=== PATIENT | female | born 1945 | race Caucasian/White ===

== ENCOUNTER 2016-04-29 12:55 | Inpatient (IN) | payer MEDICARE, BC, OTHER ==
--- NOTE | 2016-04-29 13:07 | ER Document Report ---
ED Respiratory Problem - General Chief Complaint: Shortness Of Breath Stated Complaint: RESPIRATORY DISTRESS Information source: Patient, Emergency Med Personnel Notes: The patient is a 70-year-old female, past medical history CHF, frequent bouts of pneumonia, hypertension, presents with 1 day of increased shortness of breath. In addition, her son said she is mildly confused compared to her baseline and she may have a UTI. The patient was 84% on room air when EMS arrived and she was given a dose of albuterol by EMS prior to arrival. She denies chest pain, leg swelling, cough, fevers, nausea, vomiting, abdominal pain , flank pain or rash. TRAVEL OUTSIDE OF THE [place] IN LAST 30 DAYS: No - Related Data Allergies/Adverse Reactions: morphine [Morphine] Allergy (Mild, Verified 06/04/14 03:36) "oversedated" Past Medical History - General Information source: Patient, Emergency Med Personnel - Social History Smoking Status: Never Smoker Family History: denies: CAD - Past Medical History Cardiac Medical History: Reports: Hx Atrial Fibrillation - "stable/well controlled" per 05/02/13 note, Dr Jackman, Hx Hypercholesterolemia, Hx Hypertension Pulmonary Medical History: Reports: Hx Bronchitis, Hx COPD, Hx Pneumonia - Pediatric Neurological Medical History: Reports: Hx Cerebrovascular Accident Endocrine Medical History: Reports: Hx Diabetes Mellitus Type 2 Musculoskeltal Medical History: Reports Hx Arthritis Skin Medical History: Reports Hx MRSA - abdominal wall, resolved. Psychiatric Medical History: Reports: Hx Depression Traumatic Medical History: Reports: Hx Fractures - "LT arm", no surgery Past Surgical History: Reports: Hx Abdominal Surgery - abdominal abscess, Hx Herniorrhaphy - incisional, Hx Hysterectomy - CHIP, Hx Orthopedic Surgery - left hip replacement, right knee replacement. - Immunizations Hx Diphtheria, Pertussis, Tetanus Vaccination: No Hx Pneumococcal Vaccination: 06/05/13 Review of Systems - Review of Systems Notes: REVIEW OF SYSTEMS: CONSTITUTIONAL: -fevers, -chills EENT: -eye pain, -difficulty swallowing, -nasal congestion CARDIOVASCULAR: -chest pain, -syncope. RESPIRATORY: -cough, +SOB GASTROINTESTINAL: -abdominal pain, - nausea, -vomiting, -diarrhea GENITOURINARY: -dysuria, -hematuria MUSCULOSKELETAL: -back pain, -neck pain SKIN: -rash or skin lesions. HEMATOLOGIC: -easy bruising or bleeding. LYMPHATIC: -swollen, enlarged glands. NEUROLOGICAL: +mild confusion, -headache, -neurologic symptoms PSYCHIATRIC: -anxiety, -depression. ALL OTHER SYSTEMS REVIEWED AND NEGATIVE. Physical Exam - Vital signs Vitals: Temp Pulse Resp BP Pulse Ox 99.8 F 51 L 22 H 130/75 H 88 L 04/29/16 13:24 04/29/16 13:24 04/29/16 13:24 04/29/16 13:24 04/29/16 13:24 - Notes Notes: PHYSICAL EXAMINATION: GENERAL: Well-appearing, well-nourished and in no acute distress. HEAD: Atraumatic, normocephalic. EYES: Pupils equal round and reactive to light, extraocular movements intact, sclera anicteric, conjunctiva are normal. ENT: nares patent, oropharynx clear without exudates. Moist mucous membranes. NECK: Normal range of motion, supple without lymphadenopathy LUNGS: B/L rales and crackles. No respiratory distress. HEART: Regular rate and rhythm without murmurs ABDOMEN: Soft, nontender, normoactive bowel sounds. No guarding, no rebound. No masses appreciated. EXTREMITIES: Normal range of motion, no pitting or edema. No cyanosis. NEUROLOGICAL: Cranial nerves grossly intact. Normal speech, normal gait. Normal sensory, motor, and reflex exams. PSYCH: Normal mood, normal affect. SKIN: Warm, Dry, normal turgor, no rashes or lesions noted. Course - Re-evaluation Re-evalutation: Patient with hypoxia down to 82% on room air that improves to 94% on 4 L O2. She does not wear oxygen at home. Possible left lower lobe pneumonia on chest x -ray. Last hospitalization was one year ago. Will treat her for CAP. Pt in no respiratory distress and denies chest pain. Patient requires admission for oxygen and further evaluation treatment of her cough and shortness of breath. 04/29/16 18:[address] Jiménez and will admit patient as Inpatient to IMCU for pneumonia and hypoxia. - Vital Signs Vital signs: Temp Pulse Resp BP Pulse Ox 99.8 F 85 22 H 125/100 H 93 04/29/16 13:24 04/29/16 15:01 04/29/16 16:01 04/29/16 18:01 04/29/16 18:32 - Laboratory Result Diagrams: 04/29/16 15:23 04/29/16 15:14 Laboratory results interpreted by me: 04/29/16 04/29/16 04/29/16 13:18 15:14 15:23 RDW 14.8 H Monocytes % 13.1 H Sodium 136.2 L Potassium 3.3 L Glucose 123 H NT-Pro-B Natriuret Pep Urine Protein 30 H Urine Blood SMALL H Urine Urobilinogen 2.0 H 04/29/16 15:23 RDW Monocytes % Sodium Potassium Glucose NT-Pro-B Natriuret Pep 1210 H Urine Protein Urine Blood Urine Urobilinogen - Diagnostic Test Radiology reviewed: Image reviewed, Reports reviewed Radiology results interpreted by me: CXR: LLL patchiness, pneumonia or atelectasis Discharge - Discharge Clinical Impression: Hypoxia, Hypokalemia Pneumonia Qualifiers: Pneumonia type: due to unspecified organism Laterality: left Lung location: lower lobe of lung Qualified Code(s): J18.1 - Lobar pneumonia, unspecified organism Condition: Stable Disposition: ADMITTED INPATIENT Admitting Provider: [place] [facility] Unit Admitted: IMCU Referrals: RANI OBANDO PA [Primary Care Provider] - Follow up as needed
[2016-04-29 13:51] LABS: APPEARANCE,URINE SLIGHTLY-CLOUDY; BILIRUBIN,URINE NEGATIVE (NEGATIVE); GLUCOSE, URINE NEGATIVE (NEGATIVE); KETONES,URINE NEGATIVE (NEGATIVE); LEUKOCYTE ESTERASE,URINE NEGATIVE (NEGATIVE); NITRITE,URINE NEGATIVE (NEGATIVE); PROTEIN,URINE 30 mg/dL (NEGATIVE); URINE SPECIFIC GRAVITY 1.016
[2016-04-29] MEDS ORDERED: AZITHROMYCIN INJ 500 MG VIAL IV ONE (14:41)
[2016-04-29] MEDS ORDERED: CEFTRIAXONE INJ 1000 MG VIAL IV ONE (14:41)
--- NOTE | 2016-04-29 15:20 | EKG REPORT ---
SEVERITY:- ABNORMAL ECG - ATRIAL FIBRILLATION LEFT BUNDLE BRANCH BLOCK : Confirmed by: Florecita Benavides MD 29-Apr-2016 15:19:53
[2016-04-29 15:46] LABS: ABSOLUTE BASOPHILS # (AUTO) 0.1 10^3/uL (0.0-0.2); ABSOLUTE LYMPHOCYTES (AUTO) 1.1 10^3/uL (0.5-4.7); ABSOLUTE MONOCYTES (AUTO) 1.1 10^3/uL (0.1-1.4); BASOPHILS % (AUTO) 0.8 % (0-2); EOSINOPHILS % (AUTO) 0.1 % (0-6); HEMATOCRIT 40.1 % (36.0-47.0); HEMOGLOBIN 13.3 g/dL (12.0-15.5); HGB HCT DIFFERENCE -0.2; LYMPHOCYTES % (AUTO) 13.1 % (13-45); MEAN CORPUSCULAR HEMOGLOBIN 29.9 pg (27.0-33.4); MEAN CORPUSCULAR HGB CONC 33.2 g/dL (32.0-36.0); MEAN CORPUSCULAR VOLUME 90 fl (80-97); MONOCYTES % (AUTO) 13.1 % (3-13); RED BLOOD COUNT 4.45 10^6/uL (3.72-5.28); RED CELL DISTRIBUTION WIDTH 14.8 % (11.5-14.0); SEGMENTED NEUTROPHILS % (AUTO) 72.9 % (42-78); WHITE BLOOD COUNT 8.2 10^3/uL (4.0-10.5)
[2016-04-29 15:58] LABS: ANION GAP 11 (5-19); BLOOD UREA NITROGEN 15 mg/dL (7-20); CALCIUM 8.7 mg/dL (8.4-10.2); CARBON DIOXIDE 27 mmol/L (22-30); CHLORIDE 98 mmol/L (98-107); CREATINE KINASE 68 U/L (30-135); CREATININE RESULT 0.68 mg/dL (0.52-1.25); GLUCOSE 123 mg/dL (75-110); POTASSIUM 3.3 mmol/L (3.6-5.0); SODIUM 136.2 mmol/L (137-145)
[2016-04-29 16:02] LABS: TROPONIN I 0.024 ng/mL
[2016-04-29] MEDS ORDERED: POTASSIUM CHLORIDE 20 MEQ/15 ML UDCUP PO ONE (16:16)
[2016-04-29 20:08] LABS: ADD ON TESTING BLD IN LAB ACKNOWLEDGE
[2016-04-29 20:22] LABS: ALANINE AMINOTRANSFERASE 33 U/L (9-52); ALBUMIN 3.2 g/dL (3.5-5.0); ALKALINE PHOSPHATASE 65 U/L (38-126); ASPARTATE AMINO TRANSFERASE 32 U/L (14-36); TOTAL PROTEIN 6.6 g/dL (6.3-8.2)
[2016-04-29 20:56] LABS: PROTHROMBIN TIME 15.3 SEC (11.4-15.4)
[2016-04-29 20:57] LABS: PARTIAL THROMBOPLASTIN TIME 24.1 SEC (23.5-35.8)
[2016-04-29 21:12] LABS: VENOUS BLOOD BASE EXCESS 5.2 mmol/L; VENOUS BLOOD HCO3 31.3 mmol/L (20-32); VENOUS BLOOD PH 7.4 (7.30-7.42)
[2016-04-29] MEDS ORDERED: ACETAMINOPHEN 325 MG TABLET PO PRN (21:12)
[2016-04-29] MEDS ORDERED: GUAIFENESIN SYRP 200 MG/10 ML UDC PO PRN (21:12)
[2016-04-29] MEDS ORDERED: ALBUTEROL SULFATE 0.083% NEB 2.5 MG/3 ML AMPUL NEB PRN (21:12)
[2016-04-29] MEDS ORDERED: DEXTROSE 40% GEL 15 GM TUBE PO PRN ×2 (21:13)
[2016-04-29] MEDS ORDERED: DEXTROSE 50%-WATER 25 GM/50 ML DISP.SYRIN IV PRN ×2 (21:13)
[2016-04-29] MEDS ORDERED: GLUCAGON,HUMAN RECOMB 1 MG INJ IM PRN (21:13)
[2016-04-29] MEDS ORDERED: METHYLPREDNISOLONE INJ 125 MG/2 ML SDV IV ONE (21:30)
--- NOTE | 2016-04-29 21:43 | PDOC H&P ---
History of Present Illness Admission Date/PCP: 04/29/16 19:32 DR. JUAN M Oscar Patient complains of: difficulty breathing History of Present Illness: August ANNELISE is a 70 year old female with underlying nonhome O2 dependent COPD, possibly asthma, along with chronic atrial fibrillation, on Xarelto for same, and combined systolic and diastolic congestive heart failure, who presents to the emergency room for evaluation of approximate 24-hour history of slowly progressive difficulty breathing, in particular with much of any exertion. 84% on room air when EMS arrived. Was given an albuterol treatment en route. Associated slightly productive cough, but no fever chills, nausea vomiting, diarrhea or dysuria, chest or abdominal pain. Lost her balance and fell and struck the back of her head on her bathroom floor yesterday. No loss of consciousness. Hospitalized on our service November 28 through the of last year with discharge diagnoses including atrial fibrillation with rapid ventricular response, along with COPD exacerbation and acute on chronic combined diastolic and systolic congestive heart failure. Has not been hospitalized since then. Doesn't think she's been on antibiotics in the last 3 months. Up-to-date with her flu vaccination. Uncertain about her pneumonia vaccination. Patient has been discussed with daytime hospitalist who discussed the patient with the emergency room physician who evaluated the patient. . Laboratory results are listed in [facility] and are reviewed. X-ray summary results are listed below, with full report(s) reviewed. . EKG reviewed. And compared to a tracing from November 28 of last year. Social history/personal habits: . Grandson and family live with her. Retired. No use of alcohol tobacco or illicit drugs. was a heavy smoker. Allergies/adverse reactions are listed in [facility] and are reviewed. Home medications are reviewed by bottle review and discussion with patient and [facility] Home medications initially autopopulated into [facility] may not accurately reflect patient's true medications, dosages, and/or frequencies. Compliant with medications. No recent medication changes. REVIEW OF SYSTEMS: Constitutional: No fever or chills. Eyes: Wears glasses. ENT: No swallowing problems or complaints. No hearing problems or complaints. Pulmonary: See history and present illness. Cardiovascular: No current complaints, including chest pain. Gastrointestinal: No current complaints, including nausea or vomiting. Skin: No current complaints, including rashes. Hematologic: Easy bruising. Neurologic: No current complaints, including numbness or tingling. Musculoskeletal: No current complaints, including painful joints. Psychiatric: No current complaints, including anxiety or depression. Endocrine: No current complaints, including polyuria. Genitourinary: No current complaints, including dysuria. PHYSICAL EXAMINATION: Temperature 99.8. 5 feet 3 inches tall. 79.8 kg. BMI 31.2 kg/m. Pulse 96 and regular. 93% saturation on 3 L oxygen per nasal cannula. Blood pressure 160/88. Respirations are 22 and unlabored. Obese somewhat chronically ill-appearing elderly female who appears a bit older than her stated age. Pleasant awake alert and cooperative. Mildly anxious, without agitation. Appears to feel a bit under the weather, so to speak. Slightly fatigued. Skin is warm and dry. No grossly obvious evidence of rash in areas of skin examined. No subcutaneous nodules palpated. malar region and lower forehead slightly erythematous --seborrhea? ENT: Hearing grossly normal to normal conversation. Tongue midline on protrusion pink and slightly tacky. No palpable occipital hematoma, crepitus, or instability.. Eyes: No scleral icterus. Pupils equal and reactive to light at 4 mm. [place] conjunctivae. No raccoon eyes. Neck is supple and nontender to gentle active range of motion and palpation. Midline trachea. No palpable thyroid nodule mass enlargement or tenderness. Lymphatic: No palpable cervical or clavicular nodes. Neck and lymphatic exams limited by patient body habitus. Psychiatric: Reasonable insight into acute and chronic medical issues. Oriented to time location and why here. Lungs: Auscultation reveals equal breath sounds bilaterally. No use of accessory respiratory muscles. Slightly coarse breath sounds bilaterally, with mild expiratory wheezing. breath sounds a bit more rhonchorous in the lower half of the left hemithorax. Cardiovascular: Heart regular rate and rhythm, without gallop murmur or rub. No carotid or abdominal aortic bruits. No ankle or pedal edema. Faintly palpable dorsalis pedis pulses. Abdomen: soft, slightly obese, nontender with positive bowel sounds. Unable to adequately evaluate abdomen for masses or organomegaly due to body habitus. Extremities: Feet are warm and dry. No calf tenderness to compression. No grossly obvious visual evidence of calf swelling. Gentle manipulation of lower extremities fails to reveal any obvious evidence of injury or instability to knees hips or ankles. Neurologic: Moves upper extremities grossly normally. Patellar reflexes absent. Absent Babinski. Light touch is intact at feet. Dorsiflexion and plantarflexion of feet 5 / 5 and symmetric. Mild resting tremor, upper and lower extremities.. Past Medical History Cardiac Medical History: Reports: Atrial Fibrillation, Congestive Heart Failure , Hyperlipidema, Hypertension Denies: DVT, Myocardial Infarction, Pulmonary Embolism Pulmonary Medical History: Reports: Bronchitis, Chronic Obstructive Pulmonary Disease (COPD), Pneumonia - Pediatric EENT Medical History: Reports: Eyes - Glasses Denies: Ears, Throat Neurological Medical History: Denies: Hemorrhagic CVA, Ischemic CVA, Seizures Endocrine Medical History: Reports: Diabetes Mellitus Type 2 - Diet controlled Denies: Diabetes Mellitus Type 1, Hyperthyroidism, Hypothyroidism Renal/ Medical History: Reports: None GI Medical History: Denies: Cirrhosis, Gastroesophageal Reflux Disease, Hepatitis, Peptic Ulcer Disease Musculoskeltal Medical History: Denies: Arthritis Skin Medical History: Reports: None Denies: Eczema, Psoriasis Psychiatric Medical History: Denies: Alcohol Dependency, Depression, General Anxiety Disorder, Substance Abuse, Tobacco Dependency Hematology: Reports: Other - Easy bruising Infectious Medical History: Denies: Hepatitis B, Hepatitis C Past Surgical History Past Surgical History: Reports: Herniorrhaphy - incisional, Hysterectomy - CHIP, Orthopedic Surgery - left hip replacement, right knee replacement. Denies: Amputation Social History Information Source: Patient, Emergency Med Personnel, [facility] Records Lives with: Family Smoking Status: Never Smoker Frequency of Alcohol Use: None Hx Recreational Drug Use: No Hx Prescription Drug Abuse: No - Advance Directive Resuscitation Status: Do Not Resuscitate - Implications of DO NOT RESUSCITATE/ DO NOT INTUBATE status discussed with patient. Discussed in layperson's terms. Implications understood. Patient is the health care decision maker. Patient conversation is lucid and appropriate. Patient desires DO NOT RESUSCITATE/DO NOT INTUBATE status. Will honor patient wishes. Surrogate healthcare decision maker:: Her daughter Family History Family History: denies: CAD Parental Family History Reviewed: Yes Children Family History Reviewed: Yes Sibling(s) Family History Reviewed.: Yes Medication/Allergy Home Medications: Atorvastatin Calcium [Lipitor 40 mg Tablet] 40 mg PO QHS 04/30/16 Brimonidine Tartrate/Timolol [Combigan 0.2%-0.5% Eye Drops] 1 drop OS Q12 Budesonide/Formoterol Fumarate [Symbicort HFA 160-4.5 mcg Inhaler 6 gm] 2 puff IH Q12 04/30/16 Carvedilol [Coreg 6.25 mg Tablet] 6.25 mg PO Q12 04/30/16 Diltiazem HCl [Cartia Xt] 240 mg PO Q12 04/30/16 Ergocalciferol (Vitamin D2) [Vitamin D2] 50,000 unit PO SAINI@1000 04/30/16 Escitalopram Oxalate [Lexapro] 10 mg PO QHS 04/30/16 Fluticasone/Salmeterol [Advair 250-50 Diskus 14 Dose/Diskus] 1 puff IH Q12 04/30 Furosemide [Lasix] 20 mg PO QAM 04/30/16 Timolol Maleate [Timoptic 0.5% Oph Soln 5 ml] 1 drop OS Q12 04/30/16 Glimepiride [Amaryl 4 mg Tablet] 4 mg PO DAILY #30 tablet 05/07/16 Lisinopril [Prinivil 10 mg Tablet] 10 mg PO DAILY #30 tablet 05/07/16 Metformin HCl 500 mg PO DAILY #30 tablet 05/07/16 Prednisone [Deltasone 20 mg Tablet] 20 mg PO DAILY #5 tablet 05/07/16 Allergies/Adverse Reactions: morphine [Morphine] Allergy (Mild, Verified 06/04/14 03:36) "oversedated" Physical Exam Vital Signs: Temp Pulse Resp BP Pulse Ox 99.8 F 85 22 H 125/100 H 93 04/29/16 13:24 04/29/16 15:01 04/29/16 16:01 04/29/16 18:01 04/29/16 18:32 Results Impressions: Chest X-Ray 04/29/16 13:02 IMPRESSION: Stable moderate cardiomegaly Patchy airspace disease at the left lateral lung base, atelectasis versus pneumonia Assessment & Plan - Diagnosis (1) Blunt head trauma Qualifiers: Encounter type: initial encounter Qualified Code(s): S09.8XXA - Other specified injuries of head, initial encounter Is this a current diagnosis for this admission?: YesPlan: Clinically doesn't appear significant, but with patient on Xarelto, will proceed with CT scan of head without contrast. Strongly encouraged patient not to get out of bed without notifying staff, to avoid another fall with injury. Physical therapy consult. (2) COPD exacerbation Is this a current diagnosis for this admission?: YesPlan: Patient will be admitted under COPD exacerbation and pneumonia protocol. Incentive spirometry twice a day. Scheduled DuoNeb's. PRN albuterol nebs Solu-Medrol Prevacid for gastritis prophylaxis. Antibiotics will consist of Rocephin and intravenous Zithromax.. I strongly encouraged patient to notify staff should patient feel that respiratory status is worsening. Patient is a full code. Knee high SCDs for DVT prophylaxis; with patient on Xarelto, no need for Lovenox or heparin at this point in time. Impression and plans were discussed with patient, who concurs. Time spent in evaluation and management of patient: 70 minutes. (3) Fall Qualifiers: Encounter type: initial encounter Qualified Code(s): W19.XXXA - Unspecified fall, initial encounter Is this a current diagnosis for this admission?: Yes (4) Hypokalemia Is this a current diagnosis for this admission?: YesPlan: Has received potassium from ER physician. Follow-up chemistry. (5) LLL pneumonia Qualifiers: Pneumonia type: due to unspecified organism Qualified Code(s): J18.1 - Lobar pneumonia, unspecified organism Is this a current diagnosis for this admission?: Yes (6) Combined systolic and diastolic congestive heart failure Qualifiers: Congestive heart failure chronicity: chronic Qualified Code(s): I50.42 - Chronic combined systolic (congestive) and diastolic (congestive) heart failure Is this a current diagnosis for this admission?: YesPlan: Clinically stable at this point in time.Resume home medications as appropriate once these have been reviewed. (7) DM w/o complication type II Qualifiers: Diabetes mellitus healthcare technician insulin use: without senior living use Qualified Code(s): E11.9 - Type 2 diabetes mellitus without complications Is this a current diagnosis for this admission?: YesPlan: Diet-controlled. Ice chips only the present time, until more comfortable with her respiratory status. Accu-Cheks with appropriate sliding scale coverage. (9) Glaucoma Qualifiers: Glaucoma type: unspecified type Laterality: unspecified laterality Qualified Code(s): H40.9 - Unspecified glaucoma Is this a current diagnosis for this admission?: YesPlan: Resume home medications as appropriate once these have been determined and reviewed. (10) HTN (hypertension) Qualifiers: Hypertension type: essential hypertension Qualified Code(s): I10 - Essential (primary) hypertension Is this a current diagnosis for this admission?: YesPlan: Resume home medications as appropriate once these have been reviewed. 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 - Inpatient Certification Based on my medical assessment, after consideration of the patient's comorbidities, presenting symptoms, or acuity I expect that the services needed warrant INPATIENT care.: Yes I certify that my determination is in accordance with my understanding of Medicare's requirements for reasonable and necessary INPATIENT services [42 CFR 412.3e].: Yes Medical Necessity: Significant Comorbidiites Make Outpatient Treatment Too Risky , Need Close Monitoring Due to Risk of Patient Decompensation, Need For IV Fluids, Need For Continuous Telemetry Monitoring, Need for Nebulizer Therapy and Monitoring of Response, Need for IV Antibiotics, Risk of Complication if Not Cared For in Hospital, Risk of Diagnosis Which Will Require Inpatient Eval/ Care/Monitoring Post Hospital Care: D/C or Transfer Summary
[2016-04-30] MEDS: ATORVASTATIN CALCIUM 80 MG TABLET PO SCH ×2 (00:44→21:37)
[2016-04-30] MEDS: DILTIAZEM HCL 240 MG CAPSULE.CR PO SCH ×3 (00:45→21:36)
[2016-04-30] MEDS: METHYLPREDNISOLONE INJ 125 MG/2 ML SDV IV SCH ×4 (02:04→21:39)
[2016-04-30] MEDS: FLUTICASONE/SALMETEROL DISKUS 250-50 MCG/DOSE IH SCH ×3 (02:09→21:38)
[2016-04-30] MEDS: POTASSI CL 20 MEQ/NS 1L 1,000 ML IV PRN (02:10)
[2016-04-30 02:14] LABS: ANION GAP 13 (5-19); BLOOD UREA NITROGEN 12 mg/dL (7-20); CALCIUM 8.3 mg/dL (8.4-10.2); CARBON DIOXIDE 24 mmol/L (22-30); CHLORIDE 100 mmol/L (98-107); CREATININE RESULT 0.54 mg/dL (0.52-1.25); GLUCOSE 96 mg/dL (75-110); POTASSIUM 3.5 mmol/L (3.6-5.0); SODIUM 137.4 mmol/L (137-145)
[2016-04-30 03:06] LABS: VENOUS BLOOD BASE EXCESS 1.4 mmol/L; VENOUS BLOOD HCO3 26.6 mmol/L (20-32); VENOUS BLOOD PCO2 44.3 mmHg (35-63); VENOUS BLOOD PH 7.4 (7.30-7.42)
[2016-04-30] MEDS ORDERED: POTASSIUM CHLORIDE 20 MEQ/15 ML UDCUP PO ONE (03:15)
[2016-04-30 07:26] LABS: ABSOLUTE LYMPHOCYTES (AUTO) 0.8 10^3/uL (0.5-4.7); ABSOLUTE MONOCYTES (AUTO) 0.2 10^3/uL (0.1-1.4); ABSOLUTE NEUT (AUTO) 5.6 10^3/uL (1.7-8.2); BASOPHILS % (AUTO) 0.5 % (0-2); HEMATOCRIT 44.5 % (36.0-47.0); HEMOGLOBIN 14.8 g/dL (12.0-15.5); HGB HCT DIFFERENCE -0.1; LYMPHOCYTES % (AUTO) 11.9 % (13-45); MEAN CORPUSCULAR HEMOGLOBIN 30.1 pg (27.0-33.4); MEAN CORPUSCULAR HGB CONC 33.2 g/dL (32.0-36.0); MEAN CORPUSCULAR VOLUME 91 fl (80-97); MONOCYTES % (AUTO) 2.8 % (3-13); RED CELL DISTRIBUTION WIDTH 15.2 % (11.5-14.0); SEGMENTED NEUTROPHILS % (AUTO) 84.8 % (42-78); WHITE BLOOD COUNT 6.6 10^3/uL (4.0-10.5)
[2016-04-30] MEDS: LANSOPRAZOLE 30 MG TAB.RAP.DR PO SCH ×2 (07:29→18:50)
[2016-04-30] MEDS ORDERED: FUROSEMIDE 20 MG TABLET PO SCH (08:00)
[2016-04-30] MEDS: IPRATROPIUM/ALBUTEROL 0.5-2.5 MG/3 ML AMPUL NEB SCH ×2 (08:50→13:44)
[2016-04-30] MEDS: CEFTRIAXONE 1 GM/D5W RTU 50 ML IV SCH (09:12)
[2016-04-30] MEDS ORDERED: LISINOPRIL 10 MG TABLET PO SCH (10:00)
[2016-04-30] MEDS ORDERED: AZITHROMYCIN 500 MG in DEXTROSE 5%-WATER 250 ML IV SCH (10:00)
[2016-04-30] MEDS: DOXYCYCLINE HYCLATE 100 MG in DEXTROSE 5%-WATER 250 ML IV SCH ×2 (11:10→22:17)
[2016-04-30] MEDS: INSULIN LISPRO 100 UNIT/ML 3 ML VIAL SUBCUT PRN ×3 (11:12→21:35)
[2016-04-30] MEDS: BUDESONIDE/FORMOTEROL 160-4.5 MCG 60 PUFF/6 GM MDI IH SCH ×2 (12:34→21:38)
[2016-04-30] MEDS: TIMOLOL MALEATE 0.5% OPH SOLN 5 ML OS SCH ×2 (12:34→18:50)
--- NOTE | 2016-04-30 15:31 | PDOC PROGRESS REPORT ---
Subjective Progress Note for:: 04/30/16 Subjective:: Reason for visit: Follow-up COPD exacerbation and pneumonia Hospital course: Per H&P "August ANNELISE is a 70 year old female with underlying nonhome O2 dependent COPD, possibly asthma, along with chronic atrial fibrillation, on Xarelto for same, and combined systolic and diastolic congestive heart failure, who presents to the emergency room for evaluation of approximate 24-hour history of slowly progressive difficulty breathing, in particular with much of any exertion. 84% on room air when EMS arrived. Was given an albuterol treatment en route. Associated slightly productive cough, but no fever chills, nausea vomiting, diarrhea or dysuria, chest or abdominal pain. Lost her balance and fell and struck the back of her head on her bathroom floor yesterday. No loss of consciousness. Hospitalized on our service November 28 through the of last year with discharge diagnoses including atrial fibrillation with rapid ventricular response, along with COPD exacerbation and acute on chronic combined diastolic and systolic congestive heart failure. Has not been hospitalized since then. Doesn't think she's been on antibiotics in the last 3 months. Up-to-date with her flu vaccination. Uncertain about her pneumonia vaccination." Patient was admitted and started on antibiotics for community-acquired pneumonia including Rocephin and doxycycline, azithromycin and Levaquin on hold due to prolonged QT interval on EKG. Subjective: Patient reports she really doesn't feel much better than when she arrived, still with productive cough and persistent rattle in her chest and still very weak and wheezy. She denies chest pain, palpitations, nausea, vomiting, diarrhea. Of note patient had echocardiogram performed in November 2015 that showed an EF of 40-45% with moderate mitral regurgitation and moderate rate to6 diastolic dysfunction. ROS: per HPI plus a total of 10 systems reviewed, pertinent positives and negatives noted above, remaining systems negative. Physical Exam Vital Signs: Temp Pulse Resp BP Pulse Ox 97.5 F 68 18 115/47 L 96 04/30/16 12:19 04/30/16 13:44 04/30/16 13:44 04/30/16 12:19 04/30/16 13:44 Intake & Output 04/29/16 04/30/16 05/01/16 06:59 06:59 06:59 Intake Total 700 Balance 700 Weight 78.6 kg EXAM GENERAL: NAD; hirsute; well developed, well nourished; no obese; alert and oriented to person, place, time, situation HEENT: normocephalic, small contusion on scalp, no underlying fluctuant mass and nontender. No underlying crepitus; no conjunctival injection, no scleral icterus; oral mucosa moist; RESPIRATORY: no accessory muscle use, no increased WOB, good air entry bilaterally; no wheezes, but coarse rales and inspiratory crackles bilateral CARDIO: no JVD; RRR; no systolic murmur; no tachycardia GI: soft; nondistended; normal bowel sounds; no hepato spleno megaly; no rebound, rigidity, guarding; nontender VASCULAR: no carotid bruit; no abdominal bruit; no pallor; 2+ radial, DP pulse ; normal capillary refill EXTREMITIES: no calf tender; no palpable cords in calf; no clubbing, cyanosis , pedal edema PSYCH: normal affect, normal mood SKIN: warm; moist; no petechiae; no telengectasias; no jaundice; no rash Results Laboratory Results: 04/30/16 07:15 04/30/16 01:43 04/30/16 04/30/16 04/30/16 01:43 02:45 07:15 WBC 6.6 RBC 4.90 Hgb 14.8 Hct 44.5 MCV 91 MCH 30.1 MCHC 33.2 RDW 15.2 H Plt Count 212 Seg Neutrophils % 84.8 H Lymphocytes % 11.9 L Monocytes % 2.8 L Eosinophils % 0.0 Basophils % 0.5 Absolute Neutrophils 5.6 Absolute Lymphocytes 0.8 Absolute Monocytes 0.2 Absolute Eosinophils 0.0 Absolute Basophils 0.0 VBG pH 7.40 VBG pCO2 44.3 VBG HCO3 26.6 VBG Base Excess 1.4 Sodium 137.4 Potassium 3.5 L Chloride 100 Carbon Dioxide 24 Anion Gap 13 BUN 12 Creatinine 0.54 Est GFR ( Amer) > 60 Est GFR (Non-Af Amer) > 60 Glucose 96 Calcium 8.3 L Labs reviewed, CBC and leukocytes reassuring, serum chemistries normal Impressions: Head CT 04/29/16 00:00 IMPRESSION: No intracranial hemorrhage. Chest X-Ray 04/29/16 13:02 IMPRESSION: Stable moderate cardiomegaly Patchy airspace disease at the left lateral lung base, atelectasis versus pneumonia Status: Imported from PACS - Reports reviewed Assessment & Plan - Diagnosis (1) LLL pneumonia Qualifiers: Pneumonia type: due to unspecified organism Qualified Code(s): J18.1 - Lobar pneumonia, unspecified organism Is this a current diagnosis for this admission?: YesPlan: Continue antibiotics started by Dr. Chavis. Awaiting sputum and blood cultures from the emergency department. Continue supplemental oxygen as needed , incentive spirometry as the patient will allow. Continue nebulizers as needed. (2) COPD exacerbation Is this a current diagnosis for this admission?: YesPlan: Continue systemic steroids with a rapid wean. (3) Chronic atrial fibrillation Is this a current diagnosis for this admission?: YesPlan: Rate controlled, continue current regimen. (4) Blunt head trauma Qualifiers: Encounter type: initial encounter Qualified Code(s): S09.8XXA - Other specified injuries of head, initial encounter Is this a current diagnosis for this admission?: YesPlan: Closed head trauma with minimal contusion noted and no headache or other postconcussive symptoms. Continue to monitor. (5) Hypokalemia Is this a current diagnosis for this admission?: YesPlan: Monitor and replace. (6) Acute and chronic respiratory failure ([id number]) Qualifiers: Respiratory failure complication: hypoxia Qualified Code(s): J96.21 - Acute and chronic respiratory failure with hypoxia Is this a current diagnosis for this admission?: YesPlan: Supplemental O2 and wean as tolerated. Otherwise treat as above. (7) Combined systolic and diastolic congestive heart failure Qualifiers: Congestive heart failure chronicity: chronic Qualified Code(s): I50.42 - Chronic combined systolic (congestive) and diastolic (congestive) heart failure Is this a current diagnosis for this admission?: YesPlan: Saline lock IV fluids and monitor volume status, and diuretic therapy as needed. (8) DM w/o complication type II Qualifiers: Diabetes mellitus manager long term care insulin use: without manager long term care use Qualified Code(s): E11.9 - Type 2 diabetes mellitus without complications Is this a current diagnosis for this admission?: YesPlan: Cover with sliding scale (10) [employer] current use of anticoagulant therapy Is this a current diagnosis for this admission?: YesPlan: Continue home dose - Time Time Spent with patient: 25-34 minutes Medications reviewed and adjusted accordingly: Yes Anticipated discharge: Home Within: within 72 hours
[2016-04-30] MEDS: RIVAROXABAN 10 MG TABLET PO SCH (21:35)
[2016-04-30] MEDS: ESCITALOPRAM OXALATE 10 MG TABLET PO SCH (21:37)
[2016-05-01] MEDS: LANSOPRAZOLE 30 MG TAB.RAP.DR PO SCH ×2 (06:03→16:26)
[2016-05-01] MEDS: METHYLPREDNISOLONE INJ 125 MG/2 ML SDV IV SCH ×2 (06:03→14:33)
[2016-05-01] MEDS: FLUTICASONE/SALMETEROL DISKUS 250-50 MCG/DOSE IH SCH (09:23)
[2016-05-01] MEDS: DILTIAZEM HCL 240 MG CAPSULE.CR PO SCH (09:23)
[2016-05-01] MEDS: DOXYCYCLINE HYCLATE 100 MG in DEXTROSE 5%-WATER 250 ML IV SCH (09:24)
[2016-05-01] MEDS: BUDESONIDE/FORMOTEROL 160-4.5 MCG 60 PUFF/6 GM MDI IH SCH (09:25)
[2016-05-01] MEDS: CEFTRIAXONE 1 GM/D5W RTU 50 ML IV SCH (09:26)
[2016-05-01] MEDS: TIMOLOL MALEATE 0.5% OPH SOLN 5 ML OS SCH ×2 (09:26→17:16)
[2016-05-01] MEDS: INSULIN LISPRO 100 UNIT/ML 3 ML VIAL SUBCUT PRN ×2 (11:53→16:26)
--- NOTE | 2016-05-01 13:36 | PDOC PROGRESS REPORT ---
Subjective Progress Note for:: 05/01/16 Subjective:: Reason for visit: Follow-up COPD exacerbation and pneumonia Hospital course: Per H&P "August ANNELISE is a 70 year old female with underlying nonhome O2 dependent COPD, possibly asthma, along with chronic atrial fibrillation, on Xarelto for same, and combined systolic and diastolic congestive heart failure, who presents to the emergency room for evaluation of approximate 24-hour history of slowly progressive difficulty breathing, in particular with much of any exertion. 84% on room air when EMS arrived. Was given an albuterol treatment en route. Associated slightly productive cough, but no fever chills, nausea vomiting, diarrhea or dysuria, chest or abdominal pain. Lost her balance and fell and struck the back of her head on her bathroom floor yesterday. No loss of consciousness. Hospitalized on our service November 28 through the of last year with discharge diagnoses including atrial fibrillation with rapid ventricular response, along with COPD exacerbation and acute on chronic combined diastolic and systolic congestive heart failure. Has not been hospitalized since then. Doesn't think she's been on antibiotics in the last 3 months. Up-to-date with her flu vaccination. Uncertain about her pneumonia vaccination." Patient was admitted and started on antibiotics for community-acquired pneumonia including Rocephin and doxycycline, azithromycin and Levaquin on hold due to prolonged QT interval on EKG. Of note patient had echocardiogram performed in November 2015 that showed an EF of 40-45% with moderate mitral regurgitation and moderate rate to6 diastolic dysfunction. Subjective: Patient reports she is breathing easier though still with productive cough and remains very weak. She denies chest pain, palpitations, nausea, vomiting, diarrhea. ROS: per HPI plus a total of 10 systems reviewed, pertinent positives and negatives noted above, remaining systems negative. Physical Exam Vital Signs: Temp Pulse Resp BP Pulse Ox 97.6 F 71 16 136/63 H 96 05/01/16 07:41 05/01/16 08:00 05/01/16 08:00 05/01/16 07:41 05/01/16 08:00 Intake & Output 04/30/16 05/01/16 05/02/16 06:59 06:59 06:59 Intake Total 3060 Balance 3060 Weight 79.9 kg EXAM GENERAL: NAD, she is in much better spirits, more alive and interactive this morning; hirsute; well developed, well nourished; no obese; alert and oriented to person, place, time HEENT: normocephalic, small contusion on scalp, no underlying fluctuant mass and nontender and no underlying crepitus; no conjunctival injection, no scleral icterus; oral mucosa moist; RESPIRATORY: no accessory muscle use, no increased WOB, good air entry bilaterally; no wheezes, but coarse rales and inspiratory crackles bilateral some improved CARDIO: no JVD; RRR; no systolic murmur; no tachycardia GI: soft; nondistended; normal bowel sounds; nontender VASCULAR: no pallor; 2+ radial, DP pulse; normal capillary refill EXTREMITIES: no calf tender; no palpable cords in calf; no clubbing, cyanosis , pedal edema PSYCH: normal affect, normal mood SKIN: warm; moist; no petechiae; no telengectasias; no jaundice; no rash Assessment & Plan - Diagnosis (1) LLL pneumonia Qualifiers: Pneumonia type: due to unspecified organism Qualified Code(s): J18.1 - Lobar pneumonia, unspecified organism Is this a current diagnosis for this admission?: YesPlan: Continue antibiotics started by Dr. Chavis. Awaiting sputum and blood cultures from the emergency department. Continue supplemental oxygen as needed , incentive spirometry as the patient will allow. Continue nebulizers as needed. Start increase activity as tolerated (2) COPD exacerbation Is this a current diagnosis for this admission?: YesPlan: Continue systemic steroids with a rapid wean. (3) Acute and chronic respiratory failure ([id number]) Qualifiers: Respiratory failure complication: hypoxia Qualified Code(s): J96.21 - Acute and chronic respiratory failure with hypoxia Is this a current diagnosis for this admission?: YesPlan: Supplemental O2 and wean as tolerated. Otherwise treat as above. (4) Chronic atrial fibrillation Is this a current diagnosis for this admission?: Yes (5) Blunt head trauma Qualifiers: Encounter type: initial encounter Qualified Code(s): S09.8XXA - Other specified injuries of head, initial encounter Is this a current diagnosis for this admission?: Yes (6) Hypokalemia Is this a current diagnosis for this admission?: Yes (7) Combined systolic and diastolic congestive heart failure Qualifiers: Congestive heart failure chronicity: chronic Qualified Code(s): I50.42 - Chronic combined systolic (congestive) and diastolic (congestive) heart failure Is this a current diagnosis for this admission?: Yes (8) DM w/o complication type II Qualifiers: Diabetes mellitus snf insulin use: without assistant terminal manager use Qualified Code(s): E11.9 - Type 2 diabetes mellitus without complications Is this a current diagnosis for this admission?: Yes (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
[2016-05-02] MEDS: POTASSI CL 20 MEQ/NS 1L 1,000 ML IV PRN ×2 (00:05→00:16)
[2016-05-02] MEDS: DILTIAZEM HCL 240 MG CAPSULE.CR PO SCH ×3 (00:14→22:59)
[2016-05-02] MEDS: ESCITALOPRAM OXALATE 10 MG TABLET PO SCH ×2 (00:15→23:00)
[2016-05-02] MEDS: RIVAROXABAN 10 MG TABLET PO SCH (00:15)
[2016-05-02] MEDS: ATORVASTATIN CALCIUM 80 MG TABLET PO SCH ×2 (00:16→22:59)
[2016-05-02] MEDS: FLUTICASONE/SALMETEROL DISKUS 250-50 MCG/DOSE IH SCH ×3 (00:16→23:01)
[2016-05-02] MEDS: INSULIN LISPRO 100 UNIT/ML 3 ML VIAL SUBCUT PRN ×3 (00:16→23:00)
[2016-05-02] MEDS: BUDESONIDE/FORMOTEROL 160-4.5 MCG 60 PUFF/6 GM MDI IH SCH ×3 (00:18→22:59)
[2016-05-02] MEDS: METHYLPREDNISOLONE INJ 125 MG/2 ML SDV IV SCH ×4 (00:19→23:45)
[2016-05-02] MEDS: DOXYCYCLINE HYCLATE 100 MG in DEXTROSE 5%-WATER 250 ML IV SCH ×3 (00:26→23:44)
[2016-05-02] MEDS: LANSOPRAZOLE 30 MG TAB.RAP.DR PO SCH ×2 (07:35→17:19)
[2016-05-02] MEDS: CEFTRIAXONE 1 GM/D5W RTU 50 ML IV SCH (09:56)
[2016-05-02] MEDS: TIMOLOL MALEATE 0.5% OPH SOLN 5 ML OS SCH ×2 (10:00→17:19)
--- NOTE | 2016-05-02 10:21 | PDOC PROGRESS REPORT ---
Subjective Progress Note for:: 05/02/16 Subjective:: Reason for visit: Follow-up COPD exacerbation and pneumonia Hospital course: Per H&P "August ANNELISE is a 70 year old female with underlying nonhome O2 dependent COPD, possibly asthma, along with chronic atrial fibrillation, on Xarelto for same, and combined systolic and diastolic congestive heart failure, who presents to the emergency room for evaluation of approximate 24-hour history of slowly progressive difficulty breathing, in particular with much of any exertion. 84% on room air when EMS arrived. Was given an albuterol treatment en route. Associated slightly productive cough, but no fever chills, nausea vomiting, diarrhea or dysuria, chest or abdominal pain. Lost her balance and fell and struck the back of her head on her bathroom floor yesterday. No loss of consciousness. Hospitalized on our service November 28 through the of last year with discharge diagnoses including atrial fibrillation with rapid ventricular response, along with COPD exacerbation and acute on chronic combined diastolic and systolic congestive heart failure. Has not been hospitalized since then. Doesn't think she's been on antibiotics in the last 3 months. Up-to-date with her flu vaccination. Uncertain about her pneumonia vaccination." Patient was admitted and started on antibiotics for community-acquired pneumonia including Rocephin and doxycycline, azithromycin and Levaquin on hold due to prolonged QT interval on EKG. Of note patient had echocardiogram performed in November 2015 that showed an EF of 40-45% with moderate mitral regurgitation and moderate rate to6 diastolic dysfunction. She's been weaned off supplemental oxygen now maintaining room air sat of 93% or greater for me at the bedside. Subjective: Remains very wheezy. But her primary complaint to me this morning he has right lower quadrant abdominal pain described as sharp stabbing, grabbing pain, nonradiating, worsened with palpation and even certain movements and cough, not alleviated by anything, no associated nausea or vomiting but she reports no bowel movement over 2 days. She denies chest pain, palpitations, fevers or chills. She denies dysuria, melena, hematochezia. ROS: per HPI plus a total of 10 systems reviewed, pertinent positives and negatives noted above, remaining systems negative. Physical Exam Vital Signs: Temp Pulse Resp BP Pulse Ox 97.9 F 68 16 146/76 H 96 05/02/16 07:08 05/02/16 08:00 05/02/16 08:00 05/02/16 07:08 05/02/16 08:00 Intake & Output 05/01/16 05/02/16 05/03/16 06:59 06:59 06:59 Intake Total 3060 2803 Output Total 750 Balance 3060 2052 Weight 79.9 kg EXAM GENERAL: NAD; oriented to person, place, time; hirsute HEENT: normocephalic, small contusion on scalp; no conjunctival injection, no scleral icterus; oral mucosa moist; RESPIRATORY: no accessory muscle use, no increased WOB, good air entry bilaterally; bilateral wheezes and rhonchi CARDIO: no JVD; RRR at the bedside; no systolic murmur; no tachycardia GI: soft; nondistended; normal bowel sounds; there is palpable mass sausage shaped and approximately 8 cm round elongated in the right lower quadrant, it is mobile without overlying erythema or ecchymosis, and her pain localizes to this mass. The lower abdomen feels full with several loops of stool-filled bowel palpable. The abdominal wall is misshapen with scars from prior surgeries VASCULAR: no pallor; 2+ radial, DP pulse; normal capillary refill EXTREMITIES: no calf tender; no palpable cords in calf; no clubbing, cyanosis , pedal edema PSYCH: normal affect, normal mood SKIN: warm; moist; no petechiae; no telengectasias; no jaundice; no rash Results Laboratory Results: 04/30/16 07:15 04/30/16 01:43 Impressions: Head CT 04/29/16 00:00 IMPRESSION: No intracranial hemorrhage. Chest X-Ray 04/29/16 13:02 IMPRESSION: Stable moderate cardiomegaly Patchy airspace disease at the left lateral lung base, atelectasis versus pneumonia Assessment & Plan - Diagnosis (1) Abdominal pain Qualifiers: Abdominal location: right lower quadrant Qualified Code(s): R10.31 - Right lower quadrant pain Is this a current diagnosis for this admission?: YesPlan: She has significant intra-abdominal surgical history and a palpable mass in the right lower quadrant. Will check a CT scan of the abdomen and pelvis with IV and oral contrast to better evaluate. My suspicion is high that she is simply obstipated. (2) LLL pneumonia Qualifiers: Pneumonia type: due to unspecified organism Qualified Code(s): J18.1 - Lobar pneumonia, unspecified organism Is this a current diagnosis for this admission?: YesPlan: Continue antibiotics started by Dr. Chavis. Awaiting sputum and blood cultures from the emergency department. Continue supplemental oxygen as needed , incentive spirometry as the patient will allow. Continue nebulizers as needed. increase activity as tolerated (3) COPD exacerbation Is this a current diagnosis for this admission?: YesPlan: Seems worse today in spite of systemic steroids and continued nebulizer treatments, now with bilateral rhonchi. That being said however, she has weaned off of supplemental O2 so in general we seem to be making some progress. (4) Acute and chronic respiratory failure ([id number]) Qualifiers: Respiratory failure complication: hypoxia Qualified Code(s): J96.21 - Acute and chronic respiratory failure with hypoxia Is this a current diagnosis for this admission?: YesPlan: Improved. Supplemental O2 and wean as tolerated. Otherwise treat as above. (5) Chronic atrial fibrillation Is this a current diagnosis for this admission?: YesPlan: Rate controlled, continue current regimen. (6) Blunt head trauma Qualifiers: Encounter type: initial encounter Qualified Code(s): S09.8XXA - Other specified injuries of head, initial encounter Is this a current diagnosis for this admission?: Yes (7) Hypokalemia Is this a current diagnosis for this admission?: Yes (8) Combined systolic and diastolic congestive heart failure Qualifiers: Congestive heart failure chronicity: chronic Qualified Code(s): I50.42 - Chronic combined systolic (congestive) and diastolic (congestive) heart failure Is this a current diagnosis for this admission?: Yes (9) DM w/o complication type II Qualifiers: Diabetes mellitus superintendent marine oil terminal insulin use: without superintendent marine oil terminal use Qualified Code(s): E11.9 - Type 2 diabetes mellitus without complications Is this a current diagnosis for this admission?: Yes (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
[2016-05-02 14:14] LABS: PROTHROMBIN TIME 21.7 SEC (11.4-15.4)
[2016-05-02 14:15] LABS: PARTIAL THROMBOPLASTIN TIME 34.1 SEC (23.5-35.8)
[2016-05-02] MEDS ORDERED: NORMAL SALINE 250 ML IV PRN ×2 (15:40)
[2016-05-02 16:52] LABS: HEMATOCRIT 32.8 % (36.0-47.0); HGB HCT DIFFERENCE -0.1; MEAN CORPUSCULAR HEMOGLOBIN 29.8 pg (27.0-33.4); MEAN CORPUSCULAR HGB CONC 33.1 g/dL (32.0-36.0); MEAN CORPUSCULAR VOLUME 90 fl (80-97); RED BLOOD COUNT 3.65 10^6/uL (3.72-5.28); RED CELL DISTRIBUTION WIDTH 14.7 % (11.5-14.0)
[2016-05-02 17:12] LABS: BAND NEUTROPHILS % (MANUAL) 1 % (3-5); BASOPHILS % (MANUAL) 0 % (0-2); EOSINOPHILS % (MANUAL) 0 % (0-6); LYMPHOCYTES % (MANUAL) 5 % (13-45); TOTAL CELLS COUNTED 100
[2016-05-02 17:13] LABS: RBC MORPHOLOGY COMMENT NORMO-CYTIC/CHROMIC
[2016-05-02 17:14] LABS: HEMOGLOBIN 10.9 g/dL (12.0-15.5); WHITE BLOOD COUNT 20.8 10^3/uL (4.0-10.5)
[2016-05-02] MEDS ORDERED: PHYTONADIONE 5 MG TABLET PO ONE (17:34)
[2016-05-02] MEDS ORDERED: OXYCODONE HCL IR 5 MG TABLET PO PRN (17:37)
[2016-05-02] MEDS: HYDROCODONE/ACETAMINOPHEN 5-325 MG TABLET PO PRN (23:46)
[2016-05-03 03:52] LABS: ABSOLUTE LYMPHOCYTES (AUTO) 1.2 10^3/uL (0.5-4.7); ABSOLUTE MONOCYTES (AUTO) 0.9 10^3/uL (0.1-1.4); ABSOLUTE NEUT (AUTO) 15.7 10^3/uL (1.7-8.2); BASOPHILS % (AUTO) 0.1 % (0-2); HEMATOCRIT 26.1 % (36.0-47.0); HGB HCT DIFFERENCE -0.3; LYMPHOCYTES % (AUTO) 6.7 % (13-45); MEAN CORPUSCULAR HEMOGLOBIN 29.4 pg (27.0-33.4); MEAN CORPUSCULAR VOLUME 89 fl (80-97); RED BLOOD COUNT 2.93 10^6/uL (3.72-5.28); RED CELL DISTRIBUTION WIDTH 14.6 % (11.5-14.0); SEGMENTED NEUTROPHILS % (AUTO) 88.2 % (42-78); WHITE BLOOD COUNT 17.8 10^3/uL (4.0-10.5)
[2016-05-03 04:03] LABS: PROTHROMBIN TIME 16.1 SEC (11.4-15.4)
[2016-05-03 04:04] LABS: PARTIAL THROMBOPLASTIN TIME 28.7 SEC (23.5-35.8)
[2016-05-03 04:09] LABS: HEMOGLOBIN 8.6 g/dL (12.0-15.5)
[2016-05-03] MEDS: LANSOPRAZOLE 30 MG TAB.RAP.DR PO SCH ×2 (06:09→16:19)
[2016-05-03] MEDS: METHYLPREDNISOLONE INJ 125 MG/2 ML SDV IV SCH ×3 (06:09→22:34)
[2016-05-03] MEDS: INSULIN LISPRO 100 UNIT/ML 3 ML VIAL SUBCUT PRN ×4 (08:06→22:36)
[2016-05-03] MEDS: FLUTICASONE/SALMETEROL DISKUS 250-50 MCG/DOSE IH SCH ×2 (09:43→22:37)
[2016-05-03] MEDS: BUDESONIDE/FORMOTEROL 160-4.5 MCG 60 PUFF/6 GM MDI IH SCH ×2 (09:43→22:34)
[2016-05-03] MEDS: TIMOLOL MALEATE 0.5% OPH SOLN 5 ML OS SCH ×2 (09:43→17:22)
[2016-05-03] MEDS: CEFTRIAXONE 1 GM/D5W RTU 50 ML IV SCH (09:44)
[2016-05-03] MEDS: HYDROCODONE/ACETAMINOPHEN 5-325 MG TABLET PO PRN (09:44)
[2016-05-03] MEDS: DILTIAZEM HCL 240 MG CAPSULE.CR PO SCH ×2 (09:45→22:35)
[2016-05-03] MEDS: DOXYCYCLINE HYCLATE 100 MG in DEXTROSE 5%-WATER 250 ML IV SCH ×2 (09:47→22:37)
--- NOTE | 2016-05-03 09:49 | CONSULTATION REPORT E ---
Consultation Report NAME: DENNIS CASTELAN : 1945 AGE: 70Y DATE: 05/02/2016 336 A TO: STAR DE LA PAZ M.D. FROM: PRASAD MONTES DE OCA Requesting Physician ADMITTING DIAGNOSIS: Patient is a consultation from hospitalist for evaluation and management of possible mass HISTORY OF PRESENT ILLNESS: Patient complains of pain in the right lower abdomen, some diffuse abdominal pain on and off, and some back pain, admitted to the hospital basically for history of abdominal pain , and then some abdominal pain which led to a CT scan which revealed a possible hematoma . Patient does complain of some pain in the right lower abdomen. No nausea, no vomiting. PAST MEDICAL HISTORY: Includin. History of DVT. 2. Myocardial infarction. 3. Pulmonary embolism. 4. Hypertension. 5. History of congestive cardiac failure. 6. COPD. REVIEW OF SYSTEMS: RESPIRATORY: No shortness of breath . CARDIAC: Multiple including congestive heart failure, history of carotid disease. GI: History of gastroesophageal reflux disease. No history of gross bleeding. She also has history of peptic ulcer disease and arthritis in musculoskeletal. No history of any hepatitis. PHYSICAL EXAMINATION: GENERAL: She is a very pleasant elderly female patient not in any acute distress. Afebrile. HEAD AND NECK: No lymphadenopathy, no masses. RESPIRATORY: Both lungs are clear to auscultation. CARDIOVASCULAR: Heart sounds regular. No murmurs or gallops. ABDOMINAL: Soft abdomen, nontender. No masses palpable. No palpable hernia. LABORATORY DATA: White count 20, most likely due to and steroids, hemoglobin 10.9. She had CT scan of the abdomen and pelvis which revealed mass in the right lower quadrant area, right at pelvis. Most likely hematoma. She has been on medications: Xarelto in the past for cardiac problems which could easily lead to intraabdominal bleeding. IMPRESSION: Overall, elderly female patient with right lower abdominal pain, intraperitoneal, possibly related to anticoagulants . In any case, she is absolutely not in any shape to undergo for any kind of surgical intervention. I do not recommend surgery. I will discuss with the patient clearly with the hospitalist. Hold the Xarelto for a while and then continue to observe this hematoma or mass, and she can need a re-evaluation in about a week or 2 to see if the hematoma is dissolving. If not, if there is any possibility of this being a sarcoma, then she will need exploration of that in the future after having her complete stabilization of respiratory distress. Also care plan explained to the patient. Thank you for allowing me to participate in the care of this pleasant patient. DICTATING PHYSICIAN: STAR DE LA PAZ M.D. [id number] PHY#: [id number] ID: [id number] JOB#: [id number] ACCT: [id number] cc:STAR DE LA PAZ M.D. > MTDD
--- NOTE | 2016-05-03 15:12 | PDOC PROGRESS REPORT ---
Subjective Progress Note for:: 05/03/16 Subjective:: Reason for visit: Follow-up COPD exacerbation and pneumonia Hospital course: Per H&P "August ANNELISE is a 70 year old female with underlying nonhome O2 dependent COPD, possibly asthma, along with chronic atrial fibrillation, on Xarelto for same, and combined systolic and diastolic congestive heart failure, who presents to the emergency room for evaluation of approximate 24-hour history of slowly progressive difficulty breathing, in particular with much of any exertion. 84% on room air when EMS arrived. Was given an albuterol treatment en route. Associated slightly productive cough, but no fever chills, nausea vomiting, diarrhea or dysuria, chest or abdominal pain. Lost her balance and fell and struck the back of her head on her bathroom floor yesterday. No loss of consciousness. Hospitalized on our service November 28 through the of last year with discharge diagnoses including atrial fibrillation with rapid ventricular response, along with COPD exacerbation and acute on chronic combined diastolic and systolic congestive heart failure. Has not been hospitalized since then. Doesn't think she's been on antibiotics in the last 3 months. Up-to-date with her flu vaccination. Uncertain about her pneumonia vaccination." Patient was admitted and started on antibiotics for community-acquired pneumonia including Rocephin and doxycycline, azithromycin and Levaquin on hold due to prolonged QT interval on EKG. Of note patient had echocardiogram performed in November 2015 that showed an EF of 40-45% with moderate mitral regurgitation and moderate rate to6 diastolic dysfunction. She's been weaned off supplemental oxygen now maintaining room air sat of 93% or greater for me at the bedside. Complained of right lower quadrant abdominal pain described as sharp stabbing, grabbing pain, nonradiating, worsened with palpation and even certain movements and cough, not alleviated by anything, no associated nausea or vomiting but she reports no bowel movement over [address] scan of the abdomen and pelvis showed a probable right lower quadrant expanding hematoma that seems to communicate with the right distal retroperitoneal space into the pelvis. She had been taking Xarelto and this was discontinued. She was given 2 units of FFP and a dose of vitamin K oral. Gen. surgery was consulted and did not feel surgical exploration was warranted at this time. She did drop her hemoglobin and several grams but is not hemodynamically unstable and so far has not required transfusion of packed red cells. Subjective: Remains very wheezy. She denies chest pain, palpitations, fevers or chills. She denies dysuria, melena, hematochezia. She continues to endorse right lower quadrant abdominal pain that is positional in nature and worsened with palpation improved with certain positions not associated with any other symptoms and overall improved from yesterday. ROS: per HPI plus a total of 10 systems reviewed, pertinent positives and negatives noted above, remaining systems negative. Physical Exam Vital Signs: Temp Pulse Resp BP Pulse Ox 97.6 F 69 18 127/58 H 98 05/03/16 14:12 05/03/16 14:12 05/03/16 14:12 05/03/16 14:12 05/03/16 14:12 Intake & Output 05/02/16 05/03/16 05/04/16 06:59 06:59 06:59 Intake Total 2803 194 450 Output Total 750 Balance 2052 1946 450 Weight 90.8 kg EXAM GENERAL: NAD; oriented to person, place, time; hirsute HEENT: normocephalic; no conjunctival injection, no scleral icterus; oral mucosa moist; RESPIRATORY: no accessory muscle use, no increased WOB, good air entry bilaterally; bilateral wheezes and rhonchi CARDIO: no JVD; RRR at the bedside; no systolic murmur; no tachycardia GI: soft; nondistended; normal bowel sounds; there is palpable sausage shaped mass approximately 8 cm in greatest dimension elongated in the right lower quadrant, it is mobile without overlying erythema or ecchymosis, and her pain localizes to this mass. there is less pain to palpation today. The abdominal wall is misshapen with scars from prior surgeries VASCULAR: no pallor; 2+ radial, DP pulse; normal capillary refill EXTREMITIES: no calf tender; no palpable cords in calf; no clubbing, cyanosis , pedal edema PSYCH: normal affect, normal mood SKIN: warm; moist; no petechiae; no telengectasias; no jaundice; no rash Results Laboratory Results: 05/03/16 03:45 04/30/16 01:43 05/02/16 05/02/16 05/03/16 16:15 16:15 03:45 WBC 20.8 H D 17.8 H RBC 3.65 L 2.93 L Hgb 10.9 L D 8.6 L D Hct 32.8 L 26.1 L MCV 90 89 MCH 29.8 29.4 MCHC 33.1 33.0 RDW 14.7 H 14.6 H Plt Count 240 209 Seg Neutrophils % Not Reportable 88.2 H Lymphocytes % Not Reportable 6.7 L Monocytes % Not Reportable 5.0 Eosinophils % Not Reportable 0.0 Basophils % Not Reportable 0.1 Absolute Neutrophils Not Reportable 15.7 H Absolute Lymphocytes Not Reportable 1.2 Absolute Monocytes Not Reportable 0.9 Absolute Eosinophils Not Reportable 0.0 Absolute Basophils Not Reportable 0.0 Blood Type A NEGATIVE Labs reviewed and she's had a significant drop in her hemoglobin since admission Impressions: Head CT 04/29/16 00:00 IMPRESSION: No intracranial hemorrhage. Chest X-Ray 04/29/16 13:02 IMPRESSION: Stable moderate cardiomegaly Patchy airspace disease at the left lateral lung base, atelectasis versus pneumonia Abdomen/Pelvis CT 05/02/16 00:00 IMPRESSION: Large heterogeneous mass in the right lower quadrant and right pelvis as noted above. The appearance is most consistent with a hematoma. There are areas of increased density within the mass and the possibility of active bleeding should be considered. Possibility of an underlying mass cannot be completely excluded. Other findings as noted above Assessment & Plan - Diagnosis (1) Nontraumatic retroperitoneal hematoma Is this a current diagnosis for this admission?: YesPlan: Spontaneous from chronic scrotal use. Anticoagulation currently on hold. Follow-up CBC later this afternoon and again in the morning and transfuse if needed. Her INR and PTT seem to respond to the FFP and vitamin K and cessation of the Xarelto. The mass is not enlarging and her pain is improving implying that she is probably not still bleeding into the area. Appreciate surgery's evaluation and input. (2) Acute blood loss anemia Is this a current diagnosis for this admission?: YesPlan: Secondary to the above. Plan as above. I discussed the risks and benefits of transfusion with the patient and she is willing to accept those risks if transfusion becomes necessary. (3) Abdominal pain Qualifiers: Abdominal location: right lower quadrant Qualified Code(s): R10.31 - Right lower quadrant pain Is this a current diagnosis for this admission?: YesPlan: Improved. Secondary to the above. Plan as above. (4) LLL pneumonia Qualifiers: Pneumonia type: due to unspecified organism Qualified Code(s): J18.1 - Lobar pneumonia, unspecified organism Is this a current diagnosis for this admission?: YesPlan: Continue antibiotics started by Dr. Chavis. Awaiting sputum and blood cultures from the emergency department. Continue supplemental oxygen as needed , incentive spirometry as the patient will allow. Continue nebulizers as needed. increase activity as tolerated (5) COPD exacerbation Is this a current diagnosis for this admission?: YesPlan: Seems worse today in spite of systemic steroids and continued nebulizer treatments, now with bilateral rhonchi. That being said however, she has weaned off of supplemental O2 so in general we seem to be making some progress. (6) Acute and chronic respiratory failure ([id number]) Qualifiers: Respiratory failure complication: hypoxia Qualified Code(s): J96.21 - Acute and chronic respiratory failure with hypoxia Is this a current diagnosis for this admission?: YesPlan: Improved. Supplemental O2 and wean as tolerated. Otherwise treat as above. (7) Chronic atrial fibrillation Is this a current diagnosis for this admission?: Yes (8) Blunt head trauma Qualifiers: Encounter type: initial encounter Qualified Code(s): S09.8XXA - Other specified injuries of head, initial encounter Is this a current diagnosis for this admission?: Yes (9) Hypokalemia Is this a current diagnosis for this admission?: Yes (10) Combined systolic and diastolic congestive heart failure Qualifiers: Congestive heart failure chronicity: chronic Qualified Code(s): I50.42 - Chronic combined systolic (congestive) and diastolic (congestive) heart failure Is this a current diagnosis for this admission?: Yes (11) DM w/o complication type II Qualifiers: Diabetes mellitus fci insulin use: without buttermaker use Qualified Code(s): E11.9 - Type 2 diabetes mellitus without complications Is this a current diagnosis for this admission?: Yes (13) penitentiary current use of anticoagulant therapy Is this a current diagnosis for this admission?: Yes - Time Time Spent with patient: 25-34 minutes Anticipated discharge: Home with Homehealth Within: within 48 hours
[2016-05-03 17:44] LABS: HEMATOCRIT 24.1 % (36.0-47.0); HGB HCT DIFFERENCE -0.1; MEAN CORPUSCULAR HEMOGLOBIN 29.7 pg (27.0-33.4); MEAN CORPUSCULAR HGB CONC 33.1 g/dL (32.0-36.0); MEAN CORPUSCULAR VOLUME 90 fl (80-97); RED BLOOD COUNT 2.69 10^6/uL (3.72-5.28); RED CELL DISTRIBUTION WIDTH 14.5 % (11.5-14.0)
[2016-05-03] MEDS ORDERED: NORMAL SALINE 250 ML IV PRN ×2 (18:31)
[2016-05-03 18:54] LABS: APPEARANCE,URINE CLOUDY; BILIRUBIN,URINE NEGATIVE (NEGATIVE); GLUCOSE, URINE NEGATIVE (NEGATIVE); KETONES,URINE NEGATIVE (NEGATIVE); LEUKOCYTE ESTERASE,URINE TRACE (NEGATIVE); NITRITE,URINE NEGATIVE (NEGATIVE); PROTEIN,URINE NEGATIVE (NEGATIVE); URINE SPECIFIC GRAVITY 1.016; UROBILINOGEN,URINE NEGATIVE mg/dL (<2.0)
[2016-05-03] MEDS: ATORVASTATIN CALCIUM 40 MG TABLET PO SCH (22:34)
[2016-05-03] MEDS: ESCITALOPRAM OXALATE 10 MG TABLET PO SCH (22:36)
[2016-05-04] MEDS: METHYLPREDNISOLONE INJ 125 MG/2 ML SDV IV SCH (05:38)
[2016-05-04] MEDS: LANSOPRAZOLE 30 MG TAB.RAP.DR PO SCH ×2 (05:38→16:30)
[2016-05-04] MEDS: HYDROCODONE/ACETAMINOPHEN 5-325 MG TABLET PO PRN ×3 (05:59→23:15)
[2016-05-04] MEDS: INSULIN LISPRO 100 UNIT/ML 3 ML VIAL SUBCUT PRN ×4 (07:31→23:12)
--- NOTE | 2016-05-04 08:07 | PDOC PROGRESS REPORT ---
Subjective Subjective:: Late note. Rounding for 05/03/2016. She reports pain is slightly improved from yesterday. No nausea or vomiting. Physical Exam Vital Signs: Temp Pulse Resp BP Pulse Ox 97.3 F 75 20 120/63 94 05/04/16 05:17 05/04/16 06:38 05/04/16 05:17 05/04/16 05:17 05/04/16 05:17 Intake & Output 05/03/16 05/04/16 05/05/16 06:59 06:59 06:59 Intake Total 1946 2269 Output Total 60 Balance 1946 221 Weight 90.8 kg 88.5 kg General appearance: PRESENT: no acute distress Head exam: PRESENT: normocephalic GI/Abdominal exam: PRESENT: distended, firm - From across lower abdomen and area of hematoma., tenderness, other - Bruising around umbilicus.. ABSENT: guarding, rebound Neurological exam: PRESENT: alert Skin exam: ABSENT: jaundice Results Laboratory Results: 05/03/16 17:10 04/30/16 01:43 05/02/16 05/03/16 05/03/16 16:15 17:10 18:20 WBC 19.0 H RBC 2.69 L Hgb 8.0 L Hct 24.1 L MCV 90 MCH 29.7 MCHC 33.1 RDW 14.5 H Plt Count 232 Urine Color YELLOW Urine Appearance CLOUDY Urine pH 6.0 Ur Specific [place] 1.016 Urine Protein NEGATIVE Urine Glucose (UA) NEGATIVE Urine Ketones NEGATIVE Urine Blood MODERATE H Urine Nitrite NEGATIVE Ur Leukocyte Esterase TRACE H Urine WBC (Auto) 13 Urine RBC (Auto) 69 Blood Type A NEGATIVE Antibody Screen NEGATIVE Impressions: Head CT 04/29/16 00:00 IMPRESSION: No intracranial hemorrhage. Chest X-Ray 04/29/16 13:02 IMPRESSION: Stable moderate cardiomegaly Patchy airspace disease at the left lateral lung base, atelectasis versus pneumonia Abdomen/Pelvis CT 05/02/16 00:00 IMPRESSION: Large heterogeneous mass in the right lower quadrant and right pelvis as noted above. The appearance is most consistent with a hematoma. There are areas of increased density within the mass and the possibility of active bleeding should be considered. Possibility of an underlying mass cannot be completely excluded. Other findings as noted above Assessment & Plan - Diagnosis (1) Nontraumatic retroperitoneal hematoma Is this a current diagnosis for this admission?: YesPlan: Late note. Rounding for 05/03/2016. Hemoglobin stabilizing. Less pain than yesterday. Recommend continued inserted management.
[2016-05-04 08:16] LABS: HEMATOCRIT 28.5 % (36.0-47.0); HEMOGLOBIN 9.8 g/dL (12.0-15.5); HGB HCT DIFFERENCE 0.9; MEAN CORPUSCULAR HEMOGLOBIN 29.8 pg (27.0-33.4); MEAN CORPUSCULAR HGB CONC 34.3 g/dL (32.0-36.0); MEAN CORPUSCULAR VOLUME 87 fl (80-97); RED BLOOD COUNT 3.28 10^6/uL (3.72-5.28); RED CELL DISTRIBUTION WIDTH 15.3 % (11.5-14.0); WHITE BLOOD COUNT 15.2 10^3/uL (4.0-10.5)
[2016-05-04 08:38] LABS: ANION GAP 10 (5-19); BLOOD UREA NITROGEN 21 mg/dL (7-20); CALCIUM 8.7 mg/dL (8.4-10.2); CARBON DIOXIDE 28 mmol/L (22-30); CHLORIDE 97 mmol/L (98-107); CREATININE RESULT 0.46 mg/dL (0.52-1.25); GLUCOSE 239 mg/dL (75-110); POTASSIUM 3.9 mmol/L (3.6-5.0)
[2016-05-04] MEDS: CEFTRIAXONE 1 GM/D5W RTU 50 ML IV SCH (09:14)
[2016-05-04] MEDS: DILTIAZEM HCL 240 MG CAPSULE.CR PO SCH ×2 (09:14→23:14)
[2016-05-04] MEDS: TIMOLOL MALEATE 0.5% OPH SOLN 5 ML OS SCH ×2 (09:16→17:09)
[2016-05-04] MEDS: BUDESONIDE/FORMOTEROL 160-4.5 MCG 60 PUFF/6 GM MDI IH SCH ×2 (09:16→23:16)
[2016-05-04] MEDS: FLUTICASONE/SALMETEROL DISKUS 250-50 MCG/DOSE IH SCH ×2 (09:16→23:16)
[2016-05-04] MEDS: DOXYCYCLINE HYCLATE 100 MG in DEXTROSE 5%-WATER 250 ML IV SCH ×2 (09:17→23:17)
[2016-05-04 10:20] LABS: PARTIAL THROMBOPLASTIN TIME 24.5 SEC (23.5-35.8); PROTHROMBIN TIME 13.9 SEC (11.4-15.4)
--- NOTE | 2016-05-04 13:08 | PROGRESS NOTE E ---
Progress Note NAME: DENNIS CASTELAN : 1945 AGE: 70Y DATE: 05/04/2016 ROOM: 336 SUBJECTIVE: The patient is status post excision of diabetic necrotic toe on the right foot. She has had prolonged hospital course and now is being discharged today with a PICC line in place for IV antibiotic therapy and wound care, which has been arranged. OBJECTIVE: Her dressing has just been changed and is intact. The wound is appearing to granulate and without evidence of overt infection. ASSESSMENT AND PLAN: She will be [facility]up [facility]. As noted, all arrangements are made for discharge including PICC line, antibiotic therapy and wound care. DICTATING PHYSICIAN: YVON LUQUE M.D. [id number] PHY#: [id number] ID: [id number] JOB#: [id number] ACCT: [id number] cc: >
--- NOTE | 2016-05-04 13:19 | PDOC PROGRESS REPORT ---
Subjective Progress Note for:: 05/04/16 Subjective:: Patient is still complaining of some abdominal pain and flank pain ; she has no fever no chills minimal shortness of breath She denies nausea vomiting Physical Exam Vital Signs: Temp Pulse Resp BP Pulse Ox 97.5 F 68 20 150/65 H 98 05/04/16 10:57 05/04/16 10:57 05/04/16 10:57 05/04/16 10:57 05/04/16 10:57 Intake & Output 05/03/16 05/04/16 05/05/16 00:59 00:59 00:59 Intake Total 2329 1498 1725 Output Total 500 60 Balance 1829 1438 1725 Weight 90.8 kg 88.5 kg General appearance: PRESENT: mild distress, well-developed, well-nourished Head exam: PRESENT: atraumatic, normocephalic Eye exam: PRESENT: conjunctiva pink, EOMI, PERRLA. ABSENT: scleral icterus Ear exam: PRESENT: normal external ear exam Mouth exam: PRESENT: moist, tongue midline Neck exam: ABSENT: carotid bruit, JVD, lymphadenopathy, thyromegaly Respiratory exam: PRESENT: clear to auscultation mike. ABSENT: rales, rhonchi, wheezes Cardiovascular exam: PRESENT: RRR. ABSENT: diastolic murmur, rubs, systolic murmur Pulses: PRESENT: normal dorsalis pedis pul Vascular exam: PRESENT: normal capillary refill GI/Abdominal exam: PRESENT: normal bowel sounds, soft. ABSENT: distended, guarding, mass, organolmegaly, rebound, tenderness Rectal exam: PRESENT: deferred Extremities exam: PRESENT: full ROM. ABSENT: calf tenderness, clubbing, pedal edema Neurological exam: PRESENT: alert, awake, oriented to person, oriented to place , oriented to time, oriented to situation, CN II-XII grossly intact. ABSENT: motor sensory deficit Psychiatric exam: PRESENT: appropriate affect, normal mood Skin exam: PRESENT: dry, intact, warm. ABSENT: cyanosis, rash Results Laboratory Results: 05/04/16 07:56 05/04/16 07:56 05/02/16 05/03/16 05/03/16 16:15 17:10 18:20 WBC 19.0 H RBC 2.69 L Hgb 8.0 L Hct 24.1 L MCV 90 MCH 29.7 MCHC 33.1 RDW 14.5 H Plt Count 232 Sodium Potassium Chloride Carbon Dioxide Anion Gap BUN Creatinine Est GFR ( Amer) Est GFR (Non-Af Amer) Glucose Calcium Urine Color YELLOW Urine Appearance CLOUDY Urine pH 6.0 Ur Specific [place] 1.016 Urine Protein NEGATIVE Urine Glucose (UA) NEGATIVE Urine Ketones NEGATIVE Urine Blood MODERATE H Urine Nitrite NEGATIVE Ur Leukocyte Esterase TRACE H Urine WBC (Auto) 13 Urine RBC (Auto) 69 Blood Type A NEGATIVE Antibody Screen NEGATIVE 05/04/16 05/04/16 07:56 07:56 WBC 15.2 H RBC 3.28 L Hgb 9.8 L Hct 28.5 L MCV 87 MCH 29.8 MCHC 34.3 RDW 15.3 H Plt Count 155 Sodium 135.0 L Potassium 3.9 Chloride 97 L Carbon Dioxide 28 Anion Gap 10 BUN 21 H Creatinine 0.46 L Est GFR ( Amer) > 60 Est GFR (Non-Af Amer) > 60 Glucose 239 H Calcium 8.7 Urine Color Urine Appearance Urine pH Ur Specific [place] Urine Protein Urine Glucose (UA) Urine Ketones Urine Blood Urine Nitrite Ur Leukocyte Esterase Urine WBC (Auto) Urine RBC (Auto) Blood Type Antibody Screen Impressions: Head CT 04/29/16 00:00 IMPRESSION: No intracranial hemorrhage. Chest X-Ray 04/29/16 13:02 IMPRESSION: Stable moderate cardiomegaly Patchy airspace disease at the left lateral lung base, atelectasis versus pneumonia Abdomen/Pelvis CT 05/02/16 00:00 IMPRESSION: Large heterogeneous mass in the right lower quadrant and right pelvis as noted above. The appearance is most consistent with a hematoma. There are areas of increased density within the mass and the possibility of active bleeding should be considered. Possibility of an underlying mass cannot be completely excluded. Other findings as noted above Assessment & Plan - Diagnosis (1) COPD exacerbation Is this a current diagnosis for this admission?: Yes (2) Chronic atrial fibrillation Is this a current diagnosis for this admission?: Yes (3) LLL pneumonia Qualifiers: Pneumonia type: due to unspecified organism Qualified Code(s): J18.1 - Lobar pneumonia, unspecified organism Is this a current diagnosis for this admission?: Yes (4) Nontraumatic retroperitoneal hematoma Is this a current diagnosis for this admission?: Yes (5) Pneumonia Qualifiers: Pneumonia type: due to unspecified organism Laterality: left Lung location: lower lobe of lung Qualified Code(s): J18.1 - Lobar pneumonia, unspecified organism Is this a current diagnosis for this admission?: Yes (6) Acute and chronic respiratory failure ([id number]) Qualifiers: Respiratory failure complication: hypoxia Qualified Code(s): J96.21 - Acute and chronic respiratory failure with hypoxia Is this a current diagnosis for this admission?: Yes - Time Time Spent with patient: We will a continue the present management Continue nebs steroids antibiotics Anticoagulation has been discontinued Continue to follow H&H Blood sugars are running on the high side and we initiated Lantus insulin at night We are starting to taper steroids Time Spent with patient: 25-34 minutes
[2016-05-04] MEDS ORDERED: METHYLPREDNISOLONE INJ 125 MG/2 ML SDV IV SCH (22:00)
[2016-05-04] MEDS ORDERED: INSULIN GLARGINE,HUM.REC.ANLOG 300 UNIT/3 ML INSULN.PEN SUBCUT SCH (22:00)
[2016-05-04] MEDS: ATORVASTATIN CALCIUM 40 MG TABLET PO SCH (23:13)
[2016-05-04] MEDS: METHYLPREDNISOLONE INJ 40 MG/1 ML SDV IV SCH (23:13)
[2016-05-04] MEDS: ESCITALOPRAM OXALATE 10 MG TABLET PO SCH (23:15)
[2016-05-05] MEDS: LANSOPRAZOLE 30 MG TAB.RAP.DR PO SCH ×2 (06:31→17:03)
[2016-05-05 08:01] LABS: HEMATOCRIT 28.8 % (36.0-47.0); HEMOGLOBIN 9.8 g/dL (12.0-15.5); HGB HCT DIFFERENCE 0.6; MEAN CORPUSCULAR HEMOGLOBIN 29.8 pg (27.0-33.4); MEAN CORPUSCULAR HGB CONC 34.1 g/dL (32.0-36.0); MEAN CORPUSCULAR VOLUME 87 fl (80-97); RED CELL DISTRIBUTION WIDTH 15.1 % (11.5-14.0); WHITE BLOOD COUNT 14.4 10^3/uL (4.0-10.5)
[2016-05-05] MEDS: BUDESONIDE/FORMOTEROL 160-4.5 MCG 60 PUFF/6 GM MDI IH SCH ×2 (09:26→21:40)
[2016-05-05] MEDS: FLUTICASONE/SALMETEROL DISKUS 250-50 MCG/DOSE IH SCH ×2 (09:26→21:41)
[2016-05-05] MEDS: DILTIAZEM HCL 240 MG CAPSULE.CR PO SCH ×2 (09:27→21:41)
[2016-05-05] MEDS: TIMOLOL MALEATE 0.5% OPH SOLN 5 ML OS SCH ×2 (09:27→17:08)
[2016-05-05] MEDS: DOXYCYCLINE HYCLATE 100 MG in DEXTROSE 5%-WATER 250 ML IV SCH (09:27)
[2016-05-05] MEDS: CEFTRIAXONE 1 GM/D5W RTU 50 ML IV SCH (09:28)
[2016-05-05] MEDS: METHYLPREDNISOLONE INJ 40 MG/1 ML SDV IV SCH ×2 (09:29→21:41)
[2016-05-05] MEDS: HYDROCODONE/ACETAMINOPHEN 5-325 MG TABLET PO PRN ×2 (09:41→17:03)
--- NOTE | 2016-05-05 11:14 | PDOC PROGRESS REPORT ---
Subjective Progress Note for:: 05/05/16 Subjective:: Patient is doing very well she still complaining of being weak but she has no nausea no vomiting Patient's low back pain is improved She she has no fever no chills Urine culture was reported as E faecalis sensitive to Levaquin Physical Exam Vital Signs: Temp Pulse Resp BP Pulse Ox 98.2 F 66 16 118/63 94 05/05/16 07:20 05/05/16 07:20 05/05/16 07:20 05/05/16 07:20 05/05/16 07:20 Intake & Output 05/04/16 05/05/16 05/06/16 00:59 00:59 00:59 Intake Total 1498 3109 370 Output Total 60 230 Balance 1438 2879 370 Weight 90.8 kg 88.5 kg 90.1 kg General appearance: PRESENT: mild distress, other - Looks chronically ill Head exam: PRESENT: atraumatic, normocephalic Eye exam: PRESENT: conjunctiva pink, EOMI, PERRLA. ABSENT: scleral icterus Ear exam: PRESENT: normal external ear exam Mouth exam: PRESENT: moist, tongue midline Neck exam: ABSENT: carotid bruit, JVD, lymphadenopathy, thyromegaly Respiratory exam: PRESENT: clear to auscultation mike. ABSENT: rales, rhonchi, wheezes Cardiovascular exam: PRESENT: RRR. ABSENT: diastolic murmur, rubs, systolic murmur Pulses: PRESENT: normal dorsalis pedis pul Vascular exam: PRESENT: normal capillary refill GI/Abdominal exam: PRESENT: normal bowel sounds, soft. ABSENT: distended, guarding, mass, organolmegaly, rebound, tenderness Rectal exam: PRESENT: deferred Extremities exam: PRESENT: full ROM. ABSENT: calf tenderness, clubbing, pedal edema Neurological exam: PRESENT: alert, awake, oriented to person, oriented to place , oriented to time, oriented to situation, CN II-XII grossly intact. ABSENT: motor sensory deficit Psychiatric exam: PRESENT: appropriate affect, normal mood Skin exam: PRESENT: dry, intact, warm. ABSENT: cyanosis, rash Results Laboratory Results: 05/05/16 07:28 05/04/16 07:56 05/05/16 07:28 WBC 14.4 H RBC 3.30 L Hgb 9.8 L Hct 28.8 L MCV 87 MCH 29.8 MCHC 34.1 RDW 15.1 H Plt Count 197 05/03/16 18:20 Clean Catch Midstream Urine Culture - Final Enterococcus Faecalis(Group D) Impressions: Head CT 04/29/16 00:00 IMPRESSION: No intracranial hemorrhage. Chest X-Ray 04/29/16 13:02 IMPRESSION: Stable moderate cardiomegaly Patchy airspace disease at the left lateral lung base, atelectasis versus pneumonia Abdomen/Pelvis CT 05/02/16 00:00 IMPRESSION: Large heterogeneous mass in the right lower quadrant and right pelvis as noted above. The appearance is most consistent with a hematoma. There are areas of increased density within the mass and the possibility of active bleeding should be considered. Possibility of an underlying mass cannot be completely excluded. Other findings as noted above Assessment & Plan - Diagnosis (1) COPD exacerbation Is this a current diagnosis for this admission?: Yes (2) Chronic atrial fibrillation Is this a current diagnosis for this admission?: Yes (3) LLL pneumonia Qualifiers: Pneumonia type: due to unspecified organism Qualified Code(s): J18.1 - Lobar pneumonia, unspecified organism Is this a current diagnosis for this admission?: Yes (4) Nontraumatic retroperitoneal hematoma Is this a current diagnosis for this admission?: Yes (5) Pneumonia Qualifiers: Pneumonia type: due to unspecified organism Laterality: left Lung location: lower lobe of lung Qualified Code(s): J18.1 - Lobar pneumonia, unspecified organism Is this a current diagnosis for this admission?: Yes (6) Acute and chronic respiratory failure ([id number]) Qualifiers: Respiratory failure complication: hypoxia Qualified Code(s): J96.21 - Acute and chronic respiratory failure with hypoxia Is this a current diagnosis for this admission?: Yes (7) UTI (urinary tract infection) due to Enterococcus Is this a current diagnosis for this admission?: YesPlan: Continue Levaquin Doxycycline was discontinued - Time Time Spent with patient: We may transfer the patient to medical unit PT evaluation Patient may be discharged in 2448 hrs. if H&H remains stable and if leukocytosis improves Time Spent with patient: 25-34 minutes
[2016-05-05] MEDS: INSULIN LISPRO 100 UNIT/ML 3 ML VIAL SUBCUT PRN ×3 (12:24→21:41)
[2016-05-05] MEDS: LEVOFLOXACIN 750 MG/D5W RTU 750 MG/150 ML RTUPB IV SCH (12:26)
[2016-05-05] MEDS: INSULIN GLARGINE,HUM.REC.ANLOG 300 UNIT/3 ML INSULN.PEN SUBCUT SCH (21:40)
[2016-05-05] MEDS: ESCITALOPRAM OXALATE 10 MG TABLET PO SCH (21:41)
[2016-05-05] MEDS: ATORVASTATIN CALCIUM 40 MG TABLET PO SCH (21:41)
[2016-05-06] MEDS: LANSOPRAZOLE 30 MG TAB.RAP.DR PO SCH ×2 (06:55→17:25)
[2016-05-06] MEDS: INSULIN LISPRO 100 UNIT/ML 3 ML VIAL SUBCUT PRN ×4 (08:43→21:37)
[2016-05-06] MEDS: HYDROCODONE/ACETAMINOPHEN 5-325 MG TABLET PO PRN ×2 (10:24→21:42)
[2016-05-06] MEDS: DILTIAZEM HCL 240 MG CAPSULE.CR PO SCH ×2 (10:37→21:37)
[2016-05-06] MEDS: METHYLPREDNISOLONE INJ 40 MG/1 ML SDV IV SCH (10:37)
[2016-05-06] MEDS: CEFTRIAXONE 1 GM/D5W RTU 50 ML IV SCH (10:38)
[2016-05-06] MEDS: FLUTICASONE/SALMETEROL DISKUS 250-50 MCG/DOSE IH SCH ×2 (12:25→21:37)
[2016-05-06] MEDS: LEVOFLOXACIN 750 MG/D5W RTU 750 MG/150 ML RTUPB IV SCH (12:26)
[2016-05-06] MEDS: BUDESONIDE/FORMOTEROL 160-4.5 MCG 60 PUFF/6 GM MDI IH SCH ×2 (12:26→21:37)
[2016-05-06] MEDS: TIMOLOL MALEATE 0.5% OPH SOLN 5 ML OS SCH ×2 (12:27→17:26)
--- NOTE | 2016-05-06 13:23 | PROGRESS NOTE E ---
Progress Note NAME: DENNIS CASTELAN : 1945 AGE: 70Y DATE: 05/06/2016 ROOM: 420 SUBJECTIVE: The patient has a large retroperitoneal abdominal wall hematoma, which has been stable and been successfully followed conservatively. OBJECTIVE: Her vital signs are stable. She is alert and appropriate without complaint other than being bored. Her white blood count has continued to normalize. Her hemoglobin has been stable at 9.8. Examination of her abdomen is again unremarkable. She has mild discomfort, but no evidence of peritoneal irritation. PLAN: Note that the patient is requesting discharge and plan is for outpatient home management. She is to be seen in followup by the Surgery Service in 1-2 weeks or on a p.r.n. basis and she is advised to contact us or her physician immediately should there be an increase in abdominal pain or symptoms or nausea or vomiting or abdominal swelling. DICTATING PHYSICIAN: YVON LUQUE M.D. [id number] PHY#: [id number] ID: [id number] JOB#: [id number] ACCT: [id number] cc: >
--- NOTE | 2016-05-06 18:57 | PDOC PROGRESS REPORT ---
Subjective Progress Note for:: 05/06/16 Subjective:: patient feels a lot better today she has no complaints she is alert awake ; she states she wants to go home Physical Exam Vital Signs: Temp Pulse Resp BP Pulse Ox 97.8 F 74 16 162/65 H 94 05/06/16 12:22 05/06/16 12:22 05/06/16 12:22 05/06/16 12:22 05/06/16 12:22 Intake & Output 05/05/16 05/06/16 05/07/16 00:59 00:59 00:59 Intake Total 3109 1599 253 Output Total 230 400 0 Balance 2879 1199 253 Weight 88.5 kg 90.1 kg 88.5 kg General appearance: PRESENT: no acute distress, well-developed, well-nourished Head exam: PRESENT: atraumatic, normocephalic Eye exam: PRESENT: conjunctiva pink, EOMI, PERRLA. ABSENT: scleral icterus Ear exam: PRESENT: normal external ear exam Mouth exam: PRESENT: moist, tongue midline Neck exam: ABSENT: carotid bruit, JVD, lymphadenopathy, thyromegaly Respiratory exam: PRESENT: clear to auscultation mike. ABSENT: rales, rhonchi, wheezes Cardiovascular exam: PRESENT: RRR. ABSENT: diastolic murmur, rubs, systolic murmur Pulses: PRESENT: normal dorsalis pedis pul Vascular exam: PRESENT: normal capillary refill GI/Abdominal exam: PRESENT: normal bowel sounds, soft. ABSENT: distended, guarding, mass, organolmegaly, rebound, tenderness Rectal exam: PRESENT: deferred Extremities exam: PRESENT: full ROM. ABSENT: calf tenderness, clubbing, pedal edema Neurological exam: PRESENT: alert, awake, oriented to person, oriented to place , oriented to time, oriented to situation, CN II-XII grossly intact. ABSENT: motor sensory deficit Psychiatric exam: PRESENT: appropriate affect, normal mood. ABSENT: homicidal ideation, suicidal ideation Skin exam: PRESENT: dry, intact, warm. ABSENT: cyanosis, rash Results Laboratory Results: 05/05/16 07:28 05/04/16 07:56 Impressions: Head CT 04/29/16 00:00 IMPRESSION: No intracranial hemorrhage. Chest X-Ray 04/29/16 13:02 IMPRESSION: Stable moderate cardiomegaly Patchy airspace disease at the left lateral lung base, atelectasis versus pneumonia Abdomen/Pelvis CT 05/02/16 00:00 IMPRESSION: Large heterogeneous mass in the right lower quadrant and right pelvis as noted above. The appearance is most consistent with a hematoma. There are areas of increased density within the mass and the possibility of active bleeding should be considered. Possibility of an underlying mass cannot be completely excluded. Other findings as noted above Assessment & Plan - Diagnosis (1) COPD exacerbation Is this a current diagnosis for this admission?: Yes (2) Chronic atrial fibrillation Is this a current diagnosis for this admission?: Yes (3) LLL pneumonia Qualifiers: Pneumonia type: due to unspecified organism Qualified Code(s): J18.1 - Lobar pneumonia, unspecified organism Is this a current diagnosis for this admission?: Yes (4) Nontraumatic retroperitoneal hematoma Is this a current diagnosis for this admission?: Yes (5) Pneumonia Qualifiers: Pneumonia type: due to unspecified organism Laterality: left Lung location: lower lobe of lung Qualified Code(s): J18.1 - Lobar pneumonia, unspecified organism Is this a current diagnosis for this admission?: Yes (6) Acute and chronic respiratory failure ([id number]) Qualifiers: Respiratory failure complication: hypoxia Qualified Code(s): J96.21 - Acute and chronic respiratory failure with hypoxia Is this a current diagnosis for this admission?: Yes (7) UTI (urinary tract infection) due to Enterococcus Is this a current diagnosis for this admission?: Yes - Time Time Spent with patient: Patient is quite stable at this time We will discharge home with home health and home PT tomorrow We did speak with her grandson who will take responsibility and care for her Time Spent with patient: 25-34 minutes
[2016-05-06] MEDS: ATORVASTATIN CALCIUM 40 MG TABLET PO SCH (21:37)
[2016-05-06] MEDS: ESCITALOPRAM OXALATE 10 MG TABLET PO SCH (21:37)
[2016-05-06] MEDS: INSULIN GLARGINE,HUM.REC.ANLOG 300 UNIT/3 ML INSULN.PEN SUBCUT SCH (21:38)
[2016-05-07] MEDS: LANSOPRAZOLE 30 MG TAB.RAP.DR PO SCH ×2 (05:49→16:52)
[2016-05-07] MEDS: INSULIN LISPRO 100 UNIT/ML 3 ML VIAL SUBCUT PRN ×3 (09:55→16:52)
[2016-05-07] MEDS: BUDESONIDE/FORMOTEROL 160-4.5 MCG 60 PUFF/6 GM MDI IH SCH (09:56)
[2016-05-07] MEDS: DILTIAZEM HCL 240 MG CAPSULE.CR PO SCH (09:56)
[2016-05-07] MEDS: TIMOLOL MALEATE 0.5% OPH SOLN 5 ML OS SCH (09:56)
[2016-05-07] MEDS: FLUTICASONE/SALMETEROL DISKUS 250-50 MCG/DOSE IH SCH (09:56)
[2016-05-07] MEDS ORDERED: PREDNISONE 20 MG TABLET PO SCH (10:00)
[2016-05-07] MEDS: HYDROCODONE/ACETAMINOPHEN 5-325 MG TABLET PO PRN (10:03)
[2016-05-07 15:50] VITALS: BP 136/71
[2016-05-07] MEDS ORDERED: ATORVASTATIN CALCIUM 40 MG TABLET PO SCH (22:00)
[2016-05-07] MEDS ORDERED: TIMOLOL MALEATE 0.5% OPH SOLN 5 ML OS SCH (22:00)
[2016-05-07] MEDS ORDERED: CARVEDILOL 6.25 MG TABLET PO SCH (22:00)
[2016-05-07] MEDS ORDERED: ESCITALOPRAM OXALATE 10 MG TABLET PO SCH (22:00)
[2016-05-07] MEDS ORDERED: FLUTICASONE/SALMETEROL DISKUS 250-50 MCG/DOSE IH SCH (22:00)
[2016-05-07] MEDS ORDERED: (PENDING PHARMACY ID) (Diltiazem Hcl [Cartia Xt] 240 MG) PO SCH (22:00)
[2016-05-08] MEDS ORDERED: FUROSEMIDE 20 MG TABLET PO SCH (08:00)
[2016-05-09] MEDS ORDERED: ERGOCALCIFEROL (VITAMIN D2) 50000 UNIT (1.25 MG) CAPSULE PO SCH (10:00)
--- NOTE | 2016-05-09 13:14 | PDOC DISCHARGE SUMMARY ---
General - Admit/Disc Date/PCP Admission Date/Primary Care Provider: 04/29/16 21:12 FELICITAS WOOD Discharge Date: 05/07/16 - Discharge Diagnosis (1) COPD exacerbation Is this a current diagnosis for this admission?: YesSummary: Patient was treated with nebs and steroids antibiotics ; O2 supplementation was continued at time of discharge respiratory status was stable (2) Chronic atrial fibrillation Is this a current diagnosis for this admission?: YesSummary: With controlled ventricular rate patient was previously anticoagulated on Eliquis which was discontinued after she developed retroperitoneal hematoma (3) LLL pneumonia Is this a current diagnosis for this admission?: YesSummary: Patient did have left lower lobe pneumonia Sputum and blood cultures were negative She did improve during her stay She completed a course of antibiotics (4) Nontraumatic retroperitoneal hematoma Is this a current diagnosis for this admission?: YesSummary: Anticoagulation was discontinued H&H remained stable Patient should have a repeat CBC in the month Reevaluation for anticoagulation in 3 months (5) Pneumonia Is this a current diagnosis for this admission?: Yes (6) Acute and chronic respiratory failure ([id number]) Is this a current diagnosis for this admission?: Yes (7) UTI (urinary tract infection) due to Enterococcus Is this a current diagnosis for this admission?: YesSummary: 05/03/16 18:20 Urine Culture - Final Clean Catch Midstream Enterococcus Faecalis(Group D) E faecalis was sensitive to Levaquin Patient was initially treated with vancomycin and then switched to Levaquin ; she completed a full course of treatment - Additional Information Resuscitation Status: Do Not Resuscitate - Implications of DO NOT RESUSCITATE/ DO NOT INTUBATE status discussed with patient. Discussed in layperson's terms. Implications understood. Patient is the health care decision maker. Patient conversation is lucid and appropriate. Patient desires DO NOT RESUSCITATE/DO NOT INTUBATE status. Will honor patient wishes. Discharge Diet: Cardiac, Diabetic Discharge Activity: Activity As Tolerated, Balance Activity w/Rest Home Medications: Atorvastatin Calcium [Lipitor 40 mg Tablet] 40 mg PO QHS 04/30/16 Brimonidine Tartrate/Timolol [Combigan 0.2%-0.5% Eye Drops] 1 drop OS Q12 Budesonide/Formoterol Fumarate [Symbicort HFA 160-4.5 mcg Inhaler 6 gm] 2 puff IH Q12 04/30/16 Carvedilol [Coreg 6.25 mg Tablet] 6.25 mg PO Q12 04/30/16 Diltiazem HCl [Cartia Xt] 240 mg PO Q12 04/30/16 Ergocalciferol (Vitamin D2) [Vitamin D2] 50,000 unit PO SAINI@1000 04/30/16 Escitalopram Oxalate [Lexapro] 10 mg PO QHS 04/30/16 Fluticasone/Salmeterol [Advair 250-50 Diskus 14 Dose/Diskus] 1 puff IH Q12 04/30 Furosemide [Lasix] 20 mg PO QAM 04/30/16 Timolol Maleate [Timoptic 0.5% Oph Soln 5 ml] 1 drop OS Q12 04/30/16 Glimepiride [Amaryl 4 mg Tablet] 4 mg PO DAILY #30 tablet 05/07/16 Lisinopril [Prinivil 10 mg Tablet] 10 mg PO DAILY #30 tablet 05/07/16 Metformin HCl 500 mg PO DAILY #30 tablet 05/07/16 Prednisone [Deltasone 20 mg Tablet] 20 mg PO DAILY #5 tablet 05/07/16 History of Present Illness Patient complains of: SOB History of Present Illness: August ANNELISE is a 70 [facility] old female [facility] female with underlying nonhome O2 dependent COPD, possibly asthma, along with chronic atrial fibrillation, on Xarelto for same, and combined systolic and diastolic congestive heart failure, who presents to the emergency room for evaluation of approximate 24-hour history of slowly progressive difficulty breathing, in particular with much of any exertion. 84% on room air when EMS arrived. Was given an albuterol treatment en route. Associated slightly productive cough, but no fever chills, nausea vomiting, diarrhea or dysuria, chest or abdominal pain. Lost her balance and fell and struck the back of her head on her bathroom floor yesterday. No loss of consciousness. Hospitalized on our service November 28 through the of last year with discharge diagnoses including atrial fibrillation with rapid ventricular response, along with COPD exacerbation and acute on chronic combined diastolic and systolic congestive heart failure. Has not been hospitalized since then. Doesn't think she's been on antibiotics in the last 3 months. Up-to-date with her flu vaccination. Uncertain about her pneumonia vaccination." Patient was admitted and started on antibiotics for community-acquired pneumonia including Rocephin and doxycycline, azithromycin and Levaquin on hold due to prolonged QT interval on EKG. Of note patient had echocardiogram performed in November 2015 that showed an EF of 40-45% with moderate mitral regurgitation and moderate rate to6 diastolic dysfunction. Hospital Course Hospital Course: See above Physical Exam Vital Signs: Temp Pulse Resp BP Pulse Ox 98.1 F 82 16 136/71 H 89 L 05/07/16 15:18 05/07/16 15:18 05/07/16 15:18 05/07/16 15:18 05/07/16 15:18 Intake & Output 05/08/16 05/09/16 05/10/16 00:59 00:59 00:59 Intake Total 1265 Balance 1265 Weight 87.6 kg General appearance: PRESENT: no acute distress, well-developed, well-nourished Head exam: PRESENT: atraumatic, normocephalic Eye exam: PRESENT: conjunctiva pink, EOMI, PERRLA. ABSENT: scleral icterus Ear exam: PRESENT: normal external ear exam Mouth exam: PRESENT: moist, tongue midline Neck exam: ABSENT: carotid bruit, JVD, lymphadenopathy, thyromegaly Respiratory exam: PRESENT: clear to auscultation mike. ABSENT: rales, rhonchi, wheezes Cardiovascular exam: PRESENT: RRR. ABSENT: diastolic murmur, rubs, systolic murmur Pulses: PRESENT: normal dorsalis pedis pul Vascular exam: PRESENT: normal capillary refill GI/Abdominal exam: PRESENT: normal bowel sounds, soft. ABSENT: distended, guarding, mass, organolmegaly, rebound, tenderness Rectal exam: PRESENT: deferred Extremities exam: PRESENT: full ROM. ABSENT: calf tenderness, clubbing, pedal edema Neurological exam: PRESENT: alert, awake, oriented to person, oriented to place , oriented to time, oriented to situation, CN II-XII grossly intact. ABSENT: motor sensory deficit Psychiatric exam: PRESENT: appropriate affect, normal mood. ABSENT: homicidal ideation, suicidal ideation Skin exam: PRESENT: dry, intact, warm. ABSENT: cyanosis, rash Results Laboratory Results: 05/05/16 07:28 05/04/16 07:56 05/05/16 07:28 05/04/16 07:56 04/29/16 04/29/16 15:14 15:23 Creatine Kinase 68 Troponin I 0.024 NT-Pro-B Natriuret Pep 1210 H 05/05/16 07:28 05/04/16 07:56 Blood Type A NEGATIVE 05/02/16 16:15 Antibody Screen NEGATIVE 05/02/16 16:15 MCV 87 fl (80-97) 05/05/16 07:28 MCH 29.8 pg (27.0-33.4) 05/05/16 07:28 MCHC 34.1 g/dL (32.0-36.0) 05/05/16 07:28 RDW 15.1 % (11.5-14.0) H 05/05/16 07:28 Seg Neutrophils % 88.2 % (42-78) H 05/03/16 03:45 Lymphocytes % 6.7 % (13-45) L 05/03/16 03:45 Monocytes % 5.0 % (3-13) 05/03/16 03:45 Eosinophils % 0.0 % (0-6) 05/03/16 03:45 Basophils % 0.1 % (0-2) 05/03/16 03:45 Absolute Neutrophils 15.7 10^3/uL (1.7-8.2) H 05/03/16 03:45 Absolute Lymphocytes 1.2 10^3/uL (0.5-4.7) 05/03/16 03:45 Absolute Monocytes 0.9 10^3/uL (0.1-1.4) 05/03/16 03:45 Absolute Eosinophils 0.0 10^3/uL (0.0-0.6) 05/03/16 03:45 Absolute Basophils 0.0 10^3/uL (0.0-0.2) 05/03/16 03:45 VBG pH 7.40 (7.30-7.42) 04/30/16 02:45 VBG pCO2 44.3 mmHg (35-63) 04/30/16 02:45 VBG HCO3 26.6 mmol/L (20-32) 04/30/16 02:45 VBG Base Excess 1.4 mmol/L 04/30/16 02:45 Chloride 97 mmol/L (98-107) L 05/04/16 07:56 Carbon Dioxide 28 mmol/L (22-30) 05/04/16 07:56 Anion Gap 10 (5-19) 05/04/16 07:56 Est GFR ( Amer) > 60 (>60) 05/04/16 07:56 Est GFR (Non-Af Amer) > 60 (>60) 05/04/16 07:56 Glucose 239 mg/dL (75-110) H 05/04/16 07:56 Lactic Acid 0.8 mmol/L (0.7-2.1) 04/29/16 15:23 Calcium 8.7 mg/dL (8.4-10.2) 05/04/16 07:56 Total Bilirubin 1.0 mg/dL (0.2-1.3) 04/29/16 15:14 AST 32 U/L (14-36) 04/29/16 15:14 ALT 33 U/L (9-52) 04/29/16 15:14 Alkaline Phosphatase 65 U/L (38-126) 04/29/16 15:14 Total Protein 6.6 g/dL (6.3-8.2) 04/29/16 15:14 Albumin 3.2 g/dL (3.5-5.0) L 04/29/16 15:14 Urine Color YELLOW 05/03/16 18:20 Urine Appearance CLOUDY 05/03/16 18:20 Urine pH 6.0 (5.0-9.0) 05/03/16 18:20 Ur Specific Robinson 1.016 05/03/16 18:20 Urine Protein NEGATIVE mg/dL (NEGATIVE) 05/03/16 18:20 Urine Glucose (UA) NEGATIVE mg/dL (NEGATIVE) 05/03/16 18:20 Urine Ketones NEGATIVE mg/dL (NEGATIVE) 05/03/16 18:20 Urine Blood MODERATE (NEGATIVE) H 05/03/16 18:20 Urine Nitrite NEGATIVE (NEGATIVE) 05/03/16 18:20 Ur Leukocyte Esterase TRACE (NEGATIVE) H 05/03/16 18:20 Urine WBC (Auto) 13 /HPF 05/03/16 18:20 Urine RBC (Auto) 69 /HPF 05/03/16 18:20 04/29/16 04/29/16 15:14 15:23 Creatine Kinase 68 Troponin I 0.024 NT-Pro-B Natriuret Pep 1210 H EKG Comments: ATRIAL FIBRILLATION [LBBB] . LEFT BUNDLE BRANCH BLOCK Impressions: Head CT 04/29/16 00:00 IMPRESSION: No intracranial hemorrhage. Chest X-Ray 04/29/16 13:02 IMPRESSION: Stable moderate cardiomegaly Patchy airspace disease at the left lateral lung base, atelectasis versus pneumonia Abdomen/Pelvis CT 05/02/16 00:00 IMPRESSION: Large heterogeneous mass in the right lower quadrant and right pelvis as noted above. The appearance is most consistent with a hematoma. There are areas of increased density within the mass and the possibility of active bleeding should be considered. Possibility of an underlying mass cannot be completely excluded. Other findings as noted above Plan Discharge Plan: Patient will be discharged home with services Her grandson does take care of her; she's to follow-up with her primary care physician a week Time Spent: Greater than 30 Minutes
== END 2016-05-07 18:49 | disposition home health service (06) | DRG 193 ==
LOC: ER 12:55 → EH 19:32 → UNDOADMIN 19:32 → EH 21:12 → 3S 04-30 08:21 → 4W 05-06 01:35
PROVIDERS: ADMIT Family Medicine; ATTEND Family Medicine
PROC: 30233K1 Transfusion of Nonautologous Frozen Plasma into Peripheral Vein, Percutaneous Approach (ICD-10-PCS; principal; 2016-05-02)
PROC: 30233N1 Transfusion of Nonautologous Red Blood Cells into Peripheral Vein, Percutaneous Approach (ICD-10-PCS; 2016-05-04)
DX: J18.1 Lobar pneumonia, unspecified organism (principal); J96.21 Acute and chronic respiratory failure with hypoxia; K66.1 Hemoperitoneum; J44.1 Chronic obstructive pulmonary disease with (acute) exacerbation; I50.42 Chronic combined systolic (congestive) and diastolic (congestive) heart failure; D62 Acute posthemorrhagic anemia; N39.0 Urinary tract infection, site not specified; Z66 Do not resuscitate; I11.0 Hypertensive heart disease with heart failure; E87.6 Hypokalemia; I48.2 Chronic atrial fibrillation; S09.90XA Unspecified injury of head, initial encounter; R10.31 Right lower quadrant pain; B95.2 Enterococcus as the cause of diseases classified elsewhere; W18.30XA Fall on same level, unspecified, initial encounter; Y93.9 Activity, unspecified; Y92.009 Unspecified place in unspecified non-institutional (private) residence as the place of occurrence of the external cause; Z79.01 Long term (current) use of anticoagulants; Z88.5 Allergy status to narcotic agent; Z86.73 Personal history of transient ischemic attack (TIA), and cerebral infarction without residual deficits; Z96.642 Presence of left artificial hip joint; Z96.651 Presence of right artificial knee joint
CPT/HCPCS: 36415; 36430; 51701; 70450; 71010; 74177; 80048; 80076; 81001; 82550; 82803; 82962; 83605; 83880; 84484; 85025; 85027; 85610; 85730; 86850; 86900; 86901; 86920; 87040; 87086; 87088; 87186; 87804; 93005; 93010; 94640; 94799; 96365; 96367; 99285; G8978-GP; G8979-GP; J0456; J0696; J1815; J1956; J2920; J2930; J3480; J3490; J7060; J7512; J7620; P9016; P9017

== ENCOUNTER 2016-05-10 13:08 | Observation (INO) | payer MEDICARE, BC, OTHER ==
--- NOTE | 2016-05-10 13:49 | ER Document Report ---
ED General - General Chief Complaint: Weakness Stated Complaint: WEAKNESS Time seen by provider: 13:35 Mode of Arrival: Medic Information source: Patient, Emergency Med Personnel Notes: 80-year-old female brought from home with report given to the emergency personnel by son the patient is too weak to ambulate has had increasing shortness of breath. Patient was admitted with pneumonia COPD and chronic atrial fibrillation this facility and discharged May 07. EMS personnel report they were told the patient was offered admission to [facility] for rehabilitation but she refused and wanted to go home. EMS reports patient is not on oxygen at home. The patient reports cough which is not productive. She denies fever, chills, nausea, vomiting, chest pain, abdominal pain, or back pain. She seems somewhat confused during exam and has difficulty answering some questions. Physical Exam: General: Alert, appears well. HEENT: Normocephalic. Atraumatic. PERRLA. Extraocular movements intact. Oropharynx clear. Neck: Supple. Non-tender. Respiratory: Mildly tachypnea Few rhonchi bilaterally good aeration no accessory muscle use Cardiovascular: Irregular no murmur Abdominal: Normal Inspection. Soft, non-tender. No guarding rebound rigidity No distension. Normal Bowel Sounds. Back: Non-tender. No deformity or step off. Extremities: Moves all four extremities. Upper extremities: Normal inspection. Non-tender. Normal color. Normal ROM. Normal temperature. Lower extremities: Normal inspection. Non-tender. No edema. Normal color. Normal ROM. Normal temperature. Neurological: Speech clear. Patient is difficulty answering, headache questions. She is oriented person and place only. Moves all 4 extremities spontaneously but has difficulty fully cooperating with exam Psychological: Normal affect. Normal Mood. Skin: Warm. Dry. Normal color. TRAVEL OUTSIDE OF THE [place] IN LAST 30 DAYS: No - Related Data Allergies/Adverse Reactions: morphine [Morphine] Allergy (Mild, Verified 06/04/14 03:36) "oversedated" Past Medical History - Social History Smoking Status: Former Smoker Family History: denies: CAD - Past Medical History Cardiac Medical History: Reports: Hx Atrial Fibrillation, Hx Congestive Heart Failure, Hx Hypercholesterolemia, Hx Hypertension Denies: Hx DVT, Hx Heart Attack, Hx Pulmonary Embolism Pulmonary Medical History: Reports: Hx Bronchitis, Hx COPD, Hx Pneumonia - Pediatric Neurological Medical History: Reports: Hx Cerebrovascular Accident. Denies: Hx Seizures Endocrine Medical History: Reports: Hx Diabetes Mellitus Type 2 - Diet controlled. Denies: Hx Diabetes Mellitus Type 1, Hx Hyperthyroidism, Hx Hypothyroidism Renal/ Medical History: Denies: Hx Peritoneal Dialysis GI Medical History: Denies: Hx Cirrhosis, Hx Gastroesophageal Reflux Disease, Hx Hepatitis Musculoskeltal Medical History: Denies Hx Arthritis Skin Medical History: Denies Hx Eczema, Reports Hx MRSA - abdominal wall, resolved., Denies Hx Psoriasis Psychiatric Medical History: Denies: Hx Depression Traumatic Medical History: Reports: Hx Fractures - "LT arm", no surgery Infectious Medical History: Denies: Hx Hepatitis Past Surgical History: Reports: Hx Abdominal Surgery - abdominal abscess, Hx Herniorrhaphy - incisional, Hx Hysterectomy - CHIP, Hx Orthopedic Surgery - left hip replacement, right knee replacement. - Immunizations Hx Diphtheria, Pertussis, Tetanus Vaccination: No Hx Pneumococcal Vaccination: 06/05/13 Review of Systems - Review of Systems Constitutional: denies: Chills, Fever EENT: denies: Ear pain, Throat pain Cardiovascular: denies: Chest pain, Dyspnea Respiratory: Cough. denies: Short of breath Gastrointestinal: denies: Abdominal pain, Diarrhea, Nausea, Vomiting, Blood in vomit, Black stools, Rectal bleeding Genitourinary: denies: Burning, Dysuria Female Genitourinary: denies: Post menopausal Musculoskeletal: denies: Back pain, Muscle pain Skin: denies: Rash Hematologic/Lymphatic: denies: Swollen glands Neurological/Psychological: denies: Weakness, Numbness Physical Exam - Vital signs Vitals: Temp Pulse Resp BP Pulse Ox 98.3 F 76 18 129/96 H 96 05/10/16 13:12 05/10/16 13:12 05/10/16 13:12 05/10/16 13:12 05/10/16 13:12 Course - Re-evaluation Re-evalutation: 05/10/16 17:22 Patient has not done well since her discharge 3 days ago with continued shortness of breath and difficulty with ambulation at home. The patient is not aware that she is supposed to be on oxygen as an outpatient and her sats dropped to 85% on room air with attempts at ambulation here after to do and at times. No evidence for pneumonia now but deployed that she has further exacerbation COPD. She will be treated with IV steroids and antibiotics and Dr. Wren hospitalist service will be coming to see patient - Vital Signs Vital signs: Temp Pulse Resp BP Pulse Ox 98.3 F 76 21 H 155/69 H 91 L 05/10/16 13:12 05/10/16 13:12 05/10/16 15:01 05/10/16 14:44 05/10/16 15:01 - Laboratory Result Diagrams: 05/10/16 16:00 05/10/16 16:00 Laboratory results interpreted by me: 05/10/16 05/10/16 16:00 16:00 WBC 25.5 H RDW 15.5 H Seg Neuts % (Manual) 80 H Lymphocytes % (Manual) 11 L Abs Neuts (Manual) 20.4 H Abs Monocytes (Manual) 2.0 H VBG pH 7.46 H VBG HCO3 34.3 H - Diagnostic Test Radiology reviewed: Image reviewed, Reports reviewed - EKG Interpretation by Me Additional EKG results interpreted by me: 05/10/16 17:22 EKG review, so shows atrial fibrillation at 80 with left bundle branch block unchanged from April 29 this year Discharge - Discharge Clinical Impression: Acute respiratory failure with hypoxemia, Chronic obstructive pulmonary disease with acute exacerbation Condition: Fair Disposition: ADMITTED INPATIENT Unit Admitted: Medical Floor
[2016-05-10] MEDS ORDERED: IPRATROPIUM/ALBUTEROL 0.5-2.5 MG/3 ML AMPUL NEB ONE (15:01)
[2016-05-10 16:16] LABS: APPEARANCE,URINE CLEAR; BILIRUBIN,URINE NEGATIVE (NEGATIVE); GLUCOSE, URINE NEGATIVE (NEGATIVE); KETONES,URINE NEGATIVE (NEGATIVE); LEUKOCYTE ESTERASE,URINE NEGATIVE (NEGATIVE); NITRITE,URINE NEGATIVE (NEGATIVE); PROTEIN,URINE NEGATIVE (NEGATIVE); URINE SPECIFIC GRAVITY 1.008; UROBILINOGEN,URINE NEGATIVE mg/dL (<2.0)
[2016-05-10 16:24] LABS: HEMOGLOBIN 12.5 g/dL (12.0-15.5); HGB HCT DIFFERENCE -0.5; MEAN CORPUSCULAR HEMOGLOBIN 29.7 pg (27.0-33.4); MEAN CORPUSCULAR HGB CONC 32.9 g/dL (32.0-36.0); MEAN CORPUSCULAR VOLUME 90 fl (80-97); RED BLOOD COUNT 4.22 10^6/uL (3.72-5.28); RED CELL DISTRIBUTION WIDTH 15.5 % (11.5-14.0); VENOUS BLOOD BASE EXCESS 8.9 mmol/L; VENOUS BLOOD HCO3 34.3 mmol/L (20-32); VENOUS BLOOD PCO2 49.1 mmHg (35-63); VENOUS BLOOD PH 7.46 (7.30-7.42); WHITE BLOOD COUNT 25.5 10^3/uL (4.0-10.5)
[2016-05-10 16:42] LABS: PROTHROMBIN TIME 12.8 SEC (11.4-15.4)
[2016-05-10] MEDS ORDERED: METHYLPREDNISOLONE INJ 125 MG/2 ML SDV IV ONE (16:46)
[2016-05-10 16:50] LABS: ALANINE AMINOTRANSFERASE 32 U/L (9-52); ALBUMIN 3.5 g/dL (3.5-5.0); ALKALINE PHOSPHATASE 68 U/L (38-126); ANION GAP 11 (5-19); ASPARTATE AMINO TRANSFERASE 32 U/L (14-36); BILIRUBIN,TOTAL 2.6 mg/dL (0.2-1.3); BLOOD UREA NITROGEN 22 mg/dL (7-20); CALCIUM 8.8 mg/dL (8.4-10.2); CARBON DIOXIDE 31 mmol/L (22-30); CHLORIDE 97 mmol/L (98-107); CREATININE RESULT 0.48 mg/dL (0.52-1.25); GLUCOSE 62 mg/dL (75-110); SODIUM 138.8 mmol/L (137-145); TOTAL PROTEIN 6.9 g/dL (6.3-8.2)
[2016-05-10 16:59] LABS: BASOPHILS % (MANUAL) 0 % (0-2); EOSINOPHILS % (MANUAL) 1 % (0-6); LYMPHOCYTES % (MANUAL) 11 % (13-45); TOTAL CELLS COUNTED 100
[2016-05-10 17:00] LABS: ANISOCYTOSIS SLIGHT; OVALOCYTES SLIGHT; POIKILOCYTOSIS SLIGHT; POLYCHROMASIA SLIGHT
[2016-05-10] MEDS ORDERED: CEFTRIAXONE 1 GM/D5W RTU 50 ML IV ONE (17:23)
[2016-05-10 17:24] LABS: POTASSIUM 3.1 mmol/L (3.6-5.0)
--- NOTE | 2016-05-10 18:13 | PDOC H&P ---
History of Present Illness Admission Date/PCP: 05/10/16 18:03 MARLENY DESHPANDE MD Patient complains of: SOB History of Present Illness: DENNIS CASTELAN is a 70 year old female with a known history of -CHF chronic systolic and diastolic -chronic atrial fibrillation not anticoagulated as she developped recently a spontaneous retroperitoneal hematoma during her last admission -LLL pneumonia -reccurent UTI's with E Fecalis - incontinence of urine - ambulatory dysfunction Patient may ambulate with front wheel walker with assist of 1 in shuffling unsteady gait Patient was discharged 24 hours ago home with services under the care of her grand son ; although we felt that a transfer to a SNF facility was more appropriate Patient adamently had refused to go to a Penitentiary Patient was brought to the ED slightly confused , hypoxemic with an elevated wbc ,no fever She was readmitted under Hospitalist Service Past Medical History Cardiac Medical History: Reports: Atrial Fibrillation, Congestive Heart Failure , Hyperlipidema, Hypertension Denies: DVT, Myocardial Infarction, Pulmonary Embolism Pulmonary Medical History: Reports: Bronchitis, Chronic Obstructive Pulmonary Disease (COPD), Pneumonia - Pediatric Neurological Medical History: Denies: Seizures Endocrine Medical History: Reports: Diabetes Mellitus Type 2 - Diet controlled Denies: Diabetes Mellitus Type 1, Hyperthyroidism, Hypothyroidism GI Medical History: Denies: Cirrhosis, Gastroesophageal Reflux Disease, Hepatitis Musculoskeltal Medical History: Denies: Arthritis Skin Medical History: Denies: Eczema, Psoriasis Psychiatric Medical History: Denies: Depression Past Surgical History Past Surgical History: Reports: Herniorrhaphy - incisional, Hysterectomy - CHIP, Orthopedic Surgery - left hip replacement, right knee replacement. Denies: Amputation Social History Smoking Status: Former Smoker Frequency of Alcohol Use: None Hx Recreational Drug Use: No Hx Prescription Drug Abuse: No - Advance Directive Resuscitation Status: Do Not Resuscitate Surrogate healthcare decision maker:: grand son Family History Family History: denies: CAD Parental Family History Reviewed: Yes Children Family History Reviewed: Yes Sibling(s) Family History Reviewed.: Yes Medication/Allergy Home Medications: Atorvastatin Calcium [Lipitor 40 mg Tablet] 40 mg PO QHS 04/30/16 Brimonidine Tartrate/Timolol [Combigan 0.2%-0.5% Eye Drops] 1 drop OS Q12 Budesonide/Formoterol Fumarate [Symbicort HFA 160-4.5 mcg Inhaler 6 gm] 2 puff IH Q12 04/30/16 Carvedilol [Coreg 6.25 mg Tablet] 6.25 mg PO Q12 04/30/16 Diltiazem HCl [Cartia Xt] 240 mg PO Q12 04/30/16 Ergocalciferol (Vitamin D2) [Vitamin D2] 50,000 unit PO SAINI@1000 04/30/16 Escitalopram Oxalate [Lexapro] 10 mg PO QHS 04/30/16 Fluticasone/Salmeterol [Advair 250-50 Diskus 14 Dose/Diskus] 1 puff IH Q12 04/30 Furosemide [Lasix] 20 mg PO QAM 04/30/16 Timolol Maleate [Timoptic 0.5% Oph Soln 5 ml] 1 drop OS Q12 04/30/16 Glimepiride [Amaryl 4 mg Tablet] 4 mg PO DAILY #30 tablet 05/07/16 Lisinopril [Prinivil 10 mg Tablet] 10 mg PO DAILY #30 tablet 05/07/16 Metformin HCl 500 mg PO DAILY #30 tablet 05/07/16 Prednisone [Deltasone 20 mg Tablet] 20 mg PO DAILY #5 tablet 05/07/16 Allergies/Adverse Reactions: morphine [Morphine] Allergy (Mild, Verified 06/04/14 03:36) "oversedated" Review of Systems Constitutional: ABSENT: anorexia, chills, fever(s) Cardiovascular: PRESENT: dyspnea on exertion, orthropnea. ABSENT: chest pain Respiratory: PRESENT: dyspnea Gastrointestinal: ABSENT: abdominal pain, constipation, diarrhea, hematemesis, hematochezia, nausea, vomiting Genitourinary: PRESENT: other - incontinence urine Neurological: PRESENT: confusion, weakness. ABSENT: focal weakness, syncope, vertigo Psychiatric: PRESENT: depression Physical Exam Vital Signs: Temp Pulse Resp BP Pulse Ox 98.3 F 76 21 H 155/69 H 91 L 05/10/16 13:12 05/10/16 13:12 05/10/16 15:01 05/10/16 14:44 05/10/16 15:01 General appearance: PRESENT: mild distress Head exam: PRESENT: atraumatic, normocephalic Eye exam: PRESENT: conjunctiva pink, EOMI, PERRLA. ABSENT: scleral icterus Neck exam: ABSENT: carotid bruit, JVD, lymphadenopathy, thyromegaly Respiratory exam: PRESENT: decreased breath sounds. ABSENT: accessory muscle use, chest wall tenderness, tachypnea, wheezes Cardiovascular exam: PRESENT: irregular rhythm, systolic murmur. ABSENT: gallop , rubs Pulses: PRESENT: normal dorsalis pedis pul GI/Abdominal exam: PRESENT: normal bowel sounds, soft. ABSENT: distended, guarding, mass, organolmegaly, rebound, tenderness Extremities exam: PRESENT: full ROM. ABSENT: calf tenderness, clubbing, pedal edema Neurological exam: PRESENT: awake, CN II-XII grossly intact Skin exam: PRESENT: dry, intact, warm. ABSENT: cyanosis, rash Results Laboratory Results: Labs- All tests 24 hr 05/10/16 05/10/16 05/10/16 15:40 16:00 16:00 WBC 25.5 H RBC 4.22 Hgb 12.5 Hct 38.0 MCV 90 MCH 29.7 MCHC 32.9 RDW 15.5 H Plt Count 317 Total Counted 100 Seg Neutrophils % Not Reportable Seg Neuts % (Manual) 80 H Lymphocytes % Not Reportable Lymphocytes % (Manual) 11 L Monocytes % Not Reportable Monocytes % (Manual) 8 Eosinophils % Not Reportable Eosinophils % (Manual) 1 Basophils % Not Reportable Basophils % (Manual) 0 Absolute Neutrophils Not Reportable Abs Neuts (Manual) 20.4 H Absolute Lymphocytes Not Reportable Abs Lymphs (Manual) 2.8 Absolute Monocytes Not Reportable Abs Monocytes (Manual) 2.0 H Absolute Eosinophils Not Reportable Absolute Eos (Manual) 0.3 Absolute Basophils Not Reportable Abs Basophils (Manual) 0.0 Platelet Comment ADEQUATE Polychromasia SLIGHT Poikilocytosis SLIGHT Anisocytosis SLIGHT Ovalocytes SLIGHT PT 12.8 INR 0.94 VBG pH VBG pCO2 VBG HCO3 VBG Base Excess Sodium Potassium Chloride Carbon Dioxide Anion Gap BUN Creatinine Est GFR ( Amer) Est GFR (Non-Af Amer) Glucose Lactic Acid Calcium Total Bilirubin Direct Bilirubin AST ALT Alkaline Phosphatase NT-Pro-B Natriuret Pep Total Protein Albumin Urine Color YELLOW Urine Appearance CLEAR Urine pH 7.0 Ur Specific B[place]ison 1.008 Urine Protein NEGATIVE Urine Glucose (UA) NEGATIVE Urine Ketones NEGATIVE Urine Blood NEGATIVE Urine Nitrite NEGATIVE Urine Bilirubin NEGATIVE Urine Urobilinogen NEGATIVE Ur Leukocyte Esterase NEGATIVE Urine WBC (Auto) 2 Urine Ascorbic Acid NEGATIVE 05/10/16 05/10/16 05/10/16 16:00 16:00 16:00 WBC RBC Hgb Hct MCV MCH MCHC RDW Plt Count Total Counted Seg Neutrophils % Seg Neuts % (Manual) Lymphocytes % Lymphocytes % (Manual) Monocytes % Monocytes % (Manual) Eosinophils % Eosinophils % (Manual) Basophils % Basophils % (Manual) Absolute Neutrophils Abs Neuts (Manual) Absolute Lymphocytes Abs Lymphs (Manual) Absolute Monocytes Abs Monocytes (Manual) Absolute Eosinophils Absolute Eos (Manual) Absolute Basophils Abs Basophils (Manual) Platelet Comment Polychromasia Poikilocytosis Anisocytosis Ovalocytes PT INR VBG pH 7.46 H VBG pCO2 49.1 VBG HCO3 34.3 H VBG Base Excess 8.9 Sodium 138.8 Potassium 3.1 L Chloride 97 L Carbon Dioxide 31 H Anion Gap 11 BUN 22 H Creatinine 0.48 L Est GFR ( Amer) > 60 Est GFR (Non-Af Amer) > 60 Glucose 62 L Lactic Acid 1.2 Calcium 8.8 Total Bilirubin 2.6 H Direct Bilirubin 0.0 AST 32 ALT 32 Alkaline Phosphatase 68 NT-Pro-B Natriuret Pep Total Protein 6.9 Albumin 3.5 Urine Color Urine Appearance Urine pH Ur Specific [place]ison Urine Protein Urine Glucose (UA) Urine Ketones Urine Blood Urine Nitrite Urine Bilirubin Urine Urobilinogen Ur Leukocyte Esterase Urine WBC (Auto) Urine Ascorbic Acid 05/10/16 16:00 WBC RBC Hgb Hct MCV MCH MCHC RDW Plt Count Total Counted Seg Neutrophils % Seg Neuts % (Manual) Lymphocytes % Lymphocytes % (Manual) Monocytes % Monocytes % (Manual) Eosinophils % Eosinophils % (Manual) Basophils % Basophils % (Manual) Absolute Neutrophils Abs Neuts (Manual) Absolute Lymphocytes Abs Lymphs (Manual) Absolute Monocytes Abs Monocytes (Manual) Absolute Eosinophils Absolute Eos (Manual) Absolute Basophils Abs Basophils (Manual) Platelet Comment Polychromasia Poikilocytosis Anisocytosis Ovalocytes PT INR VBG pH VBG pCO2 VBG HCO3 VBG Base Excess Sodium Potassium Chloride Carbon Dioxide Anion Gap BUN Creatinine Est GFR ( Amer) Est GFR (Non-Af Amer) Glucose Lactic Acid Calcium Total Bilirubin Direct Bilirubin AST ALT Alkaline Phosphatase NT-Pro-B Natriuret Pep 723 Total Protein Albumin Urine Color Urine Appearance Urine pH Ur Specific [place] Urine Protein Urine Glucose (UA) Urine Ketones Urine Blood Urine Nitrite Urine Bilirubin Urine Urobilinogen Ur Leukocyte Esterase Urine WBC (Auto) Urine Ascorbic Acid EKG Comments: ATRIAL FIBRILLATION [LBBB] . LEFT BUNDLE BRANCH BLOCK Impressions: Chest X-Ray 05/10/16 13:38 IMPRESSION: NO ACUTE RADIOGRAPHIC FINDING IN THE CHEST. Head CT 05/10/16 13:50 IMPRESSION: No acute abnormality in the brain. Assessment & Plan - Diagnosis (1) Leukocytosis Qualifiers: Leukocytosis type: bandemia Qualified Code(s): D72.825 - Bandemia Is this a current diagnosis for this admission?: YesPlan: Patient has been on steroids on and off She recently was treated for UTI and pneumonia we will repeat CBC in am and obtain appropriate cultures -blood and urine - and defer antibiotics tonite (2) COPD (chronic obstructive pulmonary disease) Qualifiers: Emphysema type: unspecified Is this a current diagnosis for this admission?: YesPlan: will resume prednisone po, nebs and steroid inhaler (3) Chronic atrial fibrillation Is this a current diagnosis for this admission?: YesPlan: rate controlled continue Cardizem CD (4) Chronic systolic heart failure Is this a current diagnosis for this admission?: YesPlan: stable continue Lasix , lisinopril will add Coreg (5) Hypoxia Is this a current diagnosis for this admission?: YesPlan: on admission to the ED Will resume O2 supplementation chronic hypoxemia likely secondary to chronic COPD and chronic systolic CHF Patient may be a candidate for continuous O2 at discharge (6) Diabetes Qualifiers: Diabetes mellitus type: type 2 Diabetes mellitus complication status: with unspecified complications Diabetes mellitus oil heaterman insulin use: without jail use Qualified Code(s): E11.8 - Type 2 diabetes mellitus with unspecified complications; Z79.4 - local intermodal truck driver (current) use of insulin Is this a current diagnosis for this admission?: YesPlan: resume diabetic diet , metformin and amaryl - Time Time Spent with patient: admit to Telemetry Inpatient Time Spent: 50 to 70 Minutes
[2016-05-10] MEDS ORDERED: IPRATROPIUM/ALBUTEROL 0.5-2.5 MG/3 ML AMPUL NEB PRN (18:46)
[2016-05-10] MEDS ORDERED: GLUCAGON,HUMAN RECOMB 1 MG INJ IM PRN (18:49)
[2016-05-10] MEDS ORDERED: DEXTROSE 50%-WATER 25 GM/50 ML DISP.SYRIN IV PRN ×2 (18:49)
[2016-05-10] MEDS ORDERED: DEXTROSE 40% GEL 15 GM TUBE PO PRN ×2 (18:49)
[2016-05-10] MEDS ORDERED: POTASSIUM CHLORIDE 20 MEQ/15 ML UDCUP PO ONE (19:45)
--- NOTE | 2016-05-10 20:52 | EKG REPORT ---
SEVERITY:- ABNORMAL ECG - ATRIAL FIBRILLATION LEFT BUNDLE BRANCH BLOCK : Confirmed by: Sean Conklin 10-May-2016 20:51:29
[2016-05-10] MEDS ORDERED: (PENDING PHARMACY ID) (Diltiazem Hcl [Cartia Xt] 240 MG) PO SCH (22:00)
[2016-05-10] MEDS: ATORVASTATIN CALCIUM 40 MG TABLET PO SCH (23:38)
[2016-05-10] MEDS: BRIMONIDINE TARTRATE 0.2% OPH SOLN 5 ML OS SCH (23:38)
[2016-05-10] MEDS: BUDESONIDE/FORMOTEROL 160-4.5 MCG 60 PUFF/6 GM MDI IH SCH (23:38)
[2016-05-10] MEDS: CARVEDILOL 6.25 MG TABLET PO SCH (23:39)
[2016-05-10] MEDS: DILTIAZEM HCL 240 MG CAPSULE.CR PO SCH (23:40)
[2016-05-10] MEDS: FUROSEMIDE INJ/PF 20 MG/2 ML SDV IV SCH (23:41)
[2016-05-10] MEDS: POTASSIUM CHLORIDE 10 MEQ TABLET.SA PO SCH (23:41)
[2016-05-10] MEDS: INSULIN LISPRO 100 UNIT/ML 3 ML VIAL SUBCUT PRN (23:41)
[2016-05-10] MEDS: TIMOLOL MALEATE 0.5% OPH SOLN 5 ML OS SCH (23:42)
[2016-05-11] MEDS: INSULIN LISPRO 100 UNIT/ML 3 ML VIAL SUBCUT PRN ×3 (05:59→23:07)
[2016-05-11] MEDS ORDERED: FUROSEMIDE 20 MG TABLET PO SCH (08:00)
[2016-05-11 08:55] LABS: ALANINE AMINOTRANSFERASE 27 U/L (9-52); ALBUMIN 2.9 g/dL (3.5-5.0); ALKALINE PHOSPHATASE 55 U/L (38-126); ANION GAP 9 (5-19); ASPARTATE AMINO TRANSFERASE 19 U/L (14-36); BILIRUBIN,TOTAL 1.8 mg/dL (0.2-1.3); BLOOD UREA NITROGEN 27 mg/dL (7-20); CALCIUM 8.7 mg/dL (8.4-10.2); CARBON DIOXIDE 31 mmol/L (22-30); CHLORIDE 97 mmol/L (98-107); CREATININE RESULT 0.47 mg/dL (0.52-1.25); GLUCOSE 282 mg/dL (75-110); MAGNESIUM 1.9 mg/dL (1.6-2.3); TOTAL PROTEIN 5.5 g/dL (6.3-8.2)
[2016-05-11 09:07] LABS: POTASSIUM 4.1 mmol/L (3.6-5.0); TROPONIN I < 0.012 ng/mL
[2016-05-11] MEDS: POTASSIUM CHLORIDE 10 MEQ TABLET.SA PO SCH ×2 (09:23→23:07)
[2016-05-11] MEDS: CARVEDILOL 6.25 MG TABLET PO SCH ×2 (09:24→23:06)
[2016-05-11] MEDS: LISINOPRIL 10 MG TABLET PO SCH (09:24)
[2016-05-11] MEDS: GLIMEPIRIDE 4 MG TABLET PO SCH (09:24)
[2016-05-11] MEDS: DILTIAZEM HCL 240 MG CAPSULE.CR PO SCH ×2 (09:24→23:06)
[2016-05-11] MEDS: PREDNISONE 20 MG TABLET PO SCH (09:24)
[2016-05-11] MEDS: METFORMIN HCL 500 MG TABLET PO SCH (09:24)
[2016-05-11] MEDS: BRIMONIDINE TARTRATE 0.2% OPH SOLN 5 ML OS SCH ×2 (09:25→23:06)
[2016-05-11] MEDS: FUROSEMIDE INJ/PF 20 MG/2 ML SDV IV SCH ×2 (09:25→23:07)
[2016-05-11] MEDS: BUDESONIDE/FORMOTEROL 160-4.5 MCG 60 PUFF/6 GM MDI IH SCH ×2 (09:25→23:06)
--- NOTE | 2016-05-11 10:54 | Physician Advisory Note ---
Physician Advisor ProgressNote .: [facility], I have reviewed the medical record for this patient. Physician Advisor Statement: Possible documentation opportunities if attending agrees: 1. "chronic hypoxemic respiratory failure requiring __L O2 at baseline now" - If pt has had increased work of breathing present this visit in association with her hypoxemia, & this is documented by attending, and she wasn't actually needing O2 prior to this visit, she may qualify for dx of Ac Resp Failure instead. - If pt has had increased work of breathing present this visit with hypoxemia while receiving the amt of O2 she needs at baseline, then she may qualify for dx of Ac on Chr Resp Failure. 2. "Medical Necessity" - if she only came back because was supposed to be on O2 & didn't get this at home & therefore weak/SOB, then should be Outpt Obs this stay. (Luckily, if she will go to placement now, the past adm should cover that.) - If clinically more acutely ill than this, please document explicitly the medical concerns & reasons she needs to be Inpatient & expected to clinically to need 2MNs of hospital care (not just housing while awaiting placement). As always, if concerned about any unstable VS or abnormal labs, please comment on them & note what doing about them, & please document each day the potential clinical problems you are concerned could occur if pt not kept in hospital for tx at this time. Discussion: 70yo female w/ chronic co-morbidities including chr Afib, chr syst/diast CHF, HTN, COPD, CVA, DM-2, LBBB, MRSA of abd wall abscess (resolved). Not on O2 outpt. - presented 3/6 PM to ED w/weakness to point inability to walk. (+) T98.3, HR 76-99, RR18-32, BP 129/96, O2 sat 91% on 2LO2, 85% RA with attempting to ambulate in ED. WBC 25.5 (was 14.4 on 05/05 while in hospital with COPD exac/PNA). U/A neg, BUN 22, Cr 0.48, glc 62, lactate 1.2, TB 2.6, trop I 0.023, BNP 723. ED dr gave Rocephin x1, & Solumedrol 125mg IV x1. Attending ordered sputum cx, Lasix 20mg IV q12h, Duonebs PRN, Prednisone 40mg daily, tele monitoring. Status: From review of last DCSummary & initial notes this visit, it appears the discharging dr felt pt needed home O2, but pt went home without home O2. O2 sat 91% on 2LO2 this time, & 85% RA w/ambulation attempt, then 93% on 2L, then 95% on 3L (=P/F ratios 210s-250 range, consistent with RA O2 sats mid-80s) . Came back w/significantly higher WBC count, but this was with intervening steroid tx, & with no new lung infiltrates & a nl U/A. Came back with elevated BUN/Cr ratio, but intravascular volume depletion is not a reason for inpatient status. Unless pt shows evidence of additional clinical issues or worsening status that make tx in inpatient hospital setting for at least a 2nd MN medically reasonable & necessary to protect pt's health, safety, & medical condition, she appears most appropriate for Outpt Obs status. Discussed w/oncoming attending, who will finish reviewing pt & adjust status as appropriate. Thanks for your help with documentation accuracy/specificity improvement! Jennifer Stringer MD [facility] Physician Advisor, Fellow of Hospital Medicine
--- NOTE | 2016-05-11 11:25 | PDOC PROGRESS REPORT ---
Subjective Progress Note for:: 05/11/16 Subjective:: Reason for visit: Follow-up pneumonia with acute on chronic hypoxic respiratory failure and acute encephalopathy Hospital course: Per H&P "DENNIS I ANNELISE is a 70 year old female with a known history of -CHF chronic systolic and diastolic -chronic atrial fibrillation not anticoagulated as she developped recently a spontaneous retroperitoneal hematoma during her last admission -LLL pneumonia -reccurent UTI's with E Fecalis - incontinence of urine - ambulatory dysfunction Patient may ambulate with front wheel walker with assist of 1 in shuffling unsteady gait Patient was discharged 24 hours ago home with services under the care of her grand son ; although we felt that a transfer to a SNF facility was more appropriate Patient adamently had refused to go to a Detention Patient was brought to the ED slightly confused , hypoxemic with an elevated wbc ,no fever She was readmitted under Hospitalist Service. " Review of her chart indicates interval development of a worsening leukocytosis of unclear etiology, hypoxia of 91% in spite of 2 L of supplemental oxygen now requiring increased to 3 L to maintain similar sats and a transient encephalopathy of unclear etiology. She has been afebrile since her admission. No labs were ordered for this morning. She seems to return to her baseline mental state. Subjective: Patient denies right lower quadrant abdominal pain in the area where the previous hematoma was noted, claims she is still short of breath with minimal exertion and fatigues easily but denies chest pain, palpitations, nausea , vomiting, diarrhea. Physical Exam Vital Signs: Temp Pulse Resp BP Pulse Ox 97.8 F 66 16 134/61 H 95 05/10/16 23:12 05/11/16 08:36 05/11/16 08:36 05/10/16 23:12 05/11/16 08:36 Intake & Output 05/10/16 05/11/16 05/12/16 06:59 06:59 06:59 Intake Total 205 Balance 205 Weight 76.8 kg EXAM GENERAL: NAD; hirsute, well nourished; no obese; alert and oriented to person, place, situation HEENT: normocephalic, atraumatic; no conjunctival injection, no scleral icterus ; oral mucosa moist; RESPIRATORY: no accessory muscle use, no increased WOB, poor air entry bilaterally; no wheezes, rales, rhonchi; bibasilar inspiratory crackles CARDIO: no JVD; irregularly irregular; no tachycardia GI: soft; nondistended; normal bowel sounds; no rebound, rigidity, guarding; nontender, no palpable mass noted in the right lower quadrant VASCULAR: no abdominal bruit; no pallor; 2+ radial, DP pulse; normal capillary refill EXTREMITIES: no calf tender; no palpable cords in calf; no clubbing, cyanosis , pedal edema PSYCH: normal affect, normal mood SKIN: warm; moist; no petechiae; no telengectasias; no jaundice; no rash Results Laboratory Results: 05/11/16 07:45 05/11/16 07:45 Sodium 137.0 Potassium 4.1 D Chloride 97 L Carbon Dioxide 31 H Anion Gap 9 BUN 27 H Creatinine 0.47 L Est GFR ( Amer) > 60 Est GFR (Non-Af Amer) > 60 Glucose 282 H Calcium 8.7 Magnesium 1.9 Total Bilirubin 1.8 H AST 19 ALT 27 Alkaline Phosphatase 55 Total Protein 5.5 L Albumin 2.9 L 05/11/16 05/11/16 01:25 07:45 Troponin I 0.012 < 0.012 NT-Pro-B Natriuret Pep 503 Labs reviewed showing metabolic alkalosis likely in response to respiratory acidosis Impressions: Chest X-Ray 05/10/16 13:38 IMPRESSION: NO ACUTE RADIOGRAPHIC FINDING IN THE CHEST. Head CT 05/10/16 13:50 IMPRESSION: No acute abnormality in the brain. Status: Imported from PACS - Report reviewed Assessment & Plan - Diagnosis (1) Acute on chronic respiratory failure with hypoxia and hypercapnia Is this a current diagnosis for this admission?: YesPlan: He improved with treatment. Unclear etiology but possibilities include recurrent acute bacterial bronchitis, progression of her underlying COPD, acute COPD exacerbation. (2) Acute metabolic encephalopathy Is this a current diagnosis for this admission?: YesPlan: Transient and Likely secondary to the above. (3) Acute exacerbation of chronic obstructive pulmonary disease (COPD) Is this a current diagnosis for this admission?: YesPlan: No clear indication for continued antibiotics at this time. Continue nebulizers , systemic steroids, supplemental O2 (4) Chronic atrial fibrillation Is this a current diagnosis for this admission?: YesPlan: Rate controlled. Anticoagulation on hold due to recent spontaneous retroperitoneal hemorrhage (5) Chronic systolic heart failure Is this a current diagnosis for this admission?: Yes (7) Diabetes Qualifiers: Diabetes mellitus type: type 2 Diabetes mellitus complication status: with unspecified complications Diabetes mellitus exterminator helper insulin use: without exterminator helper use Qualified Code(s): E11.8 - Type 2 diabetes mellitus with unspecified complications; Z79.4 - custodial (current) use of insulin Is this a current diagnosis for this admission?: YesPlan: Continue home regimen (8) Leukocytosis Qualifiers: Leukocytosis type: bandemia Qualified Code(s): D72.825 - Bandemia Is this a current diagnosis for this admission?: YesPlan: Unclear etiology. We'll repeat in the morning with differential. - Time Time Spent with patient: 25-34 minutes - Plan Summary Plan Summary: Contacted by Dr. Jennifer Stringer and instructed that the patient does not meet inpatient criteria and status needs to be changed to observation, appropriate order placed in chart.
[2016-05-11] MEDS: TIMOLOL MALEATE 0.5% OPH SOLN 5 ML OS SCH ×2 (12:38→23:07)
[2016-05-11] MEDS: ATORVASTATIN CALCIUM 40 MG TABLET PO SCH (23:05)
[2016-05-12 06:41] LABS: ANION GAP 7 (5-19); BLOOD UREA NITROGEN 31 mg/dL (7-20); CALCIUM 9.3 mg/dL (8.4-10.2); CARBON DIOXIDE 32 mmol/L (22-30); CHLORIDE 96 mmol/L (98-107); CREATININE RESULT 0.51 mg/dL (0.52-1.25); GLUCOSE 194 mg/dL (75-110); SODIUM 135.1 mmol/L (137-145)
[2016-05-12 07:39] LABS: HEMATOCRIT 32.2 % (36.0-47.0); HEMOGLOBIN 10.8 g/dL (12.0-15.5); HGB HCT DIFFERENCE 0.2; MEAN CORPUSCULAR HEMOGLOBIN 30.2 pg (27.0-33.4); MEAN CORPUSCULAR HGB CONC 33.4 g/dL (32.0-36.0); MEAN CORPUSCULAR VOLUME 91 fl (80-97); RED BLOOD COUNT 3.56 10^6/uL (3.72-5.28); RED CELL DISTRIBUTION WIDTH 15.6 % (11.5-14.0); WHITE BLOOD COUNT 23.9 10^3/uL (4.0-10.5)
[2016-05-12 08:12] LABS: ANISOCYTOSIS SLIGHT; BASOPHILS % (MANUAL) 0 % (0-2); EOSINOPHILS % (MANUAL) 0 % (0-6); HYPOCHROMASIA 1+; LYMPHOCYTES % (MANUAL) 8 % (13-45); POLYCHROMASIA SLIGHT; ROULEAUX SLIGHT; TOTAL CELLS COUNTED 100; TOXIC GRANULATION SLIGHT
[2016-05-12] MEDS: DILTIAZEM HCL 240 MG CAPSULE.CR PO SCH ×2 (10:32→22:13)
[2016-05-12] MEDS: PREDNISONE 20 MG TABLET PO SCH (10:32)
[2016-05-12] MEDS: CARVEDILOL 6.25 MG TABLET PO SCH ×2 (10:32→22:13)
[2016-05-12] MEDS: METFORMIN HCL 500 MG TABLET PO SCH (10:33)
[2016-05-12] MEDS: POTASSIUM CHLORIDE 10 MEQ TABLET.SA PO SCH ×2 (10:33→22:13)
[2016-05-12] MEDS: GLIMEPIRIDE 4 MG TABLET PO SCH (10:34)
[2016-05-12] MEDS: BUDESONIDE/FORMOTEROL 160-4.5 MCG 60 PUFF/6 GM MDI IH SCH ×2 (10:34→22:13)
[2016-05-12] MEDS: LISINOPRIL 10 MG TABLET PO SCH (10:34)
[2016-05-12] MEDS: FUROSEMIDE INJ/PF 20 MG/2 ML SDV IV SCH ×2 (10:34→22:13)
[2016-05-12] MEDS: BRIMONIDINE TARTRATE 0.2% OPH SOLN 5 ML OS SCH ×2 (10:34→22:13)
[2016-05-12] MEDS: TIMOLOL MALEATE 0.5% OPH SOLN 5 ML OS SCH ×2 (11:56→22:13)
--- NOTE | 2016-05-12 13:48 | PDOC PROGRESS REPORT ---
Subjective Progress Note for:: 05/12/16 Subjective:: Reason for visit: Follow-up pneumonia with acute on chronic hypoxic respiratory failure and acute encephalopathy Hospital course: Per H&P "DENNIS I ANNELISE is a 70 year old female with a known history of -CHF chronic systolic and diastolic -chronic atrial fibrillation not anticoagulated as she developped recently a spontaneous retroperitoneal hematoma during her last admission -LLL pneumonia -reccurent UTI's with E Fecalis - incontinence of urine - ambulatory dysfunction Patient may ambulate with front wheel walker with assist of 1 in shuffling unsteady gait Patient was discharged 24 hours ago home with services under the care of her grand son ; although we felt that a transfer to a SNF facility was more appropriate Patient adamently had refused to go to a Assisted Patient was brought to the ED slightly confused , hypoxemic with an elevated wbc ,no fever She was readmitted under Hospitalist Service. " Review of her chart indicates interval development of a worsening leukocytosis of unclear etiology, hypoxia of 91% in spite of 2 L of supplemental oxygen now requiring increased to 3 L to maintain similar sats and a transient encephalopathy of unclear etiology. She has been afebrile since her admission. She seems to return to her baseline mental state. Subjective: Patient denies short of breath but still fatigues easily and denies chest pain, palpitations, nausea, vomiting, diarrhea and abdominl pain. Physical Exam Vital Signs: Temp Pulse Resp BP Pulse Ox 97.3 F 62 18 140/83 H 98 05/12/16 11:12 05/12/16 11:12 05/12/16 11:12 05/12/16 11:12 05/12/16 11:12 Intake & Output 05/11/16 05/12/16 05/13/16 06:59 06:59 06:59 Intake Total 205 1110 450 Balance 205 1110 450 Weight 76.8 kg 80.3 kg EXAM GENERAL: NAD; hirsute, well nourished; no obese; alert and oriented to person, place, situation HEENT: normocephalic, atraumatic; no conjunctival injection, no scleral icterus ; oral mucosa moist; RESPIRATORY: no accessory muscle use, no increased WOB, poor air entry bilaterally; no wheezes, rales, rhonchi; persistent bibasilar inspiratory crackles CARDIO: no JVD; irregularly irregular; no tachycardia GI: soft; nondistended; normal bowel sounds; no rebound, rigidity, guarding; nontender, no palpable mass noted, even in the right lower quadrant VASCULAR: no abdominal bruit; no pallor; 2+ radial, DP pulse; normal capillary refill EXTREMITIES: no calf tender; no palpable cords in calf; no clubbing, cyanosis , pedal edema PSYCH: normal affect, normal mood SKIN: warm; moist; no petechiae; no telengectasias; no jaundice; no rash Results Laboratory Results: 05/12/16 07:10 05/12/16 05:28 05/12/16 05/12/16 05/12/16 05:28 05:28 07:10 WBC Cancelled 23.9 H RBC Cancelled 3.56 L Hgb Cancelled 10.8 L Hct Cancelled 32.2 L MCV Cancelled 91 MCH Cancelled 30.2 MCHC Cancelled 33.4 RDW Cancelled 15.6 H Plt Count Cancelled 284 Seg Neutrophils % Cancelled Not Reportable Lymphocytes % Cancelled Not Reportable Monocytes % Cancelled Not Reportable Eosinophils % Cancelled Not Reportable Basophils % Cancelled Not Reportable Absolute Neutrophils Cancelled Not Reportable Absolute Lymphocytes Cancelled Not Reportable Absolute Monocytes Cancelled Not Reportable Absolute Eosinophils Cancelled Not Reportable Absolute Basophils Cancelled Not Reportable Sodium 135.1 L Potassium 4.0 Chloride 96 L Carbon Dioxide 32 H Anion Gap 7 BUN 31 H Creatinine 0.51 L Est GFR ( Amer) > 60 Est GFR (Non-Af Amer) > 60 Glucose 194 H Calcium 9.3 05/11/16 05/11/16 01:25 07:45 Troponin I 0.012 < 0.012 NT-Pro-B Natriuret Pep 503 labs reviewed, persistent leukocytosis Assessment & Plan - Diagnosis (1) Acute on chronic respiratory failure with hypoxia and hypercapnia Is this a current diagnosis for this admission?: YesPlan: improved with treatment. Unclear etiology but possibilities include recurrent acute bacterial bronchitis, progression of her underlying COPD, acute COPD exacerbation. (2) Acute metabolic encephalopathy Is this a current diagnosis for this admission?: YesPlan: Transient and resolved; Likely secondary to the above. (3) Acute exacerbation of chronic obstructive pulmonary disease (COPD) Is this a current diagnosis for this admission?: YesPlan: Still no clear indication for antibiotics at this time. Continue nebulizers, systemic steroids, supplemental O2 (4) Leukocytosis Qualifiers: Leukocytosis type: unspecified Qualified Code(s): D72.829 - Elevated white blood cell count, unspecified Is this a current diagnosis for this admission?: YesPlan: Unclear etiology, quite possibly steroid effect. no clear indication for active infection at this time. We'll repeat in the morning with differential and continue to monitor clinically for signs of infection or decompensation. (5) Chronic atrial fibrillation Is this a current diagnosis for this admission?: Yes (6) Chronic systolic heart failure Is this a current diagnosis for this admission?: Yes (8) Diabetes Qualifiers: Diabetes mellitus type: type 2 Diabetes mellitus complication status: with unspecified complications Diabetes mellitus fdc insulin use: without fdc use Qualified Code(s): E11.8 - Type 2 diabetes mellitus with unspecified complications; Z79.4 - salvage determiner (current) use of insulin Is this a current diagnosis for this admission?: Yes - Time Time Spent with patient: 15-24 minutes Anticipated discharge: Acute Rehab - awaiting bed offer, pt's preference is for [facility]
[2016-05-12] MEDS: ATORVASTATIN CALCIUM 40 MG TABLET PO SCH (22:13)
[2016-05-13 07:21] LABS: HEMATOCRIT 32.7 % (36.0-47.0); HEMOGLOBIN 10.9 g/dL (12.0-15.5); MEAN CORPUSCULAR HEMOGLOBIN 29.8 pg (27.0-33.4); MEAN CORPUSCULAR HGB CONC 33.2 g/dL (32.0-36.0); MEAN CORPUSCULAR VOLUME 90 fl (80-97); RED BLOOD COUNT 3.65 10^6/uL (3.72-5.28); RED CELL DISTRIBUTION WIDTH 15.8 % (11.5-14.0); WHITE BLOOD COUNT 22.3 10^3/uL (4.0-10.5)
[2016-05-13 08:27] LABS: BASOPHILS % (MANUAL) 0 % (0-2); EOSINOPHILS % (MANUAL) 0 % (0-6); LYMPHOCYTES % (MANUAL) 17 % (13-45); TOTAL CELLS COUNTED 100
[2016-05-13 08:29] LABS: ANISOCYTOSIS SLIGHT; HYPOCHROMASIA SLIGHT; POLYCHROMASIA SLIGHT; TOXIC GRANULATION SLIGHT
[2016-05-13] MEDS ORDERED: GLIMEPIRIDE 4 MG TABLET PO ONE (10:00)
[2016-05-13] MEDS ORDERED: CARVEDILOL 6.25 MG TABLET PO SCH (10:00)
[2016-05-13] MEDS ORDERED: DILTIAZEM HCL 240 MG CAPSULE.CR PO SCH (10:00)
[2016-05-13] MEDS: POTASSIUM CHLORIDE 10 MEQ TABLET.SA PO SCH (10:06)
[2016-05-13] MEDS: METFORMIN HCL 500 MG TABLET PO SCH (10:06)
[2016-05-13] MEDS: PREDNISONE 20 MG TABLET PO SCH (10:06)
[2016-05-13] MEDS: TIMOLOL MALEATE 0.5% OPH SOLN 5 ML OS SCH (10:07)
[2016-05-13] MEDS: BRIMONIDINE TARTRATE 0.2% OPH SOLN 5 ML OS SCH (10:07)
[2016-05-13] MEDS: BUDESONIDE/FORMOTEROL 160-4.5 MCG 60 PUFF/6 GM MDI IH SCH (10:08)
[2016-05-13 10:16] LABS: ANION GAP 9 (5-19); BLOOD UREA NITROGEN 25 mg/dL (7-20); CALCIUM 9.1 mg/dL (8.4-10.2); CARBON DIOXIDE 30 mmol/L (22-30); CHLORIDE 96 mmol/L (98-107); CREATININE RESULT 0.47 mg/dL (0.52-1.25); GLUCOSE 98 mg/dL (75-110); MAGNESIUM 1.7 mg/dL (1.6-2.3); PHOSPHORUS 3.9 mg/dL (2.5-4.5); POTASSIUM 4.2 mmol/L (3.6-5.0); SODIUM 134.6 mmol/L (137-145)
--- NOTE | 2016-05-13 10:21 | EKG REPORT ---
SEVERITY:- ABNORMAL ECG - ATRIAL FIBRILLATION LEFT BUNDLE BRANCH BLOCK : Confirmed by: Sean Conklin 13-May-2016 10:20:35
--- NOTE | 2016-05-13 10:59 | PDOC TRANSFER SUMMARY ---
General - Admit/Disc Date/PCP Admission Date/Primary Care Provider: 05/10/16 18:46 MARLENY DESHPANDE MD Discharge Date: 05/13/16 - Discharge Diagnosis (1) Acute on chronic respiratory failure with hypoxia and hypercapnia Is this a current diagnosis for this admission?: YesSummary: likely progression of her underlying copd; continue long slow steroid taper as tolerated; continue supplemental O2 and prn nebs; continue incentive spirometer , consider flutter valve. increase activity as tolerated (2) Acute metabolic encephalopathy Is this a current diagnosis for this admission?: YesSummary: transient and resolved, unclear etiology, possibly transient hypoxia (3) Acute exacerbation of chronic obstructive pulmonary disease (COPD) Is this a current diagnosis for this admission?: YesSummary: did not receive abx this admit, recently completed usual course treatment for pneumonia. continue to monitor for signs of recurrence and treat accordingly. (4) Leukocytosis Is this a current diagnosis for this admission?: YesSummary: suspect due to steroids, continue long slow taper and monitor CBC for response. no clear indication for recurrent/current infection. other possibilities include the large retroperitoneal hemorrhage suffered during last admission causing leukomoid reaction. need to monitor for infection and consider this as site if becomes suspect. (5) Chronic atrial fibrillation Is this a current diagnosis for this admission?: YesSummary: now with slow ventricular response; will decrease her cartia in 1/2 and monitor for response; defer to PCP for further dose adjustment. anticoagulation on hold for now due to recent hematoma. (6) Chronic systolic heart failure Is this a current diagnosis for this admission?: YesSummary: no evidence for active failure at this time; defer to PCP to monitor for fluid overload. suggest daily weights and report >5# increase to PCP for diuretic dosing. (8) Diabetes Is this a current diagnosis for this admission?: YesSummary: continue usual home regimen, cover with sliding scale while at SNF (9) Nontraumatic retroperitoneal hematoma Is this a current diagnosis for this admission?: YesSummary: improving; continue to hold anticoagulation for another 30d and then only resume after evaluation by PCP. consider repeat ct a/p as there was some concern for possible retroperitoneal complex mass shrouded by the hematoma. - Additional Information Resuscitation Status: Do Not Resuscitate Discharge Diet: Cardiac, Diabetic Discharge Activity: Slowly Increase Activity, Supervised Activity Home Medications: Atorvastatin Calcium [Lipitor 40 mg Tablet] 40 mg PO QHS 05/10/16 Brimonidine Tartrate/Timolol [Combigan 0.2%-0.5% Eye Drops] 1 drop OS Q12 Budesonide/Formoterol Fumarate [Symbicort HFA 160-4.5 mcg Inhaler 6 gm] 2 puff HE Q12 05/10/16 Carvedilol [Coreg 6.25 mg Tablet] 6.25 mg PO Q12 05/10/16 Ergocalciferol (Vitamin D2) [Vitamin D2] 50,000 unit PO SAINI@1000 05/10/16 Escitalopram Oxalate [Lexapro 10 mg Tablet] 10 mg PO QHS 05/10/16 Fluticasone/Salmeterol [Advair 250-50 Diskus 28 dose] 1 puff IH Q12 05/10/16 Furosemide [Lasix] 20 mg PO QAM 05/10/16 Glimepiride [Amaryl 4 mg Tablet] 4 mg PO DAILY 05/10/16 Lisinopril [Prinivil 10 mg Tablet] 10 mg PO DAILY 05/10/16 Metformin HCl [Glucophage] 500 mg PO DAILY 05/10/16 Timolol Maleate [Timoptic 0.5% Oph Soln 5 ml] 1 drop OS Q12 05/10/16 Insulin Lispro [Humalog Insulin (Lispro) 100 unit/mL] 0 - 12 unit SUBCUT ACHSP PRN unit 05/12/16 Ipratropium/Albuterol Sulfate [Duoneb 3 ml Ampul] 3 ml NEB RTQ6HP PRN vial.neb 05/12/16 Potassium Chloride [Klor-Con 10 Meq Tablet.sa] 20 meq PO Q12 tablet.sa Diltiazem HCl [Cartia Xt] 120 mg PO Q12 #60 cap.sr.24h 05/13/16 Prednisone [Deltasone 20 mg Tablet] 20 mg PO DAILY #14 tablet 05/13/16 History of Present Illness Admission Date/PCP: 05/10/16 18:46 MARLENY DESHPANDE MD Patient complains of: unsteady gait and weaknesss History of Present Illness: Hospital course: Per H&P "DENNIS I ANNELISE is a 70 year old female with a known history of -CHF chronic systolic and diastolic -chronic atrial fibrillation not anticoagulated as she developped recently a spontaneous retroperitoneal hematoma during her last admission -LLL pneumonia -reccurent UTI's with E Fecalis - incontinence of urine - ambulatory dysfunction Patient may ambulate with front wheel walker with assist of 1 in shuffling unsteady gait Patient was discharged 24 hours ago home with services under the care of her grand son ; although we felt that a transfer to a SNF facility was more appropriate Patient adamently had refused to go to a Shelter Patient was brought to the ED slightly confused , hypoxemic with an elevated wbc ,no fever She was readmitted under Hospitalist Service. " Hospital Course Hospital Course: Review of her chart indicates interval development of a worsening leukocytosis of unclear etiology, hypoxia of 91% in spite of 2 L of supplemental oxygen now requiring increased to 3 L to maintain similar sats and a transient encephalopathy of unclear etiology. She has been afebrile since her admission. She seems to return to her baseline mental state. she was hospitalized and provided supportive care, no new pathologic process identified but she remains far too weak and unsteady to safely discharge home. arrangements made for short term rehab, patient is choosing [facility]. her afib vent response is a bit slow, particularly while asleep dropping into the 40's, so I lowered her cartia by 1/2 and will defer to her PCP for further dose adjustments as indicated. she is completely asymptomatic at this time. she is stable for transfer at this time. Physical Exam Vital Signs: Temp Pulse Resp BP Pulse Ox 97.4 F 47 L 18 117/61 100 05/13/16 07:30 05/13/16 07:30 05/13/16 07:30 05/13/16 07:30 05/13/16 07:30 Intake & Output 05/12/16 05/13/16 05/14/16 06:59 06:59 06:59 Intake Total 1110 1270 Balance 1110 1270 Weight 80.3 kg 84.7 kg EXAM GENERAL: NAD; hirsute, well nourished; no obese; alert and oriented to person, place, situation HEENT: normocephalic, atraumatic; no conjunctival injection, no scleral icterus ; oral mucosa moist; RESPIRATORY: no accessory muscle use, no increased WOB, poor air entry bilaterally; no wheezes, rales, rhonchi; persistent bibasilar inspiratory crackles CARDIO: no JVD; irregularly irregular; no tachycardia GI: soft; nondistended; normal bowel sounds; no rebound, rigidity, guarding; nontender, no palpable mass noted, even in the right lower quadrant VASCULAR: no abdominal bruit; no pallor; 2+ radial, DP pulse; normal capillary refill EXTREMITIES: no calf tender; no palpable cords in calf; no clubbing, cyanosis , pedal edema PSYCH: normal affect, normal mood SKIN: warm; moist; no petechiae; no telengectasias; no jaundice; no rash Results Laboratory Results: 05/13/16 06:35 05/13/16 09:15 05/13/16 05/13/16 06:35 09:15 WBC 22.3 H RBC 3.65 L Hgb 10.9 L Hct 32.7 L MCV 90 MCH 29.8 MCHC 33.2 RDW 15.8 H Plt Count 279 Seg Neutrophils % Not Reportable Lymphocytes % Not Reportable Monocytes % Not Reportable Eosinophils % Not Reportable Basophils % Not Reportable Absolute Neutrophils Not Reportable Absolute Lymphocytes Not Reportable Absolute Monocytes Not Reportable Absolute Eosinophils Not Reportable Absolute Basophils Not Reportable Sodium 134.6 L Potassium 4.2 Chloride 96 L Carbon Dioxide 30 Anion Gap 9 BUN 25 H Creatinine 0.47 L Est GFR ( Amer) > 60 Est GFR (Non-Af Amer) > 60 Glucose 98 Calcium 9.1 Phosphorus 3.9 Magnesium 1.7 05/11/16 05/11/16 01:25 07:45 Troponin I 0.012 < 0.012 NT-Pro-B Natriuret Pep 503 Impressions: Chest X-Ray 05/10/16 13:38 IMPRESSION: NO ACUTE RADIOGRAPHIC FINDING IN THE CHEST. Head CT 05/10/16 13:50 IMPRESSION: No acute abnormality in the brain. Transfer Plan - Disposition Transfer Plan: to [facility] for rehab - Time Spent with Patient Time spent with patient: Greater than 30 Minutes Qualifiers PATEINT BEING DISCHARGED WITH ANY OF THE FOLLOWING DIAGNOSIS?: No VTE patient discharged on overlapping Therapy?: No Reason(s) for not prescribing Overlap Therapy:: Medical Contraindication - recent retroperitoneal hemorrhage
[2016-05-13] MEDS: LISINOPRIL 10 MG TABLET PO SCH (11:10)
[2016-05-13] MEDS: FUROSEMIDE INJ/PF 20 MG/2 ML SDV IV SCH (11:10)
[2016-05-13 16:41] VITALS: BP 147/69
[2016-05-14] MEDS ORDERED: GLIMEPIRIDE 4 MG TABLET PO SCH (08:00)
== END 2016-05-13 20:15 ==
LOC: ER 13:08 → EH 18:03 → UNDOADMIN 18:03 → EH 18:46 → INTOOBSV 18:46 → 4N 23:01
PROVIDERS: ADMIT Emergency Medicine; ATTEND Emergency Medicine
PROC: 3E033GC Introduction of Other Therapeutic Substance into Peripheral Vein, Percutaneous Approach (ICD-10-PCS; principal; 2016-05-10)
PROC: 3E033GC Introduction of Other Therapeutic Substance into Peripheral Vein, Percutaneous Approach (ICD-10-PCS; 2016-05-10)
DX: J96.22 Acute and chronic respiratory failure with hypercapnia (principal); J96.21 Acute and chronic respiratory failure with hypoxia; J44.1 Chronic obstructive pulmonary disease with (acute) exacerbation; G93.41 Metabolic encephalopathy; D72.829 Elevated white blood cell count, unspecified; I48.2 Chronic atrial fibrillation; I50.22 Chronic systolic (congestive) heart failure; E11.9 Type 2 diabetes mellitus without complications; K66.1 Hemoperitoneum; Z66 Do not resuscitate; Z79.84 Long term (current) use of oral hypoglycemic drugs; Z79.4 Long term (current) use of insulin
CPT/HCPCS: 93005 ×2; 94640; 99285; 96374; 96375; 36415 ×4; 87040; 87086; 82962 ×4; 83735 ×2; 84100; 85025 ×3; 85610; 80048 ×2; 80053 ×2; 81001; 84484 ×2; 82803; 83605; 83880 ×2; 71010; 70450; 93010 ×2; 97163; G0378 ×3; A9270 ×25; J1940 ×3; J3490 ×3; J2930; J0696; G8978; G8979; J1815; J7512; J7620

== ENCOUNTER 2016-07-14 17:41 | Inpatient (IN) | payer MEDICARE, BC, OTHER ==
--- NOTE | 2016-07-14 18:24 | ER Document Report ---
ED General - General Chief Complaint: General Weakness Stated Complaint: WEAKNESS Time Seen by Provider: 07/14/16 18:06 Mode of Arrival: Medic Information source: Patient, COUNTS INCLUDE 234 BEDS AT THE [facility] Records Notes: This is a 70-year-old female with multiple medical problems who presents via EMS for an episode of weakness. History is somewhat limited as patient is a poor historian. However, she states that she is here because she was too weak to sit up earlier today. She denies any chest pain or shortness of breath. She denies any fevers or chills. She states she felt better at the moment. Of note she was most recently admitted from May 10 through May 13 and had pneumonia. TRAVEL OUTSIDE OF THE [place] IN LAST 30 DAYS: No - Related Data Allergies/Adverse Reactions: morphine [Morphine] Allergy (Mild, Verified 07/14/16 21:13) "oversedated" Past Medical History - Social History Smoking Status: Unknown if Ever Smoked Family History: denies: CAD - Past Medical History Cardiac Medical History: Reports: Hx Atrial Fibrillation, Hx Congestive Heart Failure, Hx Hypercholesterolemia, Hx Hypertension Denies: Hx DVT, Hx Heart Attack, Hx Pulmonary Embolism Pulmonary Medical History: Reports: Hx Bronchitis, Hx COPD, Hx Pneumonia - Pediatric Neurological Medical History: Reports: Hx Cerebrovascular Accident. Denies: Hx Seizures Endocrine Medical History: Reports: Hx Diabetes Mellitus Type 2 - Diet controlled. Denies: Hx Diabetes Mellitus Type 1, Hx Hyperthyroidism, Hx Hypothyroidism Renal/ Medical History: Denies: Hx Peritoneal Dialysis GI Medical History: Denies: Hx Cirrhosis, Hx Gastroesophageal Reflux Disease, Hx Hepatitis Musculoskeltal Medical History: Denies Hx Arthritis Skin Medical History: Denies Hx Eczema, Reports Hx MRSA - abdominal wall, resolved., Denies Hx Psoriasis Psychiatric Medical History: Denies: Hx Depression Traumatic Medical History: Reports: Hx Fractures - "LT arm", no surgery Infectious Medical History: Denies: Hx Hepatitis Past Surgical History: Reports: Hx Abdominal Surgery - abdominal abscess, Hx Herniorrhaphy - incisional, Hx Hysterectomy - CHIP, Hx Orthopedic Surgery - left hip replacement, right knee replacement. - Immunizations Hx Diphtheria, Pertussis, Tetanus Vaccination: No Hx Pneumococcal Vaccination: 06/05/13 Review of Systems - Review of Systems Constitutional: See HPI, Weakness. denies: Chills, Fever EENT: No symptoms reported Cardiovascular: See HPI. denies: Chest pain, Palpitations, Syncope Respiratory: No symptoms reported, See HPI Gastrointestinal: No symptoms reported Genitourinary: No symptoms reported. denies: Dysuria Musculoskeletal: No symptoms reported Skin: No symptoms reported Hematologic/Lymphatic: No symptoms reported Neurological/Psychological: No symptoms reported. denies: Headaches Physical Exam - Vital signs Vitals: Resp Pulse Ox 29 H 86 L 07/14/16 18:09 07/14/16 18:09 - Notes Notes: PHYSICAL EXAMINATION: GENERAL: Elderly, somewhat ill-appearing female, hirsute, alert and conversant HEAD: Atraumatic, normocephalic. EYES: Pupils equal round and reactive to light, extraocular movements intact, sclera anicteric, conjunctiva are normal. ENT: nares patent, oropharynx clear without exudates. Moist mucous membranes. NECK: Normal range of motion, supple without lymphadenopathy LUNGS: decreased bibasilar breath sounds, no wheezes/rales/rhonchi appreciated HEART: Tachycardic, irregularly irregular rate, no murmur appreciated. ABDOMEN: Soft, obese, nontender, normoactive bowel sounds. No guarding, no rebound. EXTREMITIES: Normal range of motion, no edema NEUROLOGICAL: Cranial nerves grossly intact. No gross focal motor or sensory deficits appreciated. PSYCH: Normal mood, normal affect. SKIN: Warm, Dry, pale, no rashes or lesions noted. Course - Re-evaluation Re-evalutation: 07/14/16 18:24 Further history obtained from the grandson who is now in the room. Patient was discharged from the custodial on July 08 and now lives with the grandson who cares for her. He states that today at about 1700 she called him in to help her in the bathroom. She was slumped forward and diaphoretic and too weak to get off the commode. She was alert and conversant. No reported syncope. He called EMS at that time. 07/14/16 19:13 Patient reevaluated. Her heart rate is 100 to 115 now after the diltiazem bolus. She denies chest pain. 07/15/16 00:10 Patient's repeat troponin has not changed significantly. She has been stable on the diltiazem drip with a heart rate in the 90s. Discussed with hospitalist Dr. Khan for admission. Accucheck 103 - Vital Signs Vital signs: Temp Pulse Resp BP Pulse Ox 98.2 F 118 H 21 H 95/64 L 93 07/14/16 23:03 07/14/16 20:52 07/15/16 00:30 07/15/16 00:30 07/15/16 00:30 - Laboratory Result Diagrams: 07/14/16 19:26 07/14/16 19:26 Laboratory results interpreted by me: 07/14/16 07/14/16 07/14/16 19:26 19:26 19:26 WBC 14.8 H RDW 16.3 H Absolute Neutrophils 11.3 H BUN 21 H Glucose 59 L Total Bilirubin 2.7 H Direct Bilirubin 0.7 H NT-Pro-B Natriuret Pep 1750 H Albumin 3.2 L - Diagnostic Test Radiology reviewed: Reports reviewed - CXR: no acute finding - EKG Interpretation by Me Additional EKG results interpreted by me: 07/15/16 00:41 EKG at 1823 demonstrates atrial fibrillation with rapid ventricular response with a rate of 159. There is left ventricular hypertrophy with intraventricular conduction delay. Critical Care Note - Critical Care Note Total time excluding time spent on procedures (mins): 50 - minutes of critical care time spent in direct contact evaluating and reevaluating the patient, treating symptoms, reviewing labs and studies and speaking with family and consultants excluding any procedures Discharge - Discharge Clinical Impression: Atrial fibrillation with rapid ventricular response CHF (congestive heart failure) Qualifiers: Congestive heart failure type: unspecified congestive heart failure type Congestive heart failure chronicity: unspecified congestive heart failure chronicity Qualified Code(s): I50.9 - Heart failure, unspecified Admitting Provider: Hospitalist - Dr. Khan Unit Admitted: [facility]
[2016-07-14] MEDS ORDERED: DILTIAZEM HCL INJ 25 MG/5 ML VIAL IV ONE (18:30)
[2016-07-14] MEDS ORDERED: DILTIAZEM HCL/D5W 125 ML IV PRN (18:57)
[2016-07-14 19:57] LABS: ALBUMIN 3.2 g/dL (3.5-5.0); ANION GAP 9 (5-19); BILIRUBIN,DIRECT 0.7 mg/dL (0.0-0.4); BILIRUBIN,TOTAL 2.7 mg/dL (0.2-1.3); CALCIUM 9.2 mg/dL (8.4-10.2); CARBON DIOXIDE 28 mmol/L (22-30); CHLORIDE 103 mmol/L (98-107); CREATINE KINASE 50 U/L (30-135); CREATININE RESULT 0.68 mg/dL (0.52-1.25); GLUCOSE 59 mg/dL (75-110); TOTAL PROTEIN 6.3 g/dL (6.3-8.2)
[2016-07-14 20:00] LABS: ABSOLUTE BASOPHILS # (AUTO) 0.1 10^3/uL (0.0-0.2); ABSOLUTE EOSINOPHILS # (AUTO) 0.1 10^3/uL (0.0-0.6); ABSOLUTE LYMPHOCYTES (AUTO) 2.1 10^3/uL (0.5-4.7); ABSOLUTE MONOCYTES (AUTO) 1.3 10^3/uL (0.1-1.4); ABSOLUTE NEUT (AUTO) 11.3 10^3/uL (1.7-8.2); BASOPHILS % (AUTO) 0.8 % (0-2); EOSINOPHILS % (AUTO) 0.4 % (0-6); HEMATOCRIT 44.7 % (36.0-47.0); HEMOGLOBIN 14.7 g/dL (12.0-15.5); HGB HCT DIFFERENCE -0.6; LYMPHOCYTES % (AUTO) 14.1 % (13-45); MEAN CORPUSCULAR HEMOGLOBIN 30.2 pg (27.0-33.4); MEAN CORPUSCULAR HGB CONC 32.8 g/dL (32.0-36.0); MEAN CORPUSCULAR VOLUME 92 fl (80-97); MONOCYTES % (AUTO) 8.5 % (3-13); RED BLOOD COUNT 4.85 10^6/uL (3.72-5.28); RED CELL DISTRIBUTION WIDTH 16.3 % (11.5-14.0); SEGMENTED NEUTROPHILS % (AUTO) 76.2 % (42-78); WHITE BLOOD COUNT 14.8 10^3/uL (4.0-10.5)
[2016-07-14 20:09] LABS: CREATINE KINASE MB 0.87 ng/mL (<4.55)
[2016-07-14 20:24] LABS: TROPONIN I 0.081 ng/mL
[2016-07-14 20:25] LABS: ALANINE AMINOTRANSFERASE 30 U/L (9-52); ALKALINE PHOSPHATASE 50 U/L (38-126); ASPARTATE AMINO TRANSFERASE 32 U/L (14-36); BLOOD UREA NITROGEN 21 mg/dL (7-20); POTASSIUM 4.1 mmol/L (3.6-5.0)
[2016-07-14] MEDS ORDERED: ASPIRIN 81 MG TABLET, CHEWABLE PO ONE (20:41)
[2016-07-14 21:39] LABS: PROTHROMBIN TIME 13.6 SEC (11.4-15.4)
--- NOTE | 2016-07-14 23:34 | EKG REPORT ---
SEVERITY:- ABNORMAL ECG - ATRIAL FIBRILLATION WITH RAPID V-RATE LVH WITH IVCD, LAD AND SECONDARY REPOL ABNRM : Confirmed by: Sean Conklin 14-Jul-2016 23:33:46
[2016-07-15] MEDS ORDERED: DILTIAZEM HCL/D5W 125 ML IV PRN (00:18)
[2016-07-15] MEDS ORDERED: MAGNESIUM HYDROXIDE SUSP 30 ML UDCUP PO PRN (00:19)
[2016-07-15] MEDS ORDERED: DEXTROSE 50%-WATER 25 GM/50 ML DISP.SYRIN IV PRN (00:22)
[2016-07-15] MEDS ORDERED: DEXTROSE 40% GEL 15 GM TUBE PO PRN ×2 (00:22)
[2016-07-15] MEDS ORDERED: GLUCAGON,HUMAN RECOMB 1 MG INJ IM PRN (00:22)
[2016-07-15] MEDS ORDERED: DILTIAZEM HCL 60 MG TABLET PO ONE (00:45)
[2016-07-15] MEDS ORDERED: NORMAL SALINE 1000 ML 1,000 ML IV ONE ×2 (01:00→02:30)
[2016-07-15] MEDS ORDERED: CARVEDILOL 6.25 MG TABLET PO ONE (01:00)
[2016-07-15] MEDS ORDERED: ATORVASTATIN CALCIUM 40 MG TABLET PO ONE (01:00)
--- NOTE | 2016-07-15 02:29 | PDOC H&P ---
History of Present Illness Admission Date/PCP: 07/15/16 00:19 NHAN MCGOWAN MD Patient complains of: Generalized weakness History of Present Illness: DENNIS CASTELAN is a 70 year old female with a past medical history of diastolic and systolic heart failure, chronic atrial fibrillation not on anticoagulation secondary to retroperitoneal bleed, recurrent UTI with the faecalis, and dysfunction, diabetes, depression and debility. Patient presents with generalized weakness and palpitations beginning approximately an hour prior to presentation, in the emergency room to be without chest pain but atrial fibrillation in the 160s she started on IV Cardizem and referred to the hospitalist for admission. She is a poor historian and subsequently the history is obtained primarily from the record. She was recently discharged home from subacute rehabilitation following pneumonia at which time diltiazem 120 mg by mouth twice a day was discontinued. Past Medical History Cardiac Medical History: Reports: Atrial Fibrillation, Congestive Heart Failure , Hyperlipidema, Hypertension Denies: DVT, Myocardial Infarction, Pulmonary Embolism Pulmonary Medical History: Reports: Bronchitis, Chronic Obstructive Pulmonary Disease (COPD), Pneumonia - Pediatric Neurological Medical History: Denies: Seizures Endocrine Medical History: Reports: Diabetes Mellitus Type 2 - Diet controlled Denies: Diabetes Mellitus Type 1, Hyperthyroidism, Hypothyroidism GI Medical History: Denies: Cirrhosis, Gastroesophageal Reflux Disease, Hepatitis Musculoskeltal Medical History: Denies: Arthritis Skin Medical History: Denies: Eczema, Psoriasis Psychiatric Medical History: Denies: Depression Past Surgical History Past Surgical History: Reports: Herniorrhaphy - incisional, Hysterectomy - CHIP, Orthopedic Surgery - left hip replacement, right knee replacement. Denies: Amputation Social History Information Source: Patient, [facility] Records Lives with: Family Smoking Status: Former Smoker Frequency of Alcohol Use: None Hx Recreational Drug Use: No Drugs: None Hx Prescription Drug Abuse: No - Advance Directive Resuscitation Status: Full Code Family History Family History: denies: CAD Parental Family History Reviewed: Yes Children Family History Reviewed: Yes Sibling(s) Family History Reviewed.: Yes Medication/Allergy Home Medications: Atorvastatin Calcium [Lipitor 40 mg Tablet] 40 mg PO QHS 05/10/16 Brimonidine Tartrate/Timolol [Combigan 0.2%-0.5% Eye Drops] 1 drop OS Q12 Budesonide/Formoterol Fumarate [Symbicort HFA 160-4.5 mcg Inhaler 6 gm] 2 puff HE Q12 05/10/16 Carvedilol [Coreg 6.25 mg Tablet] 6.25 mg PO Q12 05/10/16 Ergocalciferol (Vitamin D2) [Vitamin D2] 50,000 unit PO SAINI@1000 05/10/16 Escitalopram Oxalate [Lexapro 10 mg Tablet] 10 mg PO QHS 05/10/16 Fluticasone/Salmeterol [Advair 250-50 Diskus 28 dose] 1 puff IH Q12 05/10/16 Furosemide [Lasix] 20 mg PO QAM 05/10/16 Glimepiride [Amaryl 4 mg Tablet] 4 mg PO DAILY 05/10/16 Lisinopril [Prinivil 10 mg Tablet] 10 mg PO DAILY 05/10/16 Metformin HCl [Glucophage] 500 mg PO DAILY 05/10/16 Timolol Maleate [Timoptic 0.5% Oph Soln 5 ml] 1 drop OS Q12 05/10/16 Insulin Lispro [Humalog Insulin (Lispro) 100 unit/mL] 0 - 12 unit SUBCUT ACHSP PRN unit 05/12/16 Ipratropium/Albuterol Sulfate [Duoneb 3 ml Ampul] 3 ml NEB [id number] PRN vial.neb 05/12/16 Potassium Chloride [Klor-Con 10 Meq Tablet.sa] 20 meq PO Q12 tablet.sa Prednisone [Deltasone 20 mg Tablet] 20 mg PO DAILY #14 tablet 05/13/16 Allergies/Adverse Reactions: morphine [Morphine] Allergy (Mild, Verified 07/14/16 21:13) "oversedated" Review of Systems Constitutional: PRESENT: fatigue, weakness. ABSENT: chills, fever(s), headache( s), weight gain, weight loss Eyes: ABSENT: visual disturbances Ears: ABSENT: hearing changes Cardiovascular: PRESENT: palpitations. ABSENT: chest pain, dyspnea on exertion , edema, orthropnea Respiratory: ABSENT: cough, hemoptysis Gastrointestinal: ABSENT: abdominal pain, constipation, diarrhea, hematemesis, hematochezia, nausea, vomiting Genitourinary: ABSENT: dysuria, hematuria Musculoskeletal: ABSENT: joint swelling Integumentary: ABSENT: rash, wounds Neurological: ABSENT: abnormal gait, abnormal speech, confusion, dizziness, focal weakness, syncope Psychiatric: ABSENT: anxiety, depression, homidical ideation, suicidal ideation Endocrine: ABSENT: cold intolerance, heat intolerance, polydipsia, polyuria Hematologic/Lymphatic: ABSENT: easy bleeding, easy bruising Physical Exam Vital Signs: Temp Pulse Resp BP Pulse Ox 98.2 F 118 H 21 H 95/64 L 93 07/14/16 23:03 07/14/16 20:52 07/15/16 00:30 07/15/16 00:30 07/15/16 00:30 General appearance: PRESENT: no acute distress, cooperative, well-developed, well-nourished Head exam: PRESENT: atraumatic, normocephalic Eye exam: PRESENT: conjunctiva pink, EOMI, PERRLA. ABSENT: scleral icterus Ear exam: PRESENT: normal external ear exam Mouth exam: PRESENT: moist, tongue midline Neck exam: ABSENT: carotid bruit, JVD, lymphadenopathy, thyromegaly Respiratory exam: PRESENT: clear to auscultation mike, crackles, prolonged expiratory phas, symmetrical, unlabored. ABSENT: rales, rhonchi, wheezes Cardiovascular exam: PRESENT: irregular rhythm, +S1, +S2, tachycardia. ABSENT: gallop, systolic murmur Pulses: PRESENT: normal dorsalis pedis pul Vascular exam: PRESENT: normal capillary refill GI/Abdominal exam: PRESENT: normal bowel sounds, soft. ABSENT: distended, guarding, mass, organolmegaly, rebound, tenderness Rectal exam: PRESENT: deferred Extremities exam: PRESENT: full ROM. ABSENT: calf tenderness, clubbing, pedal edema Neurological exam: PRESENT: alert, awake, oriented to person, oriented to place , oriented to time, oriented to situation, CN II-XII grossly intact. ABSENT: motor sensory deficit Psychiatric exam: PRESENT: appropriate affect, normal mood. ABSENT: homicidal ideation, suicidal ideation Skin exam: PRESENT: dry, intact, warm. ABSENT: cyanosis, rash Results Impressions: Chest X-Ray 07/14/16 18:12 IMPRESSION: NO ACUTE RADIOGRAPHIC FINDING IN THE CHEST. Assessment & Plan - Diagnosis (1) Atrial fibrillation with rapid ventricular response Is this a current diagnosis for this admission?: YesPlan: Patient without chest pain or shortness of breath recent discontinuation of Cardizem. Reinitiated Cardizem IV with transition to by mouth. No anticoagulation secondary to recent retroperitoneal bleed. Follow-up cardiac enzymes for risk of acute coronary syndrome. (2) Hyperbilirubinemia Is this a current diagnosis for this admission?: YesPlan: Possibly secondary to Amaryl which is held, consider discontinuation of Lipitor. (3) CHF (congestive heart failure) Qualifiers: Congestive heart failure type: unspecified congestive heart failure type Congestive heart failure chronicity: unspecified congestive heart failure chronicity Qualified Code(s): I50.9 - Heart failure, unspecified Is this a current diagnosis for this admission?: YesPlan: Avoid volume overload, optimize heart rate and blood pressure when necessary diuretics. Reevaluate chemistry daily (4) Diabetes Qualifiers: Diabetes mellitus type: type 2 Diabetes mellitus complication status: with unspecified complications Diabetes mellitus terminologist insulin use: without assisted use Qualified Code(s): E11.8 - Type 2 diabetes mellitus with unspecified complications; Z79.4 - custodial (current) use of insulin Is this a current diagnosis for this admission?: YesPlan: Humalog siding scale before every meal see when necessary - Time Time Spent: 30 to 50 Minutes - Inpatient Certification Medical Necessity: Need Close Monitoring Due to Risk of Patient Decompensation
[2016-07-15 05:14] LABS: ABSOLUTE BASOPHILS # (AUTO) 0.1 10^3/uL (0.0-0.2); ABSOLUTE EOSINOPHILS # (AUTO) 0.1 10^3/uL (0.0-0.6); ABSOLUTE LYMPHOCYTES (AUTO) 2.3 10^3/uL (0.5-4.7); ABSOLUTE MONOCYTES (AUTO) 1.3 10^3/uL (0.1-1.4); ABSOLUTE NEUT (AUTO) 10.8 10^3/uL (1.7-8.2); BASOPHILS % (AUTO) 0.7 % (0-2); EOSINOPHILS % (AUTO) 0.8 % (0-6); HEMATOCRIT 41.5 % (36.0-47.0); HEMOGLOBIN 13.6 g/dL (12.0-15.5); HGB HCT DIFFERENCE -0.7; LYMPHOCYTES % (AUTO) 15.9 % (13-45); MEAN CORPUSCULAR HEMOGLOBIN 30.4 pg (27.0-33.4); MEAN CORPUSCULAR HGB CONC 32.7 g/dL (32.0-36.0); MEAN CORPUSCULAR VOLUME 93 fl (80-97); MONOCYTES % (AUTO) 8.7 % (3-13); RED BLOOD COUNT 4.46 10^6/uL (3.72-5.28); RED CELL DISTRIBUTION WIDTH 16.7 % (11.5-14.0); SEGMENTED NEUTROPHILS % (AUTO) 73.9 % (42-78); WHITE BLOOD COUNT 14.6 10^3/uL (4.0-10.5)
[2016-07-15 05:29] LABS: ANION GAP 8 (5-19); BLOOD UREA NITROGEN 22 mg/dL (7-20); CALCIUM 8.2 mg/dL (8.4-10.2); CARBON DIOXIDE 25 mmol/L (22-30); CHLORIDE 107 mmol/L (98-107); CREATININE RESULT 0.69 mg/dL (0.52-1.25); GLUCOSE 88 mg/dL (75-110); POTASSIUM 4.3 mmol/L (3.6-5.0)
[2016-07-15] MEDS: HEPARIN SOD (PORCINE) 5,000 UNIT/ML 1 ML SYRINGE SUBCUT SCH ×3 (06:07→22:07)
[2016-07-15] MEDS: DILTIAZEM HCL 60 MG TABLET PO SCH ×3 (06:07→17:24)
[2016-07-15 08:28] LABS: AMORPHOUS SEDIMENT,URINE TRACE /HPF; APPEARANCE,URINE CLOUDY; BILIRUBIN,URINE NEGATIVE (NEGATIVE); GLUCOSE, URINE NEGATIVE (NEGATIVE); KETONES,URINE NEGATIVE (NEGATIVE); LEUKOCYTE ESTERASE,URINE LARGE (NEGATIVE); NITRITE,URINE POSITIVE (NEGATIVE); PROTEIN,URINE 30 mg/dL (NEGATIVE); URINE SPECIFIC GRAVITY 1.019; UROBILINOGEN,URINE NEGATIVE mg/dL (<2.0)
[2016-07-15] MEDS ORDERED: BUDESONIDE/FORMOTEROL 160-4.5 MCG 60 PUFF/6 GM MDI IH SCH (10:00)
[2016-07-15] MEDS ORDERED: METFORMIN HCL 500 MG TABLET PO SCH (10:00)
[2016-07-15] MEDS ORDERED: CARVEDILOL 6.25 MG TABLET PO SCH (10:00)
[2016-07-15] MEDS ORDERED: TIMOLOL MALEATE 0.25% OPH SOLN 5 ML OS SCH (10:00)
[2016-07-15] MEDS ORDERED: FLUTICASONE/SALMETEROL DISKUS 250-50 MCG/DOSE IH SCH (10:00)
[2016-07-15] MEDS ORDERED: GLIMEPIRIDE 4 MG TABLET PO ONE (10:00)
[2016-07-15] MEDS: BUDESONIDE/FORMOTEROL 160-4.5 MCG 60 PUFF/6 GM MDI IH SCH (10:01)
[2016-07-15] MEDS: BRIMONIDINE TARTRATE 0.2% OPH SOLN 5 ML OS SCH ×2 (10:02→22:12)
[2016-07-15] MEDS: TIMOLOL MALEATE 0.5% OPH SOLN 5 ML OS SCH (10:02)
[2016-07-15] MEDS: DOCUSATE SODIUM 100 MG CAPSULE PO SCH ×2 (10:05→17:24)
[2016-07-15] MEDS: LISINOPRIL 10 MG TABLET PO SCH (10:07)
[2016-07-15] MEDS: CARVEDILOL 6.25 MG TABLET PO SCH ×2 (10:11→22:10)
[2016-07-15] MEDS ORDERED: ATORVASTATIN CALCIUM 40 MG TABLET PO SCH (22:00)
[2016-07-15] MEDS ORDERED: ESCITALOPRAM OXALATE 10 MG TABLET PO SCH (22:00)
[2016-07-15] MEDS: ESCITALOPRAM OXALATE 10 MG TABLET PO SCH (22:09)
[2016-07-15] MEDS: ATORVASTATIN CALCIUM 40 MG TABLET PO SCH (22:10)
[2016-07-16] MEDS: DEXTROSE 50%-WATER 25 GM/50 ML DISP.SYRIN IV PRN ×4 (01:07→14:52)
[2016-07-16] MEDS: DILTIAZEM HCL 60 MG TABLET PO SCH ×3 (01:16→11:30)
[2016-07-16] MEDS: BUDESONIDE/FORMOTEROL 160-4.5 MCG 60 PUFF/6 GM MDI IH SCH ×3 (01:21→23:12)
[2016-07-16 04:48] LABS: ABSOLUTE LYMPHOCYTES (AUTO) 1.8 10^3/uL (0.5-4.7); ABSOLUTE MONOCYTES (AUTO) 1.6 10^3/uL (0.1-1.4); ABSOLUTE NEUT (AUTO) 12.1 10^3/uL (1.7-8.2); BASOPHILS % (AUTO) 0.2 % (0-2); EOSINOPHILS % (AUTO) 0.2 % (0-6); HEMATOCRIT 38.9 % (36.0-47.0); HGB HCT DIFFERENCE 0.1; LYMPHOCYTES % (AUTO) 11.9 % (13-45); MEAN CORPUSCULAR HEMOGLOBIN 30.4 pg (27.0-33.4); MEAN CORPUSCULAR HGB CONC 33.3 g/dL (32.0-36.0); MEAN CORPUSCULAR VOLUME 91 fl (80-97); RED BLOOD COUNT 4.27 10^6/uL (3.72-5.28); RED CELL DISTRIBUTION WIDTH 16.1 % (11.5-14.0); SEGMENTED NEUTROPHILS % (AUTO) 77.7 % (42-78); WHITE BLOOD COUNT 15.6 10^3/uL (4.0-10.5)
[2016-07-16 04:54] LABS: ANION GAP 10 (5-19); BLOOD UREA NITROGEN 17 mg/dL (7-20); CALCIUM 8.7 mg/dL (8.4-10.2); CARBON DIOXIDE 26 mmol/L (22-30); CHLORIDE 103 mmol/L (98-107); CREATININE RESULT 0.64 mg/dL (0.52-1.25); GLUCOSE 80 mg/dL (75-110); POTASSIUM 3.8 mmol/L (3.6-5.0)
[2016-07-16] MEDS: TIMOLOL MALEATE 0.5% OPH SOLN 5 ML OS SCH ×3 (05:13→23:11)
[2016-07-16] MEDS: HEPARIN SOD (PORCINE) 5,000 UNIT/ML 1 ML SYRINGE SUBCUT SCH ×2 (06:00→14:55)
[2016-07-16] MEDS ORDERED: GLIMEPIRIDE 4 MG TABLET PO SCH (08:00)
[2016-07-16] MEDS ORDERED: ONDANSETRON HCL INJ/PF 4 MG/2 ML SDV IV PRN (08:33)
[2016-07-16] MEDS ORDERED: DEXTROSE 5%-NORMAL SALINE 1,000 ML IV PRN (10:05)
[2016-07-16] MEDS ORDERED: HYDROCODONE/ACETAMINOPHEN 5-325 MG TABLET PO PRN (10:06)
[2016-07-16] MEDS: LEVOFLOXACIN 750 MG/D5W RTU 150 ML IV SCH (10:08)
[2016-07-16] MEDS: DOCUSATE SODIUM 100 MG CAPSULE PO SCH ×2 (10:08→17:45)
[2016-07-16] MEDS: FUROSEMIDE 20 MG TABLET PO SCH (10:10)
[2016-07-16] MEDS: CARVEDILOL 6.25 MG TABLET PO SCH ×2 (10:11→22:29)
[2016-07-16] MEDS: BRIMONIDINE TARTRATE 0.2% OPH SOLN 5 ML OS SCH ×2 (10:12→23:11)
[2016-07-16] MEDS: LISINOPRIL 10 MG TABLET PO SCH (10:13)
[2016-07-16] MEDS: ACETAMINOPHEN 325 MG TABLET PO PRN (11:30)
[2016-07-16 13:25] LABS: ABSOLUTE BASOPHILS # (AUTO) 0.1 10^3/uL (0.0-0.2); ABSOLUTE EOSINOPHILS # (AUTO) 0.1 10^3/uL (0.0-0.6); ABSOLUTE LYMPHOCYTES (AUTO) 1.6 10^3/uL (0.5-4.7); ABSOLUTE MONOCYTES (AUTO) 1.5 10^3/uL (0.1-1.4); ABSOLUTE NEUT (AUTO) 11.7 10^3/uL (1.7-8.2); BASOPHILS % (AUTO) 0.7 % (0-2); EOSINOPHILS % (AUTO) 0.5 % (0-6); HEMATOCRIT 36.7 % (36.0-47.0); HEMOGLOBIN 12.3 g/dL (12.0-15.5); HGB HCT DIFFERENCE 0.2; MEAN CORPUSCULAR HEMOGLOBIN 30.7 pg (27.0-33.4); MEAN CORPUSCULAR HGB CONC 33.5 g/dL (32.0-36.0); MEAN CORPUSCULAR VOLUME 92 fl (80-97); RED BLOOD COUNT 3.99 10^6/uL (3.72-5.28); RED CELL DISTRIBUTION WIDTH 16.3 % (11.5-14.0); SEGMENTED NEUTROPHILS % (AUTO) 77.8 % (42-78)
--- NOTE | 2016-07-16 13:37 | PDOC PROGRESS REPORT ---
Subjective Progress Note for:: 07/16/16 Subjective:: Patient is seen on morning rounds. She is resting in bed. She is complaining of lower abdominal discomfort and nausea. She denies vomiting. She did have one loose stool yesterday evening. She has had a low grade fever as well. She is somewhat anxious. She denies shortness of breath or dyspnea. She denies any headache or myalgias. She had one episode of hypoglycemia overnight. She states she did not eat supper either because of nausea. Physical Exam Vital Signs: Temp Pulse Resp BP Pulse Ox 100.2 F 64 20 119/50 L 94 07/16/16 07:20 07/16/16 07:20 07/16/16 07:20 07/16/16 07:20 07/16/16 07:20 Intake & Output 07/15/16 07/16/16 07/17/16 06:59 06:59 06:59 Intake Total 1480 1564 340 Output Total 0 Balance 1480 1564 340 Weight 80.3 kg 73.7 kg General appearance: PRESENT: no acute distress, obese, well-developed, well- nourished Head exam: PRESENT: atraumatic, normocephalic Eye exam: PRESENT: conjunctiva pink, EOMI, PERRLA. ABSENT: scleral icterus Ear exam: PRESENT: normal external ear exam Mouth exam: PRESENT: moist, tongue midline Neck exam: ABSENT: carotid bruit, JVD, lymphadenopathy, thyromegaly Respiratory exam: PRESENT: decreased breath sounds, symmetrical, tachypnea, unlabored Cardiovascular exam: PRESENT: RRR. ABSENT: diastolic murmur, rubs, systolic murmur Pulses: PRESENT: normal dorsalis pedis pul Vascular exam: PRESENT: normal capillary refill GI/Abdominal exam: PRESENT: hyperactive bowel sounds, normal bowel sounds, soft , tenderness, other - mild bilateral lower quadrant abdominal discomfort. Negative peritoneal signs. ABSENT: distended, guarding, mass, organolmegaly, rebound Rectal exam: PRESENT: deferred Extremities exam: PRESENT: full ROM. ABSENT: calf tenderness, clubbing, pedal edema Musculoskeletal exam: PRESENT: full ROM, normal inspection Neurological exam: PRESENT: alert, awake, oriented to person, oriented to place , oriented to time, oriented to situation, CN II-XII grossly intact. ABSENT: motor sensory deficit Psychiatric exam: PRESENT: appropriate affect, normal mood. ABSENT: homicidal ideation, suicidal ideation Skin exam: PRESENT: dry, intact, warm. ABSENT: cyanosis, rash Results Laboratory Results: 07/16/16 03:38 07/16/16 03:38 07/16/16 07/16/16 03:38 03:38 WBC 15.6 H RBC 4.27 Hgb 13.0 Hct 38.9 MCV 91 MCH 30.4 MCHC 33.3 RDW 16.1 H Plt Count 201 Seg Neutrophils % 77.7 Lymphocytes % 11.9 L Monocytes % 10.0 Eosinophils % 0.2 Basophils % 0.2 Absolute Neutrophils 12.1 H Absolute Lymphocytes 1.8 Absolute Monocytes 1.6 H Absolute Eosinophils 0.0 Absolute Basophils 0.0 Sodium 139.0 Potassium 3.8 Chloride 103 Carbon Dioxide 26 Anion Gap 10 BUN 17 Creatinine 0.64 Est GFR ( Amer) > 60 Est GFR (Non-Af Amer) > 60 Glucose 80 Calcium 8.7 07/15/16 07/15/16 04:58 10:50 Troponin I 0.059 0.047 Impressions: Chest X-Ray 07/14/16 18:12 IMPRESSION: NO ACUTE RADIOGRAPHIC FINDING IN THE CHEST. Assessment & Plan - Time Time Spent with patient: 25-34 minutes Medications reviewed and adjusted accordingly: Yes
[2016-07-16] MEDS ORDERED: DILTIAZEM HCL 60 MG TABLET PO SCH (16:01)
[2016-07-16] MEDS ORDERED: GLUCAGON,HUMAN RECOMB 1 MG INJ SUBCUT ONE (16:02)
[2016-07-16] MEDS ORDERED: GLUCAGON,HUMAN RECOMB 1 MG INJ SUBCUT PRN (16:47)
[2016-07-16] MEDS ORDERED: DEXTROSE 40% GEL 15 GM TUBE PO PRN ×2 (16:47)
[2016-07-16] MEDS ORDERED: MORPHINE SULFATE 10 MG/ML INJ IV PRN (16:47)
[2016-07-16] MEDS ORDERED: DEXTROSE 50%-WATER 25 GM/50 ML DISP.SYRIN IV PRN ×2 (16:47)
[2016-07-16 17:12] LABS: ARTERIAL BLOOD BASE EXCESS -1.2 mmol/L; ARTERIAL BLOOD O2 SATURATION 91.1 % (94-98)
[2016-07-16] MEDS: DILTIAZEM HCL 30 MG TABLET PO SCH (17:45)
[2016-07-16] MEDS: METRONIDAZOLE 500 MG/NS RTU 100 ML IV SCH (17:48)
[2016-07-16] MEDS: LACTOBACILLUS ACIDOPHILUS 250 MG TAB PO SCH (17:48)
[2016-07-16] MEDS: ATORVASTATIN CALCIUM 40 MG TABLET PO SCH (23:13)
[2016-07-16] MEDS: FAMOTIDINE INJ/PF 20 MG/2 ML SDV IV SCH (23:13)
[2016-07-16] MEDS: ESCITALOPRAM OXALATE 10 MG TABLET PO SCH (23:13)
[2016-07-17] MEDS: METRONIDAZOLE 500 MG/NS RTU 100 ML IV SCH ×4 (00:47→17:22)
[2016-07-17] MEDS: DILTIAZEM HCL 30 MG TABLET PO SCH ×4 (01:03→17:21)
[2016-07-17] MEDS: FUROSEMIDE 20 MG TABLET PO SCH (07:35)
[2016-07-17 07:37] LABS: ABSOLUTE LYMPHOCYTES (AUTO) 1.4 10^3/uL (0.5-4.7); ABSOLUTE MONOCYTES (AUTO) 1.2 10^3/uL (0.1-1.4); ABSOLUTE NEUT (AUTO) 11.5 10^3/uL (1.7-8.2); BASOPHILS % (AUTO) 0.3 % (0-2); EOSINOPHILS % (AUTO) 0.3 % (0-6); HEMATOCRIT 40.3 % (36.0-47.0); HEMOGLOBIN 13.3 g/dL (12.0-15.5); HGB HCT DIFFERENCE -0.4; LYMPHOCYTES % (AUTO) 10.1 % (13-45); MEAN CORPUSCULAR HEMOGLOBIN 30.7 pg (27.0-33.4); MEAN CORPUSCULAR HGB CONC 32.9 g/dL (32.0-36.0); MEAN CORPUSCULAR VOLUME 93 fl (80-97); MONOCYTES % (AUTO) 8.2 % (3-13); RED BLOOD COUNT 4.32 10^6/uL (3.72-5.28); RED CELL DISTRIBUTION WIDTH 16.5 % (11.5-14.0); SEGMENTED NEUTROPHILS % (AUTO) 81.1 % (42-78); WHITE BLOOD COUNT 14.2 10^3/uL (4.0-10.5)
[2016-07-17 07:51] LABS: ANION GAP 9 (5-19); BLOOD UREA NITROGEN 13 mg/dL (7-20); CALCIUM 8.1 mg/dL (8.4-10.2); CARBON DIOXIDE 25 mmol/L (22-30); CHLORIDE 104 mmol/L (98-107); CREATININE RESULT 0.58 mg/dL (0.52-1.25); GLUCOSE 73 mg/dL (75-110)
[2016-07-17] MEDS ORDERED: DEXTROSE 5%-NORMAL SALINE 1,000 ML IV PRN (08:25)
[2016-07-17] MEDS: TIMOLOL MALEATE 0.5% OPH SOLN 5 ML OS SCH ×2 (09:44→22:40)
[2016-07-17] MEDS: BUDESONIDE/FORMOTEROL 160-4.5 MCG 60 PUFF/6 GM MDI IH SCH ×2 (09:44→22:43)
[2016-07-17] MEDS: BRIMONIDINE TARTRATE 0.2% OPH SOLN 5 ML OS SCH ×2 (09:44→22:40)
[2016-07-17] MEDS: FAMOTIDINE INJ/PF 20 MG/2 ML SDV IV SCH ×2 (09:47→22:43)
[2016-07-17] MEDS: LACTOBACILLUS ACIDOPHILUS 250 MG TAB PO SCH ×2 (09:48→17:22)
[2016-07-17] MEDS: LEVOFLOXACIN 750 MG/D5W RTU 150 ML IV SCH (09:48)
[2016-07-17] MEDS: CARVEDILOL 6.25 MG TABLET PO SCH ×2 (09:49→22:52)
[2016-07-17] MEDS: DOCUSATE SODIUM 100 MG CAPSULE PO SCH ×2 (10:04→17:23)
[2016-07-17] MEDS: LISINOPRIL 10 MG TABLET PO SCH (10:04)
[2016-07-17] MEDS: BENZOCAINE/MENTHOL SORE THROAT LOZENGE BUCCAL PRN ×3 (11:29→17:20)
--- NOTE | 2016-07-17 12:03 | CONSULTATION REPORT E ---
Consultation Report NAME: DENNIS CASTELAN : 1945 AGE: 70Y DATE: 07/17/2016 301 A TO: JOHNNY MELTON M.D. FROM: MELINDA MYERS M.D. Requesting Physician REASON FOR CONSULTATION: Patient noted to have an early sigmoid diverticulitis on a CAT scan done yesterday. HISTORY OF PRESENT ILLNESS: This is a 70-year-old female who was initially admitted on 07/15/16 for generalized weakness. She was noted to have elevated white count and abdominal pain and, therefore, CT scan of the abdomen was performed yesterday. CAT scan revealed an early sigmoid diverticulitis. PAST MEDICAL HISTORY: History of atrial fibrillation, CHF, hypertension, hyperlipidemia, history of bronchitis and COPD. PAST SURGICAL HISTORY: Herniorrhaphy/incisional, hysterectomy, CHIP, left hip replacement and right knee replacement. SOCIAL HISTORY: Former smoker. No history of alcohol or drug use. No prescription drug abuse. FAMILY HISTORY: Noncontributory. ALLERGIES: MORPHINE, CLAIMS GETS OVERSEDATED. REVIEW OF SYSTEMS: Positive for weakness and fatigue. No visual or hearing problems. Admits to palpitations. Denies any cough. Denies any abdominal pains or constipation or diarrhea. This morning noted to have discomfort or mild tenderness in the left lower quadrant. : Denies dysuria. Denies any joint swelling or skin rash. Denies any anxiety or depression or polydipsia or polyuria. No easy bruisability. Neurologic: No abnormal speech or confusion. PHYSICAL EXAMINATION: VITAL SIGNS: Temperature 99.1, blood pressure 156/76 with a pulse rate of 80 per minute, irregularly irregular. HEENT: Neck is supple, no adenopathy and no thyromegaly. Oral exam: Tongue is in the midline and moist. LUNGS: Occasional crackles. No rales. CARDIAC: Showed irregular rate and rhythm. VASCULAR: Normal capillary refill. GASTROINTESTINAL: Abdominal exam, positive tenderness in the left lower quadrant on deep palpation. RECTAL: Deferred. EXTREMITIES: No edema with full range of motion. NEUROLOGIC: Awake, alert and oriented x3. PSYCHIATRIC: Appropriate affect. SKIN: Dry and warm. IMPRESSION: Acute sigmoid diverticulitis, early, on CAT scan findings. PLAN: Continue IV antibiotic therapy with Flagyl and Levaquin. Will follow the patient with you. DICTATING PHYSICIAN: JOHNNY MELTON M.D. [id number] PHY#: [id number] ID: [id number] JOB#: [id number] ACCT: [id number] cc:JOHNNY MELTON M.D. >
[2016-07-17] MEDS: METHYLPREDNISOLONE INJ 40 MG/1 ML SDV IV SCH ×2 (13:08→22:43)
[2016-07-17] MEDS: LEVALBUTEROL HCL NEB 1.25 MG/3 ML AMPUL NEB PRN (14:47)
[2016-07-17] MEDS: ACETYLCYSTEINE 20% SOLN 800 MG/4 ML VIAL.NEB NEB SCH (19:49)
[2016-07-17] MEDS: IPRATROPIUM/ALBUTEROL 0.5-2.5 MG/3 ML AMPUL NEB PRN (19:49)
[2016-07-17] MEDS: ATORVASTATIN CALCIUM 40 MG TABLET PO SCH (22:39)
[2016-07-17] MEDS: ESCITALOPRAM OXALATE 10 MG TABLET PO SCH (22:40)
[2016-07-17] MEDS: INSULIN LISPRO 100 UNIT/ML 3 ML VIAL SUBCUT PRN (22:49)
[2016-07-18] MEDS: DILTIAZEM HCL 30 MG TABLET PO SCH ×4 (01:50→17:32)
[2016-07-18] MEDS: METRONIDAZOLE 500 MG/NS RTU 100 ML IV SCH ×5 (02:26→21:56)
[2016-07-18] MEDS: METHYLPREDNISOLONE INJ 40 MG/1 ML SDV IV SCH ×2 (05:46→13:21)
[2016-07-18] MEDS: ACETYLCYSTEINE 20% SOLN 800 MG/4 ML VIAL.NEB NEB SCH ×2 (08:16→20:02)
[2016-07-18] MEDS: LEVALBUTEROL HCL NEB 1.25 MG/3 ML AMPUL NEB PRN ×2 (08:16→20:02)
[2016-07-18 08:22] LABS: ANION GAP 6 (5-19); BLOOD UREA NITROGEN 10 mg/dL (7-20); CALCIUM 8.3 mg/dL (8.4-10.2); CARBON DIOXIDE 26 mmol/L (22-30); CHLORIDE 106 mmol/L (98-107); CREATININE RESULT 0.54 mg/dL (0.52-1.25); GLUCOSE 244 mg/dL (75-110); POTASSIUM 3.7 mmol/L (3.6-5.0); SODIUM 138.2 mmol/L (137-145)
[2016-07-18] MEDS ORDERED: ERGOCALCIFEROL (VITAMIN D2) 50000 UNIT (1.25 MG) CAPSULE PO SCH (10:00)
--- NOTE | 2016-07-18 10:31 | PDOC PROGRESS REPORT ---
Subjective Progress Note for:: 07/17/16 Subjective:: Patient is seen on morning rounds. She is resting in bed. She is complaining of lower abdominal discomfort and nausea. She denies vomiting. She did have one loose stool yesterday evening. She has had a low grade fever as well. She is somewhat anxious. She denies shortness of breath or dyspnea. She denies any headache or myalgias. She had one episode of hypoglycemia overnight. She states she did not eat supper either because of nausea. Physical Exam Vital Signs: Temp Pulse Resp BP Pulse Ox 99.1 F 92 28 H 146/70 H 94 07/17/16 11:02 07/17/16 11:02 07/17/16 11:02 07/17/16 11:02 07/17/16 11:02 Intake & Output 07/16/16 07/17/16 07/18/16 06:59 06:59 06:59 Intake Total 1564 4310 355 Output Total 0 Balance 1564 4310 355 Weight 73.7 kg 85 kg General appearance: PRESENT: no acute distress, obese, well-developed, well- nourished Head exam: PRESENT: atraumatic, normocephalic Eye exam: PRESENT: conjunctiva pink, EOMI, PERRLA. ABSENT: scleral icterus Ear exam: PRESENT: normal external ear exam Mouth exam: PRESENT: moist, tongue midline Neck exam: ABSENT: carotid bruit, JVD, lymphadenopathy, thyromegaly Respiratory exam: PRESENT: rhonchi, symmetrical, unlabored - bilaterally. ABSENT: rales, wheezes Cardiovascular exam: PRESENT: irregular rhythm. ABSENT: diastolic murmur, rubs , systolic murmur Pulses: PRESENT: normal dorsalis pedis pul Vascular exam: PRESENT: normal capillary refill GI/Abdominal exam: PRESENT: normal bowel sounds, soft. ABSENT: distended, guarding, mass, organolmegaly, rebound, tenderness Rectal exam: PRESENT: deferred Extremities exam: PRESENT: full ROM. ABSENT: calf tenderness, clubbing, pedal edema Neurological exam: PRESENT: alert, awake, oriented to person, oriented to place , oriented to time, oriented to situation, CN II-XII grossly intact. ABSENT: motor sensory deficit Psychiatric exam: PRESENT: appropriate affect, normal mood. ABSENT: homicidal ideation, suicidal ideation Skin exam: PRESENT: dry, intact, warm. ABSENT: cyanosis, rash Results Laboratory Results: 07/17/16 07:23 07/17/16 07:23 07/16/16 07/16/16 07/17/16 13:10 16:18 07:23 WBC 15.0 H 14.2 H RBC 3.99 4.32 Hgb 12.3 13.3 Hct 36.7 40.3 MCV 92 93 MCH 30.7 30.7 MCHC 33.5 32.9 RDW 16.3 H 16.5 H Plt Count 196 178 Seg Neutrophils % 77.8 81.1 H Lymphocytes % 11.0 L 10.1 L Monocytes % 10.0 8.2 Eosinophils % 0.5 0.3 Basophils % 0.7 0.3 Absolute Neutrophils 11.7 H 11.5 H Absolute Lymphocytes 1.6 1.4 Absolute Monocytes 1.5 H 1.2 Absolute Eosinophils 0.1 0.0 Absolute Basophils 0.1 0.0 Carbonic Acid 1.26 HCO3/H2CO3 Ratio 19:1 ABG pH 7.37 ABG pCO2 42.0 ABG pO2 61.6 L ABG HCO3 24.0 ABG O2 Saturation 91.1 L ABG Base Excess -1.2 FiO2 3L Sodium Potassium Chloride Carbon Dioxide Anion Gap BUN Creatinine Est GFR ( Amer) Est GFR (Non-Af Amer) Glucose Calcium 07/17/16 07:23 WBC RBC Hgb Hct MCV MCH MCHC RDW Plt Count Seg Neutrophils % Lymphocytes % Monocytes % Eosinophils % Basophils % Absolute Neutrophils Absolute Lymphocytes Absolute Monocytes Absolute Eosinophils Absolute Basophils Carbonic Acid HCO3/H2CO3 Ratio ABG pH ABG pCO2 ABG pO2 ABG HCO3 ABG O2 Saturation ABG Base Excess FiO2 Sodium 138.0 Potassium 4.0 Chloride 104 Carbon Dioxide 25 Anion Gap 9 BUN 13 Creatinine 0.58 Est GFR ( Amer) > 60 Est GFR (Non-Af Amer) > 60 Glucose 73 L Calcium 8.1 L 07/15/16 07/15/16 04:58 10:50 Troponin I 0.059 0.047 Impressions: Chest X-Ray 07/14/16 18:12 IMPRESSION: NO ACUTE RADIOGRAPHIC FINDING IN THE CHEST. Abdomen/Pelvis CT 07/16/16 10:13 IMPRESSION: 1. EARLY SIGMOID DIVERTICULITIS. NO FOCAL ABSCESS OR PERFORATION AT THIS TIME. 2. PATCHY PARENCHYMAL DENSITIES IN THE LUNG BASES, ATELECTASIS VERSUS PNEUMONIA. 3. GALLSTONES. 4. CORTICAL CYSTS IN BOTH KIDNEYS. 5. NO OTHER SIGNIFICANT OR ACUTE FINDING IN THE ABDOMEN OR PELVIS ON CT SCAN WITH IV CONTRAST. Assessment & Plan - Diagnosis (1) Acute diverticulitis Is this a current diagnosis for this admission?: YesPlan: Continue IV Levaquin and Flagyl. Will start clear liquid diet. General surgery is consulted to assist with management (2) Acute exacerbation of chronic obstructive pulmonary disease (COPD) Is this a current diagnosis for this admission?: YesPlan: Continue nebulizers, broad spectrum antibiotic therapy and IV steroids (3) Atrial fibrillation with rapid ventricular response Is this a current diagnosis for this admission?: YesPlan: Resolved with diltiazem. Patient had recent retroperitoneal bleed on anticougulation, (4) Chronic systolic heart failure Is this a current diagnosis for this admission?: YesPlan: Patient is presently euvolemic (5) HTN (hypertension) Qualifiers: Hypertension type: essential hypertension Qualified Code(s): I10 - Essential (primary) hypertension Is this a current diagnosis for this admission?: YesPlan: Diltiazem dose reduced due to hypotension (6) Do not resuscitate Is this a current diagnosis for this admission?: Yes - Time Time Spent with patient: 25-34 minutes Critical Time spent with patient: 15-24 minutes Medications reviewed and adjusted accordingly: Yes
--- NOTE | 2016-07-18 10:36 | PDOC PROGRESS REPORT ---
Subjective Progress Note for:: 07/18/16 Subjective:: Patient is seen on morning rounds. She is resting in bed. She is feeling better today. She states she is hungry. She denies any abdominal pain or nausea. She denies shortness of breath or dyspnea. She denies any headache or myalgias. She has had no hypoglycemia overnight. Rest of review of systems is unremarkable. Physical Exam Vital Signs: Temp Pulse Resp BP Pulse Ox 97.4 F 89 18 138/81 H 97 07/18/16 07:53 07/18/16 08:16 07/18/16 08:16 07/18/16 07:53 07/18/16 08:16 Intake & Output 07/17/16 07/18/16 07/19/16 06:59 06:59 06:59 Intake Total 4310 2408 Output Total 0 0 Balance 4310 2408 Weight 85 kg 86.7 kg General appearance: PRESENT: no acute distress, obese, well-developed, well- nourished Head exam: PRESENT: atraumatic, normocephalic Eye exam: PRESENT: conjunctiva pink, EOMI, PERRLA. ABSENT: scleral icterus Ear exam: PRESENT: normal external ear exam Mouth exam: PRESENT: moist, tongue midline Neck exam: ABSENT: carotid bruit, JVD, lymphadenopathy, thyromegaly Respiratory exam: PRESENT: rhonchi, symmetrical, unlabored. ABSENT: rales, wheezes Cardiovascular exam: PRESENT: RRR. ABSENT: diastolic murmur, rubs, systolic murmur Pulses: PRESENT: normal dorsalis pedis pul Vascular exam: PRESENT: normal capillary refill GI/Abdominal exam: PRESENT: normal bowel sounds, soft Rectal exam: PRESENT: deferred Extremities exam: PRESENT: full ROM. ABSENT: calf tenderness, clubbing, pedal edema Musculoskeletal exam: PRESENT: ambulatory, full ROM, normal inspection Neurological exam: PRESENT: alert, awake, oriented to person, oriented to place , oriented to time, oriented to situation, CN II-XII grossly intact. ABSENT: motor sensory deficit Psychiatric exam: PRESENT: appropriate affect, normal mood. ABSENT: homicidal ideation, suicidal ideation Skin exam: PRESENT: dry, intact, warm. ABSENT: cyanosis, rash Results Laboratory Results: 07/17/16 07:23 07/18/16 07:35 07/18/16 07:35 Sodium 138.2 Potassium 3.7 Chloride 106 Carbon Dioxide 26 Anion Gap 6 BUN 10 Creatinine 0.54 Est GFR ( Amer) > 60 Est GFR (Non-Af Amer) > 60 Glucose 244 H Calcium 8.3 L 07/15/16 07/15/16 04:58 10:50 Troponin I 0.059 0.047 Impressions: Chest X-Ray 07/14/16 18:12 IMPRESSION: NO ACUTE RADIOGRAPHIC FINDING IN THE CHEST. Abdomen/Pelvis CT 07/16/16 10:13 IMPRESSION: 1. EARLY SIGMOID DIVERTICULITIS. NO FOCAL ABSCESS OR PERFORATION AT THIS TIME. 2. PATCHY PARENCHYMAL DENSITIES IN THE LUNG BASES, ATELECTASIS VERSUS PNEUMONIA. 3. GALLSTONES. 4. CORTICAL CYSTS IN BOTH KIDNEYS. 5. NO OTHER SIGNIFICANT OR ACUTE FINDING IN THE ABDOMEN OR PELVIS ON CT SCAN WITH IV CONTRAST. Assessment & Plan - Diagnosis (1) Acute diverticulitis Is this a current diagnosis for this admission?: YesPlan: Continue IV Levaquin and Flagyl. Will advance diet. General surgery is consulted to assist with management (2) Acute exacerbation of chronic obstructive pulmonary disease (COPD) Is this a current diagnosis for this admission?: YesPlan: Continue nebulizers, broad spectrum antibiotic therapy and IV steroids (3) Atrial fibrillation with rapid ventricular response Is this a current diagnosis for this admission?: YesPlan: Resolved with diltiazem. Patient had recent retroperitoneal bleed on anticougulation, (4) Chronic systolic heart failure Is this a current diagnosis for this admission?: YesPlan: Patient is presently euvolemic (5) HTN (hypertension) Qualifiers: Hypertension type: essential hypertension Qualified Code(s): I10 - Essential (primary) hypertension Is this a current diagnosis for this admission?: YesPlan: Diltiazem dose reduced due to hypotension (6) Do not resuscitate Is this a current diagnosis for this admission?: Yes - Time Time Spent with patient: 25-34 minutes Smoking Cessation Education: 3 to 10 minutes Anticipated discharge: Home with Homehealth
[2016-07-18] MEDS: BUDESONIDE/FORMOTEROL 160-4.5 MCG 60 PUFF/6 GM MDI IH SCH ×2 (10:37→21:55)
[2016-07-18] MEDS: CARVEDILOL 6.25 MG TABLET PO SCH ×2 (10:38→21:55)
[2016-07-18] MEDS: LISINOPRIL 10 MG TABLET PO SCH (10:38)
[2016-07-18] MEDS: FUROSEMIDE 20 MG TABLET PO SCH (10:38)
[2016-07-18] MEDS: DOCUSATE SODIUM 100 MG CAPSULE PO SCH ×2 (10:38→17:38)
[2016-07-18] MEDS: FAMOTIDINE INJ/PF 20 MG/2 ML SDV IV SCH ×2 (10:39→21:56)
[2016-07-18] MEDS: TIMOLOL MALEATE 0.5% OPH SOLN 5 ML OS SCH ×2 (10:39→21:55)
[2016-07-18] MEDS: BRIMONIDINE TARTRATE 0.2% OPH SOLN 5 ML OS SCH ×2 (10:40→21:56)
[2016-07-18] MEDS: LEVOFLOXACIN 750 MG/D5W RTU 150 ML IV SCH (10:40)
[2016-07-18] MEDS: LACTOBACILLUS ACIDOPHILUS 250 MG TAB PO SCH ×2 (10:52→17:33)
--- NOTE | 2016-07-18 11:54 | PROGRESS NOTE E ---
Progress Note NAME: DENNIS CASTELAN : 1945 AGE: 70Y DATE: 07/18/2016 ROOM: 301 SUBJECTIVE: Patient remains afebrile. She denies any abdominal pain. OBJECTIVE: The abdomen is soft, practically no tenderness on deep palpation. Her blood sugar is slightly elevated to 283. PLAN: Continue with IV antibiotics and we will follow her on an outpatient basis. She can be followed up in the surgical clinic in about 2 weeks after discharge. DICTATING PHYSICIAN: JOHNNY MELTON M.D. [id number] PHY#: [id number] ID: [id number] JOB#: [id number] ACCT: [id number] cc: >
[2016-07-18] MEDS: INSULIN LISPRO 100 UNIT/ML 3 ML VIAL SUBCUT PRN ×2 (12:14→22:19)
[2016-07-18] MEDS: BENZOCAINE/MENTHOL SORE THROAT LOZENGE BUCCAL PRN ×2 (13:21→17:37)
[2016-07-18] MEDS: METFORMIN HCL 500 MG TABLET PO SCH (17:37)
[2016-07-18] MEDS: ESCITALOPRAM OXALATE 10 MG TABLET PO SCH (21:54)
[2016-07-18] MEDS: ATORVASTATIN CALCIUM 40 MG TABLET PO SCH (21:54)
[2016-07-19] MEDS: DILTIAZEM HCL 30 MG TABLET PO SCH ×4 (01:08→17:53)
[2016-07-19 05:13] LABS: ABSOLUTE LYMPHOCYTES (AUTO) 0.8 10^3/uL (0.5-4.7); ABSOLUTE MONOCYTES (AUTO) 0.5 10^3/uL (0.1-1.4); BASOPHILS % (AUTO) 0.2 % (0-2); EOSINOPHILS % (AUTO) 0.1 % (0-6); HEMATOCRIT 36.2 % (36.0-47.0); HEMOGLOBIN 12.2 g/dL (12.0-15.5); HGB HCT DIFFERENCE 0.4; LYMPHOCYTES % (AUTO) 5.8 % (13-45); MEAN CORPUSCULAR HEMOGLOBIN 30.9 pg (27.0-33.4); MEAN CORPUSCULAR HGB CONC 33.6 g/dL (32.0-36.0); MEAN CORPUSCULAR VOLUME 92 fl (80-97); MONOCYTES % (AUTO) 3.8 % (3-13); RED BLOOD COUNT 3.94 10^6/uL (3.72-5.28); RED CELL DISTRIBUTION WIDTH 15.9 % (11.5-14.0); SEGMENTED NEUTROPHILS % (AUTO) 90.1 % (42-78); WHITE BLOOD COUNT 13.4 10^3/uL (4.0-10.5)
[2016-07-19] MEDS: METRONIDAZOLE 500 MG/NS RTU 100 ML IV SCH (05:16)
[2016-07-19] MEDS: ACETYLCYSTEINE 20% SOLN 800 MG/4 ML VIAL.NEB NEB SCH ×2 (07:57→20:44)
[2016-07-19] MEDS: LEVALBUTEROL HCL NEB 1.25 MG/3 ML AMPUL NEB PRN (07:57)
[2016-07-19] MEDS ORDERED: ONDANSETRON 4 MG TAB.RAPDIS PO PRN (08:09)
[2016-07-19] MEDS: FUROSEMIDE 20 MG TABLET PO SCH (09:32)
[2016-07-19] MEDS: LACTOBACILLUS ACIDOPHILUS 250 MG TAB PO SCH ×2 (09:32→17:51)
[2016-07-19] MEDS: CARVEDILOL 6.25 MG TABLET PO SCH ×2 (09:33→22:16)
[2016-07-19] MEDS: FAMOTIDINE 20 MG TABLET PO SCH ×2 (09:33→22:16)
[2016-07-19] MEDS: DOCUSATE SODIUM 100 MG CAPSULE PO SCH ×2 (09:33→17:51)
[2016-07-19] MEDS ORDERED: ALPRAZOLAM 0.5 MG TABLET PO PRN (09:53)
[2016-07-19] MEDS: METFORMIN HCL 500 MG TABLET PO SCH ×2 (09:56→15:36)
[2016-07-19] MEDS ORDERED: PREDNISONE 20 MG TABLET PO SCH (10:00)
[2016-07-19] MEDS: LEVOFLOXACIN 750 MG TABLET PO SCH (10:00)
[2016-07-19] MEDS: LISINOPRIL 10 MG TABLET PO SCH (10:01)
[2016-07-19] MEDS: PREDNISONE 20 MG TABLET PO SCH (10:01)
[2016-07-19] MEDS: BUDESONIDE/FORMOTEROL 160-4.5 MCG 60 PUFF/6 GM MDI IH SCH ×2 (10:30→22:17)
[2016-07-19] MEDS: BRIMONIDINE TARTRATE 0.2% OPH SOLN 5 ML OS SCH ×2 (10:31→22:17)
[2016-07-19] MEDS: TIMOLOL MALEATE 0.5% OPH SOLN 5 ML OS SCH ×2 (10:31→22:39)
[2016-07-19] MEDS: METRONIDAZOLE 500 MG TABLET PO SCH ×2 (12:52→17:51)
[2016-07-19] MEDS: IPRATROPIUM/ALBUTEROL 0.5-2.5 MG/3 ML AMPUL NEB PRN ×2 (13:31→20:43)
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
[2016-07-19] MEDS: INSULIN LISPRO 100 UNIT/ML 3 ML VIAL SUBCUT PRN ×2 (15:36→22:16)
[2016-07-19] MEDS: ESCITALOPRAM OXALATE 10 MG TABLET PO SCH (22:17)
[2016-07-19] MEDS: ATORVASTATIN CALCIUM 40 MG TABLET PO SCH (22:17)
[2016-07-20] MEDS: DILTIAZEM HCL 30 MG TABLET PO SCH ×2 (00:15→05:17)
[2016-07-20] MEDS: METRONIDAZOLE 500 MG TABLET PO SCH ×4 (00:15→17:22)
[2016-07-20] MEDS: IPRATROPIUM/ALBUTEROL 0.5-2.5 MG/3 ML AMPUL NEB PRN (07:52)
[2016-07-20] MEDS: ACETYLCYSTEINE 20% SOLN 800 MG/4 ML VIAL.NEB NEB SCH (07:52)
[2016-07-20] MEDS: DOCUSATE SODIUM 100 MG CAPSULE PO SCH ×2 (09:48→17:22)
[2016-07-20] MEDS: LEVOFLOXACIN 750 MG TABLET PO SCH (09:49)
[2016-07-20] MEDS: DILTIAZEM HCL 240 MG CAPSULE.CR PO SCH ×2 (09:49→22:26)
[2016-07-20] MEDS: FUROSEMIDE 20 MG TABLET PO SCH (09:49)
[2016-07-20] MEDS: LACTOBACILLUS ACIDOPHILUS 250 MG TAB PO SCH ×2 (09:49→17:23)
[2016-07-20] MEDS: FAMOTIDINE 20 MG TABLET PO SCH ×2 (09:49→22:27)
[2016-07-20] MEDS: CARVEDILOL 6.25 MG TABLET PO SCH ×2 (09:50→22:25)
[2016-07-20] MEDS: BUDESONIDE/FORMOTEROL 160-4.5 MCG 60 PUFF/6 GM MDI IH SCH ×2 (09:51→22:28)
[2016-07-20] MEDS: LISINOPRIL 10 MG TABLET PO SCH (09:51)
[2016-07-20] MEDS: PREDNISONE 20 MG TABLET PO SCH (09:51)
[2016-07-20] MEDS: METFORMIN HCL 500 MG TABLET PO SCH ×2 (09:51→17:22)
[2016-07-20] MEDS: BRIMONIDINE TARTRATE 0.2% OPH SOLN 5 ML OS SCH ×2 (09:52→22:27)
[2016-07-20] MEDS: TIMOLOL MALEATE 0.5% OPH SOLN 5 ML OS SCH ×2 (09:52→22:27)
[2016-07-20] MEDS ORDERED: DILTIAZEM HCL 120 MG CAP.SR.24H PO SCH (10:00)
[2016-07-20] MEDS ORDERED: (PENDING PHARMACY ID) (Diltiazem Hcl [Cartia Xt] 240 MG) PO SCH (10:00)
--- NOTE | 2016-07-20 12:42 | PDOC PROGRESS REPORT ---
Subjective Progress Note for:: 07/20/16 Subjective:: The patient was seen earlier today on rounds. The patient mainly complains of being very tired. The patient denies any nausea, vomiting, diarrhea, shortness of breath, dizziness, chest pain, heart palpitations, fevers, or chills. The patient has remained afebrile. Blood pressures have been in a good range. When prompted the patient voices no other concerns at this time. Review of systems: The rest of the review of systems is negative. Physical Exam Vital Signs: Temp Pulse Resp BP Pulse Ox 97.8 F 65 16 135/62 H 97 07/20/16 07:16 07/20/16 07:55 07/20/16 07:55 07/20/16 07:16 07/20/16 07:55 Intake & Output 07/18/16 07/19/16 07/20/16 23:59 23:59 23:59 Intake Total 2047 120 0 Output Total 0 0 Balance 2047 120 0 Weight 86.7 kg 86 kg 87.1 kg General appearance: PRESENT: cooperative, disheveled, well-developed Head exam: PRESENT: atraumatic, normocephalic Eye exam: PRESENT: conjunctiva pale, EOMI, PERRLA. ABSENT: scleral icterus Ear exam: PRESENT: normal external ear exam Mouth exam: PRESENT: moist, tongue midline Neck exam: ABSENT: carotid bruit, JVD, lymphadenopathy, thyromegaly Respiratory exam: PRESENT: decreased breath sounds, symmetrical, unlabored. ABSENT: rales, rhonchi, tachypnea, wheezes Cardiovascular exam: PRESENT: irregular rhythm. ABSENT: diastolic murmur, rubs , systolic murmur Pulses: PRESENT: normal dorsalis pedis pul Vascular exam: PRESENT: normal capillary refill GI/Abdominal exam: PRESENT: normal bowel sounds, soft. ABSENT: distended, guarding, mass, organolmegaly, rebound, tenderness Rectal exam: PRESENT: deferred Extremities exam: PRESENT: full ROM. ABSENT: calf tenderness, clubbing, pedal edema Neurological exam: PRESENT: alert, awake, oriented to person, oriented to place , oriented to time. ABSENT: motor sensory deficit Psychiatric exam: PRESENT: flat affect, unusual affect. ABSENT: homicidal ideation, suicidal ideation Skin exam: PRESENT: dry, intact, pallor, warm. ABSENT: cyanosis, rash Results Laboratory Results: 07/19/16 03:59 07/18/16 07:35 07/15/16 07/15/16 04:58 10:50 Troponin I 0.059 0.047 Impressions: Chest X-Ray 07/14/16 18:12 IMPRESSION: NO ACUTE RADIOGRAPHIC FINDING IN THE CHEST. Abdomen/Pelvis CT 07/16/16 10:13 IMPRESSION: 1. EARLY SIGMOID DIVERTICULITIS. NO FOCAL ABSCESS OR PERFORATION AT THIS TIME. 2. PATCHY PARENCHYMAL DENSITIES IN THE LUNG BASES, ATELECTASIS VERSUS PNEUMONIA. 3. GALLSTONES. 4. CORTICAL CYSTS IN BOTH KIDNEYS. 5. NO OTHER SIGNIFICANT OR ACUTE FINDING IN THE ABDOMEN OR PELVIS ON CT SCAN WITH IV CONTRAST. Assessment & Plan - Diagnosis (1) Acute exacerbation of chronic obstructive pulmonary disease (COPD) Is this a current diagnosis for this admission?: YesPlan: Will continue nebulizers but taper as well as steroids. (2) Acute on chronic respiratory failure with hypoxemia Is this a current diagnosis for this admission?: YesPlan: Secondary to #1 this is much improved. (3) Acute diverticulitis Is this a current diagnosis for this admission?: YesPlan: Will continue oral Levaquin and Flagyl. Abdominal pain is resolved fever and leukocytosis is much improved. Will continue to follow. Do appreciate surgery' s input with this. (4) Chronic combined systolic and diastolic congestive heart failure Is this a current diagnosis for this admission?: YesPlan: The patient appears optivolemic at this time will continue home medications. (5) Atrial fibrillation with rapid ventricular response Is this a current diagnosis for this admission?: YesPlan: Convert to home doses of Cardizem. The patient had a retroperitoneal bleed on anticoagulation. (6) HTN (hypertension) Qualifiers: Hypertension type: essential hypertension Qualified Code(s): I10 - Essential (primary) hypertension Is this a current diagnosis for this admission?: YesPlan: Will continue home medications. (7) Glaucoma Qualifiers: Glaucoma type: unspecified type Laterality: unspecified laterality Qualified Code(s): H40.9 - Unspecified glaucoma Is this a current diagnosis for this admission?: YesPlan: Will continue home medications. (8) Diabetes mellitus type 2 in obese Is this a current diagnosis for this admission?: YesPlan: Continue sliding scale coverage and home meds. (9) Hyperbilirubinemia Is this a current diagnosis for this admission?: YesPlan: Will repeat CMP in the a.m. (10) Decubitus ulcer of sacral region, stage 1 Is this a current diagnosis for this admission?: Yes (11) Do not resuscitate Is this a current diagnosis for this admission?: Yes (12) DVT prophylaxis Is this a current diagnosis for this admission?: Yes - Time Time Spent with patient: 25-34 minutes Medications reviewed and adjusted accordingly: Yes Anticipated discharge: SNF Within: within 24 hours, when bed available Disposition: The patient is a DO NOT RESUSCITATE DO NOT INTUBATE. Pending patient's symptomatology and diagnostic findings will reevaluate as needed.
[2016-07-20] MEDS: ATORVASTATIN CALCIUM 40 MG TABLET PO SCH (22:26)
[2016-07-20] MEDS: ESCITALOPRAM OXALATE 10 MG TABLET PO SCH (22:27)
[2016-07-21] MEDS: METFORMIN HCL 500 MG TABLET PO SCH ×2 (08:00→16:00)
[2016-07-21] MEDS: FUROSEMIDE 20 MG TABLET PO SCH (08:00)
[2016-07-21] MEDS: FAMOTIDINE 20 MG TABLET PO SCH ×2 (10:00→22:59)
[2016-07-21] MEDS: BUDESONIDE/FORMOTEROL 160-4.5 MCG 60 PUFF/6 GM MDI IH SCH ×2 (10:00→22:59)
[2016-07-21] MEDS: DOCUSATE SODIUM 100 MG CAPSULE PO SCH ×2 (10:00→18:00)
[2016-07-21] MEDS: CARVEDILOL 6.25 MG TABLET PO SCH ×2 (10:00→23:00)
[2016-07-21] MEDS: BRIMONIDINE TARTRATE 0.2% OPH SOLN 5 ML OS SCH ×2 (10:00→22:59)
[2016-07-21] MEDS: PREDNISONE 20 MG TABLET PO SCH (10:00)
[2016-07-21] MEDS: LEVOFLOXACIN 750 MG TABLET PO SCH (10:00)
[2016-07-21] MEDS: LISINOPRIL 10 MG TABLET PO SCH (10:00)
[2016-07-21] MEDS: LACTOBACILLUS ACIDOPHILUS 250 MG TAB PO SCH ×2 (10:00→18:00)
[2016-07-21] MEDS: TIMOLOL MALEATE 0.5% OPH SOLN 5 ML OS SCH ×2 (10:00→22:59)
[2016-07-21] MEDS: DILTIAZEM HCL 240 MG CAPSULE.CR PO SCH ×2 (10:00→23:02)
[2016-07-21] MEDS: METRONIDAZOLE 500 MG TABLET PO SCH ×3 (12:00→18:00)
[2016-07-21] MEDS: ATORVASTATIN CALCIUM 40 MG TABLET PO SCH (22:59)
[2016-07-21] MEDS: ESCITALOPRAM OXALATE 10 MG TABLET PO SCH (23:00)
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
[2016-07-22] MEDS: METRONIDAZOLE 500 MG TABLET PO SCH ×4 (00:33→17:40)
[2016-07-22 07:57] LABS: HEMATOCRIT 35.3 % (36.0-47.0); HEMOGLOBIN 11.7 g/dL (12.0-15.5); HGB HCT DIFFERENCE -0.2; MEAN CORPUSCULAR HEMOGLOBIN 30.1 pg (27.0-33.4); MEAN CORPUSCULAR HGB CONC 33.2 g/dL (32.0-36.0); MEAN CORPUSCULAR VOLUME 91 fl (80-97); RED CELL DISTRIBUTION WIDTH 15.6 % (11.5-14.0); WHITE BLOOD COUNT 12.3 10^3/uL (4.0-10.5)
[2016-07-22] MEDS: FUROSEMIDE 20 MG TABLET PO SCH (08:13)
[2016-07-22] MEDS: METFORMIN HCL 500 MG TABLET PO SCH ×2 (08:13→15:58)
[2016-07-22] MEDS: LACTOBACILLUS ACIDOPHILUS 250 MG TAB PO SCH ×2 (09:09→17:40)
[2016-07-22] MEDS: DOCUSATE SODIUM 100 MG CAPSULE PO SCH ×2 (09:10→17:41)
[2016-07-22] MEDS: FAMOTIDINE 20 MG TABLET PO SCH ×2 (09:10→22:24)
[2016-07-22] MEDS: CARVEDILOL 6.25 MG TABLET PO SCH ×2 (09:10→22:19)
[2016-07-22] MEDS: PREDNISONE 20 MG TABLET PO SCH (09:10)
[2016-07-22] MEDS: DILTIAZEM HCL 240 MG CAPSULE.CR PO SCH ×2 (09:10→22:20)
[2016-07-22] MEDS: LISINOPRIL 10 MG TABLET PO SCH (09:10)
[2016-07-22] MEDS: LEVOFLOXACIN 750 MG TABLET PO SCH (09:10)
[2016-07-22] MEDS: BRIMONIDINE TARTRATE 0.2% OPH SOLN 5 ML OS SCH ×2 (09:11→22:21)
[2016-07-22] MEDS: BUDESONIDE/FORMOTEROL 160-4.5 MCG 60 PUFF/6 GM MDI IH SCH ×2 (09:11→22:21)
[2016-07-22] MEDS: TIMOLOL MALEATE 0.5% OPH SOLN 5 ML OS SCH ×2 (09:11→22:21)
[2016-07-22 10:10] LABS: CALCIUM 8.3 mg/dL (8.4-10.2)
[2016-07-22 10:11] LABS: BLOOD UREA NITROGEN 16 mg/dL (7-20); CHLORIDE 102 mmol/L (98-107); CREATININE RESULT 0.56 mg/dL (0.52-1.25); GLUCOSE 79 mg/dL (75-110); POTASSIUM 3.5 mmol/L (3.6-5.0)
[2016-07-22 10:12] LABS: ALANINE AMINOTRANSFERASE 30 U/L (9-52); ALBUMIN 2.4 g/dL (3.5-5.0); ALKALINE PHOSPHATASE 40 U/L (38-126); ANION GAP 7 (5-19); ASPARTATE AMINO TRANSFERASE 23 U/L (14-36); BILIRUBIN,TOTAL 0.6 mg/dL (0.2-1.3); CARBON DIOXIDE 30 mmol/L (22-30); SODIUM 138.9 mmol/L (137-145)
[2016-07-22 10:13] LABS: BILIRUBIN,DIRECT 0.4 mg/dL (0.0-0.4)
[2016-07-22 10:14] LABS: MAGNESIUM 1.7 mg/dL (1.6-2.3)
[2016-07-22] MEDS: LEVALBUTEROL HCL NEB 1.25 MG/3 ML AMPUL NEB PRN (11:28)
[2016-07-22] MEDS: ACETAMINOPHEN 325 MG TABLET PO PRN (12:29)
--- NOTE | 2016-07-22 18:44 | Progress Note ---
Provider Note Provider Note: Patients family realized that patient could not move enough to get to wheelchair. They have now decided to have patient go to [facility]>
--- NOTE | 2016-07-22 20:21 | DISCHARGE SUMMARY E ---
Transfer Summary NAME: DENNIS CASTELAN : 1945 AGE: 70Y ADMITTED: 07/15/2016 DISCHARGED: 07/23/2016 CODE STATUS: [id number]. PRIMARY CARE PROVIDER: Kashmir Vo M.D. CONSULTING SURGICALIST: Ramiro Bryan M.D. DISCHARGE DIAGNOSES: 1. Acute exacerbation of chronic obstructive pulmonary disease. 2. Acute on chronic hypoxemic respiratory failure. 3. Acute diverticulitis. 4. Chronic systolic and diastolic congestive heart failure. 5. Atrial fibrillation with rapid ventricular response. 6. Hypertension. 7. Glaucoma. 8. Diabetes mellitus type 2 and obese. 9. Sacral decubitus stage I. 10. [id number] status. 11. Escherichia coli urinary tract infection. DISCHARGE MEDICATIONS: 1. Coreg 6.25 mg p.o. q.12 hours, #60 tablets 0 refills. 2. Levaquin 750 mg p.o. daily, #7 tablets 0 refills. 3. Flagyl 500 mg p.o. q.6 hours, 20 tablets 0 refills. 4. Potassium chloride 20 mEq p.o. q.12 hours, #60 tablets 0 refills. 5. Timoptic 0.5% ophthalmic solution 1 drop in the left eye q.12 hours. 6. Lipitor 40 mg p.o. hour of sleep. 7. Combigan 0.2/0.5% eyedrops 1 drop in the left eye q.12 hours. 8. Symbicort HFA 2 puffs inhalation q.12 hours. 9. Cardizem XP 240 mg p.o. q.12 hours. 10. Vitamin D2 50,000 international units p.o. weekly on Tuesday. 11. Lexapro 10 mg p.o. hour of sleep. 12. Lasix 20 mg p.o. q.a.m. 13. Amaryl 4 mg p.o. daily. 14. Humalog sliding scale coverage a.c. and at bedtime. 15. DuoNeb 1 nebulizer q.6 hours p.r.n. 16. Lisinopril 10 mg p.o. daily. 17. Glucophage 500 mg p.o. daily. 18. Alphagan 0.2% ophthalmic solution 1 drop in the left eye q.12 hours. DIET: Cardiac, diabetic, as tolerated. ACTIVITY: As per rehab standards. HISTORY OF PRESENT ILLNESS: The patient is a 70-year-old female that is well known to the hospitalist service. The patient presented to the Emergency Department with a chief complaint of generalized weakness. The patient was noted to be very weak with heart palpitations beginning approximately an hour prior to presentation to the Emergency Department. The patient denied any chest pain though the patient was found to be in rapid ventricular response in the 160s and was started on IV Cardizem and was referred to the hospitalist for admission. The patient is quite a poor historian, and subsequently, the history was obtained from previous records. The patient had recently been discharged from subacute rehabilitation following a bout of pneumonia in which diltiazem 120 by mouth b.i.d. had discontinued. Of note, it also appears that the patient was out of Coreg as well. The patient was referred to the hospitalist for admission and management. HOSPITAL COURSE: The patient was admitted to continuous telemetry unit. The patient was noted to have a significant white count as well as fever. After imaging, it appeared the patient did have findings that were consistent with diverticulitis. Surgery was consulted, and this was managed medically with antibiotics. The patient's symptoms did improve with IV therapy, and the patient's diet was advanced as per tolerated. The patient's symptoms have continued to improve. The patient's heart rate was much better improved with simply resuming the patient's home medications. The patient has had a recent history of retroperitoneal bleed, and therefore, anticoagulation has been deferred in this patient. The patient is aware of these risks. The patient was seen and evaluated by Physical Therapy, and recommendations were made for 24-hour care versus SNF. The family determined the patient was to deconditioned for home and has elected to return to SNF. DIAGNOSTICS: Lab values are as follows: Hematology obtained on 07/21/2016: WBC 2.3, hemoglobin 12.7, hematocrit 35.5; platelet count is 232,000. Coagulation done 07/14/2016: PT is 30.6. INR is 1.01. Chemistry obtained on 07/21/2016: Sodium is 138, potassium 4.5, chloride 102, carbon dioxide 30, BUN 16, creatinine 0.56, glucose 79, calcium 8.3, magnesium 1.7. Bilirubin is 0.6, AST 23, ALT 40, alkaline phosphatase 40, total protein 5.0, albumin 2.4. TSH is 0.7. Serologies obtained on 07/16/2016: C. difficile toxin is negative. Microbiology: Urine culture obtained on 07/15/2016 reveals E. coli. Blood cultures obtained on 07/14/2016 reveal no growth. Chest x-ray obtained on 07/14/2016 reveals no acute radiographic finding of the chest. CT of the abdomen and pelvis obtained on 07/16/2016 reveals early sigmoid diverticulosis. No focal abscess or perforation at this time. Patchy parenchymal densities in the lung bases, atelectasis versus pneumonia, with gallstones, cortical cysts in both kidneys. No other significant of acute finding of the abdomen or pelvis. PHYSICAL EXAMINATION: GENERAL: On examination, the patient is a frail, chronically ill-appearing, 70-year-old female who is awake, alert. She is oriented to person, place, time, and situation, just delayed, can be groggy at times, does not appear to be in any acute distress. VITAL SIGNS: Vital signs as follows: Temperature 97.4. Pulse 58. Respirations 20. Blood pressure is 133/69. Oxygen saturation 92% on room air. SKIN: Warm and dry. No rash. Not diaphoretic. HEENT: Pupils are equal, round, and reactive to light and accommodation. Conjunctivae pink. NECK: There is no JVD. CARDIOVASCULAR: Heart is regular. There is no murmur or rub. CHEST: Clear, symmetrical, unlabored. ABDOMEN: Soft, nontender, nondistended. BACK: No CVA tenderness or sacral edema. EXTREMITIES: No clubbing, cyanosis, edema. PSYCHIATRIC: Flat affect. DISCHARGE PLANNIN. The patient is advised to follow with her primary care provider within 1-2 weeks for hospital followup. 2. The patient is to follow up with the surgicalist within 2-4 weeks for hospital followup. TIME SPENT: Time spent on this discharge including assessment, plan, physical examination, patient education, and resource alignment is 25 minutes. DICTATING PHYSICIAN: AMY CHIN NP [id number] PHY#: [id number] ID: [id number] JOB#: [id number] ACCT: [id number] cc:MELINDA MYERS M.D., MICHAEL NP > MTDD
[2016-07-22] MEDS: ATORVASTATIN CALCIUM 40 MG TABLET PO SCH (22:19)
[2016-07-22] MEDS: ESCITALOPRAM OXALATE 10 MG TABLET PO SCH (22:20)
[2016-07-23] MEDS: METRONIDAZOLE 500 MG TABLET PO SCH ×3 (00:13→11:12)
[2016-07-23] MEDS: METFORMIN HCL 500 MG TABLET PO SCH (08:08)
[2016-07-23] MEDS: FUROSEMIDE 20 MG TABLET PO SCH (08:08)
[2016-07-23] MEDS: LEVOFLOXACIN 750 MG TABLET PO SCH (09:04)
[2016-07-23] MEDS: LACTOBACILLUS ACIDOPHILUS 250 MG TAB PO SCH (09:04)
[2016-07-23] MEDS: DILTIAZEM HCL 240 MG CAPSULE.CR PO SCH (09:04)
[2016-07-23] MEDS: CARVEDILOL 6.25 MG TABLET PO SCH (09:05)
[2016-07-23] MEDS: FAMOTIDINE 20 MG TABLET PO SCH (09:05)
[2016-07-23] MEDS: PREDNISONE 20 MG TABLET PO SCH (09:05)
[2016-07-23] MEDS: LISINOPRIL 10 MG TABLET PO SCH (09:05)
[2016-07-23] MEDS: BRIMONIDINE TARTRATE 0.2% OPH SOLN 5 ML OS SCH (09:06)
[2016-07-23] MEDS: TIMOLOL MALEATE 0.5% OPH SOLN 5 ML OS SCH (09:06)
[2016-07-23] MEDS: BUDESONIDE/FORMOTEROL 160-4.5 MCG 60 PUFF/6 GM MDI IH SCH (09:06)
[2016-07-23] MEDS: DOCUSATE SODIUM 100 MG CAPSULE PO SCH (09:07)
[2016-07-23 12:09] VITALS: BP 149/75
--- NOTE | 2016-07-27 07:24 | PROGRESS NOTE E ---
Progress Note NAME: DENNIS CASTELAN : 1945 AGE: 70Y DATE: 07/22/2016 ROOM: 303 SUBJECTIVE: The patient is currently lying in bed. The patient was actually slated for discharge today; however, the patient's grandson had reassured that the patient would be receiving 24-hour care at home, however, at his arrival to take the patient home he did not care to dress the patient and once he revealed the patient could not ambulate under own power, felt that the patient could not be cared for at the home and has elected to proceed with rehab placement. The patient has had no new symptoms today. No concerns otherwise are voiced at this time. REVIEW OF SYSTEMS: The rest of the review of systems is negative. MEDICATIONS: Medications have been reviewed. OBJECTIVE: GENERAL: The patient is a 70-year-old female who is awake, alert. She is oriented to person, place, time and situation. She is a little delayed. Does not appear to be in acute distress. VITAL SIGNS: As follows: Temperature is 97.8, pulse 83, respirations 22, blood pressure is 152/84. Oxygen saturation is 95% on room air. SKIN: Warm and dry. No rash. Not diaphoretic. HEENT: Pupils equal, round, reactive to light and accommodation. Conjunctivae pink. NECK: There is no JVP. CARDIOVASCULAR: Heart is irregularly irregular. No murmur, rub. CHEST: Is clear, symmetrical, unlabored. ABDOMEN: Obese. Soft. Bowel sounds present. BACK: No CVA tenderness, sacral edema. EXTREMITIES: No clubbing, cyanosis, edema. PSYCHIATRIC: Flat affect, depressed mood. NEUROLOGICALLY: Intact. DIAGNOSTICS: Lab values are as follows: Chemistry obtained on 07/21/2016: Sodium is 138, potassium 4.5, chloride is 102, carbon dioxide 30, BUN 16, creatinine is 0.56, glucose 79, calcium is 8.3. IMPRESSION AND PLAN: 1. ATRIAL FIBRILLATION. The patient is rate controlled. Was transitioned to long-acting Cardizem which has held her well. Will continue to monitor this. 2. HYPERTENSION. BLOOD PRESSURE HAS BEEN SLIGHTLY ELEVATED. Will continue to monitor this. 3. CHRONIC OBSTRUCTIVE PULMONARY DISEASE EXACERBATION. Will continue current medication. 4. ELEVATED LFT's. THESE HAVE NORMALIZED. 5. GENERAL DEBILITY. The patient will go to SNF in the a.m. if a bed is available. DISPOSITION: The patient is a DO NOT RESUSCITATE/DO NOT INTUBATE. Pending patient's symptomatology and diagnostic findings, reevaluate in the a.m. for discharge. TIME: Time spent on this followup including assessment, plan, physical examination, patient education is 25 minutes. DICTATING PHYSICIAN: AMY CHIN NP [id number] PHY#: [id number] ID: [id number] JOB#: [id number] ACCT: [id number] cc: >
== END 2016-07-23 13:40 | DRG 391 ==
LOC: ER 17:41 → EH 07-15 00:19 → UNDOADMIN 07-15 00:23 → 3S 07-15 01:35 → 3N 07-15 07:52
PROVIDERS: ADMIT Internal Medicine; ATTEND Internal Medicine
PROC: 5A09457 Assistance with Respiratory Ventilation, 24-96 Consecutive Hours, Continuous Positive Airway Pressure (ICD-10-PCS; principal; 2016-07-15)
DX: K57.32 Diverticulitis of large intestine without perforation or abscess without bleeding (principal); J96.21 Acute and chronic respiratory failure with hypoxia; J44.1 Chronic obstructive pulmonary disease with (acute) exacerbation; I50.42 Chronic combined systolic (congestive) and diastolic (congestive) heart failure; N39.0 Urinary tract infection, site not specified; I11.0 Hypertensive heart disease with heart failure; I48.2 Chronic atrial fibrillation; H40.9 Unspecified glaucoma; Z66 Do not resuscitate; B96.20 Unspecified Escherichia coli [E. coli] as the cause of diseases classified elsewhere; E66.9 Obesity, unspecified; Z68.29 Body mass index [BMI] 29.0-29.9, adult; L89.151 Pressure ulcer of sacral region, stage 1; Z79.899 Other long term (current) drug therapy; E78.5 Hyperlipidemia, unspecified; Z90.710 Acquired absence of both cervix and uterus; Z96.642 Presence of left artificial hip joint; Z96.651 Presence of right artificial knee joint; F32.9 Major depressive disorder, single episode, unspecified; Z79.4 Long term (current) use of insulin; Z88.6 Allergy status to analgesic agent; E11.649 Type 2 diabetes mellitus with hypoglycemia without coma
CPT/HCPCS: 36415; 36600; 71010; 74177; 80048; 80053; 81001; 82550; 82553; 82803; 82962; 83735; 83880; 84443; 84484; 85025; 85027; 85610; 87040; 87086; 87088; 87186; 87493; 93005; 93010; 94660; 94667; 94668; 96365; 96366; 96376; 99291; J1610; J1644; J1815; J1956; J2405; J2920; J3490; J7030; J7512; J7620; S0028

== ENCOUNTER 2016-09-04 19:10 | Inpatient (IN) | payer MEDICARE, BC, OTHER ==
--- NOTE | 2016-09-04 20:48 | ER Document Report ---
ED Extremity Problem, Upper - General Chief Complaint: Arm Pain Stated Complaint: LEFT ARM PAIN Time Seen by Provider: 09/04/16 20:26 Mode of Arrival: Wheelchair Information source: Patient, Relative Notes: 71-year-old female presents to ED for pain in her left hand and wrist. Patient states that 1 of the staff members at [facility] twisted her arm and hand 3 weeks ago while she was at the [facility]. Patient done states that primary told him that they x-rayed the hand and there was no injuries. Son states that the wrist and hand started swelling about 2-3 days ago. He also states that she was discharged from [facility] about 2 hours before coming to the emergency room but the patient states that the pain was so bad that he brought her here to get reassessed. Son states she has been weak for the last couple has been nauseated for several days. Son states that she had a hydrocodone at 1845 tonight the pain in her wrist. TRAVEL OUTSIDE OF THE [place] IN LAST 30 DAYS: No - HPI Patient complains to provider of: Pain, Swelling, Left, Hand, Wrist Onset: Other Recent injury: Possibly Where: Other - The HPI Quality of pain: Other - HPI Severity of pain: Worse Pain Level: 5 Context: Other - See HPI Associated symptoms: Nausea, Other - States the pain in her hand and wrist is making her nauseated Exacerbated by: Movement Relieved by: Rest, Positioning Similar symptoms previously: Yes Recently seen / treated by doctor: Yes - Related Data Allergies/Adverse Reactions: morphine [Morphine] Allergy (Mild, Verified 09/04/16 20:46) "oversedated" Past Medical History - General Information source: Patient, Relative - Social History Smoking Status: Never Smoker Cigarette use (# per day): No Smoking Education Provided: No Frequency of alcohol use: None Drug Abuse: None Lives with: Other - Patient was at [facility] until this evening when 2 hours ago she was discharged home with her son Family History: Reviewed & Not Pertinent Patient has suicidal ideation: No Patient has homicidal ideation: No - Past Medical History Cardiac Medical History: Reports: Hx Atrial Fibrillation, Hx Congestive Heart Failure, Hx Hypercholesterolemia, Hx Hypertension Pulmonary Medical History: Reports: Hx Bronchitis, Hx COPD, Hx Pneumonia - Pediatric EENT Medical History: Reports: None Neurological Medical History: Reports: Hx Cerebrovascular Accident Endocrine Medical History: Reports: Hx Diabetes Mellitus Type 2 - Diet controlled Renal/ Medical History: Reports: None Malignancy Medical History: Reports: None GI Medical History: Reports: Hx Diverticulitis Musculoskeltal Medical History: Reports Hx Arthritis, Reports Hx Musculoskeletal Deformity, Reports Hx Musculoskeletal Trauma Skin Medical History: Reports Hx MRSA - abdominal wall, resolved. Psychiatric Medical History: Reports: None Traumatic Medical History: Reports: Hx Fractures - "LT arm", no surgery Infectious Medical History: Reports: None Past Surgical History: Reports: Hx Abdominal Surgery - abdominal abscess, Hx Herniorrhaphy - incisional, Hx Hysterectomy - CHIP, Hx Orthopedic Surgery - left hip replacement, right knee replacement. - Immunizations Hx Diphtheria, Pertussis, Tetanus Vaccination: No Hx Pneumococcal Vaccination: 06/05/13 Review of Systems - Review of Systems Constitutional: No symptoms reported EENT: No symptoms reported Cardiovascular: No symptoms reported Respiratory: No symptoms reported Gastrointestinal: No symptoms reported Genitourinary: No symptoms reported Female Genitourinary: No symptoms reported Musculoskeletal: Other - Left hand and wrist pain and swelling Skin: Other - Left hand and wrist bruising discoloration good cap refill Hematologic/Lymphatic: No symptoms reported Neurological/Psychological: No symptoms reported -: Yes All other systems reviewed and negative Physical Exam - Vital signs Vitals: Temp Pulse Resp BP Pulse Ox 98.6 F 82 17 126/78 H 93 09/04/16 19:40 09/04/16 19:40 09/04/16 19:40 09/04/16 19:40 09/04/16 19:40 Interpretation: Normal - General General appearance: Appears well, Alert - HEENT Head: Normocephalic, Atraumatic Eyes: Normal Pupils: PERRL - Respiratory Respiratory status: No respiratory distress Chest status: Nontender Breath sounds: Normal Chest palpation: Normal - Cardiovascular Rhythm: Regular Heart sounds: Normal auscultation Murmur: No - Abdominal Inspection: Normal Distension: No distension Bowel sounds: Normal Tenderness: Nontender Organomegaly: No organomegaly - Back Back: Normal, Nontender - Extremities General upper extremity: Normal temperature General lower extremity: Normal inspection, Nontender, Normal color, Normal ROM , Normal temperature, Normal weight bearing. No: Lauren's sign Wrist: Tender, Axial load of thumb pain, Ecchymosis, Limited ROM - Due to pain Hand: Tender, Ecchymosis, No evidence of human bite, No evidence of FB, Swelling - Neurological Neuro grossly intact: Yes Cognition: Normal Orientation: AAOx4 Juliane Coma Scale Eye Opening: Spontaneous [place]itten Coma Scale Verbal: Oriented Juliane Coma Scale Motor: Obeys Commands [place]itten Coma Scale Total: 15 Speech: Normal Motor strength normal: LUE, RUE, LLE, RLE Sensory: Normal - Psychological Associated symptoms: Normal affect, Normal mood - Skin Skin Temperature: Warm Skin Moisture: Dry Skin Color: Normal Course - Re-evaluation Re-evalutation: 09/04/16 22:[address] Hummel for her cbc and x-rays. HE stated patient will need to be admitted for the urinary tract infection and the white count of 17. The fracture to the left wrist was treated with a thumb spica and [place]. Dr. Chavis was consulted and will admit the patient to telemetry observation for her UTI and weakness. - Vital Signs Vital signs: Temp Pulse Resp BP Pulse Ox 98.6 F 82 17 126/78 H 93 09/04/16 19:40 09/04/16 19:40 09/04/16 19:40 09/04/16 19:40 09/04/16 19:40 - Laboratory Result Diagrams: 09/04/16 21:00 09/04/16 21:00 Laboratory results interpreted by me: 09/04/16 09/04/16 09/04/16 21:00 21:00 21:43 WBC 17.2 H RDW 15.5 H Seg Neutrophils % 78.7 H Absolute Neutrophils 13.6 H Glucose 192 H Albumin 3.4 L Urine Protein 30 H Ur Leukocyte Esterase LARGE H Urine Ascorbic Acid 40 H - Diagnostic Test Radiology reviewed: Image reviewed, Reports reviewed Discharge - Discharge Clinical Impression: UTI (urinary tract infection) Qualifiers: Urinary tract infection type: acute cystitis Hematuria presence: without hematuria Qualified Code(s): N30.00 - Acute cystitis without hematuria Fracture of left wrist Qualifiers: Encounter type: initial encounter Fracture type: closed Qualified Code(s): S62.102A - Fracture of unspecified carpal bone, left wrist, initial encounter for closed fracture Fracture dislocation of left thumb Qualifiers: Encounter type: initial encounter Fracture type: closed Qualified Code(s): S62.502A - Fracture of unspecified phalanx of left thumb, initial encounter for closed fracture Disposition: ADMITTED OBSERVATION Admitting Provider: Deepika chavis Unit Admitted: Telemetry Referrals: NHAN MCGOWAN MD [Primary Care Provider] - Follow up as needed
--- NOTE | 2016-09-04 21:15 | RADIOLOGY REPORT (SQ) ---
EXAM DESCRIPTION: WRIST LEFT 3 VIEWS COMPLETED DATE/TIME: 09/04/2016 8:59 pm REASON FOR STUDY: pain and swelling COMPARISON: None. NUMBER OF VIEWS: Three views. TECHNIQUE: AP, lateral, and oblique radiographic images acquired of the left wrist. LIMITATIONS: None. FINDINGS: MINERALIZATION: Osteopenia. BONES: Mildly displaced impaction fracture of the distal radius. Severe degenerative changes of the 1st carpal metacarpal joint. SOFT TISSUES: Circumferential soft tissue edema. No foreign body. OTHER: No other significant finding. IMPRESSION: Mildly displaced impaction fracture of the distal radial metaphysis. TECHNICAL DOCUMENTATION: JOB ID: [id number] [employer]- All Rights Reserved
--- NOTE | 2016-09-04 21:18 | RADIOLOGY REPORT (SQ) ---
EXAM DESCRIPTION: HAND LEFT 3 VIEWS COMPLETED DATE/TIME: 09/04/2016 8:59 pm REASON FOR STUDY: pain and swelling COMPARISON: Wrist radiographs performed the same date. EXAM PARAMETERS: NUMBER OF VIEWS: Three views. TECHNIQUE: AP, lateral and oblique radiographic images acquired of the left hand. LIMITATIONS: None. FINDINGS: MINERALIZATION: Osteopenia. BONES: Impaction fracture of the distal radial metaphysis. Severe degenerative changes of the 1st ca rpal metacarpal joint with the appearance of a superimposed fracture dislocation. JOINTS: No effusions. SOFT TISSUES: No soft tissue swelling. No foreign body. OTHER: No other significant finding. IMPRESSION: Likely fracture dislocation of the thumb carpal metacarpal joint. Demonstration of an i mpaction fracture of the distal radial metaphysis, better characterized on comparison wrist radiograp hs. TECHNICAL DOCUMENTATION: JOB ID: [id number] [employer]- All Rights Reserved
[2016-09-04 21:19] LABS: ABSOLUTE BASOPHILS # (AUTO) 0.1 10^3/uL (0.0-0.2); ABSOLUTE EOSINOPHILS # (AUTO) 0.1 10^3/uL (0.0-0.6); ABSOLUTE LYMPHOCYTES (AUTO) 2.3 10^3/uL (0.5-4.7); ABSOLUTE MONOCYTES (AUTO) 1.2 10^3/uL (0.1-1.4); ABSOLUTE NEUT (AUTO) 13.6 10^3/uL (1.7-8.2); BASOPHILS % (AUTO) 0.5 % (0-2); EOSINOPHILS % (AUTO) 0.8 % (0-6); HEMATOCRIT 39.5 % (36.0-47.0); HEMOGLOBIN 12.8 g/dL (12.0-15.5); HGB HCT DIFFERENCE -1.1; LYMPHOCYTES % (AUTO) 13.1 % (13-45); MEAN CORPUSCULAR HEMOGLOBIN 30.1 pg (27.0-33.4); MEAN CORPUSCULAR HGB CONC 32.4 g/dL (32.0-36.0); MEAN CORPUSCULAR VOLUME 93 fl (80-97); MONOCYTES % (AUTO) 6.9 % (3-13); RED BLOOD COUNT 4.25 10^6/uL (3.72-5.28); RED CELL DISTRIBUTION WIDTH 15.5 % (11.5-14.0); SEGMENTED NEUTROPHILS % (AUTO) 78.7 % (42-78); WHITE BLOOD COUNT 17.2 10^3/uL (4.0-10.5)
[2016-09-04 21:29] LABS: ALANINE AMINOTRANSFERASE 23 U/L (9-52); ALBUMIN 3.4 g/dL (3.5-5.0); ALKALINE PHOSPHATASE 71 U/L (38-126); ANION GAP 12 (5-19); ASPARTATE AMINO TRANSFERASE 17 U/L (14-36); BILIRUBIN,DIRECT 0.3 mg/dL (0.0-0.4); BLOOD UREA NITROGEN 19 mg/dL (7-20); CALCIUM 9.1 mg/dL (8.4-10.2); CARBON DIOXIDE 27 mmol/L (22-30); CHLORIDE 99 mmol/L (98-107); CREATININE RESULT 0.57 mg/dL (0.52-1.25); GLUCOSE 192 mg/dL (75-110); POTASSIUM 4.3 mmol/L (3.6-5.0); SODIUM 137.8 mmol/L (137-145); URIC ACID 5.2 mg/dL (2.5-7.5)
[2016-09-04 22:07] LABS: APPEARANCE,URINE CLOUDY; BILIRUBIN,URINE NEGATIVE (NEGATIVE); GLUCOSE, URINE NEGATIVE (NEGATIVE); KETONES,URINE NEGATIVE (NEGATIVE); LEUKOCYTE ESTERASE,URINE LARGE (NEGATIVE); NITRITE,URINE NEGATIVE (NEGATIVE); PROTEIN,URINE 30 mg/dL (NEGATIVE); URINE SPECIFIC GRAVITY 1.023; UROBILINOGEN,URINE NEGATIVE mg/dL (<2.0)
[2016-09-04] MEDS ORDERED: ONDANSETRON HCL INJ/PF 4 MG/2 ML SDV IV ONE (22:45)
[2016-09-04] MEDS ORDERED: HYDROCODONE/ACETAMINOPHEN 5-325 MG TABLET PO ONE (22:47)
[2016-09-04] MEDS ORDERED: VANCOMYCIN HCL 0 MG in DEXTROSE 5%-WATER 250 ML IV NR (23:15)
[2016-09-04] MEDS ORDERED: VANCOMYCIN HCL INJ 1000 MG VIAL IV PRN (23:35)
[2016-09-05] MEDS ORDERED: VANCOMYCIN HCL 1,750 MG in DEXTROSE 5%-WATER 500 ML IV ONE ×2
[2016-09-05] MEDS ORDERED: DEXTROSE 50%-WATER 25 GM/50 ML DISP.SYRIN IV PRN ×2 (01:07)
[2016-09-05] MEDS ORDERED: DEXTROSE 40% GEL 15 GM TUBE PO PRN ×2 (01:07)
[2016-09-05] MEDS ORDERED: GLUCAGON,HUMAN RECOMB 1 MG INJ IM PRN (01:07)
[2016-09-05] MEDS ORDERED: INSULIN LISPRO 100 UNIT/ML 3 ML VIAL SUBCUT PRN (01:07)
[2016-09-05] MEDS ORDERED: MAGNESIUM HYDROXIDE SUSP 30 ML UDCUP PO PRN (01:09)
[2016-09-05] MEDS ORDERED: IPRATROPIUM/ALBUTEROL 0.5-2.5 MG/3 ML AMPUL NEB PRN (01:09)
[2016-09-05] MEDS ORDERED: PROMETHAZINE HCL 25 MG TABLET PO PRN (01:13)
--- NOTE | 2016-09-05 01:50 | PDOC H&P ---
History of Present Illness Admission Date/PCP: 09/04/16 23:02 NHAN MCGOWAN MD Patient complains of: left wrist pain, nausea History of Present Illness: August ANNELISE is a 71 year old female with underlying hypertension, chronic atrial fibrillation, not on chronic anticoagulation due to prior retroperitoneal bleed, recurrent urinary tract infections who presents to the emergency room for evaluation of above complaint. Patient has been discussed with emergency room nurse practitioner who evaluated the patient. Transferred to [facility] on 23 July of this year after an 8 day stay at our facility for diagnoses including COPD exacerbation, and acute on chronic hypoxemic respiratory failure, along with acute diverticulitis. History and physical and discharge summary have been reviewed. She was discharged from [facility] the afternoon of September first but came back approximately 2 hours later to the emergency room complaining of a 2-3 day history of worsening pain involving her left wrist. States that 1 of the staff members at [facility] twisted her arm and hand approximately 3 weeks ago, with initial follow-up x-rays revealing no evidence of fracture. However, pain has gradually increased, combination throbbing and sharp, in particular with any movement of the joint and obviously with any contact of the area of involvement. States the pain has been so pronounced at times,she becomes nauseated, although no specific vomiting per se. Denies fever chills, diarrhea or dysuria, chest or abdominal pain. Workup has revealed distal left radial fracture, along with a fracture dislocation of the first MCP joint on the left. Thumb spica splint/cast has been applied by the emergency room staff. Workup has revealed also recurrence of her frequent urinary tract infections. Culture from the 10th of last month revealed combination staph aureus and Enterococcus faecalis group B, with common sensitivity only to vancomycin and Macrodantin. Culture reviewed. She is currently resting quietly, having last wrist pain.. Laboratory results are listed in [facility] and are reviewed. X-ray summary results are listed below, with full report(s) reviewed. . Social history/personal habits: . Grandson and family live with her. Retired. No use of alcohol tobacco or illicit drugs. was a heavy smoker. Allergies/adverse reactions are listed in [facility] and are reviewed. Morphine causes her to be "oversedated." No problems with Percocet or [place]ona. Home medications initially autopopulated into [facility] may not accurately reflect patient's true medications, dosages, and/or frequencies. printing technician to reconcile medications. Unfortunately, patient not certain of all medications/dosages/frequencies. REVIEW OF SYSTEMS: Constitutional: No fever or chills. Eyes: Wears glasses ENT: No swallowing problems or complaints. Denies hearing loss. Pulmonary: No current complaints. Cardiovascular: No current complaints, including chest pain. Gastrointestinal: See history and present illness. Skin: No current complaints, including rashes. Hematologic: Easy bruising. Neurologic: No current complaints, including numbness or tingling. Musculoskeletal: See history and present illness. Psychiatric: Denies anxiety or depression. Endocrine: No current complaints, including polyuria. Genitourinary: No current complaints, including dysuria. PHYSICAL EXAMINATION: 5 feet 4 inches tall. 79.7 kg. 30.2 kg/m. 91% saturation on room air. Respirations are 21 and unlabored. Pulse 62 and regular. Blood pressure 103/ 64. Temperature 98.6. Obese otherwise well-developed though somewhat chronically ill-appearing female who appears a bit older than her stated age. Pleasant awake alert and cooperative. Mildly anxious, without agitation. Grandson was present at her side earlier, with patient's approval. He left to go home. Skin is warm and dry. No grossly obvious evidence of rash in areas of skin examined. No subcutaneous nodules palpated. ENT: Hearing grossly normal to normal conversation. Tongue midline on protrusion pink and slightly tacky. Eyes: No scleral icterus. Pupils equal and reactive to light at 4 mm. [place] conjunctivae. Neck is supple and nontender to gentle active range of motion and palpation. Midline trachea. No palpable thyroid nodule mass enlargement or tenderness. Lymphatic: No palpable cervical or clavicular nodes. Neck and lymphatic exams limited by patient body habitus. Psychiatric: Fair to reasonable insight into acute and chronic medical issues. Oriented to time location and why here. Lungs: Auscultation reveals clear and equal breath sounds bilaterally. No use of accessory respiratory muscles. Cardiovascular: Heart regular rate and rhythm, without gallop murmur or rub. No carotid or abdominal aortic bruits. No ankle or pedal edema. Palpable dorsalis pedis pulses. Abdomen:soft somewhat obese nontender with positive bowel sounds. Unable to adequately evaluate abdomen for masses or organomegaly due to body habitus. Extremities: Feet are warm and dry. No calf tenderness to compression. No grossly obvious visual evidence of calf swelling. Gentle manipulation of lower extremities fails to reveal any obvious evidence of injury or instability to knees hips or ankles. Left upper extremity exam reveals cast/splint in place to the left wrist hand and distal forearm, with associated Marito wrap. This is left in place. Left fingers are warm and dry with excellent capillary refill, and with intact light touch sensation. Neurologic: Patellar reflexes absent. Absent Babinski. Light touch is intact at feet. Dorsiflexion and plantarflexion of feet 5 / 5 and symmetric. Past Medical History Cardiac Medical History: Reports: Atrial Fibrillation, Congestive Heart Failure , Hyperlipidema, Hypertension Denies: Myocardial Infarction, Pulmonary Embolism Pulmonary Medical History: Reports: Bronchitis, Chronic Obstructive Pulmonary Disease (COPD), Pneumonia - Pediatric Denies: Sleep Apnea EENT Medical History: Reports: Eyes - Glasses Denies: Ears, Throat Neurological Medical History: Denies: Hemorrhagic CVA, Ischemic CVA, Seizures Endocrine Medical History: Reports: Diabetes Mellitus Type 2 Denies: Diabetes Mellitus Type 1, Hyperthyroidism, Hypothyroidism Renal/ Medical History: Reports: Other - Recurrent urinary tract infections. GI Medical History: Denies: Cirrhosis, Gastroesophageal Reflux Disease, Hepatitis, Peptic Ulcer Disease Musculoskeltal Medical History: Denies: Arthritis Skin Medical History: Reports: None Psychiatric Medical History: Denies: Alcohol Dependency, Depression, General Anxiety Disorder, Substance Abuse, Tobacco Dependency Hematology: Reports: Other - Easy bruising Infectious Medical History: Reports: Methicillin-Resistant Staph Aureus Denies: Clostridium Difficile Past Surgical History Past Surgical History: Reports: Herniorrhaphy - incisional, Hysterectomy - CHIP, Orthopedic Surgery - left hip replacement, right knee replacement. Denies: Amputation Social History Information Source: Patient, Emergency Med Personnel, [facility] Records Lives with: Other - Patient was at [facility] until this evening when 2 hours ago she was discharged home with her grandson Smoking Status: Never Smoker Frequency of Alcohol Use: None Hx Recreational Drug Use: No Drugs: None Hx Prescription Drug Abuse: No - Advance Directive Resuscitation Status: Do Not Resuscitate Surrogate healthcare decision maker:: Grandson Family History Family History: Reviewed & Not Pertinent. denies: CAD Parental Family History Reviewed: Yes Children Family History Reviewed: Yes Sibling(s) Family History Reviewed.: Yes Medication/Allergy Home Medications: RX: Atorvastatin Calcium [Lipitor 40 mg Tablet] 40 mg PO QHS 07/15/16 RX: Brimonidine Tartrate/Timolol [Combigan 0.2%-0.5% Eye Drops] 1 drop OS Q12 RX: Budesonide/Formoterol Fumarate [Symbicort HFA 160-4.5 mcg Inhaler 6 gm] 2 puff IH Q12 07/15/16 RX: Diltiazem HCl [Cartia Xt] 240 mg PO Q12 07/15/16 RX: Ergocalciferol (Vitamin D2) [Drisdol 50,000 unit (1.25MG) Capsule] 1 cap PO SAINI@1000 07/15/16 RX: Escitalopram Oxalate [Lexapro 10 mg Tablet] 10 mg PO QHS 07/15/16 RX: Ipratropium/Albuterol Sulfate [Duoneb 3 ml Ampul] 3 ml NEB RTQ6HP PRN RX: Lisinopril [Prinivil 10 mg Tablet] 10 mg PO DAILY 07/15/16 RX: Metformin HCl [Glucophage] 500 mg PO DAILY 07/15/16 RX: Brimonidine Tartrate [Alphagan 0.2% Oph Soln 5 ml] 1 drop OS Q12 bottle RX: Carvedilol [Coreg 6.25 mg Tablet] 6.25 mg PO Q12 #60 tablet 07/22/16 RX: Timolol Maleate [Timoptic 0.5% Oph Soln 5 ml] 1 drop OS Q12 bottle RX: Mirtazapine [Remeron 15 mg Tablet] 7.5 mg PO HSP PRN 09/04/16 RX: Insulin Lispro [Humalog Insulin (Lispro) 100 unit/mL] 0 unit SUBCUT .SLD SCALE 09/05/16 Ciprofloxacin HCl [Cipro 500 mg Tablet] 500 mg PO BID #6 tablet 09/06/16 Cyclobenzaprine HCl [Flexeril 5 mg Tablet] 5 mg PO TID PRN #30 tablet 09/06/16 RX: Docusate Sodium [Colace 100 mg Capsule] 100 mg PO BID capsule 09/06/16 RX: Oxycodone HCl [Oxy-Ir 5 mg Tablet] 5 mg PO Q8HP PRN #30 tablet 09/06/16 Allergies/Adverse Reactions: morphine [Morphine] Allergy (Mild, Verified 09/05/16 01:18) "oversedated" Physical Exam Vital Signs: Temp Pulse Resp BP Pulse Ox 98.6 F 61 22 H 103/64 92 09/04/16 19:40 09/05/16 00:08 09/05/16 00:08 09/05/16 00:08 09/05/16 00:08 Results Impressions: Wrist X-Ray 09/04/16 20:35 IMPRESSION: Mildly displaced impaction fracture of the distal radial metaphysis. Hand X-Ray 09/04/16 20:43 IMPRESSION: Likely fracture dislocation of the thumb carpal metacarpal joint. Demonstration of an impaction fracture of the distal radial metaphysis, better characterized on comparison wrist radiographs. Assessment & Plan - Diagnosis (1) Fracture dislocation of left thumb Qualifiers: Encounter type: initial encounter Fracture type: closed Qualified Code(s): S62.502A - Fracture of unspecified phalanx of left thumb, initial encounter for closed fracture Is this a current diagnosis for this admission?: YesPlan: Cast/splint to remain in place. Orthopedic consult. As needed pain medication. Physical and occupational therapy consult. (2) Fracture of left wrist Qualifiers: Encounter type: initial encounter Fracture type: closed Qualified Code(s): S62.102A - Fracture of unspecified carpal bone, left wrist, initial encounter for closed fracture Is this a current diagnosis for this admission?: Yes (3) UTI (urinary tract infection) Qualifiers: Urinary tract infection type: site unspecified Is this a current diagnosis for this admission?: YesPlan: Urine and blood cultures have been obtained. Recent urine culture noted. Intravenous vancomycin. I have strongly encouraged patient not to get out of bed without notifying staff , to avoid a fall with injury. Knee high SCDs for DVT prophylaxis, along with subcutaneous Lovenox. Impression and plans were discussed with patient and grandson, both of whom concur. Time spent in evaluation and management of patient: 68 minutes. (4) Atrial fibrillation Qualifiers: Atrial fibrillation type: chronic Qualified Code(s): I48.2 - Chronic atrial fibrillation Is this a current diagnosis for this admission?: YesPlan: No evidence of exacerbation of same. Resume home medications as appropriate once these have been determined and reviewed. (5) Diabetes mellitus type 2 in obese Is this a current diagnosis for this admission?: YesPlan: Diabetic cardiac diet. Accu-Cheks with appropriate sliding scale coverage. Resume home medications as appropriate once these have been determined and reviewed. (6) Do not resuscitate Is this a current diagnosis for this admission?: YesPlan: Implications of DO NOT RESUSCITATE/DO NOT INTUBATE status discussed with patient and grandson, who is patient's surrogate healthcare decision maker. Discussed in layperson's terms. Implications understood. Patient is the health care decision maker. Patient conversation is lucid and appropriate. Patient desires DO NOT RESUSCITATE/DO NOT INTUBATE status, as has been the case in the past.. Will honor patient wishes. Susy concurs. - Inpatient Certification Based on my medical assessment, after consideration of the patient's comorbidities, presenting symptoms, or acuity I expect that the services needed warrant INPATIENT care.: Yes I certify that my determination is in accordance with my understanding of Medicare's requirements for reasonable and necessary INPATIENT services [42 CFR 412.3e].: Yes Medical Necessity: Need Close Monitoring Due to Risk of Patient Decompensation, Need for Pain Control, Need for IV Antibiotics, Risk of Complication if Not Cared For in Hospital Post Hospital Care: D/C or Transfer Summary
[2016-09-05] MEDS ORDERED: ERTAPENEM SODIUM INJ 1 GM VIAL IV ONE (08:28)
[2016-09-05] MEDS: ENOXAPARIN SODIUM INJ 40 MG/0.4 ML DISP.SYRIN SUBCUT SCH (09:07)
[2016-09-05] MEDS: ACETAMINOPHEN 325 MG TABLET PO PRN ×2 (09:09→18:47)
[2016-09-05] MEDS: DOCUSATE SODIUM 100 MG CAPSULE PO SCH ×2 (09:11→17:12)
[2016-09-05] MEDS ORDERED: (PENDING PHARMACY ID) (Diltiazem Hcl [Cartia Xt] 240 MG) PO SCH (10:00)
[2016-09-05] MEDS: ERTAPENEM SODIUM 1 GM in NORMAL SALINE 50 ML IV SCH (12:09)
[2016-09-05] MEDS: BRIMONIDINE TARTRATE 0.2% OPH SOLN 5 ML OS SCH ×2 (12:12→22:17)
[2016-09-05] MEDS: BUDESONIDE/FORMOTEROL 160-4.5 MCG 60 PUFF/6 GM MDI IH SCH ×2 (12:13→22:22)
[2016-09-05] MEDS: TIMOLOL MALEATE 0.5% OPH SOLN 5 ML OS SCH ×2 (12:17→22:22)
[2016-09-05] MEDS: LISINOPRIL 10 MG TABLET PO SCH (13:11)
[2016-09-05] MEDS: DILTIAZEM HCL 240 MG CAPSULE.CR PO SCH (13:11)
[2016-09-05] MEDS: CARVEDILOL 6.25 MG TABLET PO SCH (13:11)
--- NOTE | 2016-09-05 15:17 | PDOC CONSULTATION ---
History of Present Illness Admission Date/PCP: 09/05/16 01:09 NHAN MCGOWAN MD Patient complains of: Left wrist pain History of Present Illness: DENNIS CASTELAN is a 71 year old female who recently was admitted to the hospital and transferred to [facility]. She was discharged from [place] the afternoon of September but came back approximately 2 hours later to the emergency room complaining of a 2-3 day history of worsening pain involving her left wrist. States that 1 of the staff members at [facility] twisted her arm and hand approximately 3 weeks ago. However, patient's pain continues to cause her discomfort she noted swelling along her hand majority of her pain in her wrist. Denies specific discomfort in her thumb. There is no pain worse with motion but states the pain has somewhat improved since the original injury 3 weeks ago. Denies numbness or tingling. Pain 10. Past Medical History Cardiac Medical History: Reports: Atrial Fibrillation, Congestive Heart Failure , Hyperlipidema, Hypertension Denies: Myocardial Infarction, Pulmonary Embolism Pulmonary Medical History: Reports: Bronchitis, Chronic Obstructive Pulmonary Disease (COPD), Pneumonia - Pediatric Denies: Sleep Apnea EENT Medical History: Reports: None, Eyes - Glasses, Other - Easy bruising Denies: Ears, Throat Neurological Medical History: Denies: Hemorrhagic CVA, Ischemic CVA, Seizures Endocrine Medical History: Reports: Diabetes Mellitus Type 2 Denies: Diabetes Mellitus Type 1, Hyperthyroidism, Hypothyroidism Renal/ Medical History: Reports: None, Other - Recurrent urinary tract infections. Malignancy Medical History: Reports: None GI Medical History: Reports: Diverticulitis Denies: Cirrhosis, Gastroesophageal Reflux Disease, Hepatitis, Peptic Ulcer Disease Musculoskeltal Medical History: Denies: Arthritis Skin Medical History: Reports: None Psychiatric Medical History: Reports: None Denies: Alcohol Dependency, Depression, General Anxiety Disorder, Substance Abuse, Tobacco Dependency Hematology: Reports: Other - Easy bruising Infectious Medical History: Reports: None, Methicillin-Resistant Staph Aureus Denies: Clostridium Difficile Past Surgical History Past Surgical History: Reports: Herniorrhaphy - incisional, Hysterectomy - CHIP, Orthopedic Surgery - left hip replacement, right knee replacement. Denies: Amputation Social History Lives with: Other - Patient was at [facility] until this evening when 2 hours ago she was discharged home with her son Smoking Status: Never Smoker Frequency of Alcohol Use: None Hx Recreational Drug Use: No Drugs: None Hx Prescription Drug Abuse: No - Advance Directive Resuscitation Status: Do Not Resuscitate Family History Family History: Reviewed & Not Pertinent. denies: CAD Parental Family History Reviewed: No Children Family History Reviewed: No Sibling(s) Family History Reviewed.: No Medication/Allergy Home Medications: Atorvastatin Calcium [Lipitor 40 mg Tablet] 40 mg PO QHS 07/15/16 Brimonidine Tartrate/Timolol [Combigan 0.2%-0.5% Eye Drops] 1 drop OS Q12 Budesonide/Formoterol Fumarate [Symbicort HFA 160-4.5 mcg Inhaler 6 gm] 2 puff IH Q12 07/15/16 Diltiazem HCl [Cartia Xt] 240 mg PO Q12 07/15/16 Ergocalciferol (Vitamin D2) [Drisdol 50,000 unit (1.25MG) Capsule] 1 cap PO SAINI@ 1000 07/15/16 Escitalopram Oxalate [Lexapro 10 mg Tablet] 10 mg PO QHS 07/15/16 Furosemide [Lasix] 20 mg PO QAM 07/15/16 Ipratropium/Albuterol Sulfate [Duoneb 3 ml Ampul] 3 ml NEB RTQ6HP PRN 07/15/16 Lisinopril [Prinivil 10 mg Tablet] 10 mg PO DAILY 07/15/16 Metformin HCl [Glucophage] 500 mg PO DAILY 07/15/16 Brimonidine Tartrate [Alphagan 0.2% Oph Soln 5 ml] 1 drop OS Q12 bottle Carvedilol [Coreg 6.25 mg Tablet] 6.25 mg PO Q12 #60 tablet 07/22/16 Potassium Chloride [K-Tab ER] 20 meq PO Q12 #60 tablet.er 07/22/16 Timolol Maleate [Timoptic 0.5% Oph Soln 5 ml] 1 drop OS Q12 bottle 07/22/16 Mirtazapine [Remeron 15 mg Tablet] 7.5 mg PO HSP PRN 09/04/16 Hydrocodone Bit/Acetaminophen [Hydrocodon-Acetaminophen 5-325] 1 tab PO Q6HP PRN 09/05/16 Insulin Lispro [Humalog Insulin 100 Unit/1 ml 3 ml Vial] 0 unit SUBCUT .SLD SCALE 09/05/16 Allergies/Adverse Reactions: morphine [Morphine] Allergy (Mild, Verified 09/05/16 01:18) "oversedated" Review of Systems All systems: as per PMH Constitutional: ABSENT: chills, fever(s), headache(s), weight gain, weight loss Eyes: ABSENT: visual disturbances Ears: ABSENT: hearing changes Cardiovascular: ABSENT: chest pain, dyspnea on exertion, edema, orthropnea, palpitations Respiratory: ABSENT: cough, hemoptysis Gastrointestinal: ABSENT: abdominal pain, constipation, diarrhea, hematemesis, hematochezia, nausea, vomiting Genitourinary: PRESENT: difficulty urinating. ABSENT: dysuria, hematuria Musculoskeletal: PRESENT: as per HPI Integumentary: ABSENT: rash, wounds Neurological: ABSENT: abnormal gait, abnormal speech, confusion, dizziness, focal weakness, syncope Psychiatric: ABSENT: anxiety, depression, homidical ideation, suicidal ideation Endocrine: ABSENT: cold intolerance, heat intolerance, menstrual abnormalities, polydipsia, polyuria Hematologic/Lymphatic: ABSENT: easy bleeding, easy bruising, lymphadenopathy Physical Exam Vital Signs: Temp Pulse Resp BP Pulse Ox 97.9 F 65 16 92/56 L 92 09/05/16 11:34 09/05/16 11:42 09/05/16 11:42 09/05/16 11:34 09/05/16 11:43 Intake & Output 09/04/16 09/05/16 09/06/16 06:59 06:59 06:59 Intake Total 140 240 Balance 140 240 General appearance: PRESENT: no acute distress, well-developed, well-nourished Head exam: PRESENT: atraumatic, normocephalic Eye exam: PRESENT: conjunctiva pink, EOMI, PERRLA. ABSENT: scleral icterus Ear exam: PRESENT: normal external ear exam Mouth exam: PRESENT: moist, tongue midline Neck exam: PRESENT: full ROM. ABSENT: carotid bruit, JVD, lymphadenopathy, thyromegaly Respiratory exam: PRESENT: unlabored Cardiovascular exam: PRESENT: RRR. ABSENT: diastolic murmur, rubs, systolic murmur Pulses: PRESENT: normal dorsalis pedis pul, +2 pedal pulses bilateral Vascular exam: PRESENT: normal capillary refill GI/Abdominal exam: PRESENT: normal bowel sounds, soft. ABSENT: distended, guarding, mass, organolmegaly, rebound, tenderness Rectal exam: PRESENT: deferred Extremities exam: PRESENT: other - Left wrist: Currently in a thumb spica cast. There is notable swelling on the dorsum of the hand. Patient has pain dorsal wrist. No discomfort on the thumb metacarpal base however examination limited secondary to patient's immobilization. No sensory deficits. Cap refill less than 2 seconds. Compartments soft and compressible no sign of compartment syndrome. Patient able to make full composite fist. Neurological exam: PRESENT: alert, awake, oriented to person, oriented to place , oriented to time, oriented to situation, CN II-XII grossly intact. ABSENT: motor sensory deficit Psychiatric exam: PRESENT: appropriate affect, normal mood. ABSENT: homicidal ideation, suicidal ideation Skin exam: PRESENT: dry, intact, warm. ABSENT: cyanosis, rash Results Impressions: Wrist X-Ray 09/04/16 20:35 IMPRESSION: Mildly displaced impaction fracture of the distal radial metaphysis. Hand X-Ray 09/04/16 20:43 IMPRESSION: Likely fracture dislocation of the thumb carpal metacarpal joint. Demonstration of an impaction fracture of the distal radial metaphysis, better characterized on comparison wrist radiographs. Status: Image reviewed by me - I have reviewed patient's radiographs of the left wrist. There is dorsal angulation of the distal radius however this appears chronic in nature there is questionable cortical irregularity indicating possible refracture through this previous healed fracture. 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 Assessment & Plan - Diagnosis (1) Fracture of left wrist Qualifiers: Encounter type: initial encounter Fracture type: closed Qualified Code(s): S62.102A - Fracture of unspecified carpal bone, left wrist, initial encounter for closed fracture Is this a current diagnosis for this admission?: YesPlan: Given the patient's location of tenderness I feel the majority of her discomfort is secondary to a nondisplaced distal radius fracture on a previous chronic healed distal radius fracture. 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 Today we will continue her on a thumb spica splint. She will follow-up in the office with me in 10-14 days to discuss treatment options and will likely transition her to a thumb spica brace. Current plan was explained to the patient she verbalized understanding and all questions answered.
[2016-09-05] MEDS: OXYCODONE HCL IR 5 MG TABLET PO PRN (17:02)
[2016-09-05] MEDS: VANCOMYCIN HCL 750 MG in DEXTROSE 5%-WATER 250 ML IV SCH (17:11)
[2016-09-05] MEDS ORDERED: ESCITALOPRAM OXALATE 10 MG TABLET PO SCH (22:00)
[2016-09-06] MEDS: DILTIAZEM HCL 240 MG CAPSULE.CR PO SCH ×2 (00:30→10:25)
[2016-09-06] MEDS: CARVEDILOL 6.25 MG TABLET PO SCH ×2 (00:30→10:25)
[2016-09-06] MEDS: VANCOMYCIN HCL 750 MG in DEXTROSE 5%-WATER 250 ML IV SCH (05:28)
[2016-09-06] MEDS: BRIMONIDINE TARTRATE 0.2% OPH SOLN 5 ML OS SCH (10:00)
[2016-09-06] MEDS: ENOXAPARIN SODIUM INJ 40 MG/0.4 ML DISP.SYRIN SUBCUT SCH (10:23)
[2016-09-06] MEDS: DOCUSATE SODIUM 100 MG CAPSULE PO SCH ×2 (10:24→17:14)
[2016-09-06] MEDS: LISINOPRIL 10 MG TABLET PO SCH (10:26)
[2016-09-06] MEDS: OXYCODONE HCL IR 5 MG TABLET PO PRN (10:26)
[2016-09-06] MEDS: ERTAPENEM SODIUM 1 GM in NORMAL SALINE 50 ML IV SCH (10:26)
[2016-09-06] MEDS: BUDESONIDE/FORMOTEROL 160-4.5 MCG 60 PUFF/6 GM MDI IH SCH (10:29)
[2016-09-06] MEDS: TIMOLOL MALEATE 0.5% OPH SOLN 5 ML OS SCH (10:30)
--- NOTE | 2016-09-06 11:17 | PDOC DISCHARGE SUMMARY ---
General - Admit/Disc Date/PCP Admission Date/Primary Care Provider: 09/05/16 01:09 NHAN MCGOWAN MD Discharge Date: 09/06/16 - Discharge Diagnosis (1) Fracture dislocation of left thumb Is this a current diagnosis for this admission?: Yes (2) Fracture of left wrist Is this a current diagnosis for this admission?: Yes (3) UTI (urinary tract infection) Is this a current diagnosis for this admission?: Yes (4) Atrial fibrillation Is this a current diagnosis for this admission?: Yes (5) Diabetes mellitus type 2 in obese Is this a current diagnosis for this admission?: Yes (7) COPD (chronic obstructive pulmonary disease) Is this a current diagnosis for this admission?: Yes (8) Hyperlipidemia Is this a current diagnosis for this admission?: Yes - Additional Information Resuscitation Status: Do Not Resuscitate Discharge Diet: Cardiac - 2g na, low fat, no concentrated sweets Discharge Activity: Activity As Tolerated, Balance Activity w/Rest, Slowly Increase Activity Home Medications: Atorvastatin Calcium [Lipitor 40 mg Tablet] 40 mg PO QHS 07/15/16 Brimonidine Tartrate/Timolol [Combigan 0.2%-0.5% Eye Drops] 1 drop OS Q12 Budesonide/Formoterol Fumarate [Symbicort HFA 160-4.5 mcg Inhaler 6 gm] 2 puff IH Q12 07/15/16 Diltiazem HCl [Cartia Xt] 240 mg PO Q12 07/15/16 Ergocalciferol (Vitamin D2) [Drisdol 50,000 unit (1.25MG) Capsule] 1 cap PO SAINI@ 1000 07/15/16 Escitalopram Oxalate [Lexapro 10 mg Tablet] 10 mg PO QHS 07/15/16 Ipratropium/Albuterol Sulfate [Duoneb 3 ml Ampul] 3 ml NEB RTQ6HP PRN 07/15/16 Lisinopril [Prinivil 10 mg Tablet] 10 mg PO DAILY 07/15/16 Metformin HCl [Glucophage] 500 mg PO DAILY 07/15/16 Brimonidine Tartrate [Alphagan 0.2% Oph Soln 5 ml] 1 drop OS Q12 bottle Carvedilol [Coreg 6.25 mg Tablet] 6.25 mg PO Q12 #60 tablet 07/22/16 Timolol Maleate [Timoptic 0.5% Oph Soln 5 ml] 1 drop OS Q12 bottle 07/22/16 Mirtazapine [Remeron 15 mg Tablet] 7.5 mg PO HSP PRN 09/04/16 Insulin Lispro [Humalog Insulin (Lispro) 100 unit/mL] 0 unit SUBCUT .SLD SCALE 09/05/16 Ciprofloxacin HCl [Cipro 500 mg Tablet] 500 mg PO BID #6 tablet 09/06/16 Cyclobenzaprine HCl [Flexeril 5 mg Tablet] 5 mg PO TID PRN #30 tablet 09/06/16 Docusate Sodium [Colace 100 mg Capsule] 100 mg PO BID capsule 09/06/16 Oxycodone HCl [Oxy-Ir 5 mg Tablet] 5 mg PO Q8HP PRN #30 tablet 09/06/16 Additional Information: Return to the emergency room if symptoms recur History of Present Illness Patient complains of: Wrist pain History of Present Illness: DENNIS CASTELAN is a 71 year old female with underlying hypertension, chronic atrial fibrillation, not on chronic anticoagulation due to prior retroperitoneal bleed, recurrent urinary tract infections who presents to the emergency room for evaluation of above complaint. Patient has been discussed with emergency room nurse practitioner who evaluated the patient. Transferred to [facility] on 23 July of this year after an 8 day stay at our facility for diagnoses including COPD exacerbation, and acute on chronic hypoxemic respiratory failure, along with acute diverticulitis. History and physical and discharge summary have been reviewed. She was discharged from [facility] the afternoon of September but came back approximately 2 hours later to the emergency room complaining of a 2-3 day history of worsening pain involving her left wrist. States that 1 of the staff members at [facility] twisted her arm and hand approximately 3 weeks ago, with initial follow-up x-rays revealing no evidence of fracture. However, pain has gradually increased, combination throbbing and sharp, in particular with any movement of the joint and obviously with any contact of the area of involvement. States the pain has been so pronounced at times, that she becomes nauseated, although no specific vomiting per se. Denies fever chills, diarrhea or dysuria, chest or abdominal pain. Workup has revealed distal left radial fracture, along with a fracture dislocation of the first MCP joint on the left. Thumb spica splint/cast has been applied by the emergency room staff. Workup has revealed also recurrence of her frequent urinary tract infections. Culture from the 10th of last month revealed combination staph aureus and Enterococcus faecalis group B, with common sensitivity only to vancomycin and Macrodantin. Culture reviewed. She is currently resting quietly, having last wrist pain.. [facility] and are reviewed. X-ray summary results are listed below, with full report(s) reviewed. For details please refer to history and physical examination performed by the admitting physician. Hospital Course Hospital Course: The patient was admitted to the medical floor. The patient was begun on antibiotic for urinary tract infection. Dr. Griggs was consulted for the fracture of the wrist. The patient was placed on wrist and thumb splint on the left and given oxycodone for pain control. The patient's pain improved with intake of oxycodone. Urine culture was performed and grew Enterobacter. The patient improved. Still complaining of intermittent discomfort in the wrist. Patient was referred to physical therapy. A platform device was recommended to be added to the patient's walker. Patient will be seen outpatient by orthopedics for further evaluation. Patient requested to be discharged home. Patient was then instructed to see orthopedics in 10-14 days for further evaluation and management of her wrist. Physical Exam Vital Signs: Temp Pulse Resp BP Pulse Ox 97.8 F 82 18 138/76 H 98 09/06/16 07:58 09/06/16 07:58 09/06/16 07:58 09/06/16 07:58 09/06/16 07:58 Intake & Output 09/05/16 09/06/16 09/07/16 06:59 06:59 06:59 Intake Total 140 1530 Output Total 3 Balance 140 1527 General appearance: PRESENT: no acute distress, obese Head exam: PRESENT: normocephalic Eye exam: PRESENT: EOMI Mouth exam: PRESENT: moist, neck supple Neck exam: ABSENT: JVD Respiratory exam: PRESENT: clear to auscultation mike. ABSENT: rhonchi, wheezes Cardiovascular exam: PRESENT: irregular rhythm. ABSENT: gallop GI/Abdominal exam: PRESENT: hypoactive bowel sounds, soft. ABSENT: distended, tenderness Extremities exam: PRESENT: other - Splint on the left wrist and hand Neurological exam: PRESENT: alert, awake, oriented to situation Skin exam: PRESENT: dry, warm. ABSENT: cyanosis Results Impressions: Wrist X-Ray 09/04/16 20:35 IMPRESSION: Mildly displaced impaction fracture of the distal radial metaphysis. Hand X-Ray 09/04/16 20:43 IMPRESSION: Likely fracture dislocation of the thumb carpal metacarpal joint. Demonstration of an impaction fracture of the distal radial metaphysis, better characterized on comparison wrist radiographs. Qualifiers PATEINT BEING DISCHARGED WITH ANY OF THE FOLLOWING DIAGNOSIS?: No Plan Discharge Plan: Follow-up with primary care physician in 1 week. Follow-up with Dr. Griggs in 10 to 14 days. Time Spent: Less than 30 Minutes - Follow-up with primary care physician in 1 week. Follow-up with Dr. Griggs in 10 days.
[2016-09-06] MEDS: ACETAMINOPHEN 325 MG TABLET PO PRN (13:32)
[2016-09-06] MEDS ORDERED: MAGNESIUM HYDROXIDE SUSP 30 ML UDCUP PO PRN (15:11)
[2016-09-06] MEDS ORDERED: OXYCODONE HCL IR 5 MG TABLET PO PRN (15:12)
[2016-09-06 18:26] VITALS: BP 109/56
== END 2016-09-06 18:25 | disposition home health service (06) | DRG 563 ==
LOC: ER 19:10 → EH 23:02 → OBSVTOIN 09-05 01:09 → 5 09-05 01:12
PROVIDERS: ADMIT Family Medicine; ATTEND Family Medicine
DX: S62.502A Fracture of unspecified phalanx of left thumb, initial encounter for closed fracture (principal); S62.102A Fracture of unspecified carpal bone, left wrist, initial encounter for closed fracture; N39.0 Urinary tract infection, site not specified; W50.2XXA Accidental twist by another person, initial encounter; Y93.89 Activity, other specified; Y92.129 Unspecified place in nursing home as the place of occurrence of the external cause; Y99.8 Other external cause status; I10 Essential (primary) hypertension; I48.2 Chronic atrial fibrillation; J44.9 Chronic obstructive pulmonary disease, unspecified; E11.9 Type 2 diabetes mellitus without complications; E78.5 Hyperlipidemia, unspecified; Z79.84 Long term (current) use of oral hypoglycemic drugs; Z79.899 Other long term (current) drug therapy; Z66 Do not resuscitate; Z86.14 Personal history of Methicillin resistant Staphylococcus aureus infection; Z90.710 Acquired absence of both cervix and uterus; Z96.642 Presence of left artificial hip joint; Z96.651 Presence of right artificial knee joint; Z88.8 Allergy status to other drugs, medicaments and biological substances
CPT/HCPCS: 36415; 80053; 81001; 82962; 83605; 84550; 85025; 87040; 87086; 87088; 87186; 99284; G8978-GP; G8979-GP; G8987-GO; G8988-GO; J1335; J1650; J2405; J3370; J3490; J7060

== ENCOUNTER 2016-09-15 14:45 | Inpatient (IN) | payer MEDICARE, BC, OTHER ==
--- NOTE | 2016-09-15 15:10 | ER Document Report ---
ED Medical Screen (RME) - General Stated Complaint: SHORTNESS OF BREATH TRAVEL OUTSIDE OF THE [place] IN LAST 30 DAYS: No - HPI Notes: 09/15/16 15:10 Called from there is a Ismael PA stating patient coming in after hospitalization with hypoxia SPO2 80 not feeling well possible altered mental status - Related Data Allergies/Adverse Reactions: morphine [Morphine] Allergy (Mild, Verified 09/05/16 01:18) "oversedated" Past Medical History - Past Medical History Cardiac Medical History: Reports: Hx Atrial Fibrillation, Hx Congestive Heart Failure, Hx Hypercholesterolemia, Hx Hypertension Denies: Hx Heart Attack, Hx Pulmonary Embolism Pulmonary Medical History: Reports: Hx Bronchitis, Hx COPD, Hx Pneumonia - Pediatric Denies: Hx Sleep Apnea Neurological Medical History: Reports: Hx Cerebrovascular Accident. Denies: Hx Seizures Endocrine Medical History: Reports: Hx Diabetes Mellitus Type 2. Denies: Hx Diabetes Mellitus Type 1, Hx Hyperthyroidism, Hx Hypothyroidism Renal/ Medical History: Denies: Hx Peritoneal Dialysis GI Medical History: Reports: Hx Diverticulitis. Denies: Hx Cirrhosis, Hx Gastroesophageal Reflux Disease, Hx Hepatitis Musculoskeltal Medical History: Denies Hx Arthritis, Reports Hx Musculoskeletal Deformity, Reports Hx Musculoskeletal Trauma Skin Medical History: Reports Hx MRSA - abdominal wall, resolved. Psychiatric Medical History: Denies: Hx Depression Traumatic Medical History: Reports: Hx Fractures - "LT arm", no surgery Infectious Medical History: Reports: Hx MRSA. Denies: Hx C-Diff, Hx Hepatitis Past Surgical History: Reports: Hx Abdominal Surgery - abdominal abscess, Hx Herniorrhaphy - incisional, Hx Hysterectomy - CHIP, Hx Orthopedic Surgery - left hip replacement, right knee replacement. - Immunizations Hx Diphtheria, Pertussis, Tetanus Vaccination: No
[2016-09-15] MEDS ORDERED: NORMAL SALINE 500 ML IV ONE (16:03)
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
[2016-09-15 16:19] LABS: VENOUS BLOOD BASE EXCESS 2.6 mmol/L; VENOUS BLOOD HCO3 27.4 mmol/L (20-32); VENOUS BLOOD PCO2 43.1 mmHg (35-63); VENOUS BLOOD PH 7.42 (7.30-7.42)
[2016-09-15 16:22] LABS: ABSOLUTE BASOPHILS # (AUTO) 0.1 10^3/uL (0.0-0.2); ABSOLUTE EOSINOPHILS # (AUTO) 0.1 10^3/uL (0.0-0.6); ABSOLUTE LYMPHOCYTES (AUTO) 2.3 10^3/uL (0.5-4.7); ABSOLUTE MONOCYTES (AUTO) 1.5 10^3/uL (0.1-1.4); ABSOLUTE NEUT (AUTO) 13.6 10^3/uL (1.7-8.2); BASOPHILS % (AUTO) 0.7 % (0-2); EOSINOPHILS % (AUTO) 0.8 % (0-6); HEMATOCRIT 39.5 % (36.0-47.0); HEMOGLOBIN 12.6 g/dL (12.0-15.5); HGB HCT DIFFERENCE -1.7; LYMPHOCYTES % (AUTO) 12.9 % (13-45); MEAN CORPUSCULAR HEMOGLOBIN 29.3 pg (27.0-33.4); MEAN CORPUSCULAR HGB CONC 31.9 g/dL (32.0-36.0); MEAN CORPUSCULAR VOLUME 92 fl (80-97); MONOCYTES % (AUTO) 8.4 % (3-13); RED CELL DISTRIBUTION WIDTH 15.8 % (11.5-14.0); SEGMENTED NEUTROPHILS % (AUTO) 77.2 % (42-78); WHITE BLOOD COUNT 17.6 10^3/uL (4.0-10.5)
[2016-09-15 16:25] LABS: PROTHROMBIN TIME 15.3 SEC (11.4-15.4)
[2016-09-15 16:30] LABS: ALANINE AMINOTRANSFERASE 18 U/L (9-52); ALBUMIN 3.4 g/dL (3.5-5.0); ALKALINE PHOSPHATASE 80 U/L (38-126); ANION GAP 12 (5-19); ASPARTATE AMINO TRANSFERASE 15 U/L (14-36); BILIRUBIN,DIRECT 0.5 mg/dL (0.0-0.4); BILIRUBIN,TOTAL 1.9 mg/dL (0.2-1.3); BLOOD UREA NITROGEN 20 mg/dL (7-20); CALCIUM 8.8 mg/dL (8.4-10.2); CARBON DIOXIDE 24 mmol/L (22-30); CHLORIDE 102 mmol/L (98-107); CREATININE RESULT 0.74 mg/dL (0.52-1.25); GLUCOSE 208 mg/dL (75-110); POTASSIUM 3.6 mmol/L (3.6-5.0); SODIUM 138.4 mmol/L (137-145)
[2016-09-15 16:44] LABS: APPEARANCE,URINE SLIGHTLY-CLOUDY; BILIRUBIN,URINE MODERATE (NEGATIVE); GLUCOSE, URINE NEGATIVE (NEGATIVE); KETONES,URINE NEGATIVE (NEGATIVE); PROTEIN,URINE 100 mg/dL (NEGATIVE); URINE SPECIFIC GRAVITY 1.024
[2016-09-15 16:45] LABS: LEUKOCYTE ESTERASE,URINE TRACE (NEGATIVE); NITRITE,URINE NEGATIVE (NEGATIVE)
[2016-09-15 16:48] LABS: WBC,URINE 0-1 /HPF
[2016-09-15 16:49] LABS: BACTERIA,URINE 2+ /HPF; HYALINE CASTS, URINE 0-1 /LPF
--- NOTE | 2016-09-15 17:02 | RADIOLOGY REPORT (SQ) ---
EXAM DESCRIPTION: CHEST SINGLE VIEW COMPLETED DATE/TIME: 09/15/2016 4:43 pm REASON FOR STUDY: sob COMPARISON: 07/14/2016 EXAM PARAMETERS: NUMBER OF VIEWS: One view. TECHNIQUE: Single frontal radiographic view of the chest acquired. RADIATION DOSE: NA LIMITATIONS: None. FINDINGS: LUNGS AND PLEURA: There is opacification in the lateral left lung base. This obscures a p ortion of the left hemidiaphragm. MEDIASTINUM AND HILAR STRUCTURES: No masses. Contour normal. HEART AND VASCULAR STRUCTURES: Heart normal in size. Normal vasculature. BONES: No acute findings. HARDWARE: None in the chest. OTHER: No other significant finding. IMPRESSION: A left lower lobe or lingular pneumonia cannot be excluded. TECHNICAL DOCUMENTATION: JOB ID: [id number]
[2016-09-15] MEDS ORDERED: CEFEPIME 1 GM/D5W RTU 50 ML IV ONE (17:10)
[2016-09-15] MEDS ORDERED: VANCOMYCIN HCL INJ 1000 MG VIAL IV ONE (17:23)
[2016-09-15] MEDS ORDERED: LEVOFLOXACIN 750 MG/D5W RTU 150 ML IV ONE (17:23)
[2016-09-15] MEDS ORDERED: CEFEPIME HCL 1 GM in DEXTROSE 5%-WATER 50 ML IV ONE (17:30)
[2016-09-15] MEDS ORDERED: GUAIFENESIN SYRP 200 MG/10 ML UDC PO PRN (17:41)
[2016-09-15] MEDS ORDERED: ALBUTEROL SULFATE 0.083% NEB 2.5 MG/3 ML AMPUL NEB PRN (17:41)
[2016-09-15] MEDS ORDERED: DEXTROSE 50%-WATER 25 GM/50 ML DISP.SYRIN IV PRN ×2 (17:45)
[2016-09-15] MEDS ORDERED: INSULIN LISPRO 100 UNIT/ML 3 ML VIAL SUBCUT PRN (17:45)
[2016-09-15] MEDS ORDERED: GLUCAGON,HUMAN RECOMB 1 MG INJ IM PRN (17:45)
[2016-09-15] MEDS ORDERED: VANCOMYCIN HCL 0 MG in DEXTROSE 5%-WATER 250 ML IV NR (17:45)
[2016-09-15] MEDS ORDERED: DEXTROSE 40% GEL 15 GM TUBE PO PRN ×2 (17:45)
[2016-09-15] MEDS ORDERED: POTASSI CL 20 MEQ/1/2NS 1L 1,000 ML IV PRN (17:46)
--- NOTE | 2016-09-15 18:14 | PDOC H&P ---
History of Present Illness Admission Date/PCP: Dr. Casey Vo Patient complains of: Hypoxia History of Present Illness: DENNIS CASTELAN is a 71 year old female with past medical history of atrial fibrillation, COPD, CHF secondary to systolic and diastolic dysfunction, hypertension that was sent to the emergency department by her primary care provider today after she was found to be hypoxic in his office. Patient has been feeling poorly over the past couple days. She was just discharged from [facility] and is currently residing at home with her grandson and home health services provided by [facility]. She has not required home oxygen prior to now. In review of her records she has had recurrent urinary tract infections most recently with Staph aureus and Enterococcus species. Medications have not been verified. Past Medical History Cardiac Medical History: Reports: Atrial Fibrillation, Congestive Heart Failure , Hyperlipidema, Hypertension Denies: Myocardial Infarction, Pulmonary Embolism Pulmonary Medical History: Reports: Bronchitis, Chronic Obstructive Pulmonary Disease (COPD), Pneumonia - Pediatric Denies: Sleep Apnea Neurological Medical History: Denies: Seizures Endocrine Medical History: Reports: Diabetes Mellitus Type 2 Denies: Diabetes Mellitus Type 1, Hyperthyroidism, Hypothyroidism GI Medical History: Reports: Diverticulitis Denies: Cirrhosis, Gastroesophageal Reflux Disease, Hepatitis Musculoskeltal Medical History: Denies: Arthritis Psychiatric Medical History: Denies: Depression Infectious Medical History: Reports: Methicillin-Resistant Staph Aureus Denies: Clostridium Difficile Past Surgical History Past Surgical History: Reports: Herniorrhaphy - incisional, Hysterectomy - CHIP, Orthopedic Surgery - left hip replacement, right knee replacement. Denies: Amputation Social History Information Source: Patient Lives with: Family Smoking Status: Unknown if Ever Smoked Frequency of Alcohol Use: None Hx Recreational Drug Use: No Drugs: None Hx Prescription Drug Abuse: No - Advance Directive Resuscitation Status: Full Code Family History Family History: Reviewed & Not Pertinent Parental Family History Reviewed: Yes Children Family History Reviewed: Yes Sibling(s) Family History Reviewed.: Yes Medication/Allergy Home Medications: Atorvastatin Calcium [Lipitor 40 mg Tablet] 40 mg PO QHS 07/15/16 Brimonidine Tartrate/Timolol [Combigan 0.2%-0.5% Eye Drops] 1 drop OS Q12 Budesonide/Formoterol Fumarate [Symbicort HFA 160-4.5 mcg Inhaler 6 gm] 2 puff IH Q12 07/15/16 Diltiazem HCl [Cartia Xt] 240 mg PO Q12 07/15/16 Ergocalciferol (Vitamin D2) [Drisdol 50,000 unit (1.25MG) Capsule] 1 cap PO SAINI@ 1000 07/15/16 Escitalopram Oxalate [Lexapro 10 mg Tablet] 10 mg PO QHS 07/15/16 Ipratropium/Albuterol Sulfate [Duoneb 3 ml Ampul] 3 ml NEB RTQ6HP PRN 07/15/16 Lisinopril [Prinivil 10 mg Tablet] 10 mg PO DAILY 07/15/16 Metformin HCl [Glucophage] 500 mg PO DAILY 07/15/16 Brimonidine Tartrate [Alphagan 0.2% Oph Soln 5 ml] 1 drop OS Q12 bottle Carvedilol [Coreg 6.25 mg Tablet] 6.25 mg PO Q12 #60 tablet 07/22/16 Timolol Maleate [Timoptic 0.5% Oph Soln 5 ml] 1 drop OS Q12 bottle 07/22/16 Mirtazapine [Remeron 15 mg Tablet] 7.5 mg PO HSP PRN 09/04/16 Insulin Lispro [Humalog Insulin (Lispro) 100 unit/mL] 0 unit SUBCUT .SLD SCALE 09/05/16 Ciprofloxacin HCl [Cipro 500 mg Tablet] 500 mg PO BID #6 tablet 09/06/16 Cyclobenzaprine HCl [Flexeril 5 mg Tablet] 5 mg PO TID PRN #30 tablet 09/06/16 Docusate Sodium [Colace 100 mg Capsule] 100 mg PO BID capsule 09/06/16 Oxycodone HCl [Oxy-Ir 5 mg Tablet] 5 mg PO Q8HP PRN #30 tablet 09/06/16 Allergies/Adverse Reactions: morphine [Morphine] Allergy (Mild, Verified 09/15/16 16:49) "oversedated" Review of Systems Constitutional: PRESENT: anorexia, fatigue, weakness. ABSENT: chills, fever(s) , headache(s), weight gain, weight loss Eyes: ABSENT: visual disturbances Ears: ABSENT: hearing changes Cardiovascular: PRESENT: chest pain - Pleuritic right lateral. ABSENT: dyspnea on exertion, edema, orthropnea, palpitations Respiratory: PRESENT: cough. ABSENT: hemoptysis Gastrointestinal: ABSENT: abdominal pain, constipation, diarrhea, hematemesis, hematochezia, nausea, vomiting Genitourinary: ABSENT: dysuria, hematuria Musculoskeletal: ABSENT: joint swelling Integumentary: PRESENT: erythema - Right buttocks since being in the group home. ABSENT: rash, wounds Neurological: ABSENT: abnormal gait, abnormal speech, confusion, dizziness, focal weakness, syncope Psychiatric: ABSENT: anxiety, depression, homidical ideation, suicidal ideation Endocrine: ABSENT: cold intolerance, heat intolerance, polydipsia, polyuria Hematologic/Lymphatic: ABSENT: easy bleeding, easy bruising Physical Exam Vital Signs: Temp Pulse Resp BP Pulse Ox 99.6 F 25 H 93 09/15/16 16:00 09/15/16 16:00 09/15/16 16:00 PHYSICAL EXAM: GENERAL: Appears well, no acute distress HEENT: Normocephalic, no scleral icterus, conjunctiva clear, EOEM intact, PERRLA , moist mucous membranes NECK: trachea midline, no thyromegally RESPIRATORY: Clear to auscultation, no wheezes/rhonchi CARDIAC: Irregular, no murmur/gui/rub ABDOMEN: Soft, no distension, no tenderness, no guarding, normal bowel sounds, negative Knox sign RECTAL: deferred : deferred EXTREMITIES: No edema, cyanosis, clubbing MUSCULOSKELETAL: Thumb spica wrist splint on left forearm VASCULAR: normal peripheral pulses NEUROLOGIC: Alert, oriented to person/place/time, normal speech, cranial nerves grossly intact, 5/5 strength in all extremities, tactile sensation intact in all extremities SKIN: Stage I pressure sore on right buttocks PSYCHIATRIC: Normal mood, normal affect Results Laboratory Results: 09/15/16 16:00 09/15/16 16:00 09/15/16 09/15/16 09/15/16 16:00 16:00 16:00 WBC 17.6 H RBC 4.30 Hgb 12.6 Hct 39.5 MCV 92 MCH 29.3 MCHC 31.9 L RDW 15.8 H Plt Count 304 Seg Neutrophils % 77.2 Lymphocytes % 12.9 L Monocytes % 8.4 Eosinophils % 0.8 Basophils % 0.7 Absolute Neutrophils 13.6 H Absolute Lymphocytes 2.3 Absolute Monocytes 1.5 H Absolute Eosinophils 0.1 Absolute Basophils 0.1 VBG pH VBG pCO2 VBG HCO3 VBG Base Excess Sodium 138.4 Potassium 3.6 Chloride 102 Carbon Dioxide 24 Anion Gap 12 BUN 20 Creatinine 0.74 Est GFR ( Amer) > 60 Est GFR (Non-Af Amer) > 60 Glucose 208 H Lactic Acid 1.2 Calcium 8.8 Total Bilirubin 1.9 H AST 15 ALT 18 Alkaline Phosphatase 80 Total Protein 7.0 Albumin 3.4 L Urine Color Urine Appearance Urine pH Ur Specific [place] Urine Protein Urine Glucose (UA) Urine Ketones Urine Blood Urine Nitrite Ur Leukocyte Esterase Ur Squamous Epith Cells 09/15/16 09/15/16 16:00 16:25 WBC RBC Hgb Hct MCV MCH MCHC RDW Plt Count Seg Neutrophils % Lymphocytes % Monocytes % Eosinophils % Basophils % Absolute Neutrophils Absolute Lymphocytes Absolute Monocytes Absolute Eosinophils Absolute Basophils VBG pH 7.42 VBG pCO2 43.1 VBG HCO3 27.4 VBG Base Excess 2.6 Sodium Potassium Chloride Carbon Dioxide Anion Gap BUN Creatinine Est GFR ( Amer) Est GFR (Non-Af Amer) Glucose Lactic Acid Calcium Total Bilirubin AST ALT Alkaline Phosphatase Total Protein Albumin Urine Color DARK YELLOW Urine Appearance SLIGHTLY-CLOUDY Urine pH 6.0 Ur Specific [place] 1.024 Urine Protein 100 H Urine Glucose (UA) NEGATIVE Urine Ketones NEGATIVE Urine Blood NEGATIVE Urine Nitrite NEGATIVE Ur Leukocyte Esterase TRACE H Ur Squamous Epith Cells FEW EKG Comments: Atrial fibrillation, left bundle branch block (old) Impressions: Chest X-Ray 09/15/16 15:09 IMPRESSION: A left lower lobe or lingular pneumonia cannot be excluded. Assessment & Plan - Diagnosis (1) Acute on chronic respiratory failure with hypoxemia Is this a current diagnosis for this admission?: YesPlan: Start patient on oxygen supplementation to maintain O2 sat greater than 95%. Patient may benefit from home oxygen on discharge (2) SIRS (systemic inflammatory response syndrome) Is this a current diagnosis for this admission?: Yes (3) Pneumonia Qualifiers: Laterality: left Lung location: lower lobe of lung Is this a current diagnosis for this admission?: YesPlan: High probability of gram-negative infection given recent healthcare stay. Continue IV cefepime, IV Levaquin, IV vancomycin initiated in the emergency department pending further blood and sputum cultures. (4) COPD (chronic obstructive pulmonary disease) Is this a current diagnosis for this admission?: YesPlan: As needed albuterol. (5) Fracture of left wrist Qualifiers: Encounter type: initial encounter Fracture type: closed Qualified Code(s): S62.102A - Fracture of unspecified carpal bone, left wrist, initial encounter for closed fracture Is this a current diagnosis for this admission?: YesPlan: Continue splint. Follow-up with Dr. franco as an outpatient. (6) UTI (urinary tract infection) Is this a current diagnosis for this admission?: YesPlan: Continue IV cefepime and Levaquin pending cultures. (7) Chronic combined systolic and diastolic congestive heart failure Is this a current diagnosis for this admission?: YesPlan: Echocardiogram in 2016 showed ejection fraction 40-45%, grade 2/4 diastolic dysfunction. Clinically compensated at this time. Monitor closely with gentle IV fluids. Verify home medications and resume. (8) Decubitus ulcer of sacral region, stage 1 Is this a current diagnosis for this admission?: YesPlan: Specialty bed. (9) Atrial fibrillation Qualifiers: Atrial fibrillation type: chronic Qualified Code(s): I48.2 - Chronic atrial fibrillation Is this a current diagnosis for this admission?: YesPlan: Heart rate stable. Verify home medications. Patient was previously not anticoagulated secondary to retroperitoneal bleed. (10) Diabetes mellitus type 2 in obese Is this a current diagnosis for this admission?: YesPlan: Sliding scale insulin coverage. Verify home medications. (11) HTN (hypertension) Qualifiers: Hypertension type: essential hypertension Qualified Code(s): I10 - Essential (primary) hypertension (12) Ambulatory dysfunction Is this a current diagnosis for this admission?: YesPlan: Physical therapy to evaluate. Plan is to discharge patient home with [facility] home health services. (13) Left bundle branch block (LBBB) Is this a current diagnosis for this admission?: YesPlan: Old - Time Time Spent: Greater than 70 Minutes Anticipated discharge: Home with Homehealth
--- NOTE | 2016-09-15 19:45 | EKG REPORT ---
SEVERITY:- ABNORMAL ECG - ATRIAL FIBRILLATION LAFB LATE PRECORDIAL TRANSITION, CONSIDER OLD ANTERIOR DC : Confirmed by: Lul Valencia MD 15-Sep-2016 19:45:08
[2016-09-15] MEDS: ACETAMINOPHEN 325 MG TABLET PO PRN (21:22)
[2016-09-15] MEDS: HEPARIN SOD (PORCINE) 5,000 UNIT/ML 1 ML SYRINGE SUBCUT SCH (22:29)
[2016-09-16 05:12] LABS: ABSOLUTE BASOPHILS # (AUTO) 0.1 10^3/uL (0.0-0.2); ABSOLUTE EOSINOPHILS # (AUTO) 0.4 10^3/uL (0.0-0.6); ABSOLUTE LYMPHOCYTES (AUTO) 1.8 10^3/uL (0.5-4.7); ABSOLUTE NEUT (AUTO) 8.9 10^3/uL (1.7-8.2); BASOPHILS % (AUTO) 0.5 % (0-2); EOSINOPHILS % (AUTO) 3.1 % (0-6); HEMATOCRIT 36.6 % (36.0-47.0); HEMOGLOBIN 11.6 g/dL (12.0-15.5); HGB HCT DIFFERENCE -1.8; LYMPHOCYTES % (AUTO) 14.6 % (13-45); MEAN CORPUSCULAR HEMOGLOBIN 29.3 pg (27.0-33.4); MEAN CORPUSCULAR HGB CONC 31.7 g/dL (32.0-36.0); MEAN CORPUSCULAR VOLUME 92 fl (80-97); MONOCYTES % (AUTO) 8.6 % (3-13); RED BLOOD COUNT 3.96 10^6/uL (3.72-5.28); RED CELL DISTRIBUTION WIDTH 15.2 % (11.5-14.0); SEGMENTED NEUTROPHILS % (AUTO) 73.2 % (42-78); WHITE BLOOD COUNT 12.1 10^3/uL (4.0-10.5)
[2016-09-16 05:30] LABS: ANION GAP 10 (5-19); BLOOD UREA NITROGEN 21 mg/dL (7-20); CALCIUM 8.3 mg/dL (8.4-10.2); CARBON DIOXIDE 24 mmol/L (22-30); CHLORIDE 103 mmol/L (98-107); CREATININE RESULT 0.55 mg/dL (0.52-1.25); GLUCOSE 130 mg/dL (75-110); POTASSIUM 3.7 mmol/L (3.6-5.0); SODIUM 137.2 mmol/L (137-145)
[2016-09-16] MEDS ORDERED: CEFEPIME 2 GM/D5W RTU 2 GM/50 ML RTUPB IV SCH (06:00)
[2016-09-16] MEDS: HEPARIN SOD (PORCINE) 5,000 UNIT/ML 1 ML SYRINGE SUBCUT SCH ×3 (07:01→21:53)
[2016-09-16] MEDS ORDERED: CEFEPIME 2 GM/D5W RTU 2 GM/50 ML RTUPB IV ONE (07:03)
[2016-09-16] MEDS ORDERED: VANCOMYCIN HCL 1,250 MG in DEXTROSE 5%-WATER 250 ML IV SCH (10:00)
[2016-09-16] MEDS: ACETAMINOPHEN 325 MG TABLET PO PRN (10:02)
[2016-09-16] MEDS ORDERED: MIRTAZAPINE 15 MG TABLET PO PRN (10:06)
[2016-09-16] MEDS ORDERED: (PENDING PHARMACY ID) (Cyclobenzaprine Hcl [Flexeril 5 Mg Tablet] 5 MG) PO PRN (10:06)
[2016-09-16] MEDS ORDERED: OXYCODONE HCL IR 5 MG TABLET PO PRN (10:06)
[2016-09-16] MEDS ORDERED: DILTIAZEM HCL 240 MG CAPSULE.CR PO ONE (10:30)
[2016-09-16] MEDS ORDERED: CYCLOBENZAPRINE HCL 10 MG TABLET PO PRN (10:31)
--- NOTE | 2016-09-16 11:07 | PDOC PROGRESS REPORT ---
Subjective Progress Note for:: 09/16/16 Subjective:: Patient is feeling much better today. She denies fever, chills, headache, shortness of breath, chest pain, nausea, vomiting. Nursing reports the patient has no IV access and is very hard to obtain peripheral IV access. Patient does not want a PICC line or any procedures done. She does not want any further attempts for IV access. Physical Exam Vital Signs: Temp Pulse Resp BP Pulse Ox 98.2 F 76 20 136/92 H 100 09/16/16 07:33 09/16/16 07:33 09/16/16 07:33 09/16/16 07:33 09/16/16 07:33 Intake & Output 09/15/16 09/16/16 09/17/16 06:59 06:59 06:59 Intake Total 959 Output Total 0 Balance 959 Weight 74.3 kg GENERAL: Appears well, no acute distress HEENT: Normocephalic, no scleral icterus, conjunctiva clear, EOEM intact, PERRLA , moist mucous membranes NECK: trachea midline, no thyromegally RESPIRATORY: Clear to auscultation, no wheezes/rhonchi CARDIAC: Irregular, no murmur/gui/rub ABDOMEN: Soft, no distension, no tenderness, no guarding, normal bowel sounds, negative Knox sign EXTREMITIES: No edema, cyanosis, clubbing MUSCULOSKELETAL: Thumb spica wrist splint on left forearm VASCULAR: normal peripheral pulses NEUROLOGIC: Alert, oriented to person/place/time, normal speech, cranial nerves grossly intact, 5/5 strength in all extremities, tactile sensation intact in all extremities SKIN: Stage I pressure sore on right buttocks PSYCHIATRIC: Normal mood, normal affect Results Laboratory Results: 09/16/16 04:25 09/16/16 04:25 09/16/16 09/16/16 04:25 04:25 WBC 12.1 H RBC 3.96 Hgb 11.6 L Hct 36.6 MCV 92 MCH 29.3 MCHC 31.7 L RDW 15.2 H Plt Count 263 Seg Neutrophils % 73.2 Lymphocytes % 14.6 Monocytes % 8.6 Eosinophils % 3.1 Basophils % 0.5 Absolute Neutrophils 8.9 H Absolute Lymphocytes 1.8 Absolute Monocytes 1.0 Absolute Eosinophils 0.4 Absolute Basophils 0.1 Sodium 137.2 Potassium 3.7 Chloride 103 Carbon Dioxide 24 Anion Gap 10 BUN 21 H Creatinine 0.55 Est GFR ( Amer) > 60 Est GFR (Non-Af Amer) > 60 Glucose 130 H Calcium 8.3 L Impressions: Chest X-Ray 09/15/16 15:09 IMPRESSION: A left lower lobe or lingular pneumonia cannot be excluded. Assessment & Plan - Diagnosis (1) Acute on chronic respiratory failure with hypoxemia Is this a current diagnosis for this admission?: YesPlan: Continue oxygen supplementation to maintain O2 sat greater than 95%. Patient may benefit from home oxygen on discharge (2) SIRS (systemic inflammatory response syndrome) Is this a current diagnosis for this admission?: YesPlan: White blood count improved with initiation of antibiotic therapy. Afebrile. (3) Pneumonia Qualifiers: Pneumonia type: due to unspecified organism Laterality: left Lung location: lower lobe of lung Qualified Code(s): J18.1 - Lobar pneumonia, unspecified organism Is this a current diagnosis for this admission?: YesPlan: Likely bacterial. Clinically much better. Afebrile. White blood count improved. Discontinue IV antibiotics. Start oral Levaquin. (4) COPD (chronic obstructive pulmonary disease) Is this a current diagnosis for this admission?: YesPlan: As needed albuterol. (5) Fracture of left wrist Qualifiers: Encounter type: initial encounter Fracture type: closed Qualified Code(s): S62.102A - Fracture of unspecified carpal bone, left wrist, initial encounter for closed fracture Is this a current diagnosis for this admission?: YesPlan: Continue splint. Follow-up with Dr. Griggs as an outpatient. (6) Chronic combined systolic and diastolic congestive heart failure Is this a current diagnosis for this admission?: YesPlan: Echocardiogram in 2016 showed ejection fraction 40-45%, grade 2/4 diastolic dysfunction. Clinically compensated at this time. Discontinue IV fluids. Resume Coreg 6.25 mg twice daily and lisinopril 10 mg daily. Patient does not take chronic diuretic therapy according to medication reconciliation. (7) Decubitus ulcer of sacral region, stage 1 Is this a current diagnosis for this admission?: Yes (8) Atrial fibrillation Qualifiers: Atrial fibrillation type: chronic Qualified Code(s): I48.2 - Chronic atrial fibrillation Is this a current diagnosis for this admission?: YesPlan: Heart rate stable. Resume Coreg. Patient was previously taking Cardizem CD but this is not currently on of her active home medications per medication reconciliation. Patient was previously not anticoagulated secondary to retroperitoneal bleed. (9) Diabetes mellitus type 2 in obese Is this a current diagnosis for this admission?: YesPlan: Resume metformin. Sliding scale insulin. (10) HTN (hypertension) Qualifiers: Hypertension type: essential hypertension Qualified Code(s): I10 - Essential (primary) hypertension Is this a current diagnosis for this admission?: YesPlan: Resume Coreg and lisinopril. We will have pharmacy reverify medication reconciliation. Patient was discharged from the hospital on 09/06/2016 on multiple medications and only 4 medications are currently reconciled. (11) Ambulatory dysfunction Is this a current diagnosis for this admission?: YesPlan: Physical therapy to evaluate. Plan is to discharge patient home with [facility] home health services. (12) Left bundle branch block (LBBB) Is this a current diagnosis for this admission?: Yes - Time Time Spent with patient: 35 or more minutes Anticipated discharge: Home with Homehealth Within: within 24 hours
[2016-09-16] MEDS: OXYCODONE HCL IR 5 MG TABLET PO PRN ×2 (11:14→18:09)
[2016-09-16] MEDS ORDERED: DOCUSATE SODIUM 100 MG CAPSULE PO SCH (18:00)
[2016-09-16] MEDS ORDERED: LEVOFLOXACIN 750 MG/D5W RTU 750 MG/150 ML RTUPB IV SCH (18:00)
[2016-09-16] MEDS: LEVOFLOXACIN 750 MG TABLET PO SCH (18:00)
[2016-09-16] MEDS: BRIMONIDINE TARTRATE 0.2% OPH SOLN 5 ML OS SCH (21:53)
[2016-09-16] MEDS: CARVEDILOL 6.25 MG TABLET PO SCH (21:53)
[2016-09-16] MEDS: TIMOLOL MALEATE 0.5% OPH SOLN 5 ML OS SCH (21:54)
[2016-09-16] MEDS ORDERED: (PENDING PHARMACY ID) (Diltiazem Hcl [Cartia Xt] 240 MG) PO SCH (22:00)
[2016-09-16] MEDS ORDERED: DILTIAZEM HCL 240 MG CAPSULE.CR PO SCH (22:00)
[2016-09-16] MEDS ORDERED: ESCITALOPRAM OXALATE 10 MG TABLET PO SCH (22:00)
[2016-09-17 05:42] LABS: ABSOLUTE BASOPHILS # (AUTO) 0.1 10^3/uL (0.0-0.2); ABSOLUTE EOSINOPHILS # (AUTO) 0.3 10^3/uL (0.0-0.6); ABSOLUTE LYMPHOCYTES (AUTO) 1.9 10^3/uL (0.5-4.7); ABSOLUTE MONOCYTES (AUTO) 0.9 10^3/uL (0.1-1.4); ABSOLUTE NEUT (AUTO) 7.5 10^3/uL (1.7-8.2); BASOPHILS % (AUTO) 0.9 % (0-2); EOSINOPHILS % (AUTO) 3.2 % (0-6); HEMATOCRIT 34.6 % (36.0-47.0); HEMOGLOBIN 11.2 g/dL (12.0-15.5); LYMPHOCYTES % (AUTO) 17.9 % (13-45); MEAN CORPUSCULAR HEMOGLOBIN 29.5 pg (27.0-33.4); MEAN CORPUSCULAR HGB CONC 32.4 g/dL (32.0-36.0); MEAN CORPUSCULAR VOLUME 91 fl (80-97); MONOCYTES % (AUTO) 8.4 % (3-13); SEGMENTED NEUTROPHILS % (AUTO) 69.6 % (42-78); WHITE BLOOD COUNT 10.8 10^3/uL (4.0-10.5)
[2016-09-17 05:56] LABS: ANION GAP 6 (5-19); BLOOD UREA NITROGEN 13 mg/dL (7-20); CALCIUM 8.2 mg/dL (8.4-10.2); CARBON DIOXIDE 25 mmol/L (22-30); CHLORIDE 103 mmol/L (98-107); CREATININE RESULT 0.44 mg/dL (0.52-1.25); GLUCOSE 97 mg/dL (75-110); POTASSIUM 3.9 mmol/L (3.6-5.0); SODIUM 134.2 mmol/L (137-145)
[2016-09-17] MEDS: HEPARIN SOD (PORCINE) 5,000 UNIT/ML 1 ML SYRINGE SUBCUT SCH ×3 (06:07→22:38)
[2016-09-17] MEDS: OXYCODONE HCL IR 5 MG TABLET PO PRN ×2 (07:55→22:39)
[2016-09-17] MEDS: LISINOPRIL 10 MG TABLET PO SCH (09:48)
[2016-09-17] MEDS: BRIMONIDINE TARTRATE 0.2% OPH SOLN 5 ML OS SCH ×2 (09:48→22:37)
[2016-09-17] MEDS: METFORMIN HCL 500 MG TABLET PO SCH (09:48)
[2016-09-17] MEDS: TIMOLOL MALEATE 0.5% OPH SOLN 5 ML OS SCH ×2 (09:48→22:37)
[2016-09-17] MEDS: CARVEDILOL 6.25 MG TABLET PO SCH ×2 (09:48→22:39)
[2016-09-17] MEDS ORDERED: LISINOPRIL 10 MG TABLET PO SCH (10:00)
[2016-09-17] MEDS: LEVOFLOXACIN 750 MG TABLET PO SCH (17:22)
[2016-09-18 05:26] LABS: ABSOLUTE BASOPHILS # (AUTO) 0.1 10^3/uL (0.0-0.2); ABSOLUTE EOSINOPHILS # (AUTO) 0.2 10^3/uL (0.0-0.6); ABSOLUTE LYMPHOCYTES (AUTO) 2.2 10^3/uL (0.5-4.7); ABSOLUTE MONOCYTES (AUTO) 1.1 10^3/uL (0.1-1.4); ABSOLUTE NEUT (AUTO) 7.1 10^3/uL (1.7-8.2); BASOPHILS % (AUTO) 0.9 % (0-2); EOSINOPHILS % (AUTO) 2.2 % (0-6); HEMATOCRIT 36.1 % (36.0-47.0); HEMOGLOBIN 11.4 g/dL (12.0-15.5); HGB HCT DIFFERENCE -1.9; LYMPHOCYTES % (AUTO) 20.7 % (13-45); MEAN CORPUSCULAR HEMOGLOBIN 29.3 pg (27.0-33.4); MEAN CORPUSCULAR HGB CONC 31.5 g/dL (32.0-36.0); MEAN CORPUSCULAR VOLUME 93 fl (80-97); MONOCYTES % (AUTO) 10.1 % (3-13); RED BLOOD COUNT 3.88 10^6/uL (3.72-5.28); RED CELL DISTRIBUTION WIDTH 15.5 % (11.5-14.0); SEGMENTED NEUTROPHILS % (AUTO) 66.1 % (42-78); WHITE BLOOD COUNT 10.7 10^3/uL (4.0-10.5)
[2016-09-18] MEDS: HEPARIN SOD (PORCINE) 5,000 UNIT/ML 1 ML SYRINGE SUBCUT SCH ×3 (06:28→22:16)
--- NOTE | 2016-09-18 09:11 | PDOC PROGRESS REPORT ---
Subjective Progress Note for:: 09/17/16 Subjective:: Patient states she feels confused today. This started after she received oxycodone for right rib pain. She states she has taken oxycodone as an outpatient and this never made her feel confused. She remains oriented to person, place, time. Patient denies fever, chills, headache, new focal weakness, chest pain, shortness of breath, abdominal pain, nausea, vomiting, diarrhea, constipation. Physical Exam Vital Signs: Temp Pulse Resp BP Pulse Ox 98.1 F 88 20 125/81 98 09/17/16 07:40 09/17/16 08:46 09/17/16 08:46 09/17/16 07:40 09/17/16 08:46 Intake & Output 09/16/16 09/17/16 09/18/16 06:59 06:59 06:59 Intake Total 959 829 Output Total 0 Balance 959 829 Weight 74.3 kg 81.7 kg GENERAL: Appears well, no acute distress HEENT: Normocephalic, no scleral icterus, conjunctiva clear, EOEM intact, PERRLA , moist mucous membranes NECK: trachea midline, no thyromegally RESPIRATORY: Clear to auscultation, no wheezes/rhonchi CARDIAC: Irregular, no murmur/gui/rub ABDOMEN: Soft, no distension, no tenderness, no guarding, normal bowel sounds, negative Knox sign EXTREMITIES: No edema, cyanosis, clubbing MUSCULOSKELETAL: Thumb spica wrist splint on left forearm. Reproducible right chest wall tenderness in the mid axillary region. VASCULAR: normal peripheral pulses NEUROLOGIC: Alert, oriented to person/place/time, normal speech, cranial nerves grossly intact, 5/5 strength in all extremities, tactile sensation intact in all extremities SKIN: Stage I pressure sore on right buttocks. No rash noted over right chest wall. PSYCHIATRIC: Normal mood, normal affect Results Laboratory Results: 09/17/16 04:52 09/17/16 04:52 09/17/16 09/17/16 04:52 04:52 WBC 10.8 H RBC 3.80 Hgb 11.2 L Hct 34.6 L MCV 91 MCH 29.5 MCHC 32.4 RDW 15.0 H Plt Count 258 Seg Neutrophils % 69.6 Lymphocytes % 17.9 Monocytes % 8.4 Eosinophils % 3.2 Basophils % 0.9 Absolute Neutrophils 7.5 Absolute Lymphocytes 1.9 Absolute Monocytes 0.9 Absolute Eosinophils 0.3 Absolute Basophils 0.1 Sodium 134.2 L Potassium 3.9 Chloride 103 Carbon Dioxide 25 Anion Gap 6 BUN 13 Creatinine 0.44 L Est GFR ( Amer) > 60 Est GFR (Non-Af Amer) > 60 Glucose 97 Calcium 8.2 L Impressions: Chest X-Ray 09/15/16 15:09 IMPRESSION: A left lower lobe or lingular pneumonia cannot be excluded. Assessment & Plan - Diagnosis (1) Acute on chronic respiratory failure with hypoxemia Is this a current diagnosis for this admission?: YesPlan: Continue oxygen supplementation to maintain O2 sat greater than 95%. Patient may benefit from home oxygen on discharge. (2) SIRS (systemic inflammatory response syndrome) Is this a current diagnosis for this admission?: YesPlan: White blood count improved with initiation of antibiotic therapy. Afebrile. (3) Pneumonia Qualifiers: Pneumonia type: due to unspecified organism Laterality: left Lung location: lower lobe of lung Qualified Code(s): J18.1 - Lobar pneumonia, unspecified organism Is this a current diagnosis for this admission?: YesPlan: Likely bacterial. Clinically much better. Afebrile. White blood count improved. Continue oral Levaquin day #2. (4) COPD (chronic obstructive pulmonary disease) Is this a current diagnosis for this admission?: YesPlan: As needed albuterol. (5) Fracture of left wrist Qualifiers: Encounter type: initial encounter Fracture type: closed Qualified Code(s): S62.102A - Fracture of unspecified carpal bone, left wrist, initial encounter for closed fracture Is this a current diagnosis for this admission?: YesPlan: Continue splint. Follow-up with Dr. Griggs as an outpatient. (6) Chronic combined systolic and diastolic congestive heart failure Is this a current diagnosis for this admission?: YesPlan: Echocardiogram in 2016 showed ejection fraction 40-45%, grade 2/4 diastolic dysfunction. Clinically compensated at this time. Discontinue IV fluids. Continue Coreg 6.25 mg twice daily and lisinopril 10 mg daily. Patient does not take chronic diuretic therapy according to medication reconciliation. (7) Decubitus ulcer of sacral region, stage 1 Is this a current diagnosis for this admission?: Yes (8) Atrial fibrillation Qualifiers: Atrial fibrillation type: chronic Qualified Code(s): I48.2 - Chronic atrial fibrillation Is this a current diagnosis for this admission?: YesPlan: Heart rate stable. Resume Coreg. Patient was previously taking Cardizem CD but this is not currently on of her active home medications per medication reconciliation. Patient was previously not anticoagulated secondary to retroperitoneal bleed. (9) Diabetes mellitus type 2 in obese Is this a current diagnosis for this admission?: YesPlan: Continue metformin. Sliding scale insulin. (10) HTN (hypertension) Qualifiers: Hypertension type: essential hypertension Qualified Code(s): I10 - Essential (primary) hypertension Is this a current diagnosis for this admission?: Yes (11) Ambulatory dysfunction Is this a current diagnosis for this admission?: Yes (12) Left bundle branch block (LBBB) Is this a current diagnosis for this admission?: Yes (13) Right-sided chest pain Is this a current diagnosis for this admission?: YesPlan: Musculoskeletal in nature. Hold off on discharge for today as patient feels a little confused after taking oxycodone. - Time Time Spent with patient: 35 or more minutes Anticipated discharge: Home with Homehealth Within: within 24 hours
[2016-09-18] MEDS: LISINOPRIL 10 MG TABLET PO SCH (11:33)
[2016-09-18] MEDS: METFORMIN HCL 500 MG TABLET PO SCH (11:33)
[2016-09-18] MEDS: DILTIAZEM HCL 240 MG CAPSULE.CR PO SCH (11:34)
[2016-09-18] MEDS: BRIMONIDINE TARTRATE 0.2% OPH SOLN 5 ML OS SCH ×2 (11:34→22:15)
[2016-09-18] MEDS: TIMOLOL MALEATE 0.5% OPH SOLN 5 ML OS SCH ×2 (11:34→22:15)
[2016-09-18] MEDS: CARVEDILOL 6.25 MG TABLET PO SCH ×2 (11:34→22:16)
[2016-09-18] MEDS ORDERED: METOPROLOL TARTRATE PF/INJ 5 MG/5 ML SDV IV ONE (13:45)
--- NOTE | 2016-09-18 14:18 | PDOC PROGRESS REPORT ---
Subjective Progress Note for:: 09/18/16 Subjective:: Patient confusion from yesterday has resolved. She is still generally weak. Her right-sided chest pain is significantly improved from yesterday. Patient denies fever, chills, headache, new focal weakness, chest pain, shortness of breath, abdominal pain, nausea, vomiting, diarrhea, constipation. Physical Exam Vital Signs: Temp Pulse Resp BP Pulse Ox 98.2 F 116 H 20 146/97 H 96 09/18/16 11:27 09/18/16 11:27 09/18/16 11:27 09/18/16 11:27 09/18/16 11:27 Intake & Output 09/17/16 09/18/16 09/19/16 06:59 06:59 06:59 Intake Total 829 769 Balance 829 769 Weight 81.7 kg 81 kg GENERAL: Appears well, no acute distress HEENT: Normocephalic, no scleral icterus, conjunctiva clear, EOEM intact, PERRLA , moist mucous membranes NECK: trachea midline, no thyromegally RESPIRATORY: Clear to auscultation, no wheezes/rhonchi CARDIAC: Irregular, no murmur/gui/rub ABDOMEN: Soft, no distension, no tenderness, no guarding, normal bowel sounds, negative Knox sign EXTREMITIES: No edema, cyanosis, clubbing MUSCULOSKELETAL: Thumb spica wrist splint on left forearm. Reproducible right chest wall tenderness in the mid axillary region. VASCULAR: normal peripheral pulses NEUROLOGIC: Alert, oriented to person/place/time, normal speech, cranial nerves grossly intact, 5/5 strength in all extremities, tactile sensation intact in all extremities SKIN: Stage I pressure sore on right buttocks. No rash noted over right chest wall. PSYCHIATRIC: Normal mood, normal affect Results Laboratory Results: 09/18/16 04:07 09/18/16 06:16 09/18/16 09/18/16 04:07 06:16 WBC 10.7 H RBC 3.88 Hgb 11.4 L Hct 36.1 MCV 93 MCH 29.3 MCHC 31.5 L RDW 15.5 H Plt Count 255 Seg Neutrophils % 66.1 Lymphocytes % 20.7 Monocytes % 10.1 Eosinophils % 2.2 Basophils % 0.9 Absolute Neutrophils 7.1 Absolute Lymphocytes 2.2 Absolute Monocytes 1.1 Absolute Eosinophils 0.2 Absolute Basophils 0.1 Sodium Cancelled Potassium Cancelled Chloride Cancelled Carbon Dioxide Cancelled Anion Gap Cancelled BUN Cancelled Creatinine Cancelled Est GFR ( Amer) Cancelled Est GFR (Non-Af Amer) Cancelled Glucose Cancelled Calcium Cancelled Impressions: Chest X-Ray 09/15/16 15:09 IMPRESSION: A left lower lobe or lingular pneumonia cannot be excluded. Assessment & Plan - Diagnosis (1) Acute on chronic respiratory failure with hypoxemia Is this a current diagnosis for this admission?: YesPlan: Continue oxygen supplementation to maintain O2 sat greater than 95%. Patient may benefit from home oxygen on discharge. We will need to check room air oxygen saturation prior to discharge and arrange home oxygen if appropriate. (2) SIRS (systemic inflammatory response syndrome) Is this a current diagnosis for this admission?: YesPlan: White blood count improved with initiation of antibiotic therapy. Afebrile. (3) Pneumonia Qualifiers: Pneumonia type: due to unspecified organism Laterality: left Lung location: lower lobe of lung Qualified Code(s): J18.1 - Lobar pneumonia, unspecified organism Is this a current diagnosis for this admission?: YesPlan: Likely bacterial. Clinically much better. Afebrile. White blood count improved. Continue oral Levaquin day #3. (4) COPD (chronic obstructive pulmonary disease) Is this a current diagnosis for this admission?: YesPlan: As needed albuterol. (5) Fracture of left wrist Qualifiers: Encounter type: initial encounter Fracture type: closed Qualified Code(s): S62.102A - Fracture of unspecified carpal bone, left wrist, initial encounter for closed fracture Is this a current diagnosis for this admission?: YesPlan: Continue splint. Follow-up with Dr. Griggs as an outpatient. (6) Chronic combined systolic and diastolic congestive heart failure Is this a current diagnosis for this admission?: YesPlan: Echocardiogram in 2016 showed ejection fraction 40-45%, grade 2/4 diastolic dysfunction. Clinically compensated at this time. Discontinue IV fluids. Continue Coreg 6.25 mg twice daily and lisinopril 10 mg daily. Patient does not take chronic diuretic therapy according to medication reconciliation. (7) Decubitus ulcer of sacral region, stage 1 Is this a current diagnosis for this admission?: YesPlan: Specialty bed. (8) Atrial fibrillation Qualifiers: Atrial fibrillation type: chronic Qualified Code(s): I48.2 - Chronic atrial fibrillation Is this a current diagnosis for this admission?: YesPlan: Patient is tachycardic today. Continue Coreg. Start Cardizem CD 180 mg daily. Patient was previously not anticoagulated secondary to retroperitoneal bleed. (9) Diabetes mellitus type 2 in obese Is this a current diagnosis for this admission?: YesPlan: Continue metformin. Sliding scale insulin. (10) HTN (hypertension) Qualifiers: Hypertension type: essential hypertension Qualified Code(s): I10 - Essential (primary) hypertension Is this a current diagnosis for this admission?: YesPlan: Resume Coreg and lisinopril. Start Cardizem CD 180 mg daily. (11) Ambulatory dysfunction Is this a current diagnosis for this admission?: YesPlan: Physical therapy to evaluate. Plan is to discharge patient home with [facility] home health services. (12) Left bundle branch block (LBBB) Is this a current diagnosis for this admission?: Yes (13) Right-sided chest pain Is this a current diagnosis for this admission?: Yes - Time Time Spent with patient: 35 or more minutes
[2016-09-18] MEDS: LEVOFLOXACIN 750 MG TABLET PO SCH (17:27)
[2016-09-18] MEDS: DOCUSATE SODIUM 100 MG CAPSULE PO SCH (17:27)
[2016-09-18] MEDS: ESCITALOPRAM OXALATE 10 MG TABLET PO SCH (22:15)
[2016-09-18] MEDS: ATORVASTATIN CALCIUM 40 MG TABLET PO SCH (22:16)
[2016-09-19] MEDS: HEPARIN SOD (PORCINE) 5,000 UNIT/ML 1 ML SYRINGE SUBCUT SCH ×3 (06:22→22:18)
--- NOTE | 2016-09-19 08:39 | PDOC PROGRESS REPORT ---
Subjective Progress Note for:: 09/19/16 Subjective:: Patient has no new complaints today. She is still generally weak. Patient denies fever, chills, headache, new focal weakness, chest pain, shortness of breath, abdominal pain, nausea, vomiting, diarrhea, constipation. Physical Exam Vital Signs: Temp Pulse Resp BP Pulse Ox 97.8 F 83 18 143/82 H 97 09/19/16 07:37 09/19/16 07:37 09/19/16 07:37 09/19/16 07:37 09/19/16 07:37 Intake & Output 09/18/16 09/19/16 09/20/16 06:59 06:59 06:59 Intake Total 769 962 Balance 769 962 Weight 81 kg 71.441 kg GENERAL: Appears well, no acute distress HEENT: Normocephalic, no scleral icterus, conjunctiva clear, EOEM intact, PERRLA , moist mucous membranes NECK: trachea midline, no thyromegally RESPIRATORY: Clear to auscultation, no wheezes/rhonchi CARDIAC: Irregular, no murmur/gui/rub ABDOMEN: Soft, no distension, no tenderness, no guarding, normal bowel sounds, negative Knox sign EXTREMITIES: No edema, cyanosis, clubbing MUSCULOSKELETAL: Thumb spica wrist splint on left forearm. VASCULAR: normal peripheral pulses NEUROLOGIC: Alert, oriented to person/place/time, normal speech, cranial nerves grossly intact, 5/5 strength in all extremities, tactile sensation intact in all extremities SKIN: Stage I pressure sore on right buttocks. No rash noted over right chest wall. PSYCHIATRIC: Normal mood, normal affect Results Laboratory Results: 09/18/16 04:07 09/18/16 06:16 Impressions: Chest X-Ray 09/15/16 15:09 IMPRESSION: A left lower lobe or lingular pneumonia cannot be excluded. Assessment & Plan - Diagnosis (1) Acute on chronic respiratory failure with hypoxemia Is this a current diagnosis for this admission?: YesPlan: Continue oxygen supplementation to maintain O2 sat greater than 95%. Room air oxygen saturation 84% at rest. We will need to arrange home oxygen. (2) SIRS (systemic inflammatory response syndrome) Is this a current diagnosis for this admission?: YesPlan: Secondary to pneumonia. Resolved. (3) Pneumonia Qualifiers: Pneumonia type: due to unspecified organism Laterality: left Lung location: lower lobe of lung Qualified Code(s): J18.1 - Lobar pneumonia, unspecified organism Is this a current diagnosis for this admission?: YesPlan: Likely bacterial. Clinically much better. Afebrile. White blood count improved. Continue oral Levaquin day #4. (4) COPD (chronic obstructive pulmonary disease) Is this a current diagnosis for this admission?: YesPlan: As needed albuterol. (5) Fracture of left wrist Qualifiers: Encounter type: initial encounter Fracture type: closed Qualified Code(s): S62.102A - Fracture of unspecified carpal bone, left wrist, initial encounter for closed fracture Is this a current diagnosis for this admission?: YesPlan: Continue splint. Follow-up with Dr. Griggs as an outpatient. (6) Chronic combined systolic and diastolic congestive heart failure Is this a current diagnosis for this admission?: YesPlan: Echocardiogram in 2016 showed ejection fraction 40-45%, grade 2/4 diastolic dysfunction. Clinically compensated at this time. Discontinued IV fluids. Continue Coreg 6.25 mg twice daily and lisinopril 10 mg daily. Patient does not take chronic diuretic therapy according to medication reconciliation. (7) Decubitus ulcer of sacral region, stage 1 Is this a current diagnosis for this admission?: YesPlan: Present on admission. (8) Atrial fibrillation Qualifiers: Atrial fibrillation type: chronic Qualified Code(s): I48.2 - Chronic atrial fibrillation Is this a current diagnosis for this admission?: YesPlan: Heart rate now stable. Continue Coreg, Cardizem CD 180 mg daily. Patient was previously not anticoagulated secondary to retroperitoneal bleed. (9) Diabetes mellitus type 2 in obese Is this a current diagnosis for this admission?: YesPlan: Continue metformin. Sliding scale insulin. (10) HTN (hypertension) Qualifiers: Hypertension type: essential hypertension Qualified Code(s): I10 - Essential (primary) hypertension Is this a current diagnosis for this admission?: Yes (11) Ambulatory dysfunction Is this a current diagnosis for this admission?: YesPlan: Physical therapy. Plan is to discharge patient home with [facility] home health services. (12) Left bundle branch block (LBBB) Is this a current diagnosis for this admission?: Yes (13) Right-sided chest pain Is this a current diagnosis for this admission?: Yes - Time Time Spent with patient: 25-34 minutes Anticipated discharge: Home with Homehealth Within: within 24 hours
[2016-09-19] MEDS ORDERED: ERGOCALCIFEROL (VITAMIN D2) 50000 UNIT (1.25 MG) CAPSULE PO SCH ×2 (10:00)
[2016-09-19] MEDS: DILTIAZEM HCL 240 MG CAPSULE.CR PO SCH (11:42)
[2016-09-19] MEDS: METFORMIN HCL 500 MG TABLET PO SCH (11:43)
[2016-09-19] MEDS: LISINOPRIL 10 MG TABLET PO SCH (11:43)
[2016-09-19] MEDS: CARVEDILOL 6.25 MG TABLET PO SCH ×2 (11:43→22:08)
[2016-09-19] MEDS: DOCUSATE SODIUM 100 MG CAPSULE PO SCH ×2 (11:43→17:19)
[2016-09-19] MEDS: TIMOLOL MALEATE 0.5% OPH SOLN 5 ML OS SCH ×2 (11:43→22:17)
[2016-09-19] MEDS: BRIMONIDINE TARTRATE 0.2% OPH SOLN 5 ML OS SCH ×2 (11:44→22:17)
[2016-09-19] MEDS: ACETAMINOPHEN 325 MG TABLET PO PRN (12:04)
[2016-09-19] MEDS: OXYCODONE HCL IR 5 MG TABLET PO PRN ×2 (14:53→20:40)
[2016-09-19] MEDS: LEVOFLOXACIN 750 MG TABLET PO SCH (17:18)
[2016-09-19] MEDS: ESCITALOPRAM OXALATE 10 MG TABLET PO SCH (22:16)
[2016-09-19] MEDS: ATORVASTATIN CALCIUM 40 MG TABLET PO SCH (22:16)
[2016-09-20] MEDS: ACETAMINOPHEN 325 MG TABLET PO PRN (00:32)
[2016-09-20] MEDS: HEPARIN SOD (PORCINE) 5,000 UNIT/ML 1 ML SYRINGE SUBCUT SCH ×2 (06:10→13:37)
[2016-09-20] MEDS: LISINOPRIL 10 MG TABLET PO SCH (09:19)
[2016-09-20] MEDS: DILTIAZEM HCL 240 MG CAPSULE.CR PO SCH (09:20)
[2016-09-20] MEDS: TIMOLOL MALEATE 0.5% OPH SOLN 5 ML OS SCH (09:20)
[2016-09-20] MEDS: METFORMIN HCL 500 MG TABLET PO SCH (09:20)
[2016-09-20] MEDS: BRIMONIDINE TARTRATE 0.2% OPH SOLN 5 ML OS SCH (09:20)
[2016-09-20] MEDS: CARVEDILOL 6.25 MG TABLET PO SCH (09:20)
[2016-09-20] MEDS: DOCUSATE SODIUM 100 MG CAPSULE PO SCH (09:21)
--- NOTE | 2016-09-20 10:49 | PDOC DISCHARGE SUMMARY ---
General - Admit/Disc Date/PCP Admission Date/Primary Care Provider: 09/15/16 17:41 Discharge Date: 09/20/16 - Discharge Diagnosis (1) Acute on chronic respiratory failure with hypoxemia Is this a current diagnosis for this admission?: Yes (2) SIRS (systemic inflammatory response syndrome) Is this a current diagnosis for this admission?: Yes (3) Pneumonia Is this a current diagnosis for this admission?: Yes (4) COPD (chronic obstructive pulmonary disease) Is this a current diagnosis for this admission?: Yes (5) Fracture of left wrist Is this a current diagnosis for this admission?: Yes (6) Chronic combined systolic and diastolic congestive heart failure Is this a current diagnosis for this admission?: Yes (7) Decubitus ulcer of sacral region, stage 1 Is this a current diagnosis for this admission?: Yes (8) Atrial fibrillation Is this a current diagnosis for this admission?: Yes (9) Diabetes mellitus type 2 in obese Is this a current diagnosis for this admission?: Yes (10) HTN (hypertension) Is this a current diagnosis for this admission?: Yes (11) Ambulatory dysfunction Is this a current diagnosis for this admission?: Yes (12) Left bundle branch block (LBBB) Is this a current diagnosis for this admission?: Yes (13) Right-sided chest pain Is this a current diagnosis for this admission?: Yes - Additional Information Resuscitation Status: Full Code Discharge Diet: Cardiac, Diabetic Discharge Activity: Activity As Tolerated Home Medications: Atorvastatin Calcium [Lipitor 40 mg Tablet] 40 mg PO QHS #30 tablet 09/20/16 Brimonidine Tartrate/Timolol [Combigan 0.2%-0.5% Eye Drops] 1 drop OS Q12 #1 bottle 09/20/16 Carvedilol [Coreg 6.25 mg Tablet] 6.25 mg PO Q12 #60 tablet 09/20/16 Cyclobenzaprine HCl [Flexeril 5 mg Tablet] 5 mg PO TIDP PRN #10 tablet 09/20/16 Diltiazem HCl [Cardizem Cd 240 mg Capsule.cr] 240 mg PO DAILY #30 capsule.cr Docusate Sodium [Colace 100 mg Capsule] 100 mg PO BID #60 capsule 09/20/16 Ergocalciferol (Vitamin D2) [Drisdol 50,000 unit (1.25MG) Capsule] 50,000 unit PO SAINI@1000 #4 capsule 09/20/16 Escitalopram Oxalate [Lexapro 10 mg Tablet] 10 mg PO QHS #30 tablet 09/20/16 Ipratropium/Albuterol Sulfate [Duoneb 3 ml Ampul] 1 vial NEB Q6HP PRN #30 vial.neb 09/20/16 Levofloxacin [Levaquin 750 mg Tablet] 750 mg PO QPM #5 tablet 09/20/16 Lisinopril [Prinivil 10 mg Tablet] 10 mg PO DAILY #30 tablet 09/20/16 Metformin HCl 500 mg PO DAILY #30 tablet 09/20/16 Mirtazapine 7.5 mg PO HSP PRN #30 tablet 09/20/16 Oxycodone HCl [Oxy-Ir 5 mg Tablet] 5 mg PO Q8HP PRN #20 tablet 09/20/16 Timolol Maleate [Timoptic 0.5% Oph Soln 5 ml] 1 drop OS Q12 #1 bottle 09/20/16 History of Present Illness Patient complains of: Low oxygen History of Present Illness: DENNIS CASTELAN is a 71 year old female with past medical history of atrial fibrillation, COPD, CHF secondary to systolic and diastolic dysfunction, hypertension that was sent to the emergency department by her primary care provider today after she was found to be hypoxic in his office. Patient has been feeling poorly over the past couple days. She was just discharged from [facility] nursing facility on 09/06/2016 and is currently residing at home with her grandson and home health services provided by [facility]. She has not required home oxygen prior to now. In review of her records she has had recurrent urinary tract infections most recently with Staph aureus and Enterococcus species. Hospital Course Hospital Course: Patient was admitted for hypoxemic respiratory failure secondary to COPD and underlying pneumonia. She initially was treated with IV antibiotics and then subsequently was transitioned to oral Levaquin. She has been stable on Levaquin and will be discharged on outpatient course of oral Levaquin. Her oxygen level remained low and her room air oxygen saturation was 84%. Home oxygen will be arranged upon discharge. Patient is significantly debilitated and as a result has amatory dysfunction. She was recently discharged from senior care facility to home health services. She will need to return to home health services upon discharge. Patient has chronic CHF secondary to systolic and diastolic dysfunction. Echocardiogram in 2016 showed ejection fraction 40-45%, grade 2/4 diastolic dysfunction. Clinically compensated at time of discharge. Continue Coreg 6.25 mg twice daily and lisinopril 10 mg daily. Patient had a left wrist fracture on admission that was in a splint. She needs to follow-up with Dr. Griggs of orthopedics after discharge. Patient has chronic CHF. She was tachycardic during admission initially and was given a one-time dose of IV Lopressor. Routine heart medicines were restarted consult Cardizem and Coreg. Heart rate now stable. Continue Coreg, Cardizem CD 180 mg daily. Patient was previously not anticoagulated secondary to retroperitoneal bleed. Physical Exam Vital Signs: Temp Pulse Resp BP Pulse Ox 97.6 F 86 24 H 126/57 H 98 09/20/16 07:33 09/20/16 07:33 09/20/16 07:33 09/20/16 07:33 09/20/16 07:33 Intake & Output 09/19/16 09/20/16 09/21/16 06:59 06:59 06:59 Intake Total 962 750 Balance 962 750 Weight 71.441 kg 71.8 kg GENERAL: Appears well, no acute distress HEENT: Normocephalic, no scleral icterus, conjunctiva clear, EOEM intact, PERRLA , moist mucous membranes NECK: trachea midline, no thyromegally RESPIRATORY: Clear to auscultation, no wheezes/rhonchi CARDIAC: Irregular, no murmur/gui/rub ABDOMEN: Soft, no distension, no tenderness, no guarding, normal bowel sounds, negative Knox sign EXTREMITIES: No edema, cyanosis, clubbing MUSCULOSKELETAL: Thumb spica wrist splint on left forearm. VASCULAR: normal peripheral pulses NEUROLOGIC: Alert, oriented to person/place/time, normal speech, cranial nerves grossly intact, 5/5 strength in all extremities, tactile sensation intact in all extremities SKIN: Stage I pressure sore on right buttocks. No rash noted over right chest wall. PSYCHIATRIC: Normal mood, normal affect Results Laboratory Results: 09/18/16 04:07 09/18/16 06:16 Impressions: Chest X-Ray 09/15/16 15:09 IMPRESSION: A left lower lobe or lingular pneumonia cannot be excluded. Qualifiers PATEINT BEING DISCHARGED WITH ANY OF THE FOLLOWING DIAGNOSIS?: No Plan Time Spent: Less than 30 Minutes
[2016-09-20] MEDS: OXYCODONE HCL IR 5 MG TABLET PO PRN (12:21)
[2016-09-20 14:09] VITALS: BP 143/70
== END 2016-09-20 15:56 | disposition home health service (06) | DRG 189 ==
LOC: ER 14:45 → EH 17:41 → UNDOADMIN 18:06 → 3N 20:35
PROVIDERS: ADMIT Family Medicine; ATTEND Family Medicine
DX: J96.21 Acute and chronic respiratory failure with hypoxia (principal); J18.1 Lobar pneumonia, unspecified organism; J44.0 Chronic obstructive pulmonary disease with (acute) lower respiratory infection; I50.42 Chronic combined systolic (congestive) and diastolic (congestive) heart failure; I11.0 Hypertensive heart disease with heart failure; S62.102D Fracture of unspecified carpal bone, left wrist, subsequent encounter for fracture with routine healing; L89.151 Pressure ulcer of sacral region, stage 1; I48.2 Chronic atrial fibrillation; E11.9 Type 2 diabetes mellitus without complications; E78.5 Hyperlipidemia, unspecified; I44.7 Left bundle-branch block, unspecified; Z79.4 Long term (current) use of insulin; Z79.899 Other long term (current) drug therapy; Z87.19 Personal history of other diseases of the digestive system; Z86.14 Personal history of Methicillin resistant Staphylococcus aureus infection; Z90.710 Acquired absence of both cervix and uterus; Z96.642 Presence of left artificial hip joint; Z96.651 Presence of right artificial knee joint; Z88.8 Allergy status to other drugs, medicaments and biological substances
CPT/HCPCS: 36415; 71010; 80048; 80053; 81001; 82803; 82962; 83605; 85025; 85610; 87040; 87086; 93005; 93010; 96360; 99285; G8978-GP; G8979-GP; J0692; J1644; J1956; J3370; J3480; J3490; J7040; J7060

== ENCOUNTER 2016-09-26 21:29 | Inpatient (IN) | payer MEDICARE, BC, OTHER ==
--- NOTE | 2016-09-26 21:59 | RADIOLOGY REPORT (SQ) ---
EXAM DESCRIPTION: CHEST SINGLE VIEW COMPLETED DATE/TIME: 09/26/2016 9:41 pm REASON FOR STUDY: fever COMPARISON: 09/15/2016 EXAM PARAMETERS: NUMBER OF VIEWS: One view. TECHNIQUE: Single frontal radiographic view of the chest acquired. RADIATION DOSE: NA LIMITATIONS: None. FINDINGS: LUNGS AND PLEURA: The previously described left basilar densities appear improved. Remain ing lung byrd are clear. MEDIASTINUM AND HILAR STRUCTURES: No masses. Contour normal. HEART AND VASCULAR STRUCTURES: The configuration of the heart and mediastinal structures is unchanged . BONES: No acute findings. HARDWARE: None in the chest. OTHER: No other significant finding. IMPRESSION: Interval improvement in the left basilar densities. Other findings as noted above TECHNICAL DOCUMENTATION: JOB ID: [id number]
[2016-09-26] MEDS ORDERED: PIPERACILLIN/TAZOBACTAM 3.375 GM VIAL IV ONE (22:02)
[2016-09-26] MEDS ORDERED: NORMAL SALINE 1000 ML 1,000 ML IV ONE (22:03)
--- NOTE | 2016-09-26 22:05 | ER Document Report ---
ED General - General Stated Complaint: ALTERED MENTAL STATUS Time Seen by Provider: 09/26/16 21:51 Cannot obtain history due to: Unstable vital signs, Altered mental status Notes: Patient is a 71-year-old female discharged from this facility 5 days ago for multifocal sepsis who presents today with altered mental status, fever, and cough. History is extremely limited secondary to patient's altered mental status at time of arrival. EMS reports that they found patient sitting in a chair, diaphoretic, ill in appearance, hypoxic. Patient has required oxygen at baseline for the past 1 week and is unclear whether or not she was wearing this at home. History is otherwise limited secondary to patient's altered status TRAVEL OUTSIDE OF THE [place] IN LAST 30 DAYS: No - Related Data Allergies/Adverse Reactions: morphine [Morphine] Allergy (Mild, Verified 09/26/16 22:42) "oversedated" Past Medical History - General Information source: Patient, Emergency Med Personnel Cannot obtain history due to: Unstable vital signs, Altered mental status - Social History Smoking Status: Unknown if Ever Smoked Frequency of alcohol use: None Drug Abuse: None Lives with: Family Family History: Reviewed & Not Pertinent - Past Medical History Cardiac Medical History: Reports: Hx Atrial Fibrillation, Hx Congestive Heart Failure, Hx Hypercholesterolemia, Hx Hypertension Denies: Hx Heart Attack, Hx Pulmonary Embolism Pulmonary Medical History: Reports: Hx Bronchitis, Hx COPD, Hx Pneumonia - Pediatric Denies: Hx Sleep Apnea Neurological Medical History: Reports: Hx Cerebrovascular Accident. Denies: Hx Seizures Endocrine Medical History: Reports: Hx Diabetes Mellitus Type 2. Denies: Hx Diabetes Mellitus Type 1, Hx Hyperthyroidism, Hx Hypothyroidism Renal/ Medical History: Denies: Hx Peritoneal Dialysis GI Medical History: Reports: Hx Diverticulitis. Denies: Hx Cirrhosis, Hx Gastroesophageal Reflux Disease, Hx Hepatitis Musculoskeltal Medical History: Denies Hx Arthritis, Reports Hx Musculoskeletal Deformity, Reports Hx Musculoskeletal Trauma Skin Medical History: Reports Hx MRSA - abdominal wall, resolved. Psychiatric Medical History: Denies: Hx Depression Traumatic Medical History: Reports: Hx Fractures - "LT arm", no surgery Infectious Medical History: Reports: Hx MRSA. Denies: Hx C-Diff, Hx Hepatitis Past Surgical History: Reports: Hx Abdominal Surgery - abdominal abscess, Hx Herniorrhaphy - incisional, Hx Hysterectomy - CHIP, Hx Orthopedic Surgery - left hip replacement, right knee replacement. - Immunizations Hx Diphtheria, Pertussis, Tetanus Vaccination: No Hx Pneumococcal Vaccination: 06/05/13 Review of Systems - Review of Systems -: Yes ROS unobtainable due to patient's medical condition Physical Exam - Vital signs Vitals: Temp 102.6 F H 09/26/16 21:29 Interpretation: Tachycardic, Hypoxic, Tachypneic, Febrile Notes: PHYSICAL EXAMINATION: GENERAL: Ill in appearance, diaphoretic, confused although with a GCS of 14 HEAD: Atraumatic, normocephalic. EYES: Pupils equal round and reactive to light, extraocular movements intact, sclera anicteric, conjunctiva are normal. ENT: nares patent, oropharynx clear without exudates. Dry mucous membranes. NECK: Normal range of motion, supple without lymphadenopathy LUNGS: Breath sounds diminished at the left base. HEART: Irregularly irregular tachycardia without murmurs ABDOMEN: Soft, nontender, normoactive bowel sounds. No guarding, no rebound. No masses appreciated. EXTREMITIES: Normal range of motion, trace edema in the bilateral lower extremities. No cyanosis. NEUROLOGICAL: No focal neurological deficits. Moves all extremities spontaneously and on command. PSYCH: Mildly somnolent, oriented only to year SKIN: Warm, Dry, normal turgor, no rashes or lesions noted. Course - Re-evaluation Re-evalutation: 09/26/16 22:04 Patient arrives ill in appearance, diaphoretic, febrile, tachycardic, tachypneic , hypoxemic with altered mental status. Patient was just discharged 5 days ago for multifocal sepsis with a urinary and pulmonary source at that time. She was noted to be saturating the low 80s on room air here in the emergency department and does require 3 L to maintain saturations between 90-93%. Examination also reveals severely dry oral mucosa and diminished capillary refill in all extremities at 4 seconds. Initial chest x-ray shows no significant interval change from the last chest x-ray with a persistent left lower lobe infiltrate. Sepsis laboratories have been sent, 2 L IV fluids have been started. Will begin empiric IV Zosyn. Patient is critically ill and will require frequent reassessments. 09/26/16 23:31 Patient remains tachycardic, somewhat improved clinical appearance. Blood pressures remain within normal limits. She continues to have an oxygen dependence. Awaiting urinalysis results as patient has very poor urine output after Larios placement which is concerning the setting of sepsis. Will continue with IV hydration. 09/27/16 00:51 Patient overall clinically appears much improved at this time relative to her normal, much more alert and oriented now. We have replaced the Larios catheter to ensure that the placement was correct given such poor urine output. Awaiting urinalysis. 09/27/16 02:34 Urinalysis continues to show findings consistent with acute infection. Patient continues to have poor urine output now only having about 20 cc over the last hour. An additional fluid bolus will be administered at this time. I discussed this case with Dr. Khan who will admit. - Vital Signs Vital signs: Temp Pulse Resp BP Pulse Ox 101.7 F H 95 20 112/73 94 09/26/16 23:00 09/27/16 00:00 09/27/16 00:00 09/27/16 00:00 09/27/16 00:00 - Laboratory Result Diagrams: 09/26/16 21:45 09/26/16 21:45 Laboratory results interpreted by me: 09/26/16 09/26/16 09/26/16 21:45 21:45 21:53 WBC 15.3 H RDW 15.6 H Absolute Neutrophils 11.7 H Carbonic Acid 1.02 L ABG pH 7.51 H ABG pCO2 33.8 L ABG pO2 64.6 L ABG HCO3 26.2 H ABG Total CO2 27.2 H Sodium 136.3 L Potassium 3.5 L Creatinine 0.48 L Glucose 169 H Total Bilirubin 1.6 H Direct Bilirubin 0.5 H Urine Protein Urine Blood Ur Leukocyte Esterase Urine Ascorbic Acid 09/27/16 01:40 WBC RDW Absolute Neutrophils Carbonic Acid ABG pH ABG pCO2 ABG pO2 ABG HCO3 ABG Total CO2 Sodium Potassium Creatinine Glucose Total Bilirubin Direct Bilirubin Urine Protein 100 H Urine Blood MODERATE H Ur Leukocyte Esterase MODERATE H Urine Ascorbic Acid 40 H - Diagnostic Test Radiology reviewed: Image reviewed, Reports reviewed Radiology results interpreted by me: 09/26/16 23:32 Chest x-ray: Left lower lobe - EKG Interpretation by Me Additional EKG results interpreted by me: 09/27/16 03:05 A. fib with rapid ventricular response. Rate 138. Left bundle branch block. QTC is 509. Critical Care Note - Critical Care Note Total time excluding time spent on procedures (mins): 40 Comments: Critical care time spent obtaining history from patient or surrogate, discussions with consultants, development of treatment plan with patient or surrogate, evaluation of patient's response to treatment, examination of patient , ordering and performing treatments and interventions, ordering and review of laboratory studies, re-evaluation of patient's condition, ordering and review of radiographic studies and review of old charts Discharge - Discharge Clinical Impression: Atrial fibrillation with rapid ventricular response Pneumonia Qualifiers: Pneumonia type: due to unspecified organism Laterality: left Lung location: lower lobe of lung Qualified Code(s): J18.1 - Lobar pneumonia, unspecified organism Atrial fibrillation Qualifiers: Atrial fibrillation type: chronic Qualified Code(s): I48.2 - Chronic atrial fibrillation Sepsis Qualifiers: Sepsis type: sepsis due to unspecified organism Qualified Code(s): A41.9 - Sepsis, unspecified organism Condition: Fair Disposition: ADMITTED INPATIENT Admitting Provider: Hospitalist - Bill Unit Admitted: IMCU Referrals: NHAN MCGOWAN MD [Primary Care Provider] - Follow up as needed
[2016-09-26 22:06] LABS: ABSOLUTE BASOPHILS # (AUTO) 0.1 10^3/uL (0.0-0.2); ABSOLUTE EOSINOPHILS # (AUTO) 0.1 10^3/uL (0.0-0.6); ABSOLUTE LYMPHOCYTES (AUTO) 2.1 10^3/uL (0.5-4.7); ABSOLUTE MONOCYTES (AUTO) 1.3 10^3/uL (0.1-1.4); ABSOLUTE NEUT (AUTO) 11.7 10^3/uL (1.7-8.2); BASOPHILS % (AUTO) 0.6 % (0-2); EOSINOPHILS % (AUTO) 0.4 % (0-6); HEMATOCRIT 41.9 % (36.0-47.0); HEMOGLOBIN 13.8 g/dL (12.0-15.5); HGB HCT DIFFERENCE -0.5; LYMPHOCYTES % (AUTO) 13.9 % (13-45); MEAN CORPUSCULAR HEMOGLOBIN 30.3 pg (27.0-33.4); MEAN CORPUSCULAR HGB CONC 32.9 g/dL (32.0-36.0); MEAN CORPUSCULAR VOLUME 92 fl (80-97); MONOCYTES % (AUTO) 8.6 % (3-13); RED BLOOD COUNT 4.54 10^6/uL (3.72-5.28); RED CELL DISTRIBUTION WIDTH 15.6 % (11.5-14.0); SEGMENTED NEUTROPHILS % (AUTO) 76.5 % (42-78); WHITE BLOOD COUNT 15.3 10^3/uL (4.0-10.5)
[2016-09-26 22:17] LABS: ALANINE AMINOTRANSFERASE 22 U/L (9-52); ALBUMIN 3.6 g/dL (3.5-5.0); ALKALINE PHOSPHATASE 87 U/L (38-126); ANION GAP 10 (5-19); ASPARTATE AMINO TRANSFERASE 32 U/L (14-36); BILIRUBIN,DIRECT 0.5 mg/dL (0.0-0.4); BILIRUBIN,TOTAL 1.6 mg/dL (0.2-1.3); BLOOD UREA NITROGEN 12 mg/dL (7-20); CALCIUM 8.6 mg/dL (8.4-10.2); CARBON DIOXIDE 27 mmol/L (22-30); CHLORIDE 99 mmol/L (98-107); CREATININE RESULT 0.48 mg/dL (0.52-1.25); GLUCOSE 169 mg/dL (75-110); POTASSIUM 3.5 mmol/L (3.6-5.0); SODIUM 136.3 mmol/L (137-145); TOTAL PROTEIN 7.3 g/dL (6.3-8.2)
[2016-09-26 22:27] LABS: ARTERIAL BLOOD BASE EXCESS 3.5 mmol/L; ARTERIAL BLOOD O2 SATURATION 94.5 % (94-98)
[2016-09-27] MEDS ORDERED: VANCOMYCIN HCL INJ 1000 MG VIAL IV ONE (00:51)
[2016-09-27 02:24] LABS: APPEARANCE,URINE TURBID; BILIRUBIN,URINE NEGATIVE (NEGATIVE); GLUCOSE, URINE NEGATIVE (NEGATIVE); KETONES,URINE NEGATIVE (NEGATIVE); LEUKOCYTE ESTERASE,URINE MODERATE (NEGATIVE); NITRITE,URINE NEGATIVE (NEGATIVE); PROTEIN,URINE 100 mg/dL (NEGATIVE); URINE SPECIFIC GRAVITY 1.042; UROBILINOGEN,URINE NEGATIVE mg/dL (<2.0)
[2016-09-27] MEDS ORDERED: OXYCODONE HCL IR 5 MG TABLET PO PRN (02:30)
[2016-09-27] MEDS ORDERED: IPRATROPIUM/ALBUTEROL 0.5-2.5 MG/3 ML AMPUL NEB PRN (02:30)
[2016-09-27] MEDS ORDERED: GUAIFENESIN SYRP 200 MG/10 ML UDC PO PRN (02:31)
[2016-09-27] MEDS ORDERED: NORMAL SALINE 1000 ML 1,000 ML IV ONE (02:33)
[2016-09-27] MEDS ORDERED: VANCOMYCIN HCL 0 MG in DEXTROSE 5%-WATER 250 ML IV NR (02:45)
[2016-09-27] MEDS ORDERED: NORMAL SALINE 1000 ML 1,000 ML IV SCH (03:00)
[2016-09-27] MEDS ORDERED: PIPERACILLIN/TAZOBACTAM 4.5 GM VIAL IV PRN (06:00)
[2016-09-27] MEDS ORDERED: PIPERACILLIN SODIUM/TAZOBACTAM 4.5 GM in NORMAL SALINE 100 ML IV SCH (06:00)
--- NOTE | 2016-09-27 06:52 | PDOC H&P ---
History of Present Illness Admission Date/PCP: 09/27/16 02:31 NHAN MCGOWAN MD Patient complains of: Fever, shortness of breath and cough History of Present Illness: DENNIS CASTELAN is a 71 year old female with a past medical history of congestive heart failure, atrial fibrillation, diabetes, COPD and recent pneumonia requiring hospitalization was just [facility] to [facility] living who over the last 24 hours has had exceptional shortness of breath nonproductive cough and a temperature of 102.6 prompting her to seek evaluation emergency room where she is found to have tachycardia, hypotension, hypoxia and a chest x-ray with residual infiltrate in addition to a urinalysis suggestive of urinary tract infection she started on empiric antibiotics for hospital- acquired pneumonia and referred to the hospitalist for admission. Patient denies palpitations chest pain or nausea vomiting or diarrhea. Past Medical History Cardiac Medical History: Reports: Atrial Fibrillation, Congestive Heart Failure , Hyperlipidema, Hypertension Denies: Myocardial Infarction, Pulmonary Embolism Pulmonary Medical History: Reports: Bronchitis, Chronic Obstructive Pulmonary Disease (COPD), Pneumonia - Pediatric Denies: Sleep Apnea Neurological Medical History: Denies: Seizures Endocrine Medical History: Reports: Diabetes Mellitus Type 2 Denies: Diabetes Mellitus Type 1, Hyperthyroidism, Hypothyroidism GI Medical History: Reports: Diverticulitis Denies: Cirrhosis, Gastroesophageal Reflux Disease, Hepatitis Musculoskeltal Medical History: Denies: Arthritis Psychiatric Medical History: Denies: Depression Infectious Medical History: Reports: Methicillin-Resistant Staph Aureus Denies: Clostridium Difficile Past Surgical History Past Surgical History: Reports: Herniorrhaphy - incisional, Hysterectomy - CHIP, Orthopedic Surgery - left hip replacement, right knee replacement. Denies: Amputation Social History Information Source: Patient, [facility] Records Lives with: Alf Smoking Status: Unknown if Ever Smoked Frequency of Alcohol Use: None Hx Recreational Drug Use: No Drugs: None Hx Prescription Drug Abuse: No - Advance Directive Resuscitation Status: Full Code Family History Family History: Hypertension Parental Family History Reviewed: Yes Children Family History Reviewed: Yes Sibling(s) Family History Reviewed.: Yes Medication/Allergy Home Medications: Atorvastatin Calcium [Lipitor 40 mg Tablet] 40 mg PO QHS #30 tablet 09/20/16 Brimonidine Tartrate/Timolol [Combigan 0.2%-0.5% Eye Drops] 1 drop OS Q12 #1 bottle 09/20/16 Carvedilol [Coreg 6.25 mg Tablet] 6.25 mg PO Q12 #60 tablet 09/20/16 Cyclobenzaprine HCl [Flexeril 5 mg Tablet] 5 mg PO TIDP PRN #10 tablet 09/20/16 Diltiazem HCl [Cardizem Cd 240 mg Capsule.cr] 240 mg PO DAILY #30 capsule.cr Docusate Sodium [Colace 100 mg Capsule] 100 mg PO BID #60 capsule 09/20/16 Ergocalciferol (Vitamin D2) [Drisdol 50,000 unit (1.25MG) Capsule] 50,000 unit PO SAINI@1000 #4 capsule 09/20/16 Escitalopram Oxalate [Lexapro 10 mg Tablet] 10 mg PO QHS #30 tablet 09/20/16 Ipratropium/Albuterol Sulfate [Duoneb 3 ml Ampul] 1 vial NEB Q6HP PRN #30 vial.neb 09/20/16 Levofloxacin [Levaquin 750 mg Tablet] 750 mg PO QPM #5 tablet 09/20/16 Lisinopril [Prinivil 10 mg Tablet] 10 mg PO DAILY #30 tablet 09/20/16 Metformin HCl 500 mg PO DAILY #30 tablet 09/20/16 Mirtazapine 7.5 mg PO HSP PRN #30 tablet 09/20/16 Oxycodone HCl [Oxy-Ir 5 mg Tablet] 5 mg PO Q8HP PRN #20 tablet 09/20/16 Timolol Maleate [Timoptic 0.5% Oph Soln 5 ml] 1 drop OS Q12 #1 bottle 09/20/16 Allergies/Adverse Reactions: morphine [Morphine] Allergy (Mild, Verified 09/26/16 22:42) "oversedated" Review of Systems Constitutional: ABSENT: chills, fever(s), headache(s), weight gain, weight loss Eyes: ABSENT: visual disturbances Ears: ABSENT: hearing changes Cardiovascular: ABSENT: chest pain, dyspnea on exertion, edema, orthropnea, palpitations Respiratory: ABSENT: cough, hemoptysis Gastrointestinal: ABSENT: abdominal pain, constipation, diarrhea, hematemesis, hematochezia, nausea, vomiting Genitourinary: ABSENT: dysuria, hematuria Musculoskeletal: ABSENT: joint swelling Integumentary: ABSENT: rash, wounds Neurological: ABSENT: abnormal gait, abnormal speech, confusion, dizziness, focal weakness, syncope Psychiatric: ABSENT: anxiety, depression, homidical ideation, suicidal ideation Endocrine: ABSENT: cold intolerance, heat intolerance, polydipsia, polyuria Hematologic/Lymphatic: ABSENT: easy bleeding, easy bruising Physical Exam Vital Signs: Temp Pulse Resp BP Pulse Ox 97.6 F 83 22 H 105/64 94 09/27/16 05:26 09/27/16 05:26 09/27/16 05:26 09/27/16 05:26 09/27/16 05:26 General appearance: PRESENT: cooperative, mild distress, other - Chronically ill , pale and toxic appearing Head exam: PRESENT: atraumatic, normocephalic Eye exam: PRESENT: conjunctiva pink, EOMI, PERRLA. ABSENT: scleral icterus Ear exam: PRESENT: normal external ear exam Mouth exam: PRESENT: moist, tongue midline Neck exam: ABSENT: carotid bruit, JVD, lymphadenopathy, thyromegaly Respiratory exam: PRESENT: accessory muscle use, crackles, decreased breath sounds, prolonged expiratory phas, rhonchi, symmetrical, tachypnea Cardiovascular exam: PRESENT: irregular rhythm, +S1, +S2, tachycardia Pulses: PRESENT: normal dorsalis pedis pul Vascular exam: PRESENT: normal capillary refill GI/Abdominal exam: PRESENT: normal bowel sounds, soft. ABSENT: distended, guarding, mass, organolmegaly, rebound, tenderness Rectal exam: PRESENT: deferred Extremities exam: PRESENT: full ROM. ABSENT: calf tenderness, clubbing, pedal edema Neurological exam: PRESENT: alert, awake, oriented to person, oriented to place , oriented to time, oriented to situation, CN II-XII grossly intact. ABSENT: motor sensory deficit Psychiatric exam: PRESENT: agitated Skin exam: PRESENT: dry, intact, warm. ABSENT: cyanosis, rash Results Impressions: Chest X-Ray 09/26/16 21:31 IMPRESSION: Interval improvement in the left basilar densities. Other findings as noted above Assessment & Plan - Diagnosis (1) Pneumonia Qualifiers: Pneumonia type: due to unspecified organism Laterality: left Lung location: lower lobe of lung Qualified Code(s): J18.1 - Lobar pneumonia, unspecified organism Is this a current diagnosis for this admission?: YesPlan: Admission to a monitored bed with pneumonia care set antibiotics for coverage of nosocomial pneumonia vancomycin and Zosyn initiated, incentive spirometry, albuterol and Atrovent follow-up CBC blood and sputum culture (2) Atrial fibrillation with rapid ventricular response Is this a current diagnosis for this admission?: YesPlan: Secondary to #1 optimize calcium channel charmaine and IV fluid challenge. (3) COPD (chronic obstructive pulmonary disease) Is this a current diagnosis for this admission?: YesPlan: Albuterol Atrovent, flutter valve consider steroids (4) Sepsis Qualifiers: Sepsis type: sepsis due to unspecified organism Qualified Code(s): A41.9 - Sepsis, unspecified organism Is this a current diagnosis for this admission?: YesPlan: Secondary to #1 possible additional urinary tract infection follow-up urine culture (5) Atrial fibrillation Qualifiers: Atrial fibrillation type: chronic Qualified Code(s): I48.2 - Chronic atrial fibrillation Is this a current diagnosis for this admission?: YesPlan: Optimize Cardizem and fluid status resuscitation. - Time Time Spent: 50 to 70 Minutes - Inpatient Certification Medical Necessity: Need Close Monitoring Due to Risk of Patient Decompensation
[2016-09-27] MEDS ORDERED: DILTIAZEM HCL 60 MG TABLET PO ONE (07:30)
[2016-09-27] MEDS ORDERED: MIRTAZAPINE 15 MG TABLET PO PRN (08:31)
[2016-09-27] MEDS: IPRATROPIUM/ALBUTEROL 0.5-2.5 MG/3 ML AMPUL NEB SCH ×3 (08:33→21:20)
[2016-09-27] MEDS: METFORMIN HCL 500 MG TABLET PO SCH (08:52)
[2016-09-27] MEDS: MAGNESIUM SULFATE/D5W 1 GM/100 ML RTUPB IV SCH ×2 (08:53→13:22)
[2016-09-27] MEDS: HEPARIN SOD (PORCINE) 5,000 UNIT/ML 1 ML SYRINGE SUBCUT SCH ×3 (08:53→23:37)
[2016-09-27] MEDS ORDERED: POTASSI CL 20 MEQ/50 ML RIDER 20 MEQ/50 ML RTUPB IV ONE (09:30)
[2016-09-27] MEDS ORDERED: TIMOLOL MALEATE 0.5% OPH SOLN 5 ML OS SCH (10:00)
[2016-09-27] MEDS ORDERED: VANCOMYCIN HCL 1,250 MG in DEXTROSE 5%-WATER 250 ML IV SCH (10:00)
[2016-09-27] MEDS: DILTIAZEM HCL 240 MG CAPSULE.CR PO SCH (12:52)
[2016-09-27] MEDS: BRIMONIDINE TARTRATE 0.2% OPH SOLN 5 ML OS SCH ×2 (13:33→23:34)
[2016-09-27] MEDS: TIMOLOL MALEATE 0.5% OPH SOLN 5 ML OS SCH ×2 (13:33→23:34)
[2016-09-27] MEDS: DOCUSATE SODIUM 100 MG CAPSULE PO SCH ×2 (13:35→17:32)
[2016-09-27] MEDS: CARVEDILOL 6.25 MG TABLET PO SCH ×2 (13:35→23:25)
[2016-09-27] MEDS: GUAIFENESIN 600 MG TABLET.SA PO SCH ×2 (13:35→23:24)
--- NOTE | 2016-09-27 13:47 | RADIOLOGY REPORT (SQ) ---
EXAM DESCRIPTION: PICC INSERTION; U/S GUIDE FOR VASCULAR ACCESS; FLUORO/CV PLACEMENT COMPLETED DATE/TIME: 09/27/2016 1:06 pm REASON FOR STUDY: Need IV access for antibiotics,; IV ACCESS COMPARISON: None. FLUOROSCOPY TIME: 23 seconds. 1 images saved to PACS. TECHNIQUE: Fluoroscopic and ultrasound guided PICC placement. LIMITATIONS: None. PROCEDURE: After written consent and assessment were obtained, the patient was brought into the fluo roscopy room and place supine on the table. Ultrasound was used on the patient's right arm for PICC access. The right arm was prepped and draped in a sterile fashion along with the ultrasound probe. Th e entry site was anesthetized with 1% lidocaine. A 21 gauge 7 cm needle was advanced through the skin and into the basilic vein under live ultrasound guidance. An ultrasound image was saved to PACS con firming access site. A .018 guide wire was then inserted through the needle and into the venous syst em. The needle was the removed and an 11 blade scalpel was used to make a 1cm skin incision. A 5 fr peel-away sheath was advanced over the wire and into the venous system. A measurement was then made u sing the existing wire and live fluoroscopic guidance. The wire was then removed and the trimmed. The PICC was advanced through the peel-away sheath and into the venous system. The peel-away sheath was removed and the catheter was adhered to the patients arm with a stat lock. The catheter was then aspi rated and flushed and a sterile bandage was placed over the access site. A fluoroscopic spot image w as saved to PACS confirming the catheter tip within the superior vena cava. IMPRESSION: SUCCESSFUL PLACEMENT OF A 5 FR DUAL LUMEN 38 CM PICC IN THE RIGHT BASILIC VEIN. COMMENT: Patient medication list reviewed: Yes- Quality ID# [id number]:Eligible professional attests to doc umenting in the medical record they obtained, updated, or reviewed the patient's current medications. . Quality ID 145: Final reports for procedures using fluoroscopy that document radiation exposure dandre riky, or exposure time and number of fluorographic images (if radiation exposure indices are not avail able) Quality ID #76: The patient was prepped and draped using maximum sterile barrier technique including cap, mask, sterile gown, sterile gloves, a large sterile sheet, hand hygiene, and 2% Chlorhexidine fo r cutaneous antisepsis. When ultrasound is used, sterile ultrasound techniques are followed requiring sterile gel and sterile probes. TECHNICAL DOCUMENTATION: JOB ID: [id number] [employer]- All Rights Reserved
--- NOTE | 2016-09-27 13:56 | EKG REPORT ---
SEVERITY:- ABNORMAL ECG - ATRIAL FIBRILLATION LEFT BUNDLE BRANCH BLOCK : Confirmed by: Florecita Benavides MD 27-Sep-2016 13:56:05
[2016-09-27] MEDS ORDERED: POTASSIUM CHLORIDE 20 MEQ/50 ML RTU IV ONE (14:00)
--- NOTE | 2016-09-27 14:52 | PDOC PROGRESS REPORT ---
Subjective Progress Note for:: 09/27/16 Subjective:: This is a follow-up visit for sepsis secondary to pneumonia and urinary tract infection. Patient states that she is doing well. She feels better than what she did when she first came in. She denies any chest pain or worsening shortness of breath. Physical Exam Vital Signs: Temp Pulse Resp BP Pulse Ox 97.9 F 64 16 112/64 97 09/27/16 11:43 09/27/16 14:19 09/27/16 14:19 09/27/16 11:43 09/27/16 11:43 Intake & Output 09/26/16 09/27/16 09/28/16 06:59 06:59 06:59 Intake Total 222 Output Total 75 Balance 147 Weight 76.4 kg 76.4 kg GENERAL: This is a well-developed well-nourished appearing elderly white female resting in bed enjoying breakfast in no acute distress. HEART: Regular rate and rhythm. No murmurs, rubs or gallops. LUNGS: Bibasilar crackles auscultated on exam with equal rise and fall of the chest. ABDOMEN: Soft, nontender, nondistended with normoactive bowel sounds EXTREMETIES: No clubbing, cyanosis. left upper extremity is broken with a cast in place and appropriately dressed. Right hand has swelling. 2+ peripheral pulses bilaterally. NEURO: Awake, alert and oriented 3. Cranial nerves II through XII are grossly intact. Results Impressions: Chest X-Ray 09/26/16 21:31 IMPRESSION: Interval improvement in the left basilar densities. Other findings as noted above Guidance Fluoroscopy 09/27/16 00:00 IMPRESSION: SUCCESSFUL PLACEMENT OF A 5 FR DUAL LUMEN 38 CM PICC IN THE RIGHT BASILIC VEIN. Interventional Vascular Procedure 09/27/16 00:00 IMPRESSION: SUCCESSFUL PLACEMENT OF A 5 FR DUAL LUMEN 38 CM PICC IN THE RIGHT BASILIC VEIN. PICC Line Insertion 09/27/16 00:00 IMPRESSION: SUCCESSFUL PLACEMENT OF A 5 FR DUAL LUMEN 38 CM PICC IN THE RIGHT BASILIC VEIN. Assessment & Plan - Diagnosis (1) Acute hypoxemic respiratory failure Plan: Patient is currently on nasal cannula. She is satting well. Her respiratory failure is secondary to underlying COPD and pneumonia. Continue with various nebulizers and inhalers. Treat underlying conditions. Wean oxygen as tolerated. (2) Sepsis Qualifiers: Sepsis type: sepsis due to unspecified organism Qualified Code(s): A41.9 - Sepsis, unspecified organism Is this a current diagnosis for this admission?: YesPlan: Patient is septic secondary to underlying pneumonia and likely UTI. Continue current antibiotics. She had hypotension on admission and this is resolved with aggressive IV fluid resuscitation. Blood cultures pending. (3) Pneumonia Qualifiers: Pneumonia type: due to unspecified organism Laterality: left Lung location: lower lobe of lung Qualified Code(s): J18.1 - Lobar pneumonia, unspecified organism Is this a current diagnosis for this admission?: YesPlan: Continue antibiotics with vancomycin and Zosyn. Repeat lab work in the morning. (4) COPD (chronic obstructive pulmonary disease) Is this a current diagnosis for this admission?: YesPlan: No wheezing was heard on exam. Patient is stable from this perspective. Continue various inhalers. (5) Fracture of left wrist Qualifiers: Encounter type: initial encounter Fracture type: closed Qualified Code(s): S62.102A - Fracture of unspecified carpal bone, left wrist, initial encounter for closed fracture Plan: Patient was due to be seen by the orthopedic service today. She is not sure if she saw the service connected with this institution. We will try and look back and determine this. (6) UTI (urinary tract infection) Plan: Cultures are pending. The patient meanwhile is on Vanco and Zosyn. (7) Chronic combined systolic and diastolic congestive heart failure Plan: The patient is receiving aggressive fluid resuscitation. At this time a 1 to discontinue her boluses. Her blood pressures in the 120s at this point. She is developed crackles on the lungs. We will monitor throughout the day. If need be we will administer Lasix. (8) Atrial fibrillation Qualifiers: Atrial fibrillation type: chronic Qualified Code(s): I48.2 - Chronic atrial fibrillation Is this a current diagnosis for this admission?: YesPlan: Continue rate control. (9) Diabetes mellitus type 2 in obese Plan: Sliding scale insulin. Continue home regimen. (10) HTN (hypertension) Qualifiers: Hypertension type: essential hypertension Qualified Code(s): I10 - Essential (primary) hypertension Plan: Patient was restarted on her beta blockers on admission. She was also started on her calcium channel blockers. If her hypotension comes back these need to be held. - Time Time Spent with patient: 15-24 minutes - Inpatient Certification Medical Necessity: Need Close Monitoring Due to Risk of Patient Decompensation
[2016-09-27] MEDS: PIPERACILLIN SODIUM/TAZOBACTAM 4.5 GM in NORMAL SALINE 100 ML IV SCH ×2 (14:54→17:31)
[2016-09-27] MEDS ORDERED: MAGNESIUM SULFATE/D5W 1 GM/100 ML RTUPB IV ONE (15:00)
[2016-09-27] MEDS: ATORVASTATIN CALCIUM 40 MG TABLET PO SCH (23:31)
[2016-09-27] MEDS: ESCITALOPRAM OXALATE 10 MG TABLET PO SCH (23:32)
[2016-09-28] MEDS: PIPERACILLIN SODIUM/TAZOBACTAM 4.5 GM in NORMAL SALINE 100 ML IV SCH ×5 (00:14→23:49)
[2016-09-28] MEDS: VANCOMYCIN HCL 1,250 MG in DEXTROSE 5%-WATER 250 ML IV SCH ×2 (01:09→13:48)
[2016-09-28] MEDS: IPRATROPIUM/ALBUTEROL 0.5-2.5 MG/3 ML AMPUL NEB SCH ×3 (02:23→14:09)
[2016-09-28] MEDS: HEPARIN SOD (PORCINE) 5,000 UNIT/ML 1 ML SYRINGE SUBCUT SCH ×3 (05:59→22:58)
[2016-09-28 06:26] LABS: ANION GAP 8 (5-19); BLOOD UREA NITROGEN 7 mg/dL (7-20); CALCIUM 7.7 mg/dL (8.4-10.2); CARBON DIOXIDE 24 mmol/L (22-30); CHLORIDE 104 mmol/L (98-107); CREATININE RESULT 0.44 mg/dL (0.52-1.25); GLUCOSE 100 mg/dL (75-110); MAGNESIUM 1.9 mg/dL (1.6-2.3); POTASSIUM 3.2 mmol/L (3.6-5.0); SODIUM 135.5 mmol/L (137-145)
[2016-09-28 06:51] LABS: ABSOLUTE BASOPHILS # (AUTO) 0.1 10^3/uL (0.0-0.2); ABSOLUTE EOSINOPHILS # (AUTO) 0.3 10^3/uL (0.0-0.6); ABSOLUTE LYMPHOCYTES (AUTO) 1.6 10^3/uL (0.5-4.7); ABSOLUTE MONOCYTES (AUTO) 0.9 10^3/uL (0.1-1.4); ABSOLUTE NEUT (AUTO) 8.4 10^3/uL (1.7-8.2); BASOPHILS % (AUTO) 0.8 % (0-2); EOSINOPHILS % (AUTO) 2.4 % (0-6); HEMATOCRIT 31.7 % (36.0-47.0); HGB HCT DIFFERENCE -0.2; LYMPHOCYTES % (AUTO) 14.6 % (13-45); MEAN CORPUSCULAR HEMOGLOBIN 30.5 pg (27.0-33.4); MEAN CORPUSCULAR HGB CONC 33.2 g/dL (32.0-36.0); MEAN CORPUSCULAR VOLUME 92 fl (80-97); MONOCYTES % (AUTO) 7.7 % (3-13); RED BLOOD COUNT 3.45 10^6/uL (3.72-5.28); SEGMENTED NEUTROPHILS % (AUTO) 74.5 % (42-78); WHITE BLOOD COUNT 11.2 10^3/uL (4.0-10.5)
[2016-09-28 06:53] LABS: HEMOGLOBIN 10.5 g/dL (12.0-15.5)
[2016-09-28] MEDS: DOCUSATE SODIUM 100 MG CAPSULE PO SCH ×2 (10:44→17:59)
[2016-09-28] MEDS: CARVEDILOL 6.25 MG TABLET PO SCH ×2 (10:45→22:49)
[2016-09-28] MEDS: METFORMIN HCL 500 MG TABLET PO SCH (10:46)
[2016-09-28] MEDS: DILTIAZEM HCL 240 MG CAPSULE.CR PO SCH (10:46)
[2016-09-28] MEDS: GUAIFENESIN 600 MG TABLET.SA PO SCH ×2 (10:54→22:58)
[2016-09-28] MEDS: TIMOLOL MALEATE 0.5% OPH SOLN 5 ML OS SCH ×2 (10:54→22:58)
[2016-09-28] MEDS: BRIMONIDINE TARTRATE 0.2% OPH SOLN 5 ML OS SCH ×2 (10:54→22:58)
--- NOTE | 2016-09-28 11:00 | PDOC PROGRESS REPORT ---
Subjective Progress Note for:: 09/28/16 Subjective:: reason for visit: f/u pneumonia, sepsis, UTI hospital course: per other's notes -"DENNIS CASTELAN is a 71 year old female with a past medical history of congestive heart failure, atrial fibrillation, diabetes, COPD and recent pneumonia requiring hospitalization was just discharged 7 days ago to [facility] who over the last 24 hours has had exceptional shortness of breath nonproductive cough and a temperature of 102.6 prompting her to seek evaluation emergency room where she is found to have tachycardia, hypotension, hypoxia and a chest x-ray with residual infiltrate in addition to a urinalysis suggestive of urinary tract infection she started on empiric antibiotics for hospital-acquired pneumonia and referred to the hospitalist for admission. Patient denies palpitations chest pain or nausea vomiting or diarrhea." she is somnolent this morning, states I woke her from a sleep and wishes not to be disturbed. ROS: limited by pt's participation Physical Exam Vital Signs: Temp Pulse Resp BP Pulse Ox 98.7 F 99 20 136/71 H 97 09/28/16 07:21 09/28/16 07:21 09/28/16 07:21 09/28/16 07:21 09/28/16 07:21 Intake & Output 09/27/16 09/28/16 09/29/16 06:59 06:59 06:59 Intake Total 2839 Output Total 1025 Balance 1814 Weight 76.4 kg 79.3 kg General appearance: PRESENT: no acute distress, well-developed, well-nourished Head exam: PRESENT: atraumatic, normocephalic Mouth exam: PRESENT: moist Respiratory exam: PRESENT: crackles, unlabored. ABSENT: accessory muscle use Cardiovascular exam: PRESENT: irregular rhythm. ABSENT: tachycardia Pulses: PRESENT: normal dorsalis pedis pul GI/Abdominal exam: PRESENT: normal bowel sounds, soft Extremities exam: PRESENT: pedal edema Skin exam: PRESENT: warm Results Laboratory Results: 09/28/16 06:15 09/28/16 05:55 09/28/16 09/28/16 05:55 06:15 WBC 11.2 H RBC 3.45 L Hgb 10.5 L D Hct 31.7 L MCV 92 MCH 30.5 MCHC 33.2 RDW 15.0 H Plt Count 214 Seg Neutrophils % 74.5 Lymphocytes % 14.6 Monocytes % 7.7 Eosinophils % 2.4 Basophils % 0.8 Absolute Neutrophils 8.4 H Absolute Lymphocytes 1.6 Absolute Monocytes 0.9 Absolute Eosinophils 0.3 Absolute Basophils 0.1 Sodium 135.5 L Potassium 3.2 L Chloride 104 Carbon Dioxide 24 Anion Gap 8 BUN 7 Creatinine 0.44 L Est GFR ( Amer) > 60 Est GFR (Non-Af Amer) > 60 Glucose 100 Calcium 7.7 L Magnesium 1.9 Impressions: Chest X-Ray 09/26/16 21:31 IMPRESSION: Interval improvement in the left basilar densities. Other findings as noted above Guidance Fluoroscopy 09/27/16 00:00 IMPRESSION: SUCCESSFUL PLACEMENT OF A 5 FR DUAL LUMEN 38 CM PICC IN THE RIGHT BASILIC VEIN. Interventional Vascular Procedure 09/27/16 00:00 IMPRESSION: SUCCESSFUL PLACEMENT OF A 5 FR DUAL LUMEN 38 CM PICC IN THE RIGHT BASILIC VEIN. PICC Line Insertion 09/27/16 00:00 IMPRESSION: SUCCESSFUL PLACEMENT OF A 5 FR DUAL LUMEN 38 CM PICC IN THE RIGHT BASILIC VEIN. Status: Image reviewed by me - agree with rads Assessment & Plan - Diagnosis (1) Pneumonia Qualifiers: Pneumonia type: due to unspecified organism Laterality: left Lung location: lower lobe of lung Qualified Code(s): J18.1 - Lobar pneumonia, unspecified organism Is this a current diagnosis for this admission?: Yes (2) Acute hypoxemic respiratory failure Is this a current diagnosis for this admission?: Yes (3) Atrial fibrillation with rapid ventricular response Is this a current diagnosis for this admission?: Yes (4) COPD (chronic obstructive pulmonary disease) Is this a current diagnosis for this admission?: Yes (5) Fracture of left wrist Qualifiers: Encounter type: initial encounter Fracture type: closed Qualified Code(s): S62.102A - Fracture of unspecified carpal bone, left wrist, initial encounter for closed fracture (6) Sepsis Qualifiers: Sepsis type: sepsis due to unspecified organism Qualified Code(s): A41.9 - Sepsis, unspecified organism Is this a current diagnosis for this admission?: Yes (7) UTI (urinary tract infection) Qualifiers: Urinary tract infection type: acute cystitis Hematuria presence: without hematuria Qualified Code(s): N30.00 - Acute cystitis without hematuria Is this a current diagnosis for this admission?: Yes (8) Bacteremia Is this a current diagnosis for this admission?: YesPlan: unclear if contaminant, repeat cultures pending, she is very difficult venipuncture. - Time Time Spent with patient: 25-34 minutes - Plan Summary Plan Summary: improved overall but not back to baseline, will need at least another night in hospital for continued IV abx while we await final culture results.
[2016-09-28] MEDS: ATORVASTATIN CALCIUM 40 MG TABLET PO SCH (22:58)
[2016-09-28] MEDS: ESCITALOPRAM OXALATE 10 MG TABLET PO SCH (22:58)
[2016-09-29] MEDS: VANCOMYCIN HCL 1,250 MG in DEXTROSE 5%-WATER 250 ML IV SCH ×2 (02:19→14:42)
[2016-09-29 04:31] LABS: ABSOLUTE BASOPHILS # (AUTO) 0.1 10^3/uL (0.0-0.2); ABSOLUTE EOSINOPHILS # (AUTO) 0.1 10^3/uL (0.0-0.6); ABSOLUTE LYMPHOCYTES (AUTO) 1.9 10^3/uL (0.5-4.7); ABSOLUTE MONOCYTES (AUTO) 1.1 10^3/uL (0.1-1.4); BASOPHILS % (AUTO) 0.4 % (0-2); EOSINOPHILS % (AUTO) 0.8 % (0-6); HEMATOCRIT 31.8 % (36.0-47.0); HEMOGLOBIN 10.5 g/dL (12.0-15.5); HGB HCT DIFFERENCE -0.3; LYMPHOCYTES % (AUTO) 15.6 % (13-45); MEAN CORPUSCULAR HEMOGLOBIN 30.2 pg (27.0-33.4); MEAN CORPUSCULAR HGB CONC 33.1 g/dL (32.0-36.0); MEAN CORPUSCULAR VOLUME 91 fl (80-97); MONOCYTES % (AUTO) 9.1 % (3-13); RED BLOOD COUNT 3.48 10^6/uL (3.72-5.28); RED CELL DISTRIBUTION WIDTH 15.4 % (11.5-14.0); SEGMENTED NEUTROPHILS % (AUTO) 74.1 % (42-78); WHITE BLOOD COUNT 12.2 10^3/uL (4.0-10.5)
[2016-09-29] MEDS: PIPERACILLIN SODIUM/TAZOBACTAM 4.5 GM in NORMAL SALINE 100 ML IV SCH ×3 (05:09→17:15)
[2016-09-29 05:10] LABS: ANION GAP 7 (5-19); BLOOD UREA NITROGEN 5 mg/dL (7-20); CALCIUM 7.7 mg/dL (8.4-10.2); CARBON DIOXIDE 24 mmol/L (22-30); CHLORIDE 102 mmol/L (98-107); CREATININE RESULT 0.45 mg/dL (0.52-1.25); GLUCOSE 112 mg/dL (75-110); SODIUM 133.1 mmol/L (137-145)
[2016-09-29 05:15] LABS: POTASSIUM 2.9 mmol/L (3.6-5.0)
[2016-09-29] MEDS: HEPARIN SOD (PORCINE) 5,000 UNIT/ML 1 ML SYRINGE SUBCUT SCH ×3 (05:17→23:16)
[2016-09-29 05:55] LABS: ADD ON TESTING BLD IN LAB ACKNOWLEDGE
[2016-09-29] MEDS: POTASSIUM CHLORIDE 20 MEQ/15 ML UDCUP PO SCH ×3 (06:11→10:27)
[2016-09-29 06:12] LABS: MAGNESIUM 1.5 mg/dL (1.6-2.3)
[2016-09-29] MEDS: MAGNESIUM SULFATE/D5W 1 GM/100 ML RTUPB IV SCH ×2 (08:20→10:00)
[2016-09-29] MEDS: METFORMIN HCL 500 MG TABLET PO SCH (08:20)
[2016-09-29] MEDS: DOCUSATE SODIUM 100 MG CAPSULE PO SCH (10:24)
[2016-09-29] MEDS: DILTIAZEM HCL 240 MG CAPSULE.CR PO SCH (10:27)
[2016-09-29] MEDS: CARVEDILOL 6.25 MG TABLET PO SCH ×2 (10:28→22:56)
[2016-09-29] MEDS: BRIMONIDINE TARTRATE 0.2% OPH SOLN 5 ML OS SCH ×2 (10:28→23:17)
[2016-09-29] MEDS: GUAIFENESIN 600 MG TABLET.SA PO SCH ×2 (10:28→22:55)
[2016-09-29] MEDS: TIMOLOL MALEATE 0.5% OPH SOLN 5 ML OS SCH ×2 (10:29→23:17)
--- NOTE | 2016-09-29 12:04 | PDOC PROGRESS REPORT ---
Subjective Progress Note for:: 09/29/16 Subjective:: reason for visit: f/u pneumonia, sepsis, UTI hospital course: per other's notes -"DENNIS CASTELAN is a 71 year old female with a past medical history of congestive heart failure, atrial fibrillation, diabetes, COPD and recent pneumonia requiring hospitalization was just discharged 7 days ago [facility] who over the last 24 hours has had exceptional shortness of breath nonproductive cough and a temperature of 102.6 prompting her to seek evaluation emergency room where she is found to have tachycardia, hypotension, hypoxia and a chest x-ray with residual infiltrate in addition to a urinalysis suggestive of urinary tract infection she started on empiric antibiotics for hospital-acquired pneumonia and referred to the hospitalist for admission. Patient denies palpitations chest pain or nausea vomiting or diarrhea." nursing reports she continues to prefer to sleep all day and night, only minimally participates with her care, seems disinterested and grumpy at times and she certainly is for me this morning, barely tolerating even a limited exam and unwilling to answer questions grunting most responses, other answers clipped and pointed. ROS: limited by pt's participation Physical Exam Vital Signs: Temp Pulse Resp BP Pulse Ox 98.7 F 91 20 121/65 97 09/29/16 08:00 09/29/16 08:00 09/29/16 08:00 09/29/16 08:00 09/29/16 08:00 Intake & Output 09/28/16 09/29/16 09/30/16 06:59 06:59 06:59 Intake Total 2839 1612 Output Total 1027 1750 Balance 1814 -138 Weight 79.3 kg 79.5 kg General appearance: PRESENT: no acute distress, well-developed, well-nourished, sleeping but will awaken albeit reluctantly Head exam: PRESENT: atraumatic, normocephalic Mouth exam: PRESENT: moist Respiratory exam: PRESENT: crackles, unlabored. ABSENT: accessory muscle use Cardiovascular exam: PRESENT: irregular rhythm. ABSENT: tachycardia Pulses: PRESENT: normal dorsalis pedis pulse GI/Abdominal exam: PRESENT: normal bowel sounds, soft Extremities exam: PRESENT: pedal edema Skin exam: PRESENT: warm Results Laboratory Results: 09/29/16 04:10 09/29/16 04:10 09/29/16 09/29/16 09/29/16 04:10 04:10 04:10 WBC 12.2 H RBC 3.48 L Hgb 10.5 L Hct 31.8 L MCV 91 MCH 30.2 MCHC 33.1 RDW 15.4 H Plt Count 237 Seg Neutrophils % 74.1 Lymphocytes % 15.6 Monocytes % 9.1 Eosinophils % 0.8 Basophils % 0.4 Absolute Neutrophils 9.0 H Absolute Lymphocytes 1.9 Absolute Monocytes 1.1 Absolute Eosinophils 0.1 Absolute Basophils 0.1 Sodium 133.1 L Potassium 2.9 L* Chloride 102 Carbon Dioxide 24 Anion Gap 7 BUN 5 L Creatinine 0.45 L Est GFR ( Amer) > 60 Est GFR (Non-Af Amer) > 60 Glucose 112 H Calcium 7.7 L Magnesium 1.5 L Assessment & Plan - Diagnosis (1) Pneumonia Qualifiers: Pneumonia type: due to unspecified organism Laterality: left Lung location: lower lobe of lung Qualified Code(s): J18.1 - Lobar pneumonia, unspecified organism Is this a current diagnosis for this admission?: Yes (2) Acute hypoxemic respiratory failure Is this a current diagnosis for this admission?: Yes (3) Atrial fibrillation with rapid ventricular response Is this a current diagnosis for this admission?: Yes (4) COPD (chronic obstructive pulmonary disease) Is this a current diagnosis for this admission?: Yes (5) Hypokalemia due to inadequate potassium intake Is this a current diagnosis for this admission?: YesPlan: replace and monitor (6) Hypomagnesemia Is this a current diagnosis for this admission?: YesPlan: replace and monitor (7) Fracture of left wrist Qualifiers: Encounter type: initial encounter Fracture type: closed Qualified Code(s): S62.102A - Fracture of unspecified carpal bone, left wrist, initial encounter for closed fracture (8) UTI (urinary tract infection) Qualifiers: Urinary tract infection type: acute cystitis Hematuria presence: without hematuria Qualified Code(s): N30.00 - Acute cystitis without hematuria Is this a current diagnosis for this admission?: Yes (9) Bacteremia Is this a current diagnosis for this admission?: YesPlan: with an odd enterobacter species that I suspect is contaminant as repeat cultures show no growth so far and she is very difficult venipuncture. (10) Sepsis Qualifiers: Sepsis type: sepsis due to unspecified organism Qualified Code(s): A41.9 - Sepsis, unspecified organism Is this a current diagnosis for this admission?: YesPlan: resolving. continue current care - Time Time Spent with patient: 25-34 minutes Anticipated discharge: SNF Within: within 72 hours - Plan Summary Plan Summary: she continues to make slow steady progress but is not back to baseline, her reluctance and unwillingness to participate will only delay her recovery. attempt to get her moving with PT though she will likely send them away.
[2016-09-29 19:23] LABS: ANION GAP 8 (5-19); BLOOD UREA NITROGEN 5 mg/dL (7-20); CALCIUM 7.8 mg/dL (8.4-10.2); CARBON DIOXIDE 25 mmol/L (22-30); CHLORIDE 102 mmol/L (98-107); CREATININE RESULT 0.43 mg/dL (0.52-1.25); GLUCOSE 140 mg/dL (75-110); MAGNESIUM 1.8 mg/dL (1.6-2.3); POTASSIUM 3.7 mmol/L (3.6-5.0); SODIUM 135.4 mmol/L (137-145)
[2016-09-29] MEDS ORDERED: LOPERAMIDE HCL 2 MG CAPSULE PO ONE (19:30)
[2016-09-29] MEDS ORDERED: LACTOBACILLUS ACIDOPHILUS 250 MG TAB PO ONE (19:30)
[2016-09-29] MEDS: ATORVASTATIN CALCIUM 40 MG TABLET PO SCH (22:55)
[2016-09-29] MEDS: ESCITALOPRAM OXALATE 10 MG TABLET PO SCH (22:55)
[2016-09-29] MEDS: ACETAMINOPHEN 325 MG TABLET PO PRN (23:18)
[2016-09-30] MEDS: PIPERACILLIN SODIUM/TAZOBACTAM 4.5 GM in NORMAL SALINE 100 ML IV SCH ×5 (00:49→23:41)
[2016-09-30] MEDS: VANCOMYCIN HCL 1,250 MG in DEXTROSE 5%-WATER 250 ML IV SCH (01:16)
[2016-09-30] MEDS: HEPARIN SOD (PORCINE) 5,000 UNIT/ML 1 ML SYRINGE SUBCUT SCH ×3 (05:20→21:35)
[2016-09-30 05:40] LABS: ANION GAP 6 (5-19); BLOOD UREA NITROGEN 5 mg/dL (7-20); CARBON DIOXIDE 27 mmol/L (22-30); CHLORIDE 106 mmol/L (98-107); CREATININE RESULT 0.46 mg/dL (0.52-1.25); GLUCOSE 113 mg/dL (75-110); POTASSIUM 3.4 mmol/L (3.6-5.0); SODIUM 138.7 mmol/L (137-145)
[2016-09-30 06:13] LABS: ABSOLUTE BASOPHILS # (AUTO) 0.1 10^3/uL (0.0-0.2); ABSOLUTE EOSINOPHILS # (AUTO) 0.2 10^3/uL (0.0-0.6); ABSOLUTE LYMPHOCYTES (AUTO) 1.9 10^3/uL (0.5-4.7); ABSOLUTE NEUT (AUTO) 7.5 10^3/uL (1.7-8.2); EOSINOPHILS % (AUTO) 1.5 % (0-6); HEMOGLOBIN 10.9 g/dL (12.0-15.5); HGB HCT DIFFERENCE -0.3; LYMPHOCYTES % (AUTO) 17.5 % (13-45); MEAN CORPUSCULAR HEMOGLOBIN 30.8 pg (27.0-33.4); MEAN CORPUSCULAR HGB CONC 33.1 g/dL (32.0-36.0); MEAN CORPUSCULAR VOLUME 93 fl (80-97); MONOCYTES % (AUTO) 9.4 % (3-13); RED BLOOD COUNT 3.55 10^6/uL (3.72-5.28); RED CELL DISTRIBUTION WIDTH 14.9 % (11.5-14.0); SEGMENTED NEUTROPHILS % (AUTO) 70.6 % (42-78); WHITE BLOOD COUNT 10.7 10^3/uL (4.0-10.5)
--- NOTE | 2016-09-30 10:58 | RADIOLOGY REPORT (SQ) ---
EXAM DESCRIPTION: WRIST RIGHT 3 VIEWS COMPLETED DATE/TIME: 09/30/2016 10:33 am REASON FOR STUDY: pain and swelling COMPARISON: 07/03/2013. NUMBER OF VIEWS: Three views. TECHNIQUE: AP, lateral, and oblique radiographic images acquired of the right wrist. LIMITATIONS: None. FINDINGS: MINERALIZATION: Normal. BONES: No acute fracture or dislocation. No worrisome bone lesions. Normal alignment. Degenerative ch anges at the 1st carpometacarpal joint with joint space narrowing, sclerosis, and osteophytes. JOINTS: No erosions. No nesha-articular osteopenia. Chondrocalcinosis. SOFT TISSUES: No swelling. No calcifications. OTHER: No other significant finding. IMPRESSION: CHRONIC DEGENERATIVE CHANGES. NO ACUTE FINDINGS. TECHNICAL DOCUMENTATION: JOB ID: [id number] [employer]- All Rights Reserved
--- NOTE | 2016-09-30 10:59 | RADIOLOGY REPORT (SQ) ---
EXAM DESCRIPTION: HAND RIGHT 3 VIEWS COMPLETED DATE/TIME: 09/30/2016 10:33 am REASON FOR STUDY: pain and swelling COMPARISON: 07/03/2013. EXAM PARAMETERS: NUMBER OF VIEWS: Three views. TECHNIQUE: AP, lateral and oblique radiographic images acquired of the right hand. LIMITATIONS: None. FINDINGS: MINERALIZATION: Normal. BONES: No acute fracture or dislocation. No worrisome bone lesions. Joint space narrowing with sclero sis and osteophytes, particularly at the 1st carpometacarpal joint and in the DIP joints of the finge rs. JOINTS: No erosions. No nesha-articular osteopenia. Chondrocalcinosis in the wrist. SOFT TISSUES: No swelling. No calcifications. OTHER: No other significant finding. IMPRESSION: CHRONIC DEGENERATIVE CHANGES. NO ACUTE FINDINGS. TECHNICAL DOCUMENTATION: JOB ID: [id number]- All Rights Reserved
[2016-09-30] MEDS: DILTIAZEM HCL 240 MG CAPSULE.CR PO SCH (11:28)
[2016-09-30] MEDS: GUAIFENESIN 600 MG TABLET.SA PO SCH ×2 (11:28→21:46)
[2016-09-30] MEDS: LACTOBACILLUS ACIDOPHILUS 250 MG TAB PO SCH ×2 (11:29→18:22)
[2016-09-30] MEDS: POTASSIUM CHLORIDE 10 MEQ TABLET.SA PO SCH (11:29)
[2016-09-30] MEDS: CARVEDILOL 6.25 MG TABLET PO SCH ×2 (11:29→21:34)
--- NOTE | 2016-09-30 11:34 | PDOC PROGRESS REPORT ---
Subjective Progress Note for:: 09/30/16 Subjective:: reason for visit: f/u pneumonia, sepsis, UTI hospital course: per other's notes -"DENNIS CASTELAN is a 71 year old female with a past medical history of congestive heart failure, atrial fibrillation, diabetes, COPD and recent pneumonia requiring hospitalization was just discharged 7 days ago to [facility] who over the last 24 hours has had exceptional shortness of breath nonproductive cough and a temperature of 102.6 prompting her to seek evaluation emergency room where she is found to have tachycardia, hypotension, hypoxia and a chest x-ray with residual infiltrate in addition to a urinalysis suggestive of urinary tract infection she started on empiric antibiotics for hospital-acquired pneumonia and referred to the hospitalist for admission. Patient denies palpitations chest pain or nausea vomiting or diarrhea." nursing reports she prefers to sleep all day and night, only minimally participates with her care, seems disinterested and grumpy at times. she is more alert and talkative this morning and c/o pain and swelling in her Right wrist. she denies injury to the area but notes swelling started shortly after PICC line placed. sharp, stabbing pain in the anterior wrist that radiates into her fingers and up her forearm, worse with flexion and palpation and better with elevation and rest with asct'd numbness of the fingertips at times, limited ROM due to pain, and increasing swelling of the hand over the last 24 hrs. ROS: she denies chest pain, palpitations, fevers/chills; still has some cough and very weak. all systems reviewed, as noted, remaining systems negative Physical Exam Vital Signs: Temp Pulse Resp BP Pulse Ox 97.4 F 77 19 137/96 H 100 09/30/16 08:11 09/30/16 08:11 09/30/16 08:11 09/30/16 08:11 09/30/16 08:11 Intake & Output 09/29/16 09/30/16 10/01/16 06:59 06:59 06:59 Intake Total 1612 3810 Output Total 1750 1850 Balance -138 1960 Weight 79.5 kg 79.6 kg General appearance: PRESENT: no acute distress, well-developed, well-nourished Head exam: PRESENT: atraumatic, normocephalic Eye exam: PRESENT: EOMI Mouth exam: PRESENT: moist, neck supple Neck exam: PRESENT: full ROM. ABSENT: tracheal deviation Respiratory exam: PRESENT: crackles, unlabored. ABSENT: accessory muscle use, wheezes Cardiovascular exam: PRESENT: irregular rhythm, tachycardia Pulses: PRESENT: normal radial pulses, normal dorsalis pedis pul GI/Abdominal exam: PRESENT: normal bowel sounds, soft. ABSENT: tenderness Extremities exam: PRESENT: joint swelling - rt wrist and dorsum of hand, tenderness - point tenderness over the ant wrist ligamentum but none over the PICC site which is c/d/i. ABSENT: calf tenderness, full ROM - limited in right wrist due to pain on flexion but not extension Musculoskeletal exam: PRESENT: other - weak in all major muscle groups, 4/5 at best Neurological exam: PRESENT: alert, awake, oriented to person, oriented to place Psychiatric exam: PRESENT: flat affect Skin exam: PRESENT: dry, warm Results Laboratory Results: 09/30/16 05:10 09/30/16 05:10 09/29/16 09/30/16 09/30/16 18:50 05:10 05:10 WBC 10.7 H RBC 3.55 L Hgb 10.9 L Hct 33.0 L MCV 93 MCH 30.8 MCHC 33.1 RDW 14.9 H Plt Count 240 Seg Neutrophils % 70.6 Lymphocytes % 17.5 Monocytes % 9.4 Eosinophils % 1.5 Basophils % 1.0 Absolute Neutrophils 7.5 Absolute Lymphocytes 1.9 Absolute Monocytes 1.0 Absolute Eosinophils 0.2 Absolute Basophils 0.1 Sodium 135.4 L 138.7 Potassium 3.7 3.4 L Chloride 102 106 Carbon Dioxide 25 27 Anion Gap 8 6 BUN 5 L 5 L Creatinine 0.43 L 0.46 L Est GFR ( Amer) > 60 > 60 Est GFR (Non-Af Amer) > 60 > 60 Glucose 140 H 113 H Calcium 7.8 L 8.0 L Magnesium 1.8 09/27/16 19:00 Nasophary ([facility] Only) MRSA Surveillance Culture - Final NO MRSA RECOVERED Assessment & Plan - Diagnosis (1) Wrist pain, right Is this a current diagnosis for this admission?: YesPlan: new: unclear source but started after PICC placed, possible just related to soft tissue edema that resulted causing compression of the carpal tunnel. will ck plain films for occult fracture and if none then will ck doppler for thrombus asct'd with PICC. keep elevated and ice prn for pain and swelling. (2) Pneumonia Qualifiers: Pneumonia type: due to unspecified organism Laterality: left Lung location: lower lobe of lung Qualified Code(s): J18.1 - Lobar pneumonia, unspecified organism Is this a current diagnosis for this admission?: YesPlan: improved but not back to baseline; cultures not helpful, continue IV zosyn but d /c vanc as she screened neg for MRSA. (3) Acute hypoxemic respiratory failure Is this a current diagnosis for this admission?: YesPlan: improved but not back to baseline; still on supplemental O2, continue treatment of the inciting event (pneumonia) and wean o2 off as tolerated (4) Atrial fibrillation with rapid ventricular response Is this a current diagnosis for this admission?: YesPlan: stable; rate is controlled for the most part at <110 (5) COPD (chronic obstructive pulmonary disease) Is this a current diagnosis for this admission?: Yes (6) Hypokalemia due to inadequate potassium intake Is this a current diagnosis for this admission?: YesPlan: likely due to GI losses; improved but not back to normal. replace and monitor (7) Hypomagnesemia Is this a current diagnosis for this admission?: YesPlan: likely due to GI losses; improved but not back to normal. replace and monitor (8) Fracture of left wrist Qualifiers: Encounter type: initial encounter Fracture type: closed Qualified Code(s): S62.102A - Fracture of unspecified carpal bone, left wrist, initial encounter for closed fracture (9) UTI (urinary tract infection) Qualifiers: Urinary tract infection type: acute cystitis Hematuria presence: without hematuria Qualified Code(s): N30.00 - Acute cystitis without hematuria Is this a current diagnosis for this admission?: YesPlan: ruled out with negative culture, likely either contaminant or non pathologic colonization (10) Bacteremia Is this a current diagnosis for this admission?: YesPlan: with an odd enterobacter species that I suspect is contaminant as repeat cultures show no growth so far and she is very difficult venipuncture. (11) Sepsis Qualifiers: Sepsis type: sepsis due to unspecified organism Qualified Code(s): A41.9 - Sepsis, unspecified organism Is this a current diagnosis for this admission?: Yes - Time Time Spent with patient: 35 or more minutes Medications reviewed and adjusted accordingly: Yes
--- NOTE | 2016-09-30 12:28 | RADIOLOGY REPORT (SQ) ---
EXAM DESCRIPTION: VENOUS UNILATERAL UPPER COMPLETED DATE/TIME: 09/30/2016 12:20 pm REASON FOR STUDY: Rt arm swelling distal to PICC, eval for thrombus COMPARISON: None. TECHNIQUE: Dynamic and static gould scale and color images acquired of the right arm venous system. S elected spectral images acquired with additional compression and augmentation maneuvers. The contrala teral subclavian vein and internal jugular vein were also imaged. Images stored on PACS. LIMITATIONS: None. FINDINGS: INTERNAL JUGULAR VEIN: Normal phasicity, compression, augmentation. No visualized echogeni c material on gould scale. No defects on color images. Comparison opposite side normal. SUBCLAVIAN VEIN: Normal compression, augmentation. No visualized echogenic material on gould scale. No defects on color images. AXILLARY VEIN: Normal compression, augmentation. No visualized echogenic material on gould scale. No d efects on color images. BRACHIAL VEIN: Normal compression, augmentation. No visualized echogenic material on gould scale. No d efects on color images. BASILIC VEIN: Normal compression, augmentation. No visualized echogenic material on gould scale. No de fects on color images. CEPHALIC VEIN: Normal compression, augmentation. No visualized echogenic material on gould scale. No d efects on color images. OTHER: No other significant finding. CONTRALATERAL SUBCLAVIAN VEIN AND INTERNAL JUGULAR VEIN: Normal phasicity, compression and augmentation. No visualized echogenic material on gould scale. No de fects on color images. IMPRESSION: NO EVIDENCE DVT OR SVT IN THE RIGHT ARM. TECHNICAL DOCUMENTATION: JOB ID: [id number] [employer]- All Rights Reserved
[2016-09-30] MEDS: TIMOLOL MALEATE 0.5% OPH SOLN 5 ML OS SCH ×2 (13:38→21:35)
[2016-09-30] MEDS: BRIMONIDINE TARTRATE 0.2% OPH SOLN 5 ML OS SCH ×2 (13:38→21:35)
[2016-09-30] MEDS: ACETAMINOPHEN 325 MG TABLET PO PRN (18:22)
[2016-09-30] MEDS: ATORVASTATIN CALCIUM 40 MG TABLET PO SCH (21:34)
[2016-09-30] MEDS: ESCITALOPRAM OXALATE 10 MG TABLET PO SCH (21:45)
[2016-10-01] MEDS: HEPARIN SOD (PORCINE) 5,000 UNIT/ML 1 ML SYRINGE SUBCUT SCH ×3 (05:48→21:49)
[2016-10-01] MEDS: PIPERACILLIN SODIUM/TAZOBACTAM 4.5 GM in NORMAL SALINE 100 ML IV SCH ×3 (05:48→17:47)
[2016-10-01] MEDS: LACTOBACILLUS ACIDOPHILUS 250 MG TAB PO SCH ×2 (10:06→17:46)
[2016-10-01] MEDS: POTASSIUM CHLORIDE 10 MEQ TABLET.SA PO SCH (10:06)
[2016-10-01] MEDS: DILTIAZEM HCL 240 MG CAPSULE.CR PO SCH (10:06)
[2016-10-01] MEDS: GUAIFENESIN 600 MG TABLET.SA PO SCH ×2 (10:07→21:50)
[2016-10-01] MEDS: TIMOLOL MALEATE 0.5% OPH SOLN 5 ML OS SCH ×2 (10:07→22:17)
[2016-10-01] MEDS: CARVEDILOL 6.25 MG TABLET PO SCH ×2 (10:07→21:49)
[2016-10-01] MEDS: BRIMONIDINE TARTRATE 0.2% OPH SOLN 5 ML OS SCH ×2 (10:08→21:51)
--- NOTE | 2016-10-01 10:36 | PDOC PROGRESS REPORT ---
Subjective Progress Note for:: 10/01/16 Subjective:: reason for visit: f/u pneumonia, sepsis, UTI hospital course: per other's notes -"DENNIS CASTELAN is a 71 year old female with a past medical history of congestive heart failure, atrial fibrillation, diabetes, COPD and recent pneumonia requiring hospitalization was just discharged 7 days ago to care home who over the last 24 hours has had exceptional shortness of breath nonproductive cough and a temperature of 102.6 prompting her to seek evaluation emergency room where she is found to have tachycardia, hypotension, hypoxia and a chest x-ray with residual infiltrate in addition to a urinalysis suggestive of urinary tract infection she started on empiric antibiotics for hospital-acquired pneumonia and referred to the hospitalist for admission. Patient denies palpitations chest pain or nausea vomiting or diarrhea." nursing reports she prefers to sleep all day and night, only minimally participates with her care, seems disinterested and grumpy at times. she is more alert and talkative this morning. still c/o pain and swelling in her Right wrist. she denies injury to the area but notes swelling started shortly after PICC line placed. sharp, stabbing pain in the anterior wrist that radiates into her fingers and up her forearm, worse with flexion and palpation and better with elevation and rest with asct'd numbness of the fingertips at times, limited ROM due to pain, and increasing swelling of the hand over the last 24 hrs. xray and u/s of the limb reveal only severe arthritic changes but nothing acute, she tends to keep this arm pinned under her perhaps accounting for some of the swelling. she reports that she doesn't want to get out of bed for fear of falling requiring a fair amount of reassurance from me to encourage her to work with PT. It will be difficult to disposition her if she refuses to participate in her recovery. she reports her breathing is back to baseline. ROS: she denies chest pain, palpitations, fevers/chills; still has some cough and very weak. all systems reviewed, as noted, remaining systems negative Physical Exam Vital Signs: Temp Pulse Resp BP Pulse Ox 98.2 F 102 H 18 139/87 H 100 10/01/16 07:36 10/01/16 07:36 10/01/16 07:36 10/01/16 07:36 10/01/16 07:36 Intake & Output 09/30/16 10/01/16 10/02/16 06:59 06:59 06:59 Intake Total 3810 1322 Output Total 1850 500 Balance 1960 822 Weight 79.6 kg 78.6 kg General appearance: PRESENT: no acute distress, well-developed, well-nourished Head exam: PRESENT: atraumatic, normocephalic Eye exam: PRESENT: EOMI Mouth exam: PRESENT: moist, neck supple Neck exam: PRESENT: full ROM. ABSENT: tracheal deviation Respiratory exam: PRESENT: Rt crackles, unlabored. ABSENT: accessory muscle use , wheezes Cardiovascular exam: PRESENT: irregular rhythm, tachycardia Pulses: PRESENT: normal radial pulses, normal dorsalis pedis pul GI/Abdominal exam: PRESENT: normal bowel sounds, soft. ABSENT: tenderness Extremities exam: PRESENT: joint swelling - rt wrist and dorsum of hand, tenderness - point tenderness over the ant wrist ligamentum but none over the PICC site which is c/d/i. no calf tenderness, dec ROM - limited in right wrist due to pain on flexion but not extension Musculoskeletal exam: PRESENT: other - weak in all major muscle groups, 4/5 at best Neurological exam: PRESENT: alert, awake, oriented to person, oriented to place Psychiatric exam: PRESENT: flat affect Skin exam: PRESENT: dry, warm Results Laboratory Results: 09/30/16 05:10 09/30/16 05:10 09/27/16 19:00 Nasophary ([facility] Only) MRSA Surveillance Culture - Final NO MRSA RECOVERED Impressions: Chest X-Ray 09/26/16 21:31 IMPRESSION: Interval improvement in the left basilar densities. Other findings as noted above Guidance Fluoroscopy 09/27/16 00:00 IMPRESSION: SUCCESSFUL PLACEMENT OF A 5 FR DUAL LUMEN 38 CM PICC IN THE RIGHT BASILIC VEIN. Interventional Vascular Procedure 09/27/16 00:00 IMPRESSION: SUCCESSFUL PLACEMENT OF A 5 FR DUAL LUMEN 38 CM PICC IN THE RIGHT BASILIC VEIN. PICC Line Insertion 09/27/16 00:00 IMPRESSION: SUCCESSFUL PLACEMENT OF A 5 FR DUAL LUMEN 38 CM PICC IN THE RIGHT BASILIC VEIN. Hand X-Ray 09/30/16 00:00 IMPRESSION: CHRONIC DEGENERATIVE CHANGES. NO ACUTE FINDINGS. Venous Doppler Study 09/30/16 00:00 IMPRESSION: NO EVIDENCE DVT OR SVT IN THE RIGHT ARM. Wrist X-Ray 09/30/16 00:00 IMPRESSION: CHRONIC DEGENERATIVE CHANGES. NO ACUTE FINDINGS. Assessment & Plan - Diagnosis (1) Pneumonia Qualifiers: Pneumonia type: due to unspecified organism Laterality: left Lung location: lower lobe of lung Qualified Code(s): J18.1 - Lobar pneumonia, unspecified organism Is this a current diagnosis for this admission?: YesPlan: improved but not back to baseline; cultures not helpful, continue IV zosyn and d /c'd vanc as she screened neg for MRSA. (2) Wrist pain, right Is this a current diagnosis for this admission?: YesPlan: imaging unrevealing other than severe arthritis perhaps accounting for at least some of the swelling; continue to encourage use and elevation, prn ice for the swelling (3) Acute hypoxemic respiratory failure Is this a current diagnosis for this admission?: Yes (4) Atrial fibrillation with rapid ventricular response Is this a current diagnosis for this admission?: Yes (5) COPD (chronic obstructive pulmonary disease) Is this a current diagnosis for this admission?: Yes (6) Hypokalemia due to inadequate potassium intake Is this a current diagnosis for this admission?: Yes (7) Hypomagnesemia Is this a current diagnosis for this admission?: Yes (8) Fracture of left wrist Qualifiers: Encounter type: initial encounter Fracture type: closed Qualified Code(s): S62.102A - Fracture of unspecified carpal bone, left wrist, initial encounter for closed fracture (9) UTI (urinary tract infection) Qualifiers: Urinary tract infection type: acute cystitis Hematuria presence: without hematuria Qualified Code(s): N30.00 - Acute cystitis without hematuria Is this a current diagnosis for this admission?: Yes (10) Bacteremia Is this a current diagnosis for this admission?: Yes (11) Sepsis Qualifiers: Sepsis type: sepsis due to unspecified organism Qualified Code(s): A41.9 - Sepsis, unspecified organism Is this a current diagnosis for this admission?: Yes - Time Time Spent with patient: 15-24 minutes Anticipated discharge: Home with Homehealth
[2016-10-01] MEDS: ATORVASTATIN CALCIUM 40 MG TABLET PO SCH (21:49)
[2016-10-01] MEDS: ESCITALOPRAM OXALATE 10 MG TABLET PO SCH (22:15)
[2016-10-02] MEDS: PIPERACILLIN SODIUM/TAZOBACTAM 4.5 GM in NORMAL SALINE 100 ML IV SCH ×4 (00:03→17:26)
[2016-10-02] MEDS: HEPARIN SOD (PORCINE) 5,000 UNIT/ML 1 ML SYRINGE SUBCUT SCH ×3 (05:46→22:19)
[2016-10-02] MEDS: LACTOBACILLUS ACIDOPHILUS 250 MG TAB PO SCH ×2 (09:45→17:20)
[2016-10-02] MEDS: CARVEDILOL 6.25 MG TABLET PO SCH ×2 (09:47→22:15)
[2016-10-02] MEDS: GUAIFENESIN 600 MG TABLET.SA PO SCH ×2 (09:48→22:17)
[2016-10-02] MEDS: POTASSIUM CHLORIDE 10 MEQ TABLET.SA PO SCH (09:48)
[2016-10-02] MEDS: DILTIAZEM HCL 240 MG CAPSULE.CR PO SCH (09:48)
[2016-10-02] MEDS: BRIMONIDINE TARTRATE 0.2% OPH SOLN 5 ML OS SCH ×2 (09:49→22:19)
[2016-10-02] MEDS: TIMOLOL MALEATE 0.5% OPH SOLN 5 ML OS SCH ×2 (09:49→22:19)
--- NOTE | 2016-10-02 11:57 | PDOC PROGRESS REPORT ---
Subjective Progress Note for:: 10/02/16 Subjective:: reason for visit: f/u pneumonia, sepsis, UTI hospital course: per other's notes -"DENNIS CASTELAN is a 71 year old female with a past medical history of congestive heart failure, atrial fibrillation, diabetes, COPD and recent pneumonia requiring hospitalization was just discharged 7 days ago to alf who over the last 24 hours has had exceptional shortness of breath nonproductive cough and a temperature of 102.6 prompting her to seek evaluation emergency room where she is found to have tachycardia, hypotension, hypoxia and a chest x-ray with residual infiltrate in addition to a urinalysis suggestive of urinary tract infection she started on empiric antibiotics for hospital-acquired pneumonia and referred to the hospitalist for admission. Patient denies palpitations chest pain or nausea vomiting or diarrhea." nursing reports she prefers to sleep all day and night, only minimally participates with her care, seems disinterested and grumpy at times. she is more alert and talkative this morning. still c/o pain and swelling in her Right wrist. she denies injury to the area but notes swelling started shortly after PICC line placed. sharp, stabbing pain in the anterior wrist that radiates into her fingers and up her forearm, worse with flexion and palpation and better with elevation and rest with asct'd numbness of the fingertips at times, limited ROM due to pain, and increasing swelling of the hand over the last 24 hrs. xray and u/s of the limb reveal only severe arthritic changes but nothing acute, she tends to keep this arm pinned under her perhaps accounting for some of the swelling. she reports that she doesn't want to get out of bed for fear of falling requiring a fair amount of reassurance from me to encourage her to work with PT. It will be difficult to disposition her if she refuses to participate in her recovery. she reports her breathing is back to baseline. nursing states she only got to standing position with PT yesterday but couldn't/wouldn't go any further. ROS: she denies chest pain, palpitations, fevers/chills; still has some cough and very weak. all systems reviewed, as noted, remaining systems negative Physical Exam Vital Signs: Temp Pulse Resp BP Pulse Ox 98.1 F 107 H 24 H 144/73 H 99 10/02/16 03:48 10/02/16 07:00 10/02/16 03:48 10/02/16 03:48 10/02/16 03:48 Intake & Output 10/01/16 10/02/16 10/03/16 06:59 06:59 06:59 Intake Total 1322 1200 Output Total 500 Balance 822 1200 Weight 78.6 kg 77.9 kg General appearance: PRESENT: no acute distress, well-developed, well-nourished Head exam: PRESENT: atraumatic, normocephalic Eye exam: PRESENT: EOMI Mouth exam: PRESENT: moist, neck supple Neck exam: PRESENT: full ROM. ABSENT: tracheal deviation Respiratory exam: PRESENT: Rt crackles and rales, unlabored. ABSENT: accessory muscle use, wheezes Cardiovascular exam: PRESENT: irregular rhythm, tachycardia Pulses: PRESENT: normal radial pulses, normal dorsalis pedis pul GI/Abdominal exam: PRESENT: normal bowel sounds, soft. ABSENT: tenderness Extremities exam: PRESENT: joint swelling - rt wrist and dorsum of hand improved swelling and pain and none over the PICC site which is c/d/i. no calf tenderness Musculoskeletal exam: PRESENT: other - weak in all major muscle groups, 4/5 at best Neurological exam: PRESENT: alert, awake, oriented to person, oriented to place Psychiatric exam: PRESENT: flat affect Skin exam: PRESENT: dry, warm Results Laboratory Results: 09/30/16 05:10 09/30/16 05:10 Assessment & Plan - Diagnosis (1) Pneumonia Qualifiers: Pneumonia type: due to unspecified organism Laterality: left Lung location: lower lobe of lung Qualified Code(s): J18.1 - Lobar pneumonia, unspecified organism Is this a current diagnosis for this admission?: Yes (2) Wrist pain, right Is this a current diagnosis for this admission?: Yes (3) Acute hypoxemic respiratory failure Is this a current diagnosis for this admission?: Yes (4) Atrial fibrillation with rapid ventricular response Is this a current diagnosis for this admission?: Yes (5) COPD (chronic obstructive pulmonary disease) Is this a current diagnosis for this admission?: Yes (6) Hypokalemia due to inadequate potassium intake Is this a current diagnosis for this admission?: Yes (7) Hypomagnesemia Is this a current diagnosis for this admission?: Yes (8) Fracture of left wrist Qualifiers: Encounter type: initial encounter Fracture type: closed Qualified Code(s): S62.102A - Fracture of unspecified carpal bone, left wrist, initial encounter for closed fracture (9) UTI (urinary tract infection) Qualifiers: Urinary tract infection type: acute cystitis Hematuria presence: without hematuria Qualified Code(s): N30.00 - Acute cystitis without hematuria Is this a current diagnosis for this admission?: Yes (10) Bacteremia Is this a current diagnosis for this admission?: Yes (11) Sepsis Qualifiers: Sepsis type: sepsis due to unspecified organism Qualified Code(s): A41.9 - Sepsis, unspecified organism Is this a current diagnosis for this admission?: Yes - Time Time Spent with patient: 25-34 minutes - Plan Summary Plan Summary: stay the course, encouraged participation with PT and nursing, try to increase activity as tolerated.
[2016-10-02] MEDS: ESCITALOPRAM OXALATE 10 MG TABLET PO SCH (22:15)
[2016-10-02] MEDS: ATORVASTATIN CALCIUM 40 MG TABLET PO SCH (22:16)
[2016-10-03] MEDS: PIPERACILLIN SODIUM/TAZOBACTAM 4.5 GM in NORMAL SALINE 100 ML IV SCH ×5 (00:05→23:29)
[2016-10-03] MEDS: HEPARIN SOD (PORCINE) 5,000 UNIT/ML 1 ML SYRINGE SUBCUT SCH ×3 (06:36→22:37)
[2016-10-03] MEDS: POTASSIUM CHLORIDE 10 MEQ TABLET.SA PO SCH (09:41)
[2016-10-03] MEDS: DILTIAZEM HCL 240 MG CAPSULE.CR PO SCH (09:41)
[2016-10-03] MEDS: LACTOBACILLUS ACIDOPHILUS 250 MG TAB PO SCH ×2 (09:41→17:25)
[2016-10-03] MEDS: GUAIFENESIN 600 MG TABLET.SA PO SCH ×2 (09:42→22:37)
[2016-10-03] MEDS: CARVEDILOL 6.25 MG TABLET PO SCH ×2 (09:42→22:35)
[2016-10-03] MEDS: BRIMONIDINE TARTRATE 0.2% OPH SOLN 5 ML OS SCH ×2 (09:43→22:37)
[2016-10-03] MEDS: TIMOLOL MALEATE 0.5% OPH SOLN 5 ML OS SCH ×2 (09:43→22:37)
--- NOTE | 2016-10-03 11:38 | PDOC PROGRESS REPORT ---
Subjective Progress Note for:: 10/03/16 Subjective:: reason for visit: f/u pneumonia, sepsis, UTI hospital course: per other's notes -"DENNIS CASTELAN is a 71 year old female with a past medical history of congestive heart failure, atrial fibrillation, diabetes, COPD and recent pneumonia requiring hospitalization was just discharged 7 days ago to half-way who over the last 24 hours has had exceptional shortness of breath nonproductive cough and a temperature of 102.6 prompting her to seek evaluation emergency room where she is found to have tachycardia, hypotension, hypoxia and a chest x-ray with residual infiltrate in addition to a urinalysis suggestive of urinary tract infection she started on empiric antibiotics for hospital-acquired pneumonia and referred to the hospitalist for admission. Patient denies palpitations chest pain or nausea vomiting or diarrhea." nursing reports she prefers to sleep all day and night, only minimally participates with her care, seems disinterested and grumpy at times. she is more alert and talkative over last few days. still c/o pain and swelling in her Right wrist; she denies injury to the area but notes swelling started shortly after PICC line placed, sharp, stabbing pain in the anterior wrist that radiates into her fingers and up her forearm, worse with flexion and palpation and better with elevation and rest with asct'd numbness of the fingertips at times, limited ROM due to pain, and increasing swelling of the hand over the last 24 hrs. xray and u/s of the limb reveal only severe arthritic changes but nothing acute, she tends to keep this arm pinned under her perhaps accounting for some of the swelling. she reports that she doesn't want to get out of bed for fear of falling requiring a fair amount of reassurance from me and staff to encourage her to work with PT. nursing states she only got to standing position with PT and couldn't/wouldn't go any further. ROS: she reports her breathing is back to baseline. she denies chest pain, palpitations, fevers/chills; still has some cough and very weak. all systems reviewed, as noted, remaining systems negative Physical Exam Vital Signs: Temp Pulse Resp BP Pulse Ox 98.1 F 81 18 121/80 98 10/03/16 07:46 10/03/16 07:46 10/03/16 07:46 10/03/16 07:46 10/03/16 07:46 Intake & Output 10/02/16 10/03/16 10/04/16 06:59 06:59 06:59 Intake Total 1200 1920 Balance 1200 1920 Weight 77.9 kg 75.4 kg General appearance: PRESENT: no acute distress, well-developed, well-nourished Head exam: PRESENT: atraumatic, normocephalic Eye exam: PRESENT: EOMI Mouth exam: PRESENT: moist, neck supple Neck exam: PRESENT: full ROM. ABSENT: tracheal deviation Respiratory exam: PRESENT: Rt crackles and rales, unlabored. ABSENT: accessory muscle use, wheezes Cardiovascular exam: PRESENT: irregular rhythm, tachycardia Pulses: PRESENT: normal radial pulses, normal dorsalis pedis pul GI/Abdominal exam: PRESENT: normal bowel sounds, soft. ABSENT: tenderness Extremities exam: PRESENT: joint swelling - rt wrist and dorsum of hand improved swelling and pain and none over the PICC site which is c/d/i. no calf tenderness Musculoskeletal exam: PRESENT: other - weak in all major muscle groups, 4/5 at best; Rt foot drop at rest but able to dorsal and plantar flex Neurological exam: PRESENT: alert, awake, oriented to person, oriented to place Psychiatric exam: PRESENT: flat affect Skin exam: PRESENT: dry, warm Results Laboratory Results: 09/30/16 05:10 09/30/16 05:10 09/27/16 14:55 Blood Blood Culture - Final NO GROWTH IN 5 DAYS 09/27/16 14:06 Blood Blood Culture - Final NO GROWTH IN 5 DAYS Impressions: Chest X-Ray 09/26/16 21:31 IMPRESSION: Interval improvement in the left basilar densities. Other findings as noted above Guidance Fluoroscopy 09/27/16 00:00 IMPRESSION: SUCCESSFUL PLACEMENT OF A 5 FR DUAL LUMEN 38 CM PICC IN THE RIGHT BASILIC VEIN. Interventional Vascular Procedure 09/27/16 00:00 IMPRESSION: SUCCESSFUL PLACEMENT OF A 5 FR DUAL LUMEN 38 CM PICC IN THE RIGHT BASILIC VEIN. PICC Line Insertion 09/27/16 00:00 IMPRESSION: SUCCESSFUL PLACEMENT OF A 5 FR DUAL LUMEN 38 CM PICC IN THE RIGHT BASILIC VEIN. Hand X-Ray 09/30/16 00:00 IMPRESSION: CHRONIC DEGENERATIVE CHANGES. NO ACUTE FINDINGS. Venous Doppler Study 09/30/16 00:00 IMPRESSION: NO EVIDENCE DVT OR SVT IN THE RIGHT ARM. Wrist X-Ray 09/30/16 00:00 IMPRESSION: CHRONIC DEGENERATIVE CHANGES. NO ACUTE FINDINGS. Assessment & Plan - Diagnosis (1) Pneumonia Qualifiers: Pneumonia type: due to unspecified organism Laterality: left Lung location: lower lobe of lung Qualified Code(s): J18.1 - Lobar pneumonia, unspecified organism Is this a current diagnosis for this admission?: Yes (2) Wrist pain, right Is this a current diagnosis for this admission?: Yes (3) Acute hypoxemic respiratory failure Is this a current diagnosis for this admission?: Yes (4) Atrial fibrillation with rapid ventricular response Is this a current diagnosis for this admission?: Yes (5) COPD (chronic obstructive pulmonary disease) Is this a current diagnosis for this admission?: Yes (6) Hypokalemia due to inadequate potassium intake Is this a current diagnosis for this admission?: Yes (7) Hypomagnesemia Is this a current diagnosis for this admission?: Yes (8) Fracture of left wrist Qualifiers: Encounter type: initial encounter Fracture type: closed Qualified Code(s): S62.102A - Fracture of unspecified carpal bone, left wrist, initial encounter for closed fracture (9) UTI (urinary tract infection) Qualifiers: Urinary tract infection type: acute cystitis Hematuria presence: without hematuria Qualified Code(s): N30.00 - Acute cystitis without hematuria Is this a current diagnosis for this admission?: Yes (10) Bacteremia Is this a current diagnosis for this admission?: YesPlan: with an odd enterobacter species that I suspect is contaminant as repeat cultures show no growth so far and she is very difficult venipuncture. (11) Sepsis Qualifiers: Sepsis type: sepsis due to unspecified organism Qualified Code(s): A41.9 - Sepsis, unspecified organism Is this a current diagnosis for this admission?: Yes - Time Time Spent with patient: 15-24 minutes Anticipated discharge: SNF - would be ideal and both she and her family agree, just not sure what benefits she has left. may actually benefit from permanent placement.
[2016-10-03] MEDS: ATORVASTATIN CALCIUM 40 MG TABLET PO SCH (22:36)
[2016-10-03] MEDS: ESCITALOPRAM OXALATE 10 MG TABLET PO SCH (22:36)
[2016-10-04] MEDS: PIPERACILLIN SODIUM/TAZOBACTAM 4.5 GM in NORMAL SALINE 100 ML IV SCH (06:09)
[2016-10-04] MEDS: HEPARIN SOD (PORCINE) 5,000 UNIT/ML 1 ML SYRINGE SUBCUT SCH ×3 (06:10→21:14)
[2016-10-04] MEDS: CARVEDILOL 6.25 MG TABLET PO SCH ×2 (09:51→21:12)
[2016-10-04] MEDS: POTASSIUM CHLORIDE 10 MEQ TABLET.SA PO SCH (09:52)
[2016-10-04] MEDS: DILTIAZEM HCL 240 MG CAPSULE.CR PO SCH (09:52)
[2016-10-04] MEDS: LACTOBACILLUS ACIDOPHILUS 250 MG TAB PO SCH ×2 (09:52→17:12)
[2016-10-04] MEDS: TIMOLOL MALEATE 0.5% OPH SOLN 5 ML OS SCH ×2 (09:52→21:13)
[2016-10-04] MEDS: GUAIFENESIN 600 MG TABLET.SA PO SCH ×2 (09:52→21:13)
[2016-10-04] MEDS: BRIMONIDINE TARTRATE 0.2% OPH SOLN 5 ML OS SCH ×2 (09:53→21:13)
--- NOTE | 2016-10-04 10:22 | PDOC PROGRESS REPORT ---
Subjective Progress Note for:: 10/04/16 Subjective:: reason for visit: f/u pneumonia, sepsis, UTI hospital course: per other's notes -"DENNIS CASTELAN is a 71 year old female with a past medical history of congestive heart failure, atrial fibrillation, diabetes, COPD and recent pneumonia requiring hospitalization was just discharged 7 days ago to assisted who over the last 24 hours has had exceptional shortness of breath nonproductive cough and a temperature of 102.6 prompting her to seek evaluation emergency room where she is found to have tachycardia, hypotension, hypoxia and a chest x-ray with residual infiltrate in addition to a urinalysis suggestive of urinary tract infection she started on empiric antibiotics for hospital-acquired pneumonia and referred to the hospitalist for admission. Patient denies palpitations chest pain or nausea vomiting or diarrhea." nursing reports she prefers to sleep all day and night, only minimally participates with her care, seems disinterested and grumpy at times. she is more alert and talkative over last few days. pain and swelling in her Right wrist resolved; she denies injury to the area but notes swelling started shortly after PICC line placed, sharp, xray and u/s of the limb reveal only severe arthritic changes but nothing acute, she tends to keep this arm pinned under her while in bed perhaps accounting for some of the swelling. she reports that she doesn't want to get out of bed for fear of falling requiring a fair amount of reassurance from me and staff to encourage her to work with PT. nursing states she only gets to standing position with PT and couldn't/wouldn't go any further requiring up to 4 people to get her transitioned from bed to chair. ROS: she reports her breathing is back to baseline. she denies chest pain, palpitations, fevers/chills; still has some cough and very weak. all systems reviewed, as noted, remaining systems negative Physical Exam Vital Signs: Temp Pulse Resp BP Pulse Ox 98.2 F 82 16 145/73 H 99 10/04/16 07:18 10/04/16 07:18 10/04/16 07:18 10/04/16 07:18 10/04/16 07:18 Intake & Output 10/03/16 10/04/16 10/05/16 06:59 06:59 06:59 Intake Total 1919 2003 Balance 1919 2003 Weight 75.4 kg 75.5 kg General appearance: PRESENT: no acute distress, well-developed, well-nourished Head exam: PRESENT: atraumatic, normocephalic Eye exam: PRESENT: EOMI Mouth exam: PRESENT: moist, neck supple Neck exam: PRESENT: full ROM. ABSENT: tracheal deviation Respiratory exam: PRESENT: improved Rt crackles and rales, unlabored. ABSENT: accessory muscle use, wheezes Cardiovascular exam: PRESENT: irregular rhythm, no tachycardia Pulses: PRESENT: normal radial pulses, normal dorsalis pedis pul GI/Abdominal exam: PRESENT: normal bowel sounds, soft. ABSENT: tenderness Extremities exam: PRESENT: joint swelling - rt wrist and dorsum of hand swelling and pain resolved, PICC site is c/d/i. no calf tenderness Musculoskeletal exam: PRESENT: other - weak in all major muscle groups, 4/5 at best; Rt foot drop at rest but able to dorsal and plantar flex; nursing reports it takes 4 people to get her up and transitioned to chair or OOB Neurological exam: PRESENT: alert, awake, oriented to person, oriented to place Psychiatric exam: PRESENT: flat affect Skin exam: PRESENT: dry, warm Results Laboratory Results: 09/30/16 05:10 09/30/16 05:10 Impressions: Chest X-Ray 09/26/16 21:31 IMPRESSION: Interval improvement in the left basilar densities. Other findings as noted above Guidance Fluoroscopy 09/27/16 00:00 IMPRESSION: SUCCESSFUL PLACEMENT OF A 5 FR DUAL LUMEN 38 CM PICC IN THE RIGHT BASILIC VEIN. Interventional Vascular Procedure 09/27/16 00:00 IMPRESSION: SUCCESSFUL PLACEMENT OF A 5 FR DUAL LUMEN 38 CM PICC IN THE RIGHT BASILIC VEIN. PICC Line Insertion 09/27/16 00:00 IMPRESSION: SUCCESSFUL PLACEMENT OF A 5 FR DUAL LUMEN 38 CM PICC IN THE RIGHT BASILIC VEIN. Hand X-Ray 09/30/16 00:00 IMPRESSION: CHRONIC DEGENERATIVE CHANGES. NO ACUTE FINDINGS. Venous Doppler Study 09/30/16 00:00 IMPRESSION: NO EVIDENCE DVT OR SVT IN THE RIGHT ARM. Wrist X-Ray 09/30/16 00:00 IMPRESSION: CHRONIC DEGENERATIVE CHANGES. NO ACUTE FINDINGS. Assessment & Plan - Diagnosis (1) Pneumonia Qualifiers: Pneumonia type: due to unspecified organism Laterality: left Lung location: lower lobe of lung Qualified Code(s): J18.1 - Lobar pneumonia, unspecified organism Is this a current diagnosis for this admission?: YesPlan: improved but not back to baseline; cultures not helpful, on day 7 of IV zosyn and d/c'd vanc after 5d as she screened neg for MRSA. will change to augmentin for another week and monitor her response (2) Acute hypoxemic respiratory failure Is this a current diagnosis for this admission?: YesPlan: improved but not back to baseline; still on supplemental O2, continue treatment of the inciting event (pneumonia) and wean o2 off as tolerated (3) Atrial fibrillation with rapid ventricular response Is this a current diagnosis for this admission?: YesPlan: stable; rate is controlled for the most part at <110 (4) COPD (chronic obstructive pulmonary disease) Is this a current diagnosis for this admission?: YesPlan: may be O2 dependent at this point, ck RA sat daily and continue attempts to wean off though Dr Jiménez's discharge note of 2 weeks ago noted RA sat 84% with arrangements made for home O2 so she may actually be at her new baseline. (5) Hypokalemia due to inadequate potassium intake Is this a current diagnosis for this admission?: YesPlan: likely due to GI losses from diarrhea early in her admission; improved but not back to normal. ck again in am, replace and monitor (6) Hypomagnesemia Is this a current diagnosis for this admission?: YesPlan: ck again in am and replace prn (7) Fracture of left wrist Qualifiers: Encounter type: initial encounter Fracture type: closed Qualified Code(s): S62.102A - Fracture of unspecified carpal bone, left wrist, initial encounter for closed fracture Plan: seen by dr sanchez during last admission, will reconsult him regarding change to thumb spica brace as per his chart notes. (8) Bacteremia Is this a current diagnosis for this admission?: YesPlan: with an odd enterobacter species that I suspect is contaminant as repeat cultures show no growth so far and she was very difficult venipuncture for the cultures. (9) Sepsis Qualifiers: Sepsis type: sepsis due to unspecified organism Qualified Code(s): A41.9 - Sepsis, unspecified organism Is this a current diagnosis for this admission?: YesPlan: resolved. continue current care (10) Wrist pain, right Is this a current diagnosis for this admission?: YesPlan: imaging unrevealing other than severe arthritis perhaps accounting for at least some of the swelling; continue to encourage use and elevation, prn ice for the swelling (11) UTI (urinary tract infection) Qualifiers: Urinary tract infection type: acute cystitis Hematuria presence: without hematuria Qualified Code(s): N30.00 - Acute cystitis without hematuria Is this a current diagnosis for this admission?: YesPlan: ruled out with negative culture, likely either contaminant or non pathologic colonization - Time Time Spent with patient: 25-34 minutes Medications reviewed and adjusted accordingly: Yes - Plan Summary Plan Summary: disposition is a problem, she insists she wants to go home, her son wants her in SNF permanently but her grandson says she can come home and he will take care of her. she reportedly has only one day of rehab benefits left, consult sent to [facility]. Thats all well and good but the simple fact remains that she is unable to bear her own weight and only minimally and marginally participates in ADLs so I cannot imagine a scenario where she will survive and thrive at home, outside of a monitored environment like SNF. I have NO DOUBTS that if she goes home, even with home health and senior living, she will require re-admission to an acute care hospital in under 30d.
--- NOTE | 2016-10-04 12:26 | PDOC CONSULTATION ---
History of Present Illness Admission Date/PCP: 09/27/16 02:31 NHAN MCGOWAN MD History of Present Illness: DENNIS CASTELAN is a 71 year old female sustained a left wrist fracture on . At that point patient was placed in a wrist went which she has continued since the date of injury. She has not followed up with me. Currently states her pain has resolved. Denies numbness or tingling. Denies discomfort in the right upper extremity. Past Medical History Cardiac Medical History: Reports: Atrial Fibrillation, Congestive Heart Failure , Hyperlipidema, Hypertension Denies: Myocardial Infarction, Pulmonary Embolism Pulmonary Medical History: Reports: Bronchitis, Chronic Obstructive Pulmonary Disease (COPD), Pneumonia - Pediatric Denies: Sleep Apnea Neurological Medical History: Denies: Seizures Endocrine Medical History: Reports: Diabetes Mellitus Type 2 Denies: Diabetes Mellitus Type 1, Hyperthyroidism, Hypothyroidism GI Medical History: Reports: Diverticulitis Denies: Cirrhosis, Gastroesophageal Reflux Disease, Hepatitis Musculoskeltal Medical History: Denies: Arthritis Psychiatric Medical History: Denies: Depression Infectious Medical History: Reports: Methicillin-Resistant Staph Aureus Denies: Clostridium Difficile Past Surgical History Past Surgical History: Reports: Herniorrhaphy - incisional, Hysterectomy - CHIP, Orthopedic Surgery - left hip replacement, right knee replacement. Denies: Amputation Social History Lives with: Snf Smoking Status: Unknown if Ever Smoked Frequency of Alcohol Use: None Hx Recreational Drug Use: No Drugs: None Hx Prescription Drug Abuse: No - Advance Directive Resuscitation Status: Full Code Family History Family History: Hypertension Parental Family History Reviewed: No Children Family History Reviewed: No Sibling(s) Family History Reviewed.: No Medication/Allergy Home Medications: Atorvastatin Calcium [Lipitor 40 mg Tablet] 40 mg PO QPM 09/28/16 Brimonidine Tartrate/Timolol [Combigan 0.2%-0.5% Eye Drops] 1 drop OS Q12 Budesonide/Formoterol Fumarate [Symbicort HFA 160-4.5 mcg Inhaler 6 gm] 2 puff IH Q12 09/28/16 Carvedilol [Coreg 6.25 mg Tablet] 6.25 mg PO Q12 09/28/16 Cyclobenzaprine HCl [Flexeril 5 mg Tablet] 5 mg PO TID 09/28/16 Diltiazem HCl [Cardizem Cd 240 mg Capsule.cr] 240 mg PO DAILY 09/28/16 Docusate Sodium [Colace 100 mg Capsule] 100 mg PO BID 09/28/16 Ergocalciferol (Vitamin D2) [Drisdol 50,000 unit (1.25MG) Capsule] 50,000 units PO SAINI@1000 09/28/16 Escitalopram Oxalate [Lexapro 10 mg Tablet] 10 mg PO QHS 09/28/16 Ipratropium/Albuterol Sulfate [Duoneb 3 ml Ampul] 3 ml NEB RTQ6HP PRN 09/28/16 Lisinopril [Zestril] 10 mg PO DAILY 09/28/16 Metformin HCl [Glucophage] 500 mg PO DAILY 09/28/16 Mirtazapine [Remeron 15 mg Tablet] 7.5 mg PO HSP PRN 09/28/16 Oxycodone HCl [Oxy-Ir 5 mg Tablet] 5 mg PO Q8HP PRN 09/28/16 Timolol Maleate [Timoptic 0.5% Oph Soln 5 ml] 1 drop OS Q12 09/28/16 Allergies/Adverse Reactions: morphine [Morphine] Allergy (Mild, Verified 09/26/16 22:42) "oversedated" Review of Systems All systems: as per PMH Constitutional: ABSENT: chills, fever(s), headache(s), weight gain, weight loss Eyes: ABSENT: visual disturbances Ears: ABSENT: hearing changes Cardiovascular: ABSENT: chest pain, dyspnea on exertion, edema, orthropnea, palpitations Respiratory: PRESENT: dyspnea. ABSENT: cough Gastrointestinal: ABSENT: abdominal pain, constipation, diarrhea, hematemesis, hematochezia, nausea, vomiting Genitourinary: ABSENT: dysuria, hematuria Integumentary: ABSENT: rash, wounds Neurological: ABSENT: abnormal gait, abnormal speech, confusion, dizziness, focal weakness, syncope Psychiatric: ABSENT: anxiety, depression, homidical ideation, suicidal ideation Endocrine: ABSENT: cold intolerance, heat intolerance, menstrual abnormalities, polydipsia, polyuria Hematologic/Lymphatic: ABSENT: easy bleeding, easy bruising, lymphadenopathy Physical Exam Vital Signs: Temp Pulse Resp BP Pulse Ox 98.5 F 74 16 147/72 H 99 10/04/16 12:00 10/04/16 12:00 10/04/16 12:00 10/04/16 12:00 10/04/16 12:00 Intake & Output 10/03/16 10/04/16 10/05/16 06:59 06:59 06:59 Intake Total 1919 2003 237 Balance 1919 Weight 75.4 kg 75.5 kg General appearance: PRESENT: no acute distress, well-developed, well-nourished Head exam: PRESENT: atraumatic, normocephalic Eye exam: PRESENT: conjunctiva pink, EOMI, PERRLA. ABSENT: scleral icterus Ear exam: PRESENT: normal external ear exam Mouth exam: PRESENT: moist, tongue midline Neck exam: PRESENT: full ROM. ABSENT: carotid bruit, JVD, lymphadenopathy, thyromegaly Respiratory exam: PRESENT: unlabored, wheezes Cardiovascular exam: ABSENT: diastolic murmur, rubs, systolic murmur Pulses: PRESENT: normal dorsalis pedis pul, +2 pedal pulses bilateral Vascular exam: PRESENT: normal capillary refill GI/Abdominal exam: PRESENT: normal bowel sounds, soft. ABSENT: distended, guarding, mass, organolmegaly, rebound, tenderness Rectal exam: PRESENT: deferred Musculoskeletal exam: PRESENT: other - Left upper extremity: Splint removed today. No tenderness to palpation. No evidence of skin breakdown. No evidence of deformity. No crepitus with range of motion. Patient able to make full composite fist. EPL/FPL intact. Neurological exam: PRESENT: alert, awake, oriented to person, oriented to place , oriented to time, oriented to situation, CN II-XII grossly intact. ABSENT: motor sensory deficit Psychiatric exam: PRESENT: appropriate affect, normal mood. ABSENT: homicidal ideation, suicidal ideation Skin exam: PRESENT: dry, intact, warm. ABSENT: cyanosis, rash Results Laboratory Results: 09/30/16 05:10 09/30/16 05:10 Impressions: Chest X-Ray 09/26/16 21:31 IMPRESSION: Interval improvement in the left basilar densities. Other findings as noted above Guidance Fluoroscopy 09/27/16 00:00 IMPRESSION: SUCCESSFUL PLACEMENT OF A 5 FR DUAL LUMEN 38 CM PICC IN THE RIGHT BASILIC VEIN. Interventional Vascular Procedure 09/27/16 00:00 IMPRESSION: SUCCESSFUL PLACEMENT OF A 5 FR DUAL LUMEN 38 CM PICC IN THE RIGHT BASILIC VEIN. PICC Line Insertion 09/27/16 00:00 IMPRESSION: SUCCESSFUL PLACEMENT OF A 5 FR DUAL LUMEN 38 CM PICC IN THE RIGHT BASILIC VEIN. Hand X-Ray 09/30/16 00:00 IMPRESSION: CHRONIC DEGENERATIVE CHANGES. NO ACUTE FINDINGS. Venous Doppler Study 09/30/16 00:00 IMPRESSION: NO EVIDENCE DVT OR SVT IN THE RIGHT ARM. Wrist X-Ray 09/30/16 00:00 IMPRESSION: CHRONIC DEGENERATIVE CHANGES. NO ACUTE FINDINGS. Assessment & Plan - Diagnosis (1) Fracture of left wrist Qualifiers: Encounter type: initial encounter Fracture type: closed Qualified Code(s): S62.102A - Fracture of unspecified carpal bone, left wrist, initial encounter for closed fracture Is this a current diagnosis for this admission?: YesPlan: Patient sustained a left extra-articular distal radius fracture approximately 1 month ago. She has no tenderness to palpation at the fracture site. At this point I do not feel she requires strict immobilization since it is limiting her function. We will obtain radiographs today once complete I will recheck and discuss treatment options.
--- NOTE | 2016-10-04 14:15 | RADIOLOGY REPORT (SQ) ---
EXAM DESCRIPTION: WRIST LEFT 3 VIEWS COMPLETED DATE/TIME: 10/04/2016 1:19 pm REASON FOR STUDY: Fracture COMPARISON: 09/04/2016.None. NUMBER OF VIEWS: Three views. TECHNIQUE: AP, lateral, and oblique radiographic images acquired of the left wrist. LIMITATIONS: None. FINDINGS: MINERALIZATION: Normal. BONES: No clear-cut acute fracture or dislocation. There is deformity of the distal radius which ap pears be due to old fracture. Corticated structure at the ulnar styloid. Degenerative joint disease , particularly at the 1st carpometacarpal joint. No worrisome bone lesions. Normal alignment. SOFT TISSUES: No soft tissue swelling. No foreign body. OTHER: No other significant finding. IMPRESSION: CHRONIC DEGENERATIVE CHANGES AND PROBABLE OLD FRACTURE OF THE DISTAL RADIUS. NO DEFINIT E ACUTE FINDINGS. IF THE PATIENT REMAINS SYMPTOMATIC, FOLLOW-UP WITH CT OR MRI MAY BE CONSIDERED. TECHNICAL DOCUMENTATION: JOB ID: [id number] [employer]- All Rights Reserved
[2016-10-04] MEDS: AMOXICILLIN TR/POT CLAVULANATE 500-125 MG TAB PO SCH ×2 (14:29→21:13)
[2016-10-04] MEDS: ESCITALOPRAM OXALATE 10 MG TABLET PO SCH (21:12)
[2016-10-04] MEDS: ATORVASTATIN CALCIUM 40 MG TABLET PO SCH (21:13)
[2016-10-05 04:28] LABS: ABSOLUTE BASOPHILS # (AUTO) 0.1 10^3/uL (0.0-0.2); ABSOLUTE EOSINOPHILS # (AUTO) 0.3 10^3/uL (0.0-0.6); ABSOLUTE LYMPHOCYTES (AUTO) 1.9 10^3/uL (0.5-4.7); ABSOLUTE MONOCYTES (AUTO) 0.8 10^3/uL (0.1-1.4); ABSOLUTE NEUT (AUTO) 7.7 10^3/uL (1.7-8.2); BASOPHILS % (AUTO) 0.7 % (0-2); EOSINOPHILS % (AUTO) 2.6 % (0-6); HEMATOCRIT 34.3 % (36.0-47.0); HEMOGLOBIN 11.5 g/dL (12.0-15.5); HGB HCT DIFFERENCE 0.2; LYMPHOCYTES % (AUTO) 17.5 % (13-45); MEAN CORPUSCULAR HEMOGLOBIN 30.9 pg (27.0-33.4); MEAN CORPUSCULAR HGB CONC 33.7 g/dL (32.0-36.0); MEAN CORPUSCULAR VOLUME 92 fl (80-97); MONOCYTES % (AUTO) 7.8 % (3-13); RED BLOOD COUNT 3.74 10^6/uL (3.72-5.28); RED CELL DISTRIBUTION WIDTH 15.5 % (11.5-14.0); SEGMENTED NEUTROPHILS % (AUTO) 71.4 % (42-78); WHITE BLOOD COUNT 10.8 10^3/uL (4.0-10.5)
[2016-10-05 04:45] LABS: ANION GAP 8 (5-19); BLOOD UREA NITROGEN 6 mg/dL (7-20); CALCIUM 8.9 mg/dL (8.4-10.2); CARBON DIOXIDE 27 mmol/L (22-30); CHLORIDE 104 mmol/L (98-107); CREATININE RESULT 0.47 mg/dL (0.52-1.25); GLUCOSE 112 mg/dL (75-110); MAGNESIUM 1.8 mg/dL (1.6-2.3); POTASSIUM 4.2 mmol/L (3.6-5.0); SODIUM 138.5 mmol/L (137-145)
[2016-10-05] MEDS: AMOXICILLIN TR/POT CLAVULANATE 500-125 MG TAB PO SCH (05:15)
[2016-10-05] MEDS: HEPARIN SOD (PORCINE) 5,000 UNIT/ML 1 ML SYRINGE SUBCUT SCH (05:16)
--- NOTE | 2016-10-05 10:27 | PDOC PROGRESS REPORT ---
Subjective Progress Note for:: 10/05/16 Subjective:: Patient was seen on morning rounds. She is resting comfortably in bed. She denies any shortness of breath, dyspnea or palpitations. She denies any chest pain or dizziness. She denies any nausea, vomiting or abdominal pain. She denies any left wrist pain. The remaining review of systems are negative. Physical Exam Vital Signs: Temp Pulse Resp BP Pulse Ox 98.0 F 84 16 151/78 H 97 10/05/16 07:14 10/05/16 07:14 10/05/16 07:14 10/05/16 07:14 10/05/16 07:14 Intake & Output 10/04/16 10/05/16 10/06/16 06:59 06:59 06:59 Intake Total 2003 984 Balance 2003 984 Weight 75.5 kg 75.2 kg General appearance: PRESENT: no acute distress, well-developed, well-nourished Head exam: PRESENT: atraumatic, normocephalic Eye exam: PRESENT: conjunctiva pink, EOMI, PERRLA. ABSENT: scleral icterus Ear exam: PRESENT: normal external ear exam Mouth exam: PRESENT: moist, tongue midline Neck exam: ABSENT: carotid bruit, JVD, lymphadenopathy, thyromegaly Respiratory exam: PRESENT: clear to auscultation mike. ABSENT: rales, rhonchi, wheezes Cardiovascular exam: PRESENT: RRR. ABSENT: diastolic murmur, rubs, systolic murmur Pulses: PRESENT: normal dorsalis pedis pul Vascular exam: PRESENT: normal capillary refill GI/Abdominal exam: PRESENT: normal bowel sounds, soft. ABSENT: distended, guarding, mass, organolmegaly, rebound, tenderness Rectal exam: PRESENT: deferred Extremities exam: PRESENT: full ROM. ABSENT: calf tenderness, clubbing, pedal edema Neurological exam: PRESENT: alert, awake, oriented to person, oriented to place , oriented to time, oriented to situation, CN II-XII grossly intact. ABSENT: motor sensory deficit Psychiatric exam: PRESENT: flat affect Skin exam: PRESENT: dry, intact, warm. ABSENT: cyanosis, rash Results Laboratory Results: 10/05/16 04:10 10/05/16 04:10 10/05/16 10/05/16 04:10 04:10 WBC 10.8 H RBC 3.74 Hgb 11.5 L Hct 34.3 L MCV 92 MCH 30.9 MCHC 33.7 RDW 15.5 H Plt Count 351 Seg Neutrophils % 71.4 Lymphocytes % 17.5 Monocytes % 7.8 Eosinophils % 2.6 Basophils % 0.7 Absolute Neutrophils 7.7 Absolute Lymphocytes 1.9 Absolute Monocytes 0.8 Absolute Eosinophils 0.3 Absolute Basophils 0.1 Sodium 138.5 Potassium 4.2 Chloride 104 Carbon Dioxide 27 Anion Gap 8 BUN 6 L Creatinine 0.47 L Est GFR ( Amer) > 60 Est GFR (Non-Af Amer) > 60 Glucose 112 H Calcium 8.9 Magnesium 1.8 Impressions: Chest X-Ray 09/26/16 21:31 IMPRESSION: Interval improvement in the left basilar densities. Other findings as noted above Guidance Fluoroscopy 09/27/16 00:00 IMPRESSION: SUCCESSFUL PLACEMENT OF A 5 FR DUAL LUMEN 38 CM PICC IN THE RIGHT BASILIC VEIN. Interventional Vascular Procedure 09/27/16 00:00 IMPRESSION: SUCCESSFUL PLACEMENT OF A 5 FR DUAL LUMEN 38 CM PICC IN THE RIGHT BASILIC VEIN. PICC Line Insertion 09/27/16 00:00 IMPRESSION: SUCCESSFUL PLACEMENT OF A 5 FR DUAL LUMEN 38 CM PICC IN THE RIGHT BASILIC VEIN. Hand X-Ray 09/30/16 00:00 IMPRESSION: CHRONIC DEGENERATIVE CHANGES. NO ACUTE FINDINGS. Venous Doppler Study 09/30/16 00:00 IMPRESSION: NO EVIDENCE DVT OR SVT IN THE RIGHT ARM. Wrist X-Ray 10/04/16 00:00 IMPRESSION: CHRONIC DEGENERATIVE CHANGES AND PROBABLE OLD FRACTURE OF THE DISTAL RADIUS. NO DEFINITE ACUTE FINDINGS. IF THE PATIENT REMAINS SYMPTOMATIC , FOLLOW-UP WITH CT OR MRI MAY BE CONSIDERED. Assessment & Plan - Diagnosis (1) Pneumonia Qualifiers: Pneumonia type: due to unspecified organism Laterality: left Lung location: lower lobe of lung Qualified Code(s): J18.1 - Lobar pneumonia, unspecified organism Is this a current diagnosis for this admission?: YesPlan: Continue oral antibiotic therapy (2) Acute hypoxemic respiratory failure Is this a current diagnosis for this admission?: YesPlan: Resolving towards baseline (3) Atrial fibrillation with rapid ventricular response Is this a current diagnosis for this admission?: Yes (4) Bacteremia Is this a current diagnosis for this admission?: NoPlan: Resolved (5) COPD (chronic obstructive pulmonary disease) Qualifiers: COPD type: COPD with acute exacerbation Qualified Code(s): J44.1 - Chronic obstructive pulmonary disease with (acute) exacerbation Is this a current diagnosis for this admission?: Yes (6) Hyperlipidemia Qualifiers: Hyperlipidemia type: mixed hyperlipidemia Qualified Code(s): E78.2 - Mixed hyperlipidemia Is this a current diagnosis for this admission?: YesPlan: Continue statin (7) Hypokalemia due to inadequate potassium intake Is this a current diagnosis for this admission?: YesPlan: Replete and monitor (8) Hypomagnesemia Is this a current diagnosis for this admission?: YesPlan: Replete as needed (9) Sepsis Qualifiers: Sepsis type: sepsis due to unspecified organism Qualified Code(s): A41.9 - Sepsis, unspecified organism Is this a current diagnosis for this admission?: NoPlan: Resolved (10) Diabetes mellitus type 2 in obese Is this a current diagnosis for this admission?: YesPlan: Continue current medications and sliding scale coverage - Time Time Spent with patient: 25-34 minutes Critical Time spent with patient: 15-24 minutes Medications reviewed and adjusted accordingly: Yes Anticipated discharge: Home with Homehealth
[2016-10-05] MEDS: POTASSIUM CHLORIDE 10 MEQ TABLET.SA PO SCH (10:29)
[2016-10-05] MEDS: CARVEDILOL 6.25 MG TABLET PO SCH (10:30)
[2016-10-05] MEDS: GUAIFENESIN 600 MG TABLET.SA PO SCH (10:30)
[2016-10-05] MEDS: DILTIAZEM HCL 240 MG CAPSULE.CR PO SCH (10:30)
[2016-10-05] MEDS: TIMOLOL MALEATE 0.5% OPH SOLN 5 ML OS SCH (10:31)
[2016-10-05] MEDS: LACTOBACILLUS ACIDOPHILUS 250 MG TAB PO SCH (10:31)
[2016-10-05] MEDS: BRIMONIDINE TARTRATE 0.2% OPH SOLN 5 ML OS SCH (10:32)
[2016-10-05 13:55] VITALS: BP 114/68
--- NOTE | 2016-10-05 14:20 | PDOC DISCHARGE SUMMARY ---
General - Admit/Disc Date/PCP Admission Date/Primary Care Provider: 09/27/16 02:31 NHAN MCGOWAN MD Discharge Date: 10/05/16 - Discharge Diagnosis (1) Pneumonia Is this a current diagnosis for this admission?: YesSummary: Improved. Patient will be discharged on Augmentin 875 mg bid x 5 more days (2) Acute hypoxemic respiratory failure Is this a current diagnosis for this admission?: YesSummary: Resolved to baseline oxygen requirements of 3l/min via nc (3) Atrial fibrillation with rapid ventricular response Is this a current diagnosis for this admission?: YesSummary: Rate controlled (4) Bacteremia Is this a current diagnosis for this admission?: NoSummary: Resolved (5) COPD (chronic obstructive pulmonary disease) Is this a current diagnosis for this admission?: YesSummary: Continue oxygen and inhalers (6) Hyperlipidemia Is this a current diagnosis for this admission?: YesSummary: Continue statin (7) Hypokalemia due to inadequate potassium intake Is this a current diagnosis for this admission?: YesSummary: Repleted (8) Hypomagnesemia Is this a current diagnosis for this admission?: YesSummary: Repleted (9) Sepsis Is this a current diagnosis for this admission?: NoSummary: Resolved (10) Diabetes mellitus type 2 in obese Is this a current diagnosis for this admission?: Yes - Additional Information Resuscitation Status: Full Code Discharge Diet: Cardiac, Diabetic Discharge Activity: Activity As Tolerated, Balance Activity w/Rest Home Medications: Atorvastatin Calcium [Lipitor 40 mg Tablet] 40 mg PO QPM 09/28/16 Brimonidine Tartrate/Timolol [Combigan 0.2%-0.5% Eye Drops] 1 drop OS Q12 Budesonide/Formoterol Fumarate [Symbicort HFA 160-4.5 mcg Inhaler 6 gm] 2 puff IH Q12 09/28/16 Carvedilol [Coreg 6.25 mg Tablet] 6.25 mg PO Q12 09/28/16 Cyclobenzaprine HCl [Flexeril 5 mg Tablet] 5 mg PO TID 09/28/16 Diltiazem HCl [Cardizem Cd 240 mg Capsule.cr] 240 mg PO DAILY 09/28/16 Docusate Sodium [Colace 100 mg Capsule] 100 mg PO BID 09/28/16 Ergocalciferol (Vitamin D2) [Drisdol 50,000 unit (1.25MG) Capsule] 50,000 units PO SAINI@1000 09/28/16 Escitalopram Oxalate [Lexapro 10 mg Tablet] 10 mg PO QHS 09/28/16 Ipratropium/Albuterol Sulfate [Duoneb 3 ml Ampul] 3 ml NEB RTQ6HP PRN 09/28/16 Lisinopril [Zestril] 10 mg PO DAILY 09/28/16 Metformin HCl [Glucophage] 500 mg PO DAILY 09/28/16 Mirtazapine [Remeron 15 mg Tablet] 7.5 mg PO HSP PRN 09/28/16 Oxycodone HCl [Oxy-Ir 5 mg Tablet] 5 mg PO Q8HP PRN 09/28/16 Timolol Maleate [Timoptic 0.5% Oph Soln 5 ml] 1 drop OS Q12 09/28/16 Acetaminophen [Tylenol 325 mg Tablet] 650 mg PO Q4HP PRN tablet 10/05/16 Amox Tr/Potassium Clavulanate [Augmentin 875-125 mg Tablet] 1 tab PO BID #20 tablet 10/05/16 History of Present Illness Patient complains of: Cough, shortness of breath and fever History of Present Illness: DENNIS CASTELAN is a 71 year old female with a past medical history of congestive heart failure, atrial fibrillation, diabetes, COPD and recent pneumonia requiring hospitalization was just discharged 7 days ago to [facility] who over the last 24 hours has had exceptional shortness of breath nonproductive cough and a temperature of 102.6 prompting her to seek evaluation emergency room where she is found to have tachycardia, hypotension, hypoxia and a chest x-ray with residual infiltrate in addition to a urinalysis suggestive of urinary tract infection she started on empiric antibiotics for hospital- acquired pneumonia and referred to the hospitalist for admission. Patient denies palpitations chest pain or nausea vomiting or diarrhea. Hospital Course Hospital Course: "DENNIS CASTELAN is a 71 year old female with a past medical history of congestive heart failure, atrial fibrillation, diabetes, COPD and recent pneumonia requiring hospitalization was just discharged 7 days ago to [facility] who over the last 24 hours has had exceptional shortness of breath nonproductive cough and a temperature of 102.6 prompting her to seek evaluation emergency room where she is found to have tachycardia, hypotension, hypoxia and a chest x-ray with residual infiltrate in addition to a urinalysis suggestive of urinary tract infection she started on empiric antibiotics for hospital- acquired pneumonia and referred to the hospitalist for admission. Patient denies palpitations chest pain or nausea vomiting or diarrhea." Nursing reports she prefers to sleep all day and night, only minimally participates with her care, seems disinterested and grumpy at times. she is more alert and talkative over last few days. pain and swelling in her Right wrist resolved; she denies injury to the area but notes swelling started shortly after PICC line placed, sharp, xray and u/s of the limb reveal only severe arthritic changes but nothing acute, she tends to keep this arm pinned under her while in bed perhaps accounting for some of the swelling. She reports that she doesn't want to get out of bed for fear of falling requiring a fair amount of reassurance from me and staff to encourage her to work with PT. nursing states she only gets to standing position with PT and couldn't/wouldn't go any further requiring up to 4 people to get her transitioned from bed to chair. ROS: she reports her breathing is back to baseline. she denies chest pain, palpitations, fevers/chills; still has some cough and very weak. all systems reviewed, as noted, remaining systems negative Physical Exam Vital Signs: Temp Pulse Resp BP Pulse Ox 98.6 F 84 18 114/68 97 10/05/16 13:53 10/05/16 13:53 10/05/16 13:53 10/05/16 13:53 10/05/16 13:53 Intake & Output 10/04/16 10/05/16 10/06/16 06:59 06:59 06:59 Intake Total 2003 984 Balance 2003 984 Weight 75.5 kg 75.2 kg General appearance: PRESENT: no acute distress, well-developed, well-nourished Head exam: PRESENT: atraumatic, normocephalic Eye exam: PRESENT: conjunctiva pink, EOMI, PERRLA. ABSENT: scleral icterus Ear exam: PRESENT: bleeding Mouth exam: PRESENT: moist, tongue midline Neck exam: ABSENT: carotid bruit, JVD, lymphadenopathy, thyromegaly Respiratory exam: PRESENT: decreased breath sounds, symmetrical, unlabored Cardiovascular exam: PRESENT: irregular rhythm, +S1, +S2 Pulses: PRESENT: normal carotid pulses, normal radial pulses Vascular exam: PRESENT: normal capillary refill GI/Abdominal exam: PRESENT: normal bowel sounds, soft. ABSENT: distended, guarding, mass, organolmegaly, rebound, tenderness Rectal exam: PRESENT: deferred Extremities exam: PRESENT: full ROM. ABSENT: calf tenderness, clubbing, pedal edema Neurological exam: PRESENT: alert, awake, oriented to person, oriented to place , oriented to time, oriented to situation, CN II-XII grossly intact. ABSENT: motor sensory deficit Psychiatric exam: PRESENT: flat affect Skin exam: PRESENT: dry, intact, warm. ABSENT: cyanosis, rash Results Laboratory Results: 10/05/16 04:10 10/05/16 04:10 10/05/16 10/05/16 04:10 04:10 WBC 10.8 H RBC 3.74 Hgb 11.5 L Hct 34.3 L MCV 92 MCH 30.9 MCHC 33.7 RDW 15.5 H Plt Count 351 Seg Neutrophils % 71.4 Lymphocytes % 17.5 Monocytes % 7.8 Eosinophils % 2.6 Basophils % 0.7 Absolute Neutrophils 7.7 Absolute Lymphocytes 1.9 Absolute Monocytes 0.8 Absolute Eosinophils 0.3 Absolute Basophils 0.1 Sodium 138.5 Potassium 4.2 Chloride 104 Carbon Dioxide 27 Anion Gap 8 BUN 6 L Creatinine 0.47 L Est GFR ( Amer) > 60 Est GFR (Non-Af Amer) > 60 Glucose 112 H Calcium 8.9 Magnesium 1.8 Impressions: Chest X-Ray 09/26/16 21:31 IMPRESSION: Interval improvement in the left basilar densities. Other findings as noted above Guidance Fluoroscopy 09/27/16 00:00 IMPRESSION: SUCCESSFUL PLACEMENT OF A 5 FR DUAL LUMEN 38 CM PICC IN THE RIGHT BASILIC VEIN. Interventional Vascular Procedure 09/27/16 00:00 IMPRESSION: SUCCESSFUL PLACEMENT OF A 5 FR DUAL LUMEN 38 CM PICC IN THE RIGHT BASILIC VEIN. PICC Line Insertion 09/27/16 00:00 IMPRESSION: SUCCESSFUL PLACEMENT OF A 5 FR DUAL LUMEN 38 CM PICC IN THE RIGHT BASILIC VEIN. Hand X-Ray 09/30/16 00:00 IMPRESSION: CHRONIC DEGENERATIVE CHANGES. NO ACUTE FINDINGS. Venous Doppler Study 09/30/16 00:00 IMPRESSION: NO EVIDENCE DVT OR SVT IN THE RIGHT ARM. Wrist X-Ray 10/04/16 00:00 IMPRESSION: CHRONIC DEGENERATIVE CHANGES AND PROBABLE OLD FRACTURE OF THE DISTAL RADIUS. NO DEFINITE ACUTE FINDINGS. IF THE PATIENT REMAINS SYMPTOMATIC , FOLLOW-UP WITH CT OR MRI MAY BE CONSIDERED. Qualifiers PATEINT BEING DISCHARGED WITH ANY OF THE FOLLOWING DIAGNOSIS?: No Plan Discharge Plan: Home with family, home health aide, PT, OT, social work and jail Time Spent: Less than 30 Minutes
== END 2016-10-05 14:26 | disposition home health service (06) | DRG 871 ==
LOC: ER 21:29 → EH 09-27 02:31 → 3S 09-27 06:38
PROVIDERS: ADMIT Internal Medicine; ATTEND Internal Medicine
PROC: 02HV33Z Insertion of Infusion Device into Superior Vena Cava, Percutaneous Approach (ICD-10-PCS; principal; 2016-09-27)
PROC: B5181ZA Fluoroscopy of Superior Vena Cava using Low Osmolar Contrast, Guidance (ICD-10-PCS; 2016-09-27)
PROC: B548ZZA Ultrasonography of Superior Vena Cava, Guidance (ICD-10-PCS; 2016-09-27)
DX: A41.9 Sepsis, unspecified organism (principal); J18.1 Lobar pneumonia, unspecified organism; J96.01 Acute respiratory failure with hypoxia; J44.0 Chronic obstructive pulmonary disease with (acute) lower respiratory infection; J44.1 Chronic obstructive pulmonary disease with (acute) exacerbation; N30.00 Acute cystitis without hematuria; I50.42 Chronic combined systolic (congestive) and diastolic (congestive) heart failure; I48.2 Chronic atrial fibrillation; E87.6 Hypokalemia; S62.102A Fracture of unspecified carpal bone, left wrist, initial encounter for closed fracture; I10 Essential (primary) hypertension; E78.2 Mixed hyperlipidemia; E83.42 Hypomagnesemia; E11.9 Type 2 diabetes mellitus without complications; Z79.899 Other long term (current) drug therapy; Z79.84 Long term (current) use of oral hypoglycemic drugs; Z87.19 Personal history of other diseases of the digestive system; Z90.710 Acquired absence of both cervix and uterus; Z96.642 Presence of left artificial hip joint; Z96.651 Presence of right artificial knee joint; Z86.14 Personal history of Methicillin resistant Staphylococcus aureus infection; Z88.8 Allergy status to other drugs, medicaments and biological substances
CPT/HCPCS: 36415; 36569; 51702; 71010; 76937; 77001; 80048; 80053; 80202; 81001; 82803; 82962; 83605; 83735; 85025; 87040; 87077; 87086; 87186; 87493; 93005; 93010; 93971; 94667; 94668; 94799; 96361; 96365; 96367; 99291; G8978-GP; G8979-GP; J1642; J1644; J2543; J3370; J3475; J3480; J3490; J7030; J7060; J7620

== ENCOUNTER → 2016-12-04 | Outpatient (CLI) | payer MEDICARE, BC, OTHER ==
[2016-12-04 12:30] LABS: ABSOLUTE BASOPHILS # (AUTO) 0.1 10^3/uL (0.0-0.2); ABSOLUTE EOSINOPHILS # (AUTO) 0.2 10^3/uL (0.0-0.6); ABSOLUTE LYMPHOCYTES (AUTO) 2.1 10^3/uL (0.5-4.7); ABSOLUTE MONOCYTES (AUTO) 0.7 10^3/uL (0.1-1.4); ABSOLUTE NEUT (AUTO) 7.8 10^3/uL (1.7-8.2); BASOPHILS % (AUTO) 0.7 % (0-2); EOSINOPHILS % (AUTO) 1.4 % (0-6); HEMATOCRIT 43.9 % (36.0-47.0); HEMOGLOBIN 15.1 g/dL (12.0-15.5); HGB HCT DIFFERENCE 1.4; LYMPHOCYTES % (AUTO) 19.3 % (13-45); MEAN CORPUSCULAR HEMOGLOBIN 30.9 pg (27.0-33.4); MEAN CORPUSCULAR HGB CONC 34.5 g/dL (32.0-36.0); MEAN CORPUSCULAR VOLUME 90 fl (80-97); MONOCYTES % (AUTO) 6.6 % (3-13); RED CELL DISTRIBUTION WIDTH 15.1 % (11.5-14.0); WHITE BLOOD COUNT 10.8 10^3/uL (4.0-10.5)
[2016-12-04 12:58] LABS: ALANINE AMINOTRANSFERASE 32 U/L (9-52); ALBUMIN 3.8 g/dL (3.5-5.0); ALKALINE PHOSPHATASE 76 U/L (38-126); ANION GAP 9 (5-19); ASPARTATE AMINO TRANSFERASE 20 U/L (14-36); BILIRUBIN,DIRECT 0.4 mg/dL (0.0-0.4); BILIRUBIN,TOTAL 0.8 mg/dL (0.2-1.3); BLOOD UREA NITROGEN 11 mg/dL (7-20); CALCIUM 9.5 mg/dL (8.4-10.2); CARBON DIOXIDE 32 mmol/L (22-30); CHLORIDE 103 mmol/L (98-107); CREATININE RESULT 0.55 mg/dL (0.52-1.25); GLUCOSE 89 mg/dL (75-110); POTASSIUM 3.7 mmol/L (3.6-5.0); SODIUM 143.6 mmol/L (137-145)
== END ==
LOC: OD 11:13
PROVIDERS: ATTEND Physician Assistant
DX: I10 Essential (primary) hypertension (principal); D72.89 Other specified disorders of white blood cells; E11.9 Type 2 diabetes mellitus without complications; Z79.899 Other long term (current) drug therapy
CPT/HCPCS: 36415; 80053; 85025

== ENCOUNTER 2017-10-03 16:56 | Emergency (ER) | payer MEDICARE, BC, OTHER ==
--- NOTE | 2017-10-03 17:04 | ER Document Report ---
ED General - General Stated Complaint: POSSIBLE STROKE Time Seen by Provider: 10/03/17 17:03 TRAVEL OUTSIDE OF THE [place] IN LAST 30 DAYS: No - HPI Patient complains to provider of: Stroke Notes: 72-year-old female presents altered mental status. Last known normal approximately 3:30 this afternoon. Patient was sitting in a wheelchair eating [place] with her grandkids acutely dropped her food she was holding eyes were then locked to the right she is profoundly garbled speech not answering questions appropriately. Patient has entire left-sided hemiparalysis is moving her right arm right and agitated fashion nonverbal gaze deviated to the right. Patient presents after grandson found his grandmother like this. She is normally interactive and appropriate. - Related Data Allergies/Adverse Reactions: morphine [Morphine] Allergy (Mild, Verified 09/26/16 22:42) "oversedated" Past Medical History - Social History Smoking Status: Unknown if Ever Smoked Family History: Hypertension - Past Medical History Cardiac Medical History: Reports: Hx Atrial Fibrillation, Hx Congestive Heart Failure, Hx Hypercholesterolemia, Hx Hypertension Denies: Hx Heart Attack, Hx Pulmonary Embolism Pulmonary Medical History: Reports: Hx Bronchitis, Hx COPD, Hx Pneumonia - Pediatric Denies: Hx Sleep Apnea Neurological Medical History: Reports: Hx Cerebrovascular Accident. Denies: Hx Seizures Endocrine Medical History: Reports: Hx Diabetes Mellitus Type 2. Denies: Hx Diabetes Mellitus Type 1, Hx Hyperthyroidism, Hx Hypothyroidism Renal/ Medical History: Denies: Hx Peritoneal Dialysis GI Medical History: Reports: Hx Diverticulitis. Denies: Hx Cirrhosis, Hx Gastroesophageal Reflux Disease, Hx Hepatitis, Hx Pancreatitis Musculoskeletal Medical History: Denies Hx Arthritis, Reports Hx Musculoskeletal Deformity, Reports Hx Musculoskeletal Trauma Skin Medical History: Reports Hx MRSA - abdominal wall, resolved. Psychiatric Medical History: Denies: Hx Depression Traumatic Medical History: Reports: Hx Fractures - "LT arm", no surgery Infectious Medical History: Reports: Hx MRSA. Denies: Hx C-Diff, Hx Hepatitis Past Surgical History: Reports: Hx Abdominal Surgery - abdominal abscess, Hx Herniorrhaphy - incisional, Hx Hysterectomy - CHIP, Hx Orthopedic Surgery - left hip replacement, right knee replacement. - Immunizations Hx Diphtheria, Pertussis, Tetanus Vaccination: No Hx Pneumococcal Vaccination: 06/05/13 Review of Systems - Review of Systems -: Yes ROS unobtainable due to patient's medical condition Physical Exam - Notes Notes: PHYSICAL EXAMINATION: GENERAL: The acute distress. HEAD: Atraumatic, normocephalic. EYES: Was our reactive gaze forced to the right. ENT: nares patent, oropharynx clear without exudates. Moist mucous membranes. NECK: Normal range of motion, supple without lymphadenopathy LUNGS: Breath sounds clear to auscultation bilaterally and equal. No wheezes rales or rhonchi. HEART: Regular rate and rhythm without murmurs ABDOMEN: Soft, nontender, normoactive bowel sounds. No guarding, no rebound. No masses appreciated. EXTREMITIES: Left sided total hemiparesis NEUROLOGICAL: Phasic patient somewhat agitated not speaking appropriately moving right arm "fidgety" Course - Re-evaluation Re-evalutation: Patient presents with severe neurologic deficit, NIH stroke scale 26, race 9. Patient presents 2 hours from last known normal. Consult [facility] for code elbow. Patient is not on any blood thinners with the family knows of. Takes a daily aspirin. No history of hemorrhagic stroke. 10/03/17 17:37 10/03/17 18:03 Consult [facility] speak with Dr. Cornell Giron guarding case. Patient will be initiating TPA therapy here in the department. Patient will then be transported emergently for possible intervention in definitive management. Arrange for transport via transfer center. This time NIH stroke scale is unchanged after initiating TPA bolus and infusion in the department. Patient is managing her own airway at this time no need for intubation. - Laboratory Result Diagrams: 10/03/17 17:17 10/03/17 17:17 Laboratory results interpreted by me: 10/03/17 10/03/17 17:12 17:17 WBC 12.1 H RDW 14.1 H Absolute Neutrophils 8.9 H POC Glucose 141 H Critical Care Note - Critical Care Note Total time excluding time spent on procedures (mins): 39 Discharge - Discharge Referrals: DB ZAPATA PA-C [Primary Care Provider] - Follow up as needed
[2017-10-03] MEDS ORDERED: METOPROLOL TARTRATE PF/INJ 5 MG/5 ML SDV IV ONE ×2 (17:29→17:35)
[2017-10-03 17:32] LABS: ABSOLUTE BASOPHILS # (AUTO) 0.1 10^3/uL (0.0-0.2); ABSOLUTE EOSINOPHILS # (AUTO) 0.1 10^3/uL (0.0-0.6); ABSOLUTE NEUT (AUTO) 8.9 10^3/uL (1.7-8.2); BASOPHILS % (AUTO) 0.9 % (0-2); EOSINOPHILS % (AUTO) 0.8 % (0-6); HEMATOCRIT 45.3 % (36.0-47.0); HEMOGLOBIN 15.1 g/dL (12.0-15.5); LYMPHOCYTES % (AUTO) 16.1 % (13-45); MEAN CORPUSCULAR HGB CONC 33.3 g/dL (32.0-36.0); MEAN CORPUSCULAR VOLUME 90 fl (80-97); MONOCYTES % (AUTO) 8.6 % (3-13); PLATELET COUNT 390 10^3/uL (150-450); RED BLOOD COUNT 5.02 10^6/uL (3.72-5.28); RED CELL DISTRIBUTION WIDTH 14.1 % (11.5-14.0); SEGMENTED NEUTROPHILS % (AUTO) 73.6 % (42-78); TOTAL CELLS COUNTED % (AUTO) 100 %; WHITE BLOOD COUNT 12.1 10^3/uL (4.0-10.5)
--- NOTE | 2017-10-03 17:34 | RADIOLOGY REPORT (SQ) ---
EXAM DESCRIPTION: CHEST SINGLE VIEW portable COMPLETED DATE/TIME: 10/03/2017 5:05 pm REASON FOR STUDY: Stroke-like symptoms COMPARISON: 09/26/2016 EXAM PARAMETERS: NUMBER OF VIEWS: One view. TECHNIQUE: Single frontal radiographic view of the chest acquired. RADIATION DOSE: NA LIMITATIONS: None. FINDINGS: LUNGS AND PLEURA: A few patchy bibasilar densities are same, concerning for minimal infilt rate. Lungs otherwise clear. MEDIASTINUM AND HILAR STRUCTURES: No masses. Contour normal. HEART AND VASCULAR STRUCTURES: Heart normal in size. Normal vasculature. BONES: No acute findings. HARDWARE: None in the chest. OTHER: No other significant finding. IMPRESSION: Patchy bibasilar infiltrate. TECHNICAL DOCUMENTATION: JOB ID: [id number] [employer]- All Rights Reserved Reading location - IP/workstation name: [email or web address]
--- NOTE | 2017-10-03 17:39 | RADIOLOGY REPORT (SQ) ---
EXAM DESCRIPTION: CT HEAD WITHOUT COMPLETED DATE/TIME: 10/03/2017 5:09 pm REASON FOR STUDY: Stroke-like symptoms COMPARISON: 05/10/2016 TECHNIQUE: Axial images acquired through the brain without intravenous contrast. Images reviewed wi th bone, brain and subdural windows. Additional sagittal and coronal reconstructions were generated. Images stored on PACS. All CT scanners at this facility use dose modulation, iterative reconstruction, and/or weight based d osing when appropriate to reduce radiation dose to as low as reasonably achievable (ALARA). [facility]: Dose Right [facility]: CareDose [facility]: Dose Right [facility]: Teradose 4D [facility]: [employer] RADIATION DOSE: CT Rad equipment meets quality standard of care and radiation dose reduction techniq ues were employed. CTDIvol: 53.2 mGy. DLP: 2088 mGy-cm. mGy. LIMITATIONS: None. FINDINGS: VENTRICLES: Normal size and contour. CEREBRUM: Cortical atrophy. Bilateral occipital infarctions. The one on the right is better define d than on the earlier study. No masses. No hemorrhage. No midline shift. No evidence for acute in farction. Extensive areas of low density in the white matter most likely chronic small vessel ischemi c changes. CEREBELLUM: No masses. No hemorrhage. No alteration of density. No evidence for acute infarction. EXTRAAXIAL SPACES: No fluid collections. No masses. ORBITS AND GLOBE: No intra- or extraconal masses. Normal contour of globe without masses. CALVARIUM: No fracture. PARANASAL SINUSES: Small mucous retention cyst in the left maxillary sinus. SOFT TISSUES: No mass or hematoma. OTHER: No other significant finding. IMPRESSION: Microvascular ischemia and generalized atrophy. No acute imaging findings in the brain. The right occipital infarction is better defined than on the earlier study from 05/10/2016. EVIDENCE OF ACUTE STROKE: No. COMMENT: Findings were discussed with the ordering physician at 1734 hours on this date. Quality ID # [id number]: Final reports with documentation of one or more dose reduction techniques (e.g., Au tomated exposure control, adjustment of the mA and/or kV according to patient size, use of iterative reconstruction technique) TECHNICAL DOCUMENTATION: JOB ID: [id number] [employer]- All Rights Reserved Reading location - IP/workstation name: [email or web address]
--- NOTE | 2017-10-03 17:51 | EKG REPORT ---
SEVERITY:- ABNORMAL ECG - ATRIAL FIBRILLATION, V-RATE 97-149 LVH WITH IVCD, LAD AND SECONDARY REPOL ABNRM : Confirmed by: Sean Conklin 03-Oct-2017 17:50:56
[2017-10-03] MEDS ORDERED: ALTEPLASE INJ 100 MG VIAL ONE (17:55)
[2017-10-03 18:15] LABS: INTERNATIONAL RATION (INR) 0.96; PROTHROMBIN TIME 13.3 SEC (11.4-15.4)
[2017-10-03 18:31] LABS: ALANINE AMINOTRANSFERASE 26 U/L (9-52); ALKALINE PHOSPHATASE 64 U/L (38-126); ANION GAP 13 (5-19); ASPARTATE AMINO TRANSFERASE 20 U/L (14-36); BILIRUBIN,DIRECT 0.3 mg/dL (0.0-0.4); BILIRUBIN,TOTAL 0.8 mg/dL (0.2-1.3); BLOOD UREA NITROGEN 17 mg/dL (7-20); CALCIUM 9.2 mg/dL (8.4-10.2); CARBON DIOXIDE 27 mmol/L (22-30); CHLORIDE 102 mmol/L (98-107); CREATINE KINASE 52 U/L (30-135); GLUCOSE 105 mg/dL (75-110); POTASSIUM 3.7 mmol/L (3.6-5.0); SODIUM 142.3 mmol/L (137-145); TOTAL PROTEIN 7.5 g/dL (6.3-8.2)
[2017-10-03 18:43] LABS: CREATINE KINASE MB 2.14 ng/mL (<4.55)
[2017-10-03 18:48] LABS: TROPONIN I 0.219 ng/mL
[2017-10-03 20:09] VITALS: BP 136/122
== END 2017-10-03 18:05 | disposition short-term general hospital (02) ==
LOC: ER 16:56
DX: I63.9 Cerebral infarction, unspecified (principal); G81.94 Hemiplegia, unspecified affecting left nondominant side; R47.9 Unspecified speech disturbances; R29.726 NIHSS score 26; I10 Essential (primary) hypertension; J44.9 Chronic obstructive pulmonary disease, unspecified; E11.9 Type 2 diabetes mellitus without complications; Z79.02 Long term (current) use of antithrombotics/antiplatelets; Z88.5 Allergy status to narcotic agent
CPT/HCPCS: 93005; 99291; 96374; 96375; 36415; 82553; 82962; 82550; 85025; 85610; 85730; 80053; 84484; 71045; 70450; 93010; J3490; J2997